=== PATIENT | male | born 1940 | race Caucasian/White ===

== ENCOUNTER → 2017-03-10 | Outpatient (CLI) | payer MEDICARE ==
[2017-03-10 09:50] LABS: ALT 25 U/L (21-72); AST 21 U/L (17-59); Alkaline Phosphatase 56 U/L (38-126); Anion Gap 7 mmol/L; Blood Urea Nitrogen 16 mg/dL (9-20); Calcium 8.8 mg/dL (8.4-10.2); Carbon Dioxide 28 mmol/L (22-30); Chloride 107 mmol/L (98-107); Cholesterol 150 mg/dL (<200); Glucose 105 mg/dL (74-99); HDL Cholesterol 50 mg/dL (40-60); Non-African American GFR(MDRD) >60 (>60 ml/min/1.73 sqM); Potassium 4.3 mmol/L (3.5-5.1); Sodium 142 mmol/L (137-145); Total Bilirubin 0.6 mg/dL (0.2-1.3); Total Protein 6.8 g/dL (6.3-8.2); Triglycerides 64 mg/dL (<150)
== END | disposition home or self-care (01) ==
LOC: LABWHC1 08:55
PROVIDERS: ATTEND Internal Medicine Interventional Cardiology
DX: E78.2 Mixed hyperlipidemia (principal)
CPT/HCPCS: 36415; 80053; 80061

== ENCOUNTER → 2018-04-29 | Outpatient (CLI) | payer MEDICARE ==
[2018-04-29 09:49] LABS: ALT 30 U/L (21-72); AST 23 U/L (17-59); Albumin 3.9 g/dL (3.5-5.0); Alkaline Phosphatase 48 U/L (38-126); Anion Gap 8 mmol/L; Blood Urea Nitrogen 17 mg/dL (9-20); Calcium 9.2 mg/dL (8.4-10.2); Carbon Dioxide 28 mmol/L (22-30); Chloride 105 mmol/L (98-107); Cholesterol 145 mg/dL (<200); Glucose 119 mg/dL (74-99); HDL Cholesterol 49 mg/dL (40-60); LDL Cholesterol,Calculated 83 mg/dL (0-99); Potassium 4.6 mmol/L (3.5-5.1); Sodium 141 mmol/L (137-145); Total Bilirubin 0.6 mg/dL (0.2-1.3); Total Protein 6.3 g/dL (6.3-8.2); Triglycerides 63 mg/dL (<150)
== END | disposition home or self-care (01) ==
LOC: LABWHC1 09:15
PROVIDERS: ATTEND Internal Medicine Interventional Cardiology
DX: E78.2 Mixed hyperlipidemia (principal)
CPT/HCPCS: 36415; 80053; 80061

== ENCOUNTER → 2018-12-18 | Outpatient (CLI) | payer MEDICARE ==
[2018-12-18 16:57] LABS: Albumin 4.1 g/dL (3.80-4.90); Albumin/Globulin Ratio 2.16 (1.60-3.17); Anion Gap 9.9 mmol/L (4.00-12.00); Carbon Dioxide 27.1 mmol/L (21.6-31.8); Globulin 1.9 g/dL (1.6-3.3); LDL Cholesterol,Calculated 93.2 mg/dL (0.0-131.0); Potassium 4.2 mmol/L (3.5-5.5); Total Bilirubin 0.7 mg/dL (0.2-1.2); VLDL Calculation 13.8 mg/dL (5.00-40.00)
== END | disposition home or self-care (01) ==
LOC: LABWHC1 09:07
PROVIDERS: ATTEND Internal Medicine Interventional Cardiology
DX: E78.2 Mixed hyperlipidemia (principal)
CPT/HCPCS: 36415; 80053; 80061

== ENCOUNTER 2018-12-31 14:53 | Inpatient (IN) | payer MEDICARE ==
[2018-12-31] MEDS ORDERED: ASPIRIN 81 MG PO STA (15:14)
[2018-12-31] MEDS ORDERED: NITROGLYCERIN OINT 1 INCH/GM PACKET TOPICAL STA (15:14)
--- NOTE | 2018-12-31 15:30 | ED ---
General Adult HPI - General Chief complaint: Chest Pain Stated complaint: Chest pain Time Seen by Provider: 12/31/18 15:13 Source: patient, RN notes reviewed Mode of arrival: ambulatory Limitations: no limitations - History of Present Illness Initial comments: 78-year-old male with a past medical history of coronary artery disease, 7 stents, diabetes mellitus, hyperlipidemia, hypertension, SC presents to the emergency department for a chief complaint of chest pressure. Patient states this has been on and off for the past week but has worsened today. Patient states this discomfort is worse with exertion. States he can usually walk up his basement stairs without difficulty but today started to walk up 7 stairs and had shortness of breath with chest pressure. Patient denies any radiating pain. Patient does admit to mild nausea.Patient has no other complaints at this time including shortness of breath, chest pain, abdominal pain, nausea or vomiting, headache, or visual changes. - Related Data Home Medications Medication Instructions Recorded Confirmed Levothyroxine Sodium [Synthroid] 50 mcg PO DAILY 05/18/14 12/31/18 glipiZIDE [Glucotrol] 2.5 mg PO HS 05/18/14 12/31/18 Aspirin EC [Ecotrin] 325 mg PO DAILY@1200 12/25/14 12/31/18 Chlorpheniramine Maleate 4 mg PO QID 12/14/15 12/31/18 [Chlor-Trimeton] Clopidogrel [Plavix] 75 mg PO DAILY@1200 12/14/15 12/31/18 Montelukast [Singulair] 10 mg PO HS 12/14/15 12/31/18 Omeprazole [PriLOSEC] 20 mg PO AC-BID 12/14/15 12/31/18 Atorvastatin [Lipitor] 80 mg PO HS 02/15/16 12/31/18 Tamsulosin [Flomax] 0.4 mg PO HS 12/31/18 12/31/18 amLODIPine [Norvasc] 5 mg PO BID 12/31/18 12/31/18 glipiZIDE [Glucotrol] 5 mg PO AC-BRKFST 12/31/18 12/31/18 Previous Rx's Medication Instructions Recorded Isosorbide Mononitrate ER [Imdur] 30 mg PO DAILY #90 tab.er.24h 12/16/15 Nitroglycerin Sl Tabs [Nitrostat] 0.4 mg SUBLINGUAL Q5M PRN #25 tab 12/16/15 Allergies Allergy/AdvReac Type Severity Reaction Status Date / Time No Known Allergies Allergy Verified 12/31/18 15:51 Review of Systems ROS Statement: Those systems with pertinent positive or pertinent negative responses have been documented in the HPI. ROS Other: All systems not noted in ROS Statement are negative. Past Medical History Past Medical History: Asthma, Coronary Artery Disease (CAD), Diabetes Mellitus, Hyperlipidemia, Hypertension, Myocardial Infarction (SC), Pneumonia, Thyroid Disorder Additional Past Medical History / Comment(s): gout, Last Myocardial Infarction Date:: unknown History of Any Multi-Drug Resistant Organisms: None Reported Past Surgical History: Coronary Bypass/CABG, Heart Catheterization, Heart Catheterization With Stent, Joint Replacement, Orthopedic Surgery Additional Past Surgical History / Comment(s): total 7 stents, left shoulder rotator cuff, blaire knee replacements, blaire carpal tunnel, Past Anesthesia/Blood Transfusion Reactions: No Reported Reaction Additional Past Anesthesia/Blood Transfusion Reaction / Comment(s): states comes out with restless legs Date of Last Stent Placement:: 2013 Past Psychological History: No Psychological Hx Reported Smoking Status: Former smoker Past Alcohol Use History: None Reported Past Drug Use History: None Reported - Past Family History Father Family Medical History: Coronary Artery Disease (CAD) Additional Family Medical History / Comment(s): ENLARGED HEART, HAD RAILROAD ACCIDENT FLATTENED BY DOOR OF A BOXCAR- DIES AT AGE 74 Mother Family Medical History: Cancer, Hypertension Additional Family Medical History / Comment(s): FEW YEARS AGO UNK CAUSE Daughter(s) Family Medical History: Cancer Brother(s) Family Medical History: Cancer General Exam Limitations: no limitations General appearance: alert, in no apparent distress Head exam: Present: atraumatic, normocephalic, normal inspection Eye exam: Present: normal appearance, PERRL, EOMI. Absent: scleral icterus, conjunctival injection, periorbital swelling ENT exam: Present: normal exam, mucous membranes moist Neck exam: Present: normal inspection, full ROM. Absent: tenderness, menin gismus, lymphadenopathy Respiratory exam: Present: normal lung sounds bilaterally. Absent: respiratory distress, wheezes, rales, rhonchi, stridor, chest wall tenderness Cardiovascular Exam: Present: regular rate, normal rhythm, normal heart sounds. Absent: systolic murmur, diastolic murmur, rubs, gallop, clicks GI/Abdominal exam: Present: soft, normal bowel sounds. Absent: distended, tenderness, guarding, rebound, rigid Extremities exam: Present: normal capillary refill (Refill less than 2 seconds, radial pulse 2+ in upper extremities bilaterally) Neurological exam: Present: alert, oriented X3, CN II-XII intact Psychiatric exam: Present: normal affect, normal mood Course Vital Signs 12/31/18 14:54 Temperature 98.2 F Pulse Rate 70 Respiratory 20 Rate Blood Pressure 141/76 O2 Sat by Pulse 99 Oximetry EKG Findings - EKG Comments: EKG Findings:: Normal sinus rhythm, ventricular rate 80, CO interval 144, QTC 446 Medical Decision Making - Medical Decision Making 78-year-old male with a past medical history of CAD, 7 stents, diabetes mellitus, hyperlipidemia, hypertension, SC presents to the emergency department for a chief clinic chest pressure. This has been on and off for the past week but worsened today. Worse with exertion. Patient unable to walk up 7 stairs from his basement which she is normally able to do. Denies radiating pain. Patient did have a stress test 2 weeks ago, has not received results yet. Exam is unremarkable. Vitals are stable. EKG does not show ST elevation or depression. labs are unremarkable. Troponin is negative. However give the symptom description, cardiac history, and worsening pain just today he will be admitted for trending troponins and cardiology consult. - Lab Data Result diagrams: 12/31/18 15:20 12/31/18 15:20 Lab Results 12/31/18 12/31/18 12/31/18 Range/Units 15:20 15:20 15:20 WBC 6.3 (3.8-10.6) k/uL RBC 4.43 (4.30-5.90) m/uL Hgb 13.9 (13.0-17.5) gm/dL Hct 42.6 (39.0-53.0) % MCV 96.2 (80.0-100.0) fL MCH 31.3 (25.0-35.0) pg MCHC 32.6 (31.0-37.0) g/dL RDW 14.0 (11.5-15.5) % Plt Count 201 (150-450) k/uL Neutrophils % 68 % Lymphocytes % 20 % Monocytes % 8 % Eosinophils % 2 % Basophils % 1 % Neutrophils # 4.3 (1.3-7.7) k/uL Lymphocytes # 1.2 (1.0-4.8) k/uL Monocytes # 0.5 (0-1.0) k/uL Eosinophils # 0.1 (0-0.7) k/uL Basophils # 0.1 (0-0.2) k/uL PT (9.0-12.0) sec INR (<1.2) APTT (22.0-30.0) sec Sodium 140 (137-145) mmol/L Potassium 4.0 (3.5-5.1) mmol/L Chloride 106 (98-107) mmol/L Carbon Dioxide 24 (22-30) mmol/L Anion Gap 10 mmol/L BUN 18 (9-20) mg/dL Creatinine 1.19 (0.66-1.25) mg/dL Est GFR (CKD-EPI)AfAm 66 (>60 ml/min/1.73 sqM) Est GFR (CKD-EPI)NonAf 57 (>60 ml/min/1.73 sqM) Glucose 120 H (74-99) mg/dL Calcium 9.5 (8.4-10.2) mg/dL Magnesium 2.0 (1.6-2.3) mg/dL Total Bilirubin 0.7 (0.2-1.3) mg/dL AST 23 (17-59) U/L ALT 27 (21-72) U/L Alkaline Phosphatase 49 (38-126) U/L Troponin I (0.000-0.034) ng/mL NT-Pro-B Natriuret Pep 132 pg/mL Total Protein 6.5 (6.3-8.2) g/dL Albumin 3.9 (3.5-5.0) g/dL Amylase 44 (30-110) U/L Lipase 23 (23-300) U/L 12/31/18 12/31/18 Range/Units 15:20 15:20 WBC (3.8-10.6) k/uL RBC (4.30-5.90) m/uL Hgb (13.0-17.5) gm/dL Hct (39.0-53.0) % MCV (80.0-100.0) fL MCH (25.0-35.0) pg MCHC (31.0-37.0) g/dL RDW (11.5-15.5) % Plt Count (150-450) k/uL Neutrophils % % Lymphocytes % % Monocytes % % Eosinophils % % Basophils % % Neutrophils # (1.3-7.7) k/uL Lymphocytes # (1.0-4.8) k/uL Monocytes # (0-1.0) k/uL Eosinophils # (0-0.7) k/uL Basophils # (0-0.2) k/uL PT 10.0 (9.0-12.0) sec INR 0.9 (<1.2) APTT 23.2 (22.0-30.0) sec Sodium (137-145) mmol/L Potassium (3.5-5.1) mmol/L Chloride (98-107) mmol/L Carbon Dioxide (22-30) mmol/L Anion Gap mmol/L BUN (9-20) mg/dL Creatinine (0.66-1.25) mg/dL Est GFR (CKD-EPI)AfAm (>60 ml/min/1.73 sqM) Est GFR (CKD-EPI)NonAf (>60 ml/min/1.73 sqM) Glucose (74-99) mg/dL Calcium (8.4-10.2) mg/dL Magnesium (1.6-2.3) mg/dL Total Bilirubin (0.2-1.3) mg/dL AST (17-59) U/L ALT (21-72) U/L Alkaline Phosphatase (38-126) U/L Troponin I <0.012 (0.000-0.034) ng/mL NT-Pro-B Natriuret Pep pg/mL Total Protein (6.3-8.2) g/dL Albumin (3.5-5.0) g/dL Amylase (30-110) U/L Lipase (23-300) U/L - EKG Data -: EKG Interpreted by Me (and Dr Edwards) When compared to previous EKG there are: no significant change Disposition Clinical Impression: Chest pain Disposition: ADMITTED IP TO THIS HOSP Condition: Fair Referrals: Kate Steiner MD [Primary Care Provider] - 1-2 days Time of Disposition: 17:11
[2018-12-31 15:39] LABS: Basophils # (A) 0.1 k/uL (0-0.2); Basophils % (A) 1 %; Eosinophils # (A) 0.1 k/uL (0-0.7); Eosinophils % (A) 2 %; HCT 42.6 % (39.0-53.0); HGB 13.9 gm/dL (13.0-17.5); Lymphocytes # (A) 1.2 k/uL (1.0-4.8); Lymphocytes % (A) 20 %; MCH 31.3 pg (25.0-35.0); MCHC 32.6 g/dL (31.0-37.0); MCV 96.2 fL (80.0-100.0); Mean Platelet Volume 7.8; Monocytes # (A) 0.5 k/uL (0-1.0); Monocytes % (A) 8 %; Neutrophils # (A) 4.3 k/uL (1.3-7.7); Neutrophils % (A) 68 %; Platelet Count 201 k/uL (150-450); RBC 4.43 m/uL (4.30-5.90); WBC 6.3 k/uL (3.8-10.6)
[2018-12-31 15:41] LABS: Albumin 3.9 g/dL (3.5-5.0); Calcium 9.5 mg/dL (8.4-10.2); Total Bilirubin 0.7 mg/dL (0.2-1.3); Total Protein 6.5 g/dL (6.3-8.2)
[2018-12-31 15:44] LABS: INR 0.9 (<1.2); Partial Thromboplastin Time 23.2 sec (22.0-30.0)
--- NOTE | 2018-12-31 16:42 | XR ---
EXAMINATION TYPE: XR chest 2V DATE OF EXAM: 12/31/2018 COMPARISON: 02/14/2016 HISTORY: Asthma. Chest pain TECHNIQUE: Frontal and lateral views of the chest are obtained. FINDINGS: There is some mild patchy linear density at the lung bases. There are sternal wires. There is right shoulder prosthesis. There is no heart failure. Heart size is normal. Thoracic aorta is ath eromatous. IMPRESSION: Patchy basilar atelectasis increased compared to old exam. Normal heart.
[2018-12-31] MEDS ORDERED: SODIUM CHLORIDE 0.9% 1,000 ML IV STA (17:10)
[2018-12-31] MEDS: NITROGLYCERIN SL TABS 0.4 MG TAB SUBLINGUAL PRN ×2 (19:31→20:45)
[2019-01-01 03:51] LABS: Cholesterol 147 mg/dL (<200); HDL Cholesterol 48 mg/dL (40-60); LDL Cholesterol,Calculated 86 mg/dL (0-99); Triglycerides 65 mg/dL (<150)
[2019-01-01] MEDS ORDERED: ATORVASTATIN 80 MG TAB PO STA (08:43)
[2019-01-01] MEDS ORDERED: ASPIRIN 325 MG TAB PO STA (08:43)
[2019-01-01] MEDS ORDERED: ALPRAZolam 0.5 MG TAB PO PRN (08:43)
[2019-01-01] MEDS ORDERED: SODIUM CHLORIDE 0.9% 1,000 ML in EMPTY BAG 1 BAG IV ONE (08:43)
[2019-01-01] MEDS ORDERED: ALPRAZolam 0.25 MG TAB PO PRN (08:43)
[2019-01-01] MEDS ORDERED: NITROGLYCERIN SL TABS 0.4 MG TAB SUBLINGUAL PRN ×2 (08:43→11:21)
[2019-01-01] MEDS ORDERED: ASPIRIN 325 MG TAB PO SCH (09:00)
[2019-01-01] MEDS: ISOSORBIDE MONONITRATE ER 30 MG TAB.ER.24H PO SCH (09:12)
[2019-01-01] MEDS: diphenhydrAMINE 25 MG CAP PO SCH ×4 (09:13→18:37)
[2019-01-01] MEDS: PANTOPRAZOLE 40 MG TABLET PO SCH (09:13)
[2019-01-01] MEDS: amLODIPine 5 MG TAB PO SCH ×3 (09:13→21:16)
[2019-01-01] MEDS ORDERED: fentaNYL (PF) 50 MCG/ML 2 ML AMP ONE (09:40)
[2019-01-01] MEDS ORDERED: LIDOCAINE 1% INJ 10MG/ML (20 ML MDV) ONE (09:40)
[2019-01-01] MEDS ORDERED: IV FLUID CONTINUATION 1,000 ML IV ONE (10:28)
[2019-01-01] MEDS ORDERED: fentaNYL (PF) 50 MCG/ML 2 ML AMP IVP ONE (10:28)
[2019-01-01] MEDS ORDERED: LIDOCAINE 1% INJ 10MG/ML (20 ML MDV) SQ ONE ×2 (10:30)
[2019-01-01] MEDS ORDERED: BIVALIRUDIN BOLUS 250 MG/50 ML IV ONE (10:43)
[2019-01-01] MEDS ORDERED: BIVALIRUDIN 250 MG in SODIUM CHLORIDE 0.9% 50 ML IV ONE (10:44)
[2019-01-01] MEDS ORDERED: NITROGLYCERIN 1000MCG/10ML SYRINGE INTRACORON ONE ×2 (10:46→10:50)
--- NOTE | 2019-01-01 10:47 | CONS ---
CONSULTATION Mr. Weber is an 78-year-old male with a known history of coronary artery disease, status post bypass grafting who presented to the emergency room with symptoms of chest discomfort. His discomfort started about a week ago and worse yesterday, exertion in pattern, similar to the symptoms he had in 2016, prior to his percutaneous revascularization. He has underwent coronary bypass grafting in 1998 with BOOGIE to LAD, saphenous vein graft to the right coronary artery. Subsequently in 2003, underwent stenting of the proximal LAD, 2009 of the saphenous vein graft to the right coronary artery, In 2013 saphenous vein graft to the right coronary artery. In 2016, he presented with symptoms of chest discomfort, anginal in pattern, underwent repeat cardiac catheterization at that time and was found to have chronically occluded right coronary artery, mild disease in proximal LAD, patent saphenous vein graft to the right coronary artery with severe stenosis in the distal anastomotic site. The left circumflex was nondominant, giving rise to 2 obtuse marginal branch that had no evidence of high-grade stenosis. He subsequently underwent stenting of the saphenous vein graft to the right coronary artery in the distal segment using a 3.25 x 18 mm Xience stent. He has done well since that time. He has been complaining of dyspnea on exertion with his chest discomfort. He has no PND, orthopnea, or peripheral edema. No dizziness or syncope. His coronary risk factors are remarkable for history of diabetes, hypertension, hyperlipidemia. He is a nonsmoker. MEDICATIONS: Include aspirin once a day, Lipitor 80 mg daily, Plavix 75 mg daily, Imdur 30 mg daily, Synthroid 0.05 mg daily, Singulair 10 mg daily, Prilosec 20 mg twice a day, Flomax 0.4 mg daily, Norvasc 5 mg twice a day, and Glipizide. REVIEW OF SYSTEMS: RESPIRATORY SYSTEM: No recent wheezing. No cough. No history of documented obstructive lung disease. GI SYSTEM: No recent GI bleeding. No peptic ulcer disease. SYSTEM: No dysuria, hematuria. NERVOUS SYSTEM: No seizure. PHYSICAL EXAMINATION: He is an 78-year-old male, alert, oriented, in no apparent distress. Blood pressure 150/80 with a heart rate in the 60s. HEAD: Normocephalic. EYES: Sclerae nonicteric. NECK Good upstroke, no bruit, no venous distention. LUNGS: Clear to auscultation. HEART: Regular rate and rhythm, S1, S2. No S3 with systolic ejection murmur heard at the base. No diastolic murmur, no rub. ABDOMEN: Soft, nontender. Positive bowel sounds, no organomegaly. EXTREMITIES: No edema, intact pulses. LAB DATA: Revealed BUN and creatinine of 18 and 1.19, potassium 4.0. Troponin less than 0.012, and then 0.165. Hemoglobin is 13.9. EKG revealed a sinus mechanism, normal axis, intervals with nonspecific T-wave changes in leads V3 and V4. Chest x-ray revealed no acute infiltrate. IMPRESSION: 1. Chest discomfort with evidence of non ST-segment elevation myocardial infarction. 2. Status post bypass coronary artery bypass grafting and percutaneous revascularization. 3. History of hypertension. 4. Hyperlipidemia. RECOMMENDATION: I have recommended to proceed with coronary angiography to assess his status and guide his treatment. The rationale behind the procedures, risks and complication were discussed with the patient who is in full understanding and agreement. Thank you for this consult. Will follow with you. MMVERNELL / JUAN DAVIDN: [id number] /
[2019-01-01] MEDS ORDERED: CLOPIDOGREL 75 MG TAB ONE (10:56)
[2019-01-01] MEDS ORDERED: IOPAMIDOL-370 150ML BTL INJ ONE (11:00)
[2019-01-01] MEDS ORDERED: CLOPIDOGREL 75 MG TAB PO ONE (11:01)
[2019-01-01] MEDS ORDERED: RX INFO: IV CONTRAST WAS GIVEN 1 EACH MISC MISCELLANE PRN (11:21)
[2019-01-01] MEDS ORDERED: MAG HYDROX/AL HYDROX/SIMETH 30 ML CUP PO PRN (11:21)
[2019-01-01] MEDS ORDERED: ZOLPIDEM 5 MG TAB PO PRN (11:21)
[2019-01-01] MEDS ORDERED: ATROPINE SULFATE 0.1 MG/ML 10ML SYRINGE IV PRN (11:21)
[2019-01-01] MEDS ORDERED: SODIUM CHLORIDE 0.9% 1,000 ML IV SCH (11:30)
--- NOTE | 2019-01-01 11:32 | CC ---
CARDIAC CATHETERIZATION REPORT Mr. Weber is an 78-year-old male with known history of coronary artery disease, status post bypass grafting, percutaneous revascularization who presented to the emergency room with symptoms of chest discomfort with mild troponin elevation consistent with non ST-segment elevation myocardial infarction. In view of that, recommendation regarding cardiac catheterization. The procedures, risks and complications were discussed with the patient who is in full understanding and agreement. PROCEDURE: Patient was brought to the laundry laborer in a fasting semi-sedated state after receiving fentanyl and Benadryl and achieving moderate conscious sedated state. Using Xylocaine anesthesia and Seldinger technique, a 6-Mosotho sheath was introduced in the right femoral artery. Selective right and left coronary angiography was performed using 6- Mosotho 4 bend right and left Tiara catheter, multiple views of the coronary artery including hemiaxial views obtained. Following that, a 6-Mosotho right Tiara catheter was used to cannulate the saphenous vein graft to the right coronary artery and images of the grafts were obtained. Following that, angioplasty and stenting was performed. Following that, a 6-Mosotho tight pigtail catheter was introduced in the left ventricle and the pressures were calculated. Following that, the catheter and sheath were removed. Hemostasis was obtained with deployment of an Angio-Seal. There was no immediate complication. Patient is returned to his room in stable condition. FINDINGS: LEFT MAIN: This is a short-size vessel, bifurcating into left circumflex, left anterior descending artery. Left main coronary artery has no evidence of high-grade stenosis. LEFT ANTERIOR DESCENDING ARTERY: This is a large-sized vessel, tapers down distal third, gives rise to a large diagonal branch that is a stented segment. The proximal LAD is patent with 10% to 20% plaque and no evidence of high-grade stenosis. LEFT CIRCUMFLEX: This is a large nondominant vessel, giving rise to three obtuse marginal branches, the first and the third one are the largest in caliber, the left circumflex proximally has 20% to 30% plaque. The rest of the vessel has no high-grade stenosis. RIGHT CORONARY ARTERY: This vessel is totally occluded proximally with no antegrade flow. SAPHENOUS VEIN GRAFT TO THE RIGHT CORONARY ARTERY: The proximal, distal anastomotic sites are patent. The proximal and distal stent are patent. There is a new lesion in the mid body of the graft of about 95%. The rest of the vessel has no high-grade stenosis. LEFT VENTRICULOGRAM: Left ventriculogram was not performed. HEMODYNAMICS: There was no gradient across the aortic valve. The left ventricle end- diastolic pressure was 10 mmHg. CONCLUSION: 1. Mild disease in the left anterior descending artery and the left circumflex. 2. Totally occluded right coronary artery. 3. Patent saphenous vein graft to the right coronary artery with significant stenosis in the body of the graft. RECOMMENDATION: In view of finding anatomy, I recommend proceeding with angioplasty and stenting of the body of the saphenous vein graft. The procedures, risks and complication were discussed with the patient who is in full understanding and agreement. MMODL / IJN: [id number] /
--- NOTE | 2019-01-01 11:41 | PTCA ---
PERCUTANEOUSTRANS CORORONARY ANGIOGRAPHY Mr. Weber is an 78-year-old male with a known history of coronary artery disease who presented with [id number] elevation myocardial infarction, underwent coronary angiography, was found to have critical stenosis in the body of the saphenous vein graft to the right coronary artery. In view of that, recommendation was made regarding angioplasty and stenting. The procedure as well as the risks and the complications were discussed with the patient who is in full understanding and agreement. PROCEDURE: A 6-Namibian FR4 guiding catheter was introduced in the system. After cannulating the ostium of the graft, a 0.014 balanced medium weight J-wire was advanced across the lesion, positioned distally, then a 2.5 x 15 mm Trek balloon was advanced one inflation at 10 atmospheres was done. Following that, the balloon was removed and a 3.5 x 18 mm Xience Kerry stent was deployed, postdilated at 16 atmospheres. After the last inflation, after appropriate wait, the balloon and the guidewire withdrawn back in the guiding catheter. Images were obtained, repeated. Those images reveal stable successful stenting. At that point, the guiding catheter, the balloon and the guidewire wire were removed. The left ventricular end-diastolic pressure was calculated. Following that catheter and sheath were removed. Hemostasis was obtained with deployment of an Angio-Seal. There was no immediate complication. Patient was returned to his room in stable condition. Of note, the patient received Angiomax per protocol. He was continued on clopidogrel. He had chest pain and EKG changes that improved at the end procedure. RESULTS: Successful stenting of the body of the saphenous vein graft to the right coronary artery with reduction of stenosis from 95% to 0%. RECOMMENDATION: Patient will be continued on aspirin, Plavix, CARLI inhibitor, and statin. The importance of dual antiplatelet treatment were discussed with the patient and his family who are in full understanding and agreement. Duration of procedure is 29 minutes. MMODL / IJN: [id number] /
[2019-01-01] MEDS: INSULIN ASPART (NovoLOG) 100 UNIT/ML VIAL SQ SCH ×5 (11:42→21:44)
[2019-01-01] MEDS: ATORVASTATIN 80 MG TAB PO SCH ×2 (11:42→21:16)
[2019-01-01] MEDS: MONTELUKAST 10 MG TAB PO SCH ×2 (11:42→21:16)
[2019-01-01] MEDS: TAMSULOSIN 0.4 MG CAP.ER.24H PO SCH ×2 (11:42→21:15)
[2019-01-01] MEDS: LEVOTHYROXINE 50 MCG TAB PO SCH (11:43)
[2019-01-01] MEDS: glipiZIDE 5 MG TAB PO SCH ×2 (11:44→21:16)
--- NOTE | 2019-01-01 11:44 | P.HPIM ---
History of Present Illness This is a pleasant 6 years old male with past medical history of asthma, coronary artery disease, status post CABG, diabetes mellitus, hyperlipidemia, hypertension, hypothyroidism, gout. Presents with signs symptoms of chest pressure and elevated troponin. He underwent cardiac cath by cardiology team showing mild disease in the left anterior descending arteries and left circumflex artery. Totally occluded right coronary artery, and patent saphenous vein graft to right coronary artery with significant stenosis in the body of the graft. Status post stenting of the graft. Chest x-ray: Atelectasis. Review of Systems CONSTITUTIONAL: No fever, no malaise, no fatigue. HEENT: No recent visual problems or hearing problems. Denied any sore throat. CARDIOVASCULAR: No orthopnea, PND, no palpitations, no syncope. PULMONARY: No shortness of breath, no cough, no hemoptysis. GASTROINTESTINAL: No diarrhea, no nausea, no vomiting, no abdominal pain. Normoactive bowel sounds. NEUROLOGICAL: No headaches, no weakness, no numbness. HEMATOLOGICAL: Denies any bleeding or petechiae. GENITOURINARY: Denies any burning micturition, frequency, or urgency. MUSCULOSKELETAL/RHEUMATOLOGICAL: Denies any joint pain, swelling, or any muscle pain. ENDOCRINE: Denies any polyuria or polydipsia. Past Medical History Past Medical History: Asthma, Coronary Artery Disease (CAD), Diabetes Mellitus, Hyperlipidemia, Hypertension, Myocardial Infarction ([place]), Pneumonia, Thyroid Disorder Additional Past Medical History / Comment(s): gout, Last Myocardial Infarction Date:: unknown History of Any Multi-Drug Resistant Organisms: None Reported Past Surgical History: Coronary Bypass/CABG, Heart Catheterization, Heart Catheterization With Stent, Joint Replacement, Orthopedic Surgery Additional Past Surgical History / Comment(s): total 7 stents, left shoulder rotator cuff, blaire knee replacements, blaire carpal tunnel, Past Anesthesia/Blood Transfusion Reactions: No Reported Reaction Additional Past Anesthesia/Blood Transfusion Reaction / Comment(s): states comes out with restless legs Date of Last Stent Placement:: 2013 Past Psychological History: No Psychological Hx Reported Smoking Status: Former smoker Past Alcohol Use History: None Reported Past Drug Use History: None Reported - Past Family History Father Family Medical History: Coronary Artery Disease (CAD) Additional Family Medical History / Comment(s): ENLARGED HEART, HAD RAILROAD ACCIDENT FLATTENED BY DOOR OF A BOXCAR- DIES AT AGE 74 Mother Family Medical History: Cancer, Hypertension Additional Family Medical History / Comment(s): FEW YEARS AGO UNK CAUSE Daughter(s) Family Medical History: Cancer Brother(s) Family Medical History: Cancer Medications and Allergies Home Medications Medication Instructions Recorded Confirmed Type Levothyroxine Sodium [Synthroid] 50 mcg PO DAILY 05/18/14 12/31/18 History glipiZIDE [Glucotrol] 2.5 mg PO HS 05/18/14 12/31/18 History Aspirin EC [Ecotrin] 325 mg PO DAILY@1200 12/25/14 12/31/18 History Chlorpheniramine Maleate 4 mg PO QID 12/14/15 12/31/18 History [Chlor-Trimeton] Clopidogrel [Plavix] 75 mg PO DAILY@1200 12/14/15 12/31/18 History Montelukast [Singulair] 10 mg PO HS 12/14/15 12/31/18 History Omeprazole [PriLOSEC] 20 mg PO AC-BID 12/14/15 12/31/18 History Isosorbide Mononitrate ER [Imdur] 30 mg PO DAILY #90 tab.er.24h 12/16/15 12/31/18 Rx Nitroglycerin Sl Tabs [Nitrostat] 0.4 mg SUBLINGUAL Q5M PRN #25 tab 12/16/15 12/31/18 Rx Atorvastatin [Lipitor] 80 mg PO HS 02/15/16 12/31/18 History Tamsulosin [Flomax] 0.4 mg PO HS 12/31/18 12/31/18 History amLODIPine [Norvasc] 5 mg PO BID 12/31/18 12/31/18 History glipiZIDE [Glucotrol] 5 mg PO AC-BRKFST 12/31/18 12/31/18 History Allergies Allergy/AdvReac Type Severity Reaction Status Date / Time No Known Allergies Allergy Verified 12/31/18 15:51 Physical Exam Vitals: Vital Signs Temp Pulse Resp BP Pulse Ox 01/01/19 07:11 59 L 20 152/84 97 01/01/19 07:00 58 L 16 01/01/19 06:00 56 L 20 152/82 97 01/01/19 04:51 55 L 20 152/85 97 01/01/19 04:30 59 L 12 134/98 97 01/01/19 04:00 59 L 8 L 145/79 96 01/01/19 03:30 61 16 145/79 94 L 01/01/19 03:00 69 16 122/74 94 L 01/01/19 02:30 62 12 122/74 94 L 01/01/19 02:00 65 20 122/74 98 01/01/19 01:47 52 L 20 145/84 98 01/01/19 01:30 58 L 13 126/73 93 L 01/01/19 01:00 52 L 10 L 132/74 93 L 01/01/19 00:30 51 L 12 128/71 01/01/19 00:01 55 L 22 128/71 96 01/01/19 00:00 60 12 130/79 95 12/31/18 23:30 46 L 13 134/72 93 L 12/31/18 23:00 58 L 10 L 137/81 95 12/31/18 22:30 53 L 14 131/78 94 L 12/31/18 22:00 55 L 12 176/66 95 12/31/18 21:30 58 L 16 130/79 94 L 12/31/18 21:00 60 12 128/76 94 L 12/31/18 20:50 69 16 128/76 96 12/31/18 20:47 61 16 157/95 96 12/31/18 20:30 63 10 L 139/80 96 12/31/18 20:00 53 L 11 L 130/77 95 12/31/18 19:36 71 16 130/77 96 12/31/18 19:33 58 L 16 157/86 95 12/31/18 19:30 64 41 H 136/84 97 12/31/18 19:00 58 L 14 142/89 12/31/18 18:00 61 17 126/78 94 L 12/31/18 17:30 63 15 141/80 95 12/31/18 17:00 65 10 L 142/87 96 12/31/18 16:30 63 18 116/73 93 L 12/31/18 16:00 67 11 L 124/70 96 12/31/18 14:54 98.2 F 70 20 141/76 99 Intake and Output 12/31/18 01/01/19 01/01/19 22:59 06:59 14:59 Intake Total 73 Balance 73 Intake: IV 73 GENERAL: The patient is alert and oriented x3, not in any acute distress. Well developed, well nourished. HEENT: Pupils are round and equally reacting to light. EOMI. No scleral icterus. No conjunctival pallor. Normocephalic, atraumatic. No pharyngeal erythema. No thyromegaly. CARDIOVASCULAR: S1 and S2 present. No murmurs, rubs, or gallops. PULMONARY: Chest is clear to auscultation, no wheezing or crackles. ABDOMEN: Soft, nontender, nondistended, normoactive bowel sounds. No palpable organomegaly. MUSCULOSKELETAL: No joint swelling or deformity. EXTREMITIES: No cyanosis, clubbing, or pedal edema. NEUROLOGICAL: Gross neurological examination did not reveal any focal deficits. SKIN: No rashes. Results CBC & Chem 7: 12/31/18 15:20 12/31/18 15:20 Labs: Abnormal Lab Results - Last 24 Hours (Table) 12/31/18 01/01/19 Range/Units 15:20 03:29 Glucose 120 H (74-99) mg/dL Troponin I 0.165 H* (0.000-0.034) ng/mL Assessment and Plan Assessment: Acute coronary syndrome, status post cardiac cath Totally occluded right coronary artery, with stenotic saphenous vein graft to the right coronary artery. Status post stent placement to the graft by cardiology team History of coronary artery disease Diabetes mellitus Hyperlipidemia Essential hypertension Plan: This is a pleasant 6 years old male who presents with stenotic saphenous graft to right coronary artery. Status post stent placement by cardiology team. Their input is appreciated. Continue with medical management with aspirin, statin, Plavix Labs and medication were reviewed.. Continue same treatment. Continue with symptomatic treatment. Resume home medication. Monitor lytes and vitals. DVT and GI prophylaxis. Further recommendations of the clinical course of the patient Prognosis is guarded
[2019-01-01 11:49] LABS: Glucose,Whole Blood 128 mg/dL (75-99)
[2019-01-01] MEDS ORDERED: NON-FORMULARY DRUG (Aspirin Ec 325 MG) PO SCH (12:00)
[2019-01-01 12:29] VITALS: BMI 28.4
[2019-01-01] MEDS: CLOPIDOGREL 75 MG TAB PO SCH (13:25)
[2019-01-01 16:41] LABS: Glucose,Whole Blood 105 mg/dL (75-99)
[2019-01-01 20:51] LABS: Glucose,Whole Blood 152 mg/dL (75-99)
[2019-01-01] MEDS: FAMOTIDINE 20 MG/2 ML VIAL IV SCH (21:15)
[2019-01-01] MEDS: LISINOPRIL 5 MG TAB PO SCH (21:16)
[2019-01-02] MEDS: diphenhydrAMINE 25 MG CAP PO SCH ×5 (02:44→21:37)
[2019-01-02 05:55] LABS: Glucose,Whole Blood 79 mg/dL (75-99)
[2019-01-02] MEDS: INSULIN ASPART (NovoLOG) 100 UNIT/ML VIAL SQ SCH ×3 (06:11→17:20)
[2019-01-02] MEDS: LEVOTHYROXINE 50 MCG TAB PO SCH (06:33)
[2019-01-02] MEDS: PANTOPRAZOLE 40 MG TABLET PO SCH (06:33)
[2019-01-02 06:54] LABS: Anion Gap 6 mmol/L; Blood Urea Nitrogen 14 mg/dL (9-20); Calcium 9.4 mg/dL (8.4-10.2); Carbon Dioxide 28 mmol/L (22-30); Chloride 106 mmol/L (98-107); Glucose 75 mg/dL (74-99); Potassium 4.5 mmol/L (3.5-5.1); Sodium 140 mmol/L (137-145)
[2019-01-02] MEDS: LISINOPRIL 5 MG TAB PO SCH ×2 (08:43→20:37)
[2019-01-02] MEDS: amLODIPine 5 MG TAB PO SCH ×2 (08:43→20:37)
[2019-01-02] MEDS: FAMOTIDINE 20 MG/2 ML VIAL IV SCH ×2 (08:43→20:37)
[2019-01-02] MEDS: ISOSORBIDE MONONITRATE ER 30 MG TAB.ER.24H PO SCH (08:43)
[2019-01-02] MEDS: ASPIRIN 81 MG PO SCH (08:43)
[2019-01-02] MEDS: CLOPIDOGREL 75 MG TAB PO SCH (08:43)
[2019-01-02] MEDS ORDERED: ASPIRIN 325 MG TAB PO SCH (09:00)
--- NOTE | 2019-01-02 10:59 | P.PN ---
Subjective Progress Note Date: 01/02/19 This is an 78-year-old gentleman who presented to the hospital with a non-ST elevation myocardial infarction. He has a known history of coronary artery disease with prior bypass surgery, hypertension, and hyperlipidemia. Patient was taken to the cardiac catheterization lab by Dr. Reid where he underwent stenting of the saphenous vein graft to the right coronary artery. The patient was seen and examined this morning, denied any chest pain or difficulty in breathing. His EKG from this morning shows a normal sinus rhythm with no acute changes from post-PCI. Blood pressure 110/60 with a heart rate in the 70s, 95% on room air. Sodium 140, potassium 4.5, BUN 14 and creatinine 0.7. The patient was seen and examined this morning, denied any chest pain or difficulty in breathing. He's been up ambulating without any difficulty. Right groin is soft with no evidence of any hematoma. Objective - Vital Signs Vital signs: Vital Signs Temp 98.3 F 01/02/19 08:00 Pulse 73 01/02/19 08:00 Resp 18 01/02/19 08:00 BP 109/68 01/02/19 08:00 Pulse Ox 95 01/02/19 08:00 Intake & Output 01/01/19 01/02/19 01/02/19 18:59 06:59 18:59 Intake Total 433 480 Balance 433 480 Weight 79.832 kg 76.9 kg Intake: IV 73 Oral 360 480 Other: Voiding Method Urinal Urinal # Voids 1 2 - Exam PHYSICAL EXAMINATION: GENERAL: 78-year-old gentleman in no acute distress at the time of my examination HEENT: Head is atraumatic, normocephalic. Pupils equal, round. Sclera anicteric. Conjunctiva are clear. Mucous membranes of the mouth are moist. Neck is supple. There is no elevated jugular venous pressure. No carotid bruit is heard. HEART EXAMINATION: Heart S1 S2 1 systolic ejection murmur is heard CHEST EXAMINATION: Lungs are clear to auscultation and precussion. No chest wall tenderness is noted on palpation or with deep breathing. ABDOMEN: Soft, nontender. Bowel sounds are heard. No organomegaly noted. EXTREMITIES: 2+ peripheral pulses with no evidence of peripheral edema and no calf tenderness noted. Right groin soft, no evidence of any hematoma. NEUROLOGIC patient is awake, alert and oriented 3 . . - Labs CBC & Chem 7: 12/31/18 15:20 01/02/19 05:56 Labs: Abnormal Lab Results - Last 24 Hours (Table) 01/01/19 01/01/19 01/01/19 Range/Units 11:46 16:38 20:48 POC Glucose (mg/dL) 128 H 105 H 152 H (75-99) mg/dL Assessment and Plan Plan: Assessment and plan #1 non-ST elevation [place] status post angioplasty and stenting of the saphenous vein graft to the right coronary artery #2 hypertension #3 hyperlipidemia Plan From cardiology's perspective, we'll recommend to continue the patient on his current medications. Echocardiogram with Doppler study has been performed but is yet pending. Plan for possible discharge home in 24 hours if stable. DNP note has been reviewed, I agree with a documented findings and plan of care. Patient was seen and examined.
[2019-01-02 11:05] LABS: Glucose,Whole Blood 157 mg/dL (75-99)
--- NOTE | 2019-01-02 16:20 | P.PN ---
Subjective This is a pleasant 6 years old male with past medical history of asthma, coronary artery disease, status post CABG, diabetes mellitus, hyperlipidemia, hypertension, hypothyroidism, gout. Presents with signs symptoms of chest pressure and elevated troponin. He underwent cardiac cath by cardiology team showing mild disease in the left anterior descending arteries and left circumflex artery. Totally occluded right coronary artery, and patent saphenous vein graft to right coronary artery with significant stenosis in the body of the graft. Status post stenting of the graft. Chest x-ray: Atelectasis. 01/02/2019 patient was feeling well today no more chest pain or dyspnea. To the degree that thought he would be discharged today and when I walked to the hem he was already dressed up. And has been evaluated by the business process representative and discussed the case with them. They recommended to keep the patient today for more observation. Patient agrees with this plan. Repeat chest x-ray shows worsening atelectasis however patient without symptoms. Patient instructed to use more incentive spirometry and he agrees. Discussed with the staff as well as Objective - Vital Signs Vital signs: Vital Signs Temp 98.3 F 01/02/19 08:00 Pulse 73 01/02/19 08:00 Resp 18 01/02/19 08:00 BP 109/68 01/02/19 08:00 Pulse Ox 95 01/02/19 08:00 Intake & Output 01/01/19 01/02/19 01/02/19 18:59 06:59 18:59 Intake Total 433 600 Balance 433 600 Weight 79.832 kg 76.9 kg Intake: IV 73 Oral 360 600 Other: Voiding Method Urinal Urinal # Voids 1 2 3 - Exam GENERAL: The patient is alert and oriented x3, not in any acute distress. Well developed, well nourished. HEENT: Pupils are round and equally reacting to light. EOMI. No scleral icterus. No conjunctival pallor. Normocephalic, atraumatic. No pharyngeal erythema. No thyromegaly. CARDIOVASCULAR: S1 and S2 present. No murmurs, rubs, or gallops. PULMONARY: Chest is clear to auscultation, no wheezing or crackles. ABDOMEN: Soft, nontender, nondistended, normoactive bowel sounds. No palpable organomegaly. MUSCULOSKELETAL: No joint swelling or deformity. EXTREMITIES: No cyanosis, clubbing, or pedal edema. NEUROLOGICAL: Gross neurological examination did not reveal any focal deficits. SKIN: No rashes. - Labs CBC & Chem 7: 12/31/18 15:20 01/02/19 05:56 Labs: Abnormal Lab Results - Last 24 Hours (Table) 01/01/19 01/01/19 01/02/19 Range/Units 16:38 20:48 11:04 POC Glucose (mg/dL) 105 H 152 H 157 H (75-99) mg/dL Assessment and Plan Assessment: Acute coronary syndrome, status post cardiac cath Totally occluded right coronary artery, with stenotic saphenous vein graft to the right coronary artery. Status post stent placement to the graft by cardiology team History of coronary artery disease Diabetes mellitus Hyperlipidemia Essential hypertension Plan: This is a pleasant 6 years old male who presents with stenotic saphenous graft to right coronary artery. Status post stent placement by cardiology team. Their input is appreciated. Continue with medical management with aspirin, statin, Plavix Labs and medication were reviewed.. Continue same treatment. Continue with symptomatic treatment. Resume home medication. Monitor lytes and vitals. DVT and GI prophylaxis. Further recommendations of the clinical course of the patient Prognosis is guarded
[2019-01-02 16:31] LABS: Glucose,Whole Blood 130 mg/dL (75-99)
[2019-01-02 20:35] LABS: Glucose,Whole Blood 116 mg/dL (75-99)
[2019-01-02] MEDS: ATORVASTATIN 80 MG TAB PO SCH (20:37)
[2019-01-02] MEDS: MONTELUKAST 10 MG TAB PO SCH (20:37)
[2019-01-02] MEDS: TAMSULOSIN 0.4 MG CAP.ER.24H PO SCH (20:37)
[2019-01-03] MEDS: INSULIN ASPART (NovoLOG) 100 UNIT/ML VIAL SQ SCH ×3 (01:44→12:06)
[2019-01-03 06:24] LABS: Glucose,Whole Blood 107 mg/dL (75-99)
[2019-01-03] MEDS: LEVOTHYROXINE 50 MCG TAB PO SCH (06:47)
[2019-01-03] MEDS: glipiZIDE 5 MG TAB PO SCH (06:47)
[2019-01-03] MEDS: PANTOPRAZOLE 40 MG TABLET PO SCH (06:47)
[2019-01-03] MEDS: CLOPIDOGREL 75 MG TAB PO SCH (08:24)
[2019-01-03] MEDS: amLODIPine 5 MG TAB PO SCH (08:24)
[2019-01-03] MEDS: diphenhydrAMINE 25 MG CAP PO SCH ×2 (08:24→12:06)
[2019-01-03] MEDS: ASPIRIN 81 MG PO SCH (08:24)
[2019-01-03] MEDS: ISOSORBIDE MONONITRATE ER 30 MG TAB.ER.24H PO SCH (08:24)
[2019-01-03] MEDS: FAMOTIDINE 20 MG/2 ML VIAL IV SCH (08:24)
[2019-01-03] MEDS: LISINOPRIL 5 MG TAB PO SCH (08:24)
[2019-01-03] MEDS ORDERED: METOPROLOL SUCCINATE (ER) 25 MG TAB.ER.24H PO SCH (09:00)
--- NOTE | 2019-01-03 11:14 | P.PN ---
Subjective This pleasant 78-year-old male history of coronary artery disease status post bypass grafting, hypertension and dyslipidemia. He is status post stent placement in the SVG to RCA. He is seen and examined resting comfortably sitting up in the chair in no acute distress. He denies symptoms of chest discomfort, shortness of breath, dizziness or palpitations. Blood pressure 97/55 heart rate 69 afebrile maintaining oxygen saturation on room air. Right groin is soft, nontender with no evidence of hematoma, ecchymosis or bleeding. Currently maintained on amlodipine 5 mg twice a day, aspirin 81 mg daily, atorvastatin 80 mg daily, Plavix 75 mg daily, Imdur 30 mg daily and lisinopril 5 mg twice a day. GENERAL: Well-appearing, well-nourished and in no acute distress. NECK: Supple without JVD or thyromegaly. LUNGS: Breath sounds clear to auscultation bilaterally. Respiration equal and unlabored. No wheezes, rales or rhonchi. HEART: Regular rate and rhythm with systolic ejection murmur at the base, no rubs or gallops. S1 and S2 heard. EXTREMITIES: Normal range of motion, no edema. No clubbing or cyanosis. Peripheral pulses intact. ASSESSMENT Non-ST elevated myocardial infarction status post stent placement SVG to RCA History of coronary artery disease status post bypass grafting Hypertension Dyslipidemia PLAN Initiate on Toprol 25 mg daily and decrease lisinopril to 5 mg daily. Stable from a cardiac perspective for discharge home. Follow-up with Dr. Reid in one week. Nurse Practitioner note has been reviewed, I agree with a documented findings and plan of care. Patient was seen and examined. Objective - Vital Signs Vital signs: Vital Signs Temp 98.1 F 01/03/19 08:28 Pulse 69 01/03/19 08:28 Resp 16 01/03/19 08:28 BP 97/55 01/03/19 08:28 Pulse Ox 94 L 01/03/19 00:00 Intake & Output 01/02/19 01/03/19 01/03/19 18:59 06:59 18:59 Intake Total 600 300 230 Balance 600 300 230 Weight 77.5 kg Intake: Oral 600 300 230 Other: Voiding Method Urinal Urinal # Voids 3 2 2 - Labs CBC & Chem 7: 12/31/18 15:20 01/02/19 05:56 Labs: Abnormal Lab Results - Last 24 Hours (Table) 01/02/19 01/02/19 01/03/19 Range/Units 16:30 20:33 06:23 POC Glucose (mg/dL) 130 H 116 H 107 H (75-99) mg/dL
[2019-01-03 11:19] LABS: Glucose,Whole Blood 61 mg/dL (75-99)
[2019-01-03 12:01] VITALS: BP 109/61; PULSE 70; RESP 18; TEMP 97.8
[2019-01-03 13:29] LABS: Glucose,Whole Blood 151 mg/dL (75-99)
[2019-01-03 13:29] LABS: Glucose,Whole Blood 84 mg/dL (75-99)
--- NOTE | 2019-01-03 17:34 | P.DS ---
Providers Date of admission: 01/01/19 13:37 Attending physician: Jessica Romero Consults: 12/31/18 17:09 Consult Physician Urgent Consulting Provider: Donald Tao Consult Reason/Comments: CP, SOB on exertion Do you want consulting provider notified?: Yes 01/01/19 11:21 Consult Physician Routine Consulting Provider: [facility] Consult Reason/Comments: Post Interventional patient Do you want consulting provider notified?: Already Contacted Primary care physician: Jatin Love Hospital Course: Diagnoses: Acute coronary syndrome, status post cardiac cath Totally occluded right coronary artery, with stenotic saphenous vein graft to the right coronary artery. Status post stent placement to the graft by cardiology team History of coronary artery disease Diabetes mellitus Hyperlipidemia Essential hypertension Hospital course: This is a pleasant 78 years old male with past medical history of asthma, coronary artery disease, status post CABG, diabetes mellitus, hyperlipidemia, hypertension, hypothyroidism, gout. Presents with signs symptoms of chest pressure and elevated troponin. He underwent cardiac cath by cardiology team showing mild disease in the left anterior descending arteries and left circumflex artery. Totally occluded right coronary artery, and patent saphenous vein graft to right coronary artery with significant stenosis in the body of the graft. Status post stenting of the graft. Chest x-ray: Atelectasis. Patient encouraged to have incentive spirometry. His medication included a blood pressure medication was adjusted and recommended by cut off saw set up operator. However on discharge. His blood pressure was mildly hypotensive, cut off saw set up operator recommended to discontinue only Imdur, While continuing the rest of the medication. Vision also glucose this morning was on the low side and 61. His glipizide 5 mg twice a day was changed to 5 mg daily and patient and at bedside were informed with these changes. And they agree. Patient returned to his baseline with no chest pain or dyspnea. Patient was found stable. He was cleared by cardiology for discharge. Patient was asking to leave the hospital over the last 2 days and he agrees to leave today Because he felt back to his baseline. No more chest pain. No dyspnea. no Other symptoms Patient was cleared by cut off saw set up operator for discharge Problems and management plan were discussed with the patient and he verbalized understanding and acceptance. at bedside Patient was found stable and can be discharged in stable condition however he needs follow-up as an outpatient. Patient and agree with the appointments made for the patient with his cut off saw set up operator and PCP and they said they will follow up discharge exam Gen: patient is a AAOx3, no distress CVS: S1-S2, RRR, no murmur Lungs: B/L CTA, no wheezing Abdomen: soft, no distention, no tenderness, positive bowel sounds Extremity: no leg edema or induration Time spent more than 35 minutes Patient Condition at Discharge: Fair Plan - Discharge Summary Discharge Rx Participant: No New Discharge Prescriptions: New Metoprolol Succinate (ER) [Toprol XL] 25 mg PO DAILY #90 tab.er.24h Lisinopril [Zestril] 5 mg PO DAILY #90 tab Continue Levothyroxine Sodium [Synthroid] 50 mcg PO DAILY Aspirin EC [Ecotrin] 325 mg PO DAILY@1200 Montelukast [Singulair] 10 mg PO HS Omeprazole [PriLOSEC] 20 mg PO AC-BID Chlorpheniramine Maleate [Chlor-Trimeton] 4 mg PO QID Clopidogrel [Plavix] 75 mg PO DAILY@1200 Nitroglycerin Sl Tabs [Nitrostat] 0.4 mg SUBLINGUAL Q5M PRN #25 tab PRN Reason: Chest Pain Atorvastatin [Lipitor] 80 mg PO HS Tamsulosin [Flomax] 0.4 mg PO HS glipiZIDE [Glucotrol] 5 mg PO AC-BRKFST amLODIPine [Norvasc] 5 mg PO BID Discontinued glipiZIDE [Glucotrol] 2.5 mg PO HS Isosorbide Mononitrate ER [Imdur] 30 mg PO DAILY #90 tab.er.24h Discharge Medication List Levothyroxine Sodium [Synthroid] 50 mcg PO DAILY 05/18/14 [History] Aspirin EC [Ecotrin] 325 mg PO DAILY@1200 12/25/14 [History] Chlorpheniramine Maleate [Chlor-Trimeton] 4 mg PO QID 12/14/15 [History] Clopidogrel [Plavix] 75 mg PO DAILY@1200 12/14/15 [History] Montelukast [Singulair] 10 mg PO HS 12/14/15 [History] Omeprazole [PriLOSEC] 20 mg PO AC-BID 12/14/15 [History] Nitroglycerin Sl Tabs [Nitrostat] 0.4 mg SUBLINGUAL Q5M PRN #25 tab 12/16/15 [Rx] Atorvastatin [Lipitor] 80 mg PO HS 02/15/16 [History] Tamsulosin [Flomax] 0.4 mg PO HS 12/31/18 [History] amLODIPine [Norvasc] 5 mg PO BID 12/31/18 [History] glipiZIDE [Glucotrol] 5 mg PO AC-BRKFST 12/31/18 [History] Lisinopril [Zestril] 5 mg PO DAILY #90 tab 01/03/19 [Rx] Metoprolol Succinate (ER) [Toprol XL] 25 mg PO DAILY #90 tab.er.24h 01/03/19 [Rx] Follow up Appointment(s)/Referral(s): Jennifer Reid MD [STAFF PHYSICIAN] - 01/08/19 3:30 pm (At [facility] next to [address] in [place].) Kate Steiner MD [Primary Care Provider] - 01/12/19 9:50 am Patient Instructions/Handouts: Left Heart Catheterization (DC), Heart Healthy Diet (DC), Coronary Intravascular Stent Placement (DC) Activity/Diet/Wound Care/Special Instructions: cardiac diet activity as tolerated Discharge Disposition: HOME SELF-CARE
[2019-01-04] MEDS ORDERED: LISINOPRIL 5 MG TAB PO SCH (09:00)
== END 2019-01-03 15:24 | disposition home or self-care (01) | DRG 247 ==
LOC: EC 14:53 → 1SOBS 16:53 → 3SCARD 01-01 07:30 → OBSVTOIN 01-01 13:37
PROVIDERS: ADMIT Hospitalist; ATTEND Hospitalist
PROC: B2121ZZ Fluoroscopy of Single Coronary Artery Bypass Graft using Low Osmolar Contrast (ICD-10-PCS; 2019-01-01)
PROC: B2111ZZ Fluoroscopy of Multiple Coronary Arteries using Low Osmolar Contrast (ICD-10-PCS; principal; 2019-01-01 13:20)
PROC: 027034Z Dilation of Coronary Artery, One Artery with Drug-eluting Intraluminal Device, Percutaneous Approach (ICD-10-PCS; 2019-01-01 13:20)
DX: I21.4 Non-ST elevation (NSTEMI) myocardial infarction (principal); I25.810 Atherosclerosis of coronary artery bypass graft(s) without angina pectoris; J98.11 Atelectasis; E11.9 Type 2 diabetes mellitus without complications; I25.10 Atherosclerotic heart disease of native coronary artery without angina pectoris; I10 Essential (primary) hypertension; E03.9 Hypothyroidism, unspecified; E78.5 Hyperlipidemia, unspecified; J45.909 Unspecified asthma, uncomplicated; I25.2 Old myocardial infarction; Z79.82 Long term (current) use of aspirin; Z79.02 Long term (current) use of antithrombotics/antiplatelets; Z79.84 Long term (current) use of oral hypoglycemic drugs; Z79.890 Hormone replacement therapy; Z79.899 Other long term (current) drug therapy; Z95.1 Presence of aortocoronary bypass graft; Z95.5 Presence of coronary angioplasty implant and graft; Z87.891 Personal history of nicotine dependence; Z87.39 Personal history of other diseases of the musculoskeletal system and connective tissue; Z96.653 Presence of artificial knee joint, bilateral; Z87.01 Personal history of pneumonia (recurrent); Z82.49 Family history of ischemic heart disease and other diseases of the circulatory system; Z80.9 Family history of malignant neoplasm, unspecified
CPT/HCPCS: 36415; 71046; 80048; 80053; 80061; 82150; 83690; 83735; 83880; 84484; 85025; 85610; 85730; 93005; 93306; 93459; 96360; 96361; 99285; C1874

== ENCOUNTER 2019-05-30 13:00 | Emergency (ER) | payer MEDICARE ==
[2019-05-30 13:08] VITALS: TEMP 98.1
--- NOTE | 2019-05-30 13:42 | ED ---
Recheck HPI - General Chief Complaint: Recheck/Abnormal Lab/Rx Stated Complaint: abn labs Time Seen by Provider: 05/30/19 13:27 Source: patient, family, RN notes reviewed, old records reviewed Mode of arrival: ambulatory Limitations: no limitations - History of Present Illness Initial Comments: This is a 78-year-old male history of heart disease with 9 stents also thyroid disease who presents with complaints of bradycardia. He states he's notices hea rt rate has been low as low as in the 40s approximate 47 recently. Of late is been 50s he denies any chest pain shortness breath fevers chills nausea vomiting sweats he states that he occasionally have some lightheadedness when he gets up too fast. No recent changes in his medications of last stent was in December of this year. He has recently been treated for cough by Dr. Stinson with steroids for the past 10 days he was instructed to come here for evaluation. Other complaints or modifying factors at this time - Related Data Home Medications Medication Instructions Recorded Confirmed Levothyroxine Sodium [Synthroid] 50 mcg PO DAILY 05/18/14 05/30/19 Chlorpheniramine Maleate 4 mg PO QAM 12/14/15 05/30/19 [Chlor-Trimeton] Clopidogrel [Plavix] 75 mg PO DAILY@1200 12/14/15 05/30/19 Montelukast [Singulair] 10 mg PO QAM 12/14/15 05/30/19 Omeprazole [PriLOSEC] 20 mg PO AC-BID 12/14/15 05/30/19 Atorvastatin [Lipitor] 80 mg PO HS 02/15/16 05/30/19 Tamsulosin [Flomax] 0.4 mg PO HS 12/31/18 05/30/19 amLODIPine [Norvasc] 5 mg PO BID 12/31/18 05/30/19 glipiZIDE [Glucotrol] 5 mg PO QAM 12/31/18 05/30/19 Aspirin [Adult Low Dose Aspirin EC] 81 mg PO DAILY@1200 05/30/19 05/30/19 Isosorbide Mononitrate [Isosorbide 30 mg PO DAILY 05/30/19 05/30/19 Mononitrate ER] Lisinopril [Zestril] 5 mg PO DAILY@1200 05/30/19 05/30/19 Metoprolol Succinate (ER) [Toprol 25 mg PO DAILY@1200 05/30/19 05/30/19 XL] glipiZIDE [Glucotrol] 2.5 mg PO HS 05/30/19 05/30/19 guaiFENesin [Mucinex] 600 mg PO BID PRN 05/30/19 05/30/19 predniSONE See Taper PO DAILY@1200 05/30/19 05/30/19 Previous Rx's Medication Instructions Recorded Nitroglycerin Sl Tabs [Nitrostat] 0.4 mg SUBLINGUAL Q5M PRN #25 tab 12/16/15 Allergies Allergy/AdvReac Type Severity Reaction Status Date / Time No Known Allergies Allergy Verified 05/30/19 13:53 Review of Systems ROS Statement: Those systems with pertinent positive or pertinent negative responses have been documented in the HPI. ROS Other: All systems not noted in ROS Statement are negative. 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 Last Myocardial Infarction Date:: 12/21/18 History of Any Multi-Drug Resistant Organisms: None Reported Past Surgical History: Coronary Bypass/CABG, Heart Catheterization, Heart Catheterization With Stent, Joint Replacement, Orthopedic Surgery Additional Past Surgical History / Comment(s): total 8 stents, left shoulder rotator cuff, total reverse R shoulder replacement, blaire knee replacements, blaire carpal tunnel, R foot 3 hammertoes, colonoscopy, Past Anesthesia/Blood Transfusion Reactions: No Reported Reaction Additional Past Anesthesia/Blood Transfusion Reaction / Comment(s): states comes out with restless legs Date of Last Stent Placement:: 2018 Past Psychological History: No Psychological Hx Reported Smoking Status: Former smoker - Past Family History Father Family Medical History: Coronary Artery Disease (CAD) Additional Family Medical History / Comment(s): Father had enlarged heart. He had a crush injury that impacted his mobility. He at the age of 74yrs. Mother Family Medical History: Cancer, Hypertension Additional Family Medical History / Comment(s): Mother had breast cancer. Daughter(s) Family Medical History: Cancer Brother(s) Family Medical History: Cancer General Exam - General Exam Comments Initial Comments: This is a well-developed well-nourished awake alert oriented 3 male who appears be resting comfortably Limitations: no limitations General appearance: alert, in no apparent distress Head exam: Present: atraumatic, normocephalic, normal inspection Eye exam: Present: normal appearance, PERRL, EOMI. Absent: scleral icterus, conjunctival injection, periorbital swelling ENT exam: Present: normal exam, mucous membranes moist Neck exam: Present: normal inspection. Absent: tenderness, meningismus, lymphadenopathy Respiratory exam: Present: normal lung sounds bilaterally. Absent: respiratory distress, wheezes, rales, rhonchi, stridor Cardiovascular Exam: Present: normal rhythm, bradycardia, normal heart sounds, other (Heart rate of 49 CA examination). Absent: systolic murmur, diastolic murmur, rubs, gallop, clicks GI/Abdominal exam: Present: soft, normal bowel sounds. Absent: distended, tenderness, guarding, rebound, rigid Extremities exam: Present: normal inspection, full ROM, normal capillary refill. Absent: tenderness, pedal edema, joint swelling, calf tenderness Back exam: Present: normal inspection Neurological exam: Present: alert, oriented X3, CN II-XII intact Psychiatric exam: Present: normal affect, normal mood Skin exam: Present: warm, dry, intact, normal color. Absent: rash Course Vital Signs 05/30/19 05/30/19 05/30/19 13:06 13:30 13:42 Temperature 98.1 F Pulse Rate 55 L Pulse Rate [ 52 L 48 L Quality Liaison ] Respiratory 16 18 Rate Blood Pressure 132/77 Blood Pressure [Sitting] Blood Pressure [Standing] Blood Pressure 102/57 [Supine] O2 Sat by Pulse 98 Oximetry 05/30/19 05/30/19 05/30/19 13:44 13:46 15:29 Temperature Pulse Rate 49 L Pulse Rate [ 56 L 58 L Quality Liaison ] Respiratory 18 18 18 Rate Blood Pressure 111/65 Blood Pressure 110/63 [Sitting] Blood Pressure 108/69 [Standing] Blood Pressure [Supine] O2 Sat by Pulse 94 L Oximetry Medical Decision Making - Medical Decision Making Patient is asymptomatic with the relative bradycardia. I did discuss the case with Dr. Stinson and Dr. Reid patient will be discharged she will be instructed to limit his beta isiah to one half dose per day. He is a follow-up with both physicians as planned. - Lab Data Result diagrams: 05/30/19 13:45 05/30/19 13:45 Lab Results 05/30/19 05/30/19 05/30/19 Range/Units 13:45 13:45 13:45 WBC 10.2 (3.8-10.6) k/uL RBC 4.06 L (4.30-5.90) m/uL Hgb 13.0 (13.0-17.5) gm/dL Hct 40.0 (39.0-53.0) % MCV 98.7 (80.0-100.0) fL MCH 32.0 (25.0-35.0) pg MCHC 32.4 (31.0-37.0) g/dL RDW 14.0 (11.5-15.5) % Plt Count 209 (150-450) k/uL Neutrophils % 70 % Lymphocytes % 19 % Monocytes % 6 % Eosinophils % 2 % Basophils % 1 % Neutrophils # 7.2 (1.3-7.7) k/uL Lymphocytes # 2.0 (1.0-4.8) k/uL Monocytes # 0.6 (0-1.0) k/uL Eosinophils # 0.2 (0-0.7) k/uL Basophils # 0.1 (0-0.2) k/uL Sodium 140 (137-145) mmol/L Potassium 3.9 (3.5-5.1) mmol/L Chloride 107 (98-107) mmol/L Carbon Dioxide 25 (22-30) mmol/L Anion Gap 8 mmol/L BUN 22 H (9-20) mg/dL Creatinine 0.79 (0.66-1.25) mg/dL Est GFR (CKD-EPI)AfAm >90 (>60 ml/min/1.73 sqM) Est GFR (CKD-EPI)NonAf 85 (>60 ml/min/1.73 sqM) Glucose 121 H (74-99) mg/dL Calcium 8.9 (8.4-10.2) mg/dL Magnesium 2.1 (1.6-2.3) mg/dL Total Bilirubin 0.3 (0.2-1.3) mg/dL AST 17 (17-59) U/L ALT 28 (21-72) U/L Alkaline Phosphatase 52 (38-126) U/L Creatine Kinase 37 L (55-170) U/L Troponin I <0.012 (0.000-0.034) ng/mL Total Protein 6.2 L (6.3-8.2) g/dL Albumin 3.6 (3.5-5.0) g/dL TSH 1.260 (0.465-4.680) mIU/L - EKG Data -: EKG Interpreted by Me EKG shows normal: sinus rhythm (Sinus bradycardia rate of 52. Interval 128 QRS duration 94 QT since QTC 436/405 st-t wave changes) Rate: bradycardia (This EKG was compared with one dated 12/28/18 which was comparable and T-wave configuration however the rate was 60 at that time) - Radiology Data Radiology results: report reviewed (I did review the imaging and report no acute findings.), image reviewed Disposition Clinical Impression: Bradycardia Disposition: HOME SELF-CARE Condition: Good Instructions (If sedation given, give patient instructions): Bradycardia (ED) Additional Instructions: Cut the beta isiah, Toprol XL and have to take 12.5 mg per day. Follow-up with Dr. Reid Is patient prescribed a controlled substance at d/c from ED?: No Referrals: Kate Steiner MD [Primary Care Provider] - 1-2 days
[2019-05-30 13:51] VITALS: RESP 18
[2019-05-30 14:02] LABS: Basophils # (A) 0.1 k/uL (0-0.2); Basophils % (A) 1 %; Eosinophils # (A) 0.2 k/uL (0-0.7); Eosinophils % (A) 2 %; Lymphocytes % (A) 19 %; MCHC 32.4 g/dL (31.0-37.0); MCV 98.7 fL (80.0-100.0); Mean Platelet Volume 7.7; Monocytes # (A) 0.6 k/uL (0-1.0); Monocytes % (A) 6 %; Neutrophils # (A) 7.2 k/uL (1.3-7.7); Neutrophils % (A) 70 %; Platelet Count 209 k/uL (150-450); RBC 4.06 m/uL (4.30-5.90); WBC 10.2 k/uL (3.8-10.6)
[2019-05-30 14:11] LABS: ALT 28 U/L (21-72); AST 17 U/L (17-59); African American GFR (CKD) >90 (>60 ml/min/1.73 sqM); Albumin 3.6 g/dL (3.5-5.0); Alkaline Phosphatase 52 U/L (38-126); Anion Gap 8 mmol/L; Blood Urea Nitrogen 22 mg/dL (9-20); Calcium 8.9 mg/dL (8.4-10.2); Carbon Dioxide 25 mmol/L (22-30); Chloride 107 mmol/L (98-107); Creatine Kinase 37 U/L (55-170); Glucose 121 mg/dL (74-99); Magnesium 2.1 mg/dL (1.6-2.3); Potassium 3.9 mmol/L (3.5-5.1); Sodium 140 mmol/L (137-145); Total Bilirubin 0.3 mg/dL (0.2-1.3); Total Protein 6.2 g/dL (6.3-8.2)
--- NOTE | 2019-05-30 14:27 | XR ---
EXAMINATION TYPE: XR chest 2V DATE OF EXAM: 05/30/2019 COMPARISON: 05/20/2019 HISTORY: Cough TECHNIQUE: Frontal and lateral views of the chest are obtained. FINDINGS: Heart is normal. There is minimal linear density at the lung bases. There are chest leads. There are sternal wires. There is right shoulder prosthesis. There is moderate arthritic change in t he left shoulder joint. IMPRESSION: Minimal scarring or subsegmental atelectasis at the lung bases. This appears new compare d to old exam. Normal heart.
[2019-05-30 15:30] VITALS: BP 111/65; PULSE 49
== END 2019-05-30 16:00 | disposition home or self-care (01) ==
LOC: EC 13:00
DX: R00.1 Bradycardia, unspecified (principal); R42 Dizziness and giddiness; E03.9 Hypothyroidism, unspecified; E11.9 Type 2 diabetes mellitus without complications; E78.5 Hyperlipidemia, unspecified; I10 Essential (primary) hypertension; I25.10 Atherosclerotic heart disease of native coronary artery without angina pectoris; I25.2 Old myocardial infarction; J45.909 Unspecified asthma, uncomplicated; N40.0 Benign prostatic hyperplasia without lower urinary tract symptoms; Z79.82 Long term (current) use of aspirin; Z79.02 Long term (current) use of antithrombotics/antiplatelets; Z79.52 Long term (current) use of systemic steroids; Z79.890 Hormone replacement therapy; Z79.84 Long term (current) use of oral hypoglycemic drugs; Z79.899 Other long term (current) drug therapy; Z86.73 Personal history of transient ischemic attack (TIA), and cerebral infarction without residual deficits; Z87.891 Personal history of nicotine dependence; Z95.1 Presence of aortocoronary bypass graft; Z95.5 Presence of coronary angioplasty implant and graft; Z96.653 Presence of artificial knee joint, bilateral; Z87.01 Personal history of pneumonia (recurrent)
CPT/HCPCS: 36415; 71046; 80053; 82550; 83735; 84443; 84484; 85025; 93005; 99284

== ENCOUNTER 2019-08-29 10:46 | Observation (INO) | payer MEDICARE ==
[2019-08-29 11:58] LABS: Appearance,Urine Clear (Clear); Basophils # (A) 0.1 k/uL (0-0.2); Basophils % (A) 1 %; Bilirubin,Urine Negative (Negative); Blood,Urine Negative (Negative); Color,Urine Yellow; Eosinophils # (A) 0.2 k/uL (0-0.7); Eosinophils % (A) 2 %; Glucose,Urine (UA) Negative (Negative); HCT 41.2 % (39.0-53.0); HGB 13.5 gm/dL (13.0-17.5); Ketones,Urine Negative (Negative); Leukocyte Esterase,Urine Negative (Negative); Lymphocytes # (A) 1.2 k/uL (1.0-4.8); Lymphocytes % (A) 19 %; MCH 32.8 pg (25.0-35.0); MCHC 32.7 g/dL (31.0-37.0); MCV 100.3 fL (80.0-100.0); Macrocytosis Slight; Mean Platelet Volume 7.2; Monocytes # (A) 0.4 k/uL (0-1.0); Monocytes % (A) 7 %; Neutrophils # (A) 4.4 k/uL (1.3-7.7); Neutrophils % (A) 69 %; Nitrite,Urine Negative (Negative); PH, Urine 5.5 (5.0-8.0); Platelet Count 210 k/uL (150-450); Protein,Urine Trace (Negative); RBC 4.11 m/uL (4.30-5.90); RDW 13.9 % (11.5-15.5); Specific Gravity,Urine 1.026 (1.001-1.035); WBC 6.3 k/uL (3.8-10.6)
--- NOTE | 2019-08-29 12:03 | ED ---
General Adult HPI - General Chief complaint: Recheck/Abnormal Lab/Rx Stated complaint: Left side weakness Time Seen by Provider: 08/29/19 11:11 Source: patient, RN notes reviewed Mode of arrival: wheelchair Limitations: no limitations - History of Present Illness Initial comments: This is a 78-year-old male history of CVA in the past with some left-sided weakness as residual who states having periods of lightheadedness with nausea since yesterday evening going into this morning. He states he nitroglycerin yesterday with no change in his symptoms right now he is asymptomatic he just doesn't feel quite right and he states he is afraid he might have had another TIA or mini stroke. He denies a fevers chills nausea vomiting sweats chest pain shortness of breath he did as stated have some nausea with lightheadedness. No palpitations no other modifying factors at this time - Related Data Home Medications Medication Instructions Recorded Confirmed Levothyroxine Sodium [Synthroid] 50 mcg PO DAILY 05/18/14 05/30/19 Chlorpheniramine Maleate 4 mg PO QAM 12/14/15 05/30/19 [Chlor-Trimeton] Clopidogrel [Plavix] 75 mg PO DAILY@1200 12/14/15 05/30/19 Montelukast [Singulair] 10 mg PO QAM 12/14/15 05/30/19 Omeprazole [PriLOSEC] 20 mg PO AC-BID 12/14/15 05/30/19 Atorvastatin [Lipitor] 80 mg PO HS 02/15/16 05/30/19 Tamsulosin [Flomax] 0.4 mg PO 12/31/18 05/30/19 amLODIPine [Norvasc] 5 mg PO BID 12/31/18 05/30/19 glipiZIDE [Glucotrol] 5 mg PO QAM 12/31/18 05/30/19 Aspirin [Adult Low Dose Aspirin EC] 81 mg PO DAILY@1200 05/30/19 05/30/19 Isosorbide Mononitrate [Isosorbide 30 mg PO DAILY 05/30/19 05/30/19 Mononitrate ER] Lisinopril [Zestril] 5 mg PO DAILY@1200 05/30/19 05/30/19 Metoprolol Succinate (ER) [Toprol 25 mg PO DAILY@1200 05/30/19 05/30/19 XL] glipiZIDE [Glucotrol] 2.5 mg PO HS 05/30/19 05/30/19 guaiFENesin [Mucinex] 600 mg PO BID PRN 05/30/19 05/30/19 predniSONE See Taper PO DAILY@1200 05/30/19 05/30/19 Previous Rx's Medication Instructions Recorded Nitroglycerin Sl Tabs [Nitrostat] 0.4 mg SUBLINGUAL Q5M PRN #25 tab 12/16/15 Allergies Allergy/AdvReac Type Severity Reaction Status Date / Time No Known Allergies Allergy Verified 08/29/19 11:03 Review of Systems ROS Statement: Those systems with pertinent positive or pertinent negative responses have been documented in the HPI. ROS Other: All systems not noted in ROS Statement are negative. 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 Last Myocardial Infarction Date:: 12/21/18 History of Any Multi-Drug Resistant Organisms: None Reported Past Surgical History: Coronary Bypass/CABG, Heart Catheterization, Heart Catheterization With Stent, Joint Replacement, Orthopedic Surgery Additional Past Surgical History / Comment(s): total 8 stents, left shoulder rotator cuff, total reverse R shoulder replacement, blaire knee replacements, blaire carpal tunnel, R foot 3 hammertoes, colonoscopy, Past Anesthesia/Blood Transfusion Reactions: No Reported Reaction Additional Past Anesthesia/Blood Transfusion Reaction / Comment(s): states comes out with restless legs Date of Last Stent Placement:: 2018 Past Psychological History: No Psychological Hx Reported Smoking Status: Former smoker Past Alcohol Use History: None Reported Past Drug Use History: None Reported - Past Family History Father Family Medical History: Coronary Artery Disease (CAD) Additional Family Medical History / Comment(s): Father had enlarged heart. He had a crush injury that impacted his mobility. He at the age of 74yrs. Mother Family Medical History: Cancer, Hypertension Additional Family Medical History / Comment(s): Mother had breast cancer. Daughter(s) Family Medical History: Cancer Brother(s) Family Medical History: Cancer General Exam - General Exam Comments Initial Comments: This is a well-developed well-nourished awake alert oriented times 3 male Limitations: no limitations General appearance: alert, anxious Head exam: Present: atraumatic, normocephalic, normal inspection Eye exam: Present: normal appearance, PERRL, EOMI. Absent: scleral icterus, conjunctival injection, periorbital swelling ENT exam: Present: normal exam, mucous membranes moist Neck exam: Present: normal inspection. Absent: tenderness, meningismus, lymphadenopathy Respiratory exam: Present: normal lung sounds bilaterally. Absent: respiratory distress, wheezes, rales, rhonchi, stridor Cardiovascular Exam: Present: regular rate, normal rhythm, normal heart sounds. Absent: systolic murmur, diastolic murmur, rubs, gallop, clicks GI/Abdominal exam: Present: soft, normal bowel sounds. Absent: distended, tenderness, guarding, rebound, rigid Extremities exam: Present: normal inspection, full ROM, normal capillary refill. Absent: tenderness, pedal edema, joint swelling, calf tenderness Back exam: Present: normal inspection Neurological exam: Present: alert, oriented X3, CN II-XII intact Psychiatric exam: Present: normal affect, normal mood Skin exam: Present: warm, dry, intact, normal color. Absent: rash Course Vital Signs 08/29/19 08/29/19 10:57 13:16 Temperature 98.3 F 98.1 F Pulse Rate 76 66 Respiratory 18 18 Rate Blood Pressure 111/68 124/64 O2 Sat by Pulse 95 92 L Oximetry EKG Findings - EKG Results: EKG: interpreted by ERMD (Sinus rhythm a 71. Interval 1:30 QRS duration 94 QT since QTC 42/436 nonspecific T-wave configuration) Medical Decision Making - Medical Decision Making I did discuss findings with the patient and his . Patient be admitted for further evaluation inpatient. Also neurological consultation. - Lab Data Result diagrams: 08/29/19 11:45 08/29/19 11:45 Lab Results 08/29/19 08/29/19 08/29/19 Range/Units 11:45 11:45 11:45 WBC 6.3 (3.8-10.6) k/uL RBC 4.11 L (4.30-5.90) m/uL Hgb 13.5 (13.0-17.5) gm/dL Hct 41.2 (39.0-53.0) % MCV 100.3 H (80.0-100.0) fL MCH 32.8 (25.0-35.0) pg MCHC 32.7 (31.0-37.0) g/dL RDW 13.9 (11.5-15.5) % Plt Count 210 (150-450) k/uL Neutrophils % 69 % Lymphocytes % 19 % Monocytes % 7 % Eosinophils % 2 % Basophils % 1 % Neutrophils # 4.4 (1.3-7.7) k/uL Lymphocytes # 1.2 (1.0-4.8) k/uL Monocytes # 0.4 (0-1.0) k/uL Eosinophils # 0.2 (0-0.7) k/uL Basophils # 0.1 (0-0.2) k/uL Macrocytosis Slight Sodium 142 (137-145) mmol/L Potassium 4.3 (3.5-5.1) mmol/L Chloride 112 H (98-107) mmol/L Carbon Dioxide 22 (22-30) mmol/L Anion Gap 8 mmol/L BUN 22 H (9-20) mg/dL Creatinine 0.78 (0.66-1.25) mg/dL Est GFR (CKD-EPI)AfAm >90 (>60 ml/min/1.73 sqM) Est GFR (CKD-EPI)NonAf 86 (>60 ml/min/1.73 sqM) Glucose 122 H (74-99) mg/dL Calcium 8.9 (8.4-10.2) mg/dL Magnesium 2.1 (1.6-2.3) mg/dL Total Bilirubin 0.3 (0.2-1.3) mg/dL AST 19 (17-59) U/L ALT 23 (21-72) U/L Alkaline Phosphatase 50 (38-126) U/L Creatine Kinase 50 L (55-170) U/L Troponin I <0.012 (0.000-0.034) ng/mL Total Protein 6.3 (6.3-8.2) g/dL Albumin 3.7 (3.5-5.0) g/dL Urine Color Urine Appearance (Clear) Urine pH (5.0-8.0) Ur Specific Willard (1.001-1.035) Urine Protein (Negative) Urine Glucose (UA) (Negative) Urine Ketones (Negative) Urine Blood (Negative) Urine Nitrite (Negative) Urine Bilirubin (Negative) Urine Urobilinogen (<2.0) mg/dL Ur Leukocyte Esterase (Negative) 08/29/19 Range/Units 11:45 WBC (3.8-10.6) k/uL RBC (4.30-5.90) m/uL Hgb (13.0-17.5) gm/dL Hct (39.0-53.0) % MCV (80.0-100.0) fL MCH (25.0-35.0) pg MCHC (31.0-37.0) g/dL RDW (11.5-15.5) % Plt Count (150-450) k/uL Neutrophils % % Lymphocytes % % Monocytes % % Eosinophils % % Basophils % % Neutrophils # (1.3-7.7) k/uL Lymphocytes # (1.0-4.8) k/uL Monocytes # (0-1.0) k/uL Eosinophils # (0-0.7) k/uL Basophils # (0-0.2) k/uL Macrocytosis Sodium (137-145) mmol/L Potassium (3.5-5.1) mmol/L Chloride (98-107) mmol/L Carbon Dioxide (22-30) mmol/L Anion Gap mmol/L BUN (9-20) mg/dL Creatinine (0.66-1.25) mg/dL Est GFR (CKD-EPI)AfAm (>60 ml/min/1.73 sqM) Est GFR (CKD-EPI)NonAf (>60 ml/min/1.73 sqM) Glucose (74-99) mg/dL Calcium (8.4-10.2) mg/dL Magnesium (1.6-2.3) mg/dL Total Bilirubin (0.2-1.3) mg/dL AST (17-59) U/L ALT (21-72) U/L Alkaline Phosphatase (38-126) U/L Creatine Kinase (55-170) U/L Troponin I (0.000-0.034) ng/mL Total Protein (6.3-8.2) g/dL Albumin (3.5-5.0) g/dL Urine Color Yellow Urine Appearance Clear (Clear) Urine pH 5.5 (5.0-8.0) Ur Specific Willard 1.026 (1.001-1.035) Urine Protein Trace H (Negative) Urine Glucose (UA) Negative (Negative) Urine Ketones Negative (Negative) Urine Blood Negative (Negative) Urine Nitrite Negative (Negative) Urine Bilirubin Negative (Negative) Urine Urobilinogen 2.0 (<2.0) mg/dL Ur Leukocyte Esterase Negative (Negative) - Radiology Data Radiology results: report reviewed (I did review the imaging and report no acute findings however the CAT scan that she'll evidence for new findings since 2016 this does correlate with the patient's previous CVA.), image reviewed Disposition Clinical Impression: Dizziness, Dehydration Disposition: [facility] Condition: Fair Referrals: Kate Steiner MD [Primary Care Provider] - 1-2 days
[2019-08-29 12:09] LABS: ALT 23 U/L (21-72); AST 19 U/L (17-59); African American GFR (CKD) >90 (>60 ml/min/1.73 sqM); Albumin 3.7 g/dL (3.5-5.0); Alkaline Phosphatase 50 U/L (38-126); Anion Gap 8 mmol/L; Blood Urea Nitrogen 22 mg/dL (9-20); Calcium 8.9 mg/dL (8.4-10.2); Carbon Dioxide 22 mmol/L (22-30); Chloride 112 mmol/L (98-107); Creatine Kinase 50 U/L (55-170); Glucose 122 mg/dL (74-99); Magnesium 2.1 mg/dL (1.6-2.3); Non-African American GFR(CKD) 86 (>60 ml/min/1.73 sqM); Potassium 4.3 mmol/L (3.5-5.1); Sodium 142 mmol/L (137-145); Total Bilirubin 0.3 mg/dL (0.2-1.3); Total Protein 6.3 g/dL (6.3-8.2)
--- NOTE | 2019-08-29 12:28 | XR ---
EXAMINATION TYPE: XR chest 2V DATE OF EXAM: 08/29/2019 COMPARISON: 05/30/2019 HISTORY: 78-year-old male with dizziness TECHNIQUE: PA and lateral views FINDINGS: Heart normal size. Aorta and pulmonary vasculature within normal limits. Median sternotomy wires are present with post-CABG clips. Mild interstitial prominence as a chronic appearance. Strandy scarring or atelectasis at the lung bases. No consolidation or pleural effusion. Degenerative changes of the l eft shoulder. Reverse right total shoulder arthroplasty partially visualized. IMPRESSION: COPD and chronic changes. No acute process seen.
[2019-08-29] MEDS ORDERED: SODIUM CHLORIDE 0.9% 1,000 ML IV STA (13:26)
--- NOTE | 2019-08-29 13:54 | CT ---
EXAMINATION TYPE: CT brain wo con DATE OF EXAM: 08/29/2019 COMPARISON: 02/14/2016 HISTORY: 78-year-old male Dizziness with prior CVA TECHNIQUE: Examination was done in axial plane without intravenous contrast. Coronal and sagittal r econstructions performed. CT DLP: 1099.4 mGycm Automated exposure control for dose reduction was used. FINDINGS: There is no evidence of acute intracranial hemorrhage, acute ischemic changes, mass, mass-effect, or extra-axial fluid collection. There is no effacement of cerebral sulci or basal subarachnoid cister ns. There is no hydrocephalus. There is no midline shift. Stewart-white matter distinction is preserv ed. Stable polyp or mucosal retention cyst floor of the left maxillary sinus. Mastoid air cells well pneu matized. Orbits and globes are intact. Old lacunar infarct left thalamus though new from 2016. Moderate confluent periventricular white lorenza er hypodensities. IMPRESSION: 1. No acute intracranial abnormality seen. 2. A left thalamic lacunar infarct is now chronic but noted to be new from 2016.
[2019-08-29] MEDS ORDERED: NALOXONE 0.4 MG/ML 1 ML VIAL IV PRN (14:26)
[2019-08-29] MEDS ORDERED: guaiFENesin 600 MG TABLET.ER PO PRN (14:30)
[2019-08-29] MEDS ORDERED: NITROGLYCERIN SL TABS 0.4 MG TAB SUBLINGUAL PRN (14:30)
[2019-08-29] MEDS: SODIUM CHLORIDE 0.9% 1,000 ML IV SCH (14:40)
[2019-08-29 16:31] VITALS: RESP 16
[2019-08-29 17:17] VITALS: BMI 28.3
[2019-08-29] MEDS: amLODIPine 5 MG TAB PO SCH (20:28)
[2019-08-29] MEDS: ATORVASTATIN 80 MG TAB PO SCH (20:28)
[2019-08-29] MEDS: TAMSULOSIN 0.4 MG CAP.ER.24H PO SCH (20:29)
[2019-08-29] MEDS: METOPROLOL TARTRATE 12.5 MG TAB PO SCH (20:29)
--- NOTE | 2019-08-30 01:38 | P.HPIM ---
History of Present Illness H&P Date: 08/29/19 Chief Complaint: Lightheadedness Patient is a 78-year-old male with a known history of CVA with some left-sided weakness and off balance since 2014, coronary artery disease with history of CABG in 1998, history of multiple stent placement, hypertension, diabetes type 2 and hypothyroidism and prostate disorder/BPH came to ER with the complaints of lightheadedness started since yesterday and continued to have symptoms this morning. Patient is on follow-up with it was not patient due to history of previous CVA. Patient did take nitroglycerin yesterday but without any relief. Patient is still symptomatic this morning and not feeling right and felt like previous TIA. Patient came to ER for further evaluation. Denied any complaints of chest pain or shortness of breath. No leg swelling. No palpitations. Denied any headache. Patient denied any recent illnesses. No cough or sputum production. No nausea vomiting or abdominal pain or diarrhea. Chest x-ray showed COPD and chronic changes. No acute process CT head showed no intracranial process. A left thalamic lacunar infarct is now chronic but noted to be new from 2016 UA negative Other laboratory data reviewed. EKG showed normal sinus rhythm. Review of Systems Constitutional: Patient denies any fever or chills . No generalized weakness or weight loss. Abdomen: Patient denied nausea vomiting and diarrhea and abdominal pain. Cardiovascular: Patient denies any chest pain or short of breath no palpitations. Respiratory: patient denied any cough is from production. No shortness of breath Neurologic: Patient denied any numbness or tingling headache. Dizziness and lightheadedness. Musculoskeletal: Patient denies any complaints of joint swelling or deformity. The Skin: Negative Psychiatric: Negative Endocrine: No heat or cold intolerance. No recent weight gain. Genitourinary: No dysuria or hematuria. All other 14 point ROS negative except the above Past Medical History Past Medical History: Asthma, Coronary Artery Disease (CAD), CVA/TIA, Diabetes Mellitus, Hyperlipidemia, Hypertension, Myocardial Infarction ([place]), Pneumonia, Prostate Disorder, Thyroid Disorder Additional Past Medical History / Comment(s): NIDDM type II, 2016 CVA with R sided weakness and balance issues, BPH, back problems-occasionally wears a brace, hypothyroid, fall on ice and hit head and had syncopal event. Last Myocardial Infarction Date:: 12/21/18 History of Any Multi-Drug Resistant Organisms: None Reported Past Surgical History: Coronary Bypass/CABG, Heart Catheterization, Heart Catheterization With Stent, Joint Replacement, Orthopedic Surgery Additional Past Surgical History / Comment(s): total 8 stents, left shoulder rotator cuff, total reverse R shoulder replacement, blaire knee replacements, blaire carpal tunnel, R foot 3 hammertoes, colonoscopy, Past Anesthesia/Blood Transfusion Reactions: No Reported Reaction Additional Past Anesthesia/Blood Transfusion Reaction / Comment(s): states comes out with restless legs Date of Last Stent Placement:: 2018 Past Psychological History: No Psychological Hx Reported Additional Psychological History / Comment(s): Pt resides with his spouse. He uses no assistive device. He drives. Smoking Status: Former smoker Past Alcohol Use History: None Reported Additional Past Alcohol Use History / Comment(s): Pt started smoking in 1954 and quit in 1979 Past Drug Use History: None Reported - Past Family History Father Family Medical History: Coronary Artery Disease (CAD) Additional Family Medical History / Comment(s): Father had enlarged heart. He had a crush injury that impacted his mobility. He at the age of 74yrs. Mother Family Medical History: Cancer, Hypertension Additional Family Medical History / Comment(s): Mother had breast cancer. Daughter(s) Family Medical History: Cancer Brother(s) Family Medical History: Cancer Medications and Allergies Home Medications Medication Instructions Recorded Confirmed Type Levothyroxine Sodium [Synthroid] 50 mcg PO DAILY 05/18/14 08/29/19 History Chlorpheniramine Maleate 4 mg PO DAILY 12/14/15 08/29/19 History [Chlor-Trimeton] Clopidogrel [Plavix] 75 mg PO DAILY@1200 12/14/15 08/29/19 History Montelukast [Singulair] 10 mg PO HS 12/14/15 08/29/19 History Omeprazole [PriLOSEC] 20 mg PO AC-BID 12/14/15 08/29/19 History Nitroglycerin Sl Tabs [Nitrostat] 0.4 mg SUBLINGUAL Q5M PRN #25 tab 12/16/15 08/29/19 Rx Atorvastatin [Lipitor] 80 mg PO HS 02/15/16 08/29/19 History Tamsulosin [Flomax] 0.4 mg PO HS 12/31/18 08/29/19 History amLODIPine [Norvasc] 5 mg PO BID 12/31/18 08/29/19 History glipiZIDE [Glucotrol] 5 mg PO DAILY 12/31/18 08/29/19 History Aspirin [Adult Low Dose Aspirin EC] 81 mg PO DAILY@1200 05/30/19 08/29/19 History Isosorbide Mononitrate [Isosorbide 30 mg PO DAILY 05/30/19 08/29/19 History Mononitrate ER] Losartan [Cozaar] 50 mg PO DAILY@1200 08/29/19 08/29/19 History Metoprolol Tartrate [Lopressor] 12.5 mg PO BID@1200,2100 08/29/19 08/29/19 History glipiZIDE [Glucotrol] 2.5 mg PO HS 08/29/19 08/29/19 History Allergies Allergy/AdvReac Type Severity Reaction Status Date / Time No Known Allergies Allergy Verified 08/29/19 15:00 Physical Exam Vitals: Vital Signs Temp Pulse Pulse Resp BP BP Pulse Ox 08/29/19 16:29 97.7 F 68 16 134/73 95 08/29/19 16:08 98.1 F 67 18 127/67 97 08/29/19 16:00 68 16 08/29/19 14:59 97.7 F 68 16 134/73 95 08/29/19 14:41 97.8 F 67 18 118/67 95 08/29/19 13:16 98.1 F 66 18 124/64 92 L 08/29/19 10:57 98.3 F 76 18 111/68 95 Intake and Output 08/29/19 08/29/19 08/29/19 06:59 14:59 22:59 Other: Voiding Method Toilet # Voids 2 # Bowel Movements 1 Weight 79.379 kg PHYSICAL EXAMINATION: Patient is lying in the bed comfortably, no acute distress, awake alert and oriented.. HEENT: Normocephalic. Neck is supple. Pupils reactive. Nostrils clear. Oral cavity is moist. Ears reveal no drainage. Neck reveals no JVD, carotid bruits, or thyromegaly. CHEST EXAMINATION: Trachea is central. Symmetrical expansion. Lung hutchins clear to auscultation and percussion. CARDIAC: Normal S1, S2 with no gallops. No murmurs ABDOMEN: Soft. Bowel sounds normal. No organomegaly. No abdominal bruits. Extremities: reveal no edema. No clubbing or cyanosis Neurologically awake, alert, oriented x3 with well-coordinated movements. No focal deficits noted Skin: No rash or skin lesions. Psychiatric: Coperative. Nonsuicidal Musculoskeletal: No joint swelling or deformity. Normal range of motion. Results CBC & Chem 7: 08/29/19 11:45 08/29/19 11:45 Labs: Abnormal Lab Results - Last 24 Hours (Table) 08/29/19 08/29/19 08/29/19 Range/Units 11:45 11:45 11:45 RBC 4.11 L (4.30-5.90) m/uL MCV 100.3 H (80.0-100.0) fL Chloride 112 H (98-107) mmol/L BUN 22 H (9-20) mg/dL Glucose 122 H (74-99) mg/dL Creatine Kinase 50 L (55-170) U/L Urine Protein Trace H (Negative) Thrombosis Risk Factor Assmnt - DVT/VTE Prophylaxis DVT/VTE Prophylaxis: Pharmacologic Prophylaxis ordered - Choose All That Apply Each Factor Represents 1 point: Abnormal pulmonary function (COPD) Other Risk Factors: Yes Each Risk Factor Represents 3 Points: Age 75 years or older Other congenital or acquired thrombophilia - If yes, enter type in comment: No Thrombosis Risk Factor Assessment Total Risk Factor Score: 4 Thrombosis Risk Factor Assessment Level: Moderate Risk Assessment and Plan Assessment: Dizziness and lightheadedness. Exact Etiology unknown. Possible TIA versus CVA History of CVA with residual left-sided weakness and off balance. Coronary artery disease with history of multiple stents placement Coronary artery bypass graft in 1998 Hypertension Diabetes type 2 History of [place] BPH Hypothyroidism Osteoarthritis Previous history of smoking DVT prophylaxis with Lovenox Plan: Patient will be continued on telemetry monitoring. CT head is negative. EKG showed normal sinus rhythm. No evidence of infection. Carotid duplex was ordered. Continue with home blood pressure medications and cardiac medications. Neurology was consulted for evaluation. Further recommendations based on the clinical course. Patient follows with cardiology and neurology as outpatient. Time with Patient: Greater than 30
[2019-08-30] MEDS: SODIUM CHLORIDE 0.9% 1,000 ML IV SCH ×2 (05:48→17:09)
[2019-08-30] MEDS: LEVOTHYROXINE 50 MCG TAB PO SCH (05:48)
--- NOTE | 2019-08-30 08:21 | P.PN ---
Subjective Patient is a 78-year-old male with a known history of CVA with some left-sided weakness and off balance since 2014, coronary artery disease with history of CABG in 1998, history of multiple stent placement, hypertension, diabetes type 2 and hypothyroidism and prostate disorder/BPH came to ER with the complaints of lightheadedness started since yesterday and continued to have symptoms this morning. Patient is on follow-up with it was not patient due to history of previous CVA. Patient did take nitroglycerin yesterday but without any relief. Patient is still symptomatic this morning and not feeling right and felt like previous TIA. Patient came to ER for further evaluation. Denied any complaints of chest pain or shortness of breath. No leg swelling. No palpitations. Denied any headache. Patient denied any recent illnesses. No cough or sputum production. No nausea vomiting or abdominal pain or diarrhea. Chest x-ray showed COPD and chronic changes. No acute process CT head showed no intracranial process. A left thalamic lacunar infarct is now chronic but noted to be new from 2016 UA negative Other laboratory data reviewed. EKG showed normal sinus rhythm. 08/30/2019 This is a pleasant 6 years old male who presents because of 2 days of dizziness, which is started on Friday through Friday at the [facility] where it get worse and she decided to come to the hospital. However he denies any more dizziness today. He denies chest pain or dyspnea or palpitation. No diarrhea or vomiting. Vitals looks stable. Patient has history of 90 stents in his heart and he follows with Dr. Reid, he saw him not long time ago for follow-up. Neurologist has been consulted and their input is pending Review of systems: Constitutional: Patient denies any fever or chills . No generalized weakness or weight loss. Abdomen: Patient denied nausea vomiting and diarrhea and abdominal pain. Cardiovascular: Patient denies any chest pain or short of breath no palpitations. Respiratory: patient denied any cough is from production. No shortness of breath Neurologic: Patient denied any numbness or tingling headache. Dizziness and lightheadedness. Musculoskeletal: Patient denies any complaints of joint swelling or deformity. The Skin: Negative Psychiatric: Negative Endocrine: No heat or cold intolerance. No recent weight gain. Genitourinary: No dysuria or hematuria. All other 14 point ROS negative except the above Objective - Vital Signs Vital signs: Vital Signs Temp 97.4 F L 08/30/19 05:28 Pulse 56 L 08/30/19 05:28 Resp 16 08/30/19 05:28 BP 115/63 08/30/19 05:28 Pulse Ox 94 L 08/30/19 05:28 Intake & Output 08/29/19 08/30/19 08/30/19 18:59 06:59 18:59 Intake Total 280 Balance 280 Weight 79.379 kg Intake: Intake, IV Titration 280 Amount Sodium Chloride 0.9% 1, 280 000 ml @ 80 mls/hr IV . [id number] [facility] Rx#:[id number] Other: Voiding Method Toilet Toilet # Voids 2 2 # Bowel Movements 1 0 - Exam Patient is lying in the bed comfortably, no acute distress, awake alert and oriented.. HEENT: Normocephalic. Neck is supple. Pupils reactive. Nostrils clear. Oral cavity is moist. Ears reveal no drainage. Neck reveals no JVD, carotid bruits, or thyromegaly. CHEST EXAMINATION: Trachea is central. Symmetrical expansion. Lung hutchins clear to auscultation and percussion. CARDIAC: Normal S1, S2 with no gallops. No murmurs ABDOMEN: Soft. Bowel sounds normal. No organomegaly. No abdominal bruits. Extremities: reveal no edema. No clubbing or cyanosis Neurologically awake, alert, oriented x3 with well-coordinated movements. No focal deficits noted Skin: No rash or skin lesions. Psychiatric: Coperative. Nonsuicidal Musculoskeletal: No joint swelling or deformity. Normal range of motion. - Labs CBC & Chem 7: 08/29/19 11:45 08/29/19 11:45 Labs: Abnormal Lab Results - Last 24 Hours (Table) 08/29/19 08/29/19 08/29/19 Range/Units 11:45 11:45 11:45 RBC 4.11 L (4.30-5.90) m/uL MCV 100.3 H (80.0-100.0) fL Chloride 112 H (98-107) mmol/L BUN 22 H (9-20) mg/dL Glucose 122 H (74-99) mg/dL Creatine Kinase 50 L (55-170) U/L Urine Protein Trace H (Negative) Assessment and Plan Assessment: Dizziness and lightheadedness. Exact Etiology unknown. Possible TIA versus CVA History of CVA with residual left-sided weakness and off balance. Coronary artery disease with history of multiple stents placement Coronary artery bypass graft in 1998 Hypertension Diabetes type 2 History of [place] BPH Hypothyroidism Osteoarthritis Previous history of smoking DVT prophylaxis with Lovenox Plan: Patient will be continued on telemetry monitoring. CT head is negative. EKG showed normal sinus rhythm. No evidence of infection. Carotid duplex was ordered. Continue with home blood pressure medications and cardiac medications. Neurology was consulted for evaluation. Also we'll consult cardiology Further recommendations based on the clinical course. Patient follows with cardiology and neurology as outpatient.
--- NOTE | 2019-08-30 08:26 | US ---
EXAMINATION TYPE: US carotid duplex BILAT DATE OF EXAM: 08/30/2019 COMPARISON: CLINICAL HISTORY: Dizziness. stroke x 3 years ago. HTN. EXAM MEASUREMENTS: RIGHT: Peak Systolic Velocity (PSV) cm/sec ----- Right CCA: 72.4 ----- Right ICA: 70.2 ----- Right ECA: 119.4 ICA/CCA ratio: 1.0 RIGHT: End Diastole cm/sec ----- Right CCA: 13.1 ----- Right ICA: 19.7 ----- Right ECA: 16.0 LEFT: Peak Systolic Velocity (PSV) cm/sec ----- Left CCA: 81.4 ----- Left ICA: 94.3 ----- Left ECA: 183.3 ICA/CCA ratio: 1.2 LEFT: End Diastole cm/sec ----- Left CCA: 19.3 ----- Left ICA: 21.9 ----- Left ECA: 25.3 VERTEBRALS (direction of flow): Right Vertebral: Antegrade Left Vertebral: Antegrade Rhythm: Arrhythmia Bilateral wall thickening. Plaque visualized in bilateral bulbs extending into proximal ICA. Elevat ed left ECA velocity. No significant stenosis. IMPRESSION: Atheromatous plaquing and intimal thickening. No significant flow-limiting stenosis with in the common or internal carotid arteries. Some moderate stenosis between 50 and 69% of the left ext ernal carotid artery is present. Criteria for Assigning % of Stenosis / Diameter reduction (Estimation based on the indirect measurements of the internal carotid artery velocities (ICA PSV). 1. Normal (no stenosis)=ICA PSV < 125 cm/s: ratio < 2.0: ICA EDV<40 cm/s. 2. Less than 50% stenosis=ICA PSV < 125 cm/s: ratio < 2.0: ICA EDV<40 cm/s. 3. 50 to 69% stenosis=ICA PSV of 125 to 230 cm/s: ration 2.0 ? 4.0: ICA EDV 40-100 cm/s. 4. Greater than 70% stenosis to near occlusion= ICA PSV > 230 cm/s: ratio > 4.0: ICA EDV > 100 cm/s. 5. Near occlusion= ICA PSV velocities may be low or undetectable: variable ratio and ICA EDV. 6. Total occlusion=unable to detect flow.
[2019-08-30] MEDS: METOPROLOL TARTRATE 12.5 MG TAB PO SCH ×2 (08:48→21:10)
[2019-08-30] MEDS: amLODIPine 5 MG TAB PO SCH ×2 (08:48→21:10)
[2019-08-30] MEDS: ISOSORBIDE MONONITRATE ER 30 MG TAB.ER.24H PO SCH (08:48)
[2019-08-30] MEDS: PANTOPRAZOLE 40 MG TABLET PO SCH (08:48)
[2019-08-30] MEDS: diphenhydrAMINE 25 MG CAP PO SCH (08:49)
[2019-08-30] MEDS: MONTELUKAST 10 MG TAB PO SCH (08:49)
[2019-08-30] MEDS: glipiZIDE 5 MG TAB PO SCH (08:50)
[2019-08-30] MEDS ORDERED: ENOXAPARIN 30 MG/0.3 ML SYRINGE SQ SCH (09:00)
[2019-08-30 09:17] LABS: Basophils # (A) 0.1 k/uL (0-0.2); Basophils % (A) 1 %; Eosinophils # (A) 0.2 k/uL (0-0.7); Eosinophils % (A) 3 %; HCT 43.7 % (39.0-53.0); HGB 14.2 gm/dL (13.0-17.5); Lymphocytes # (A) 1.1 k/uL (1.0-4.8); Lymphocytes % (A) 15 %; MCH 32.5 pg (25.0-35.0); MCHC 32.4 g/dL (31.0-37.0); MCV 100.1 fL (80.0-100.0); Mean Platelet Volume 7.8; Monocytes # (A) 0.5 k/uL (0-1.0); Monocytes % (A) 6 %; Neutrophils # (A) 5.7 k/uL (1.3-7.7); Neutrophils % (A) 73 %; Platelet Count 213 k/uL (150-450); RBC 4.37 m/uL (4.30-5.90); RDW 13.8 % (11.5-15.5); WBC 7.7 k/uL (3.8-10.6)
[2019-08-30 09:49] LABS: African American GFR (CKD) >90 (>60 ml/min/1.73 sqM); Anion Gap 9 mmol/L; Blood Urea Nitrogen 15 mg/dL (9-20); Calcium 9.1 mg/dL (8.4-10.2); Carbon Dioxide 24 mmol/L (22-30); Chloride 108 mmol/L (98-107); Glucose 86 mg/dL (74-99); Non-African American GFR(CKD) >90 (>60 ml/min/1.73 sqM); Potassium 4.4 mmol/L (3.5-5.1); Sodium 141 mmol/L (137-145)
[2019-08-30] MEDS ORDERED: INFLUENZA VACCINE (6 MOS+) 60 MCG/0.5 ML SYRINGE IM ONE (10:51)
--- NOTE | 2019-08-30 11:38 | P.CRDCN ---
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 He presented with lightheaded and nauseated. He follows in the office with Dr. Reid. We have been asked to see him in consultation for dizziness. Recent cardiac c atheterization December 2018 failed left main no evidence of high-grade stenosis, LAD with proximal 10-20% plaque with no high-grade stenosis, diagonal branch patent at the stented segment, circumflex with 20-30% plaque, RCA totally occluded proximally, SVG to RCA patent anastomic sites, lesion in the mid body about 95%. He underwent successful stenting of the SVG to RCA that time. He is seen and examined sitting up at the edge of the bed in no acute distress. He states his symptoms initially started on Friday. He states he felt overall "foggy". He denies any dizziness suggestive of vertigo. He states he just felt lightheaded and overall not himself. He also had some mild nausea. He denies any chest pain, shortness of breath or palpitations. He presented to the hospital with concerns that he had suffered another stroke. He has residual right-sided weakness and states that his right leg feels heavier than normal. He states his symptoms of feeling lightheaded and nausea have completely subsided and he feels back to his self this morning. DIAGNOSTICS EKG reveals sinus mechanism, nonspecific changes in the inferior leads. Consistent with previous EKG. Chest xray chronic COPD, no acute cardiopulmonary process. CT of the brain reveals no acute intracranial process with evidence of a left lacunar infarct that is new from [address] Laboratory reviewed, WBC 7.7, hemoglobin 14.2, platelets 213, sodium 142, potassium 4.3, creatinine 0.78, cardiac enzymes negative 1. Current cardiac medications include amlodipine 5 mg twice a day, losartan 50 mg daily, Imdur 30 mg daily, Plavix 75 mg daily, atorvastatin 80 mg daily and aspirin 81 mg daily. Most recent echocardiogram obtained 12/2018 revealed impaired LV systolic function with ejection fraction 40-45%, basal inferior, basal inferior septal, mid inferior and mid inferior septal wall motion hypokinesia, mild MR and mild TR. REVIEW OF SYSTEMS At the time of my exam: CONSTITUTIONAL: Denies fever or chills. CARDIOVASCULAR: Denies chest pain, shortness of breath, orthopnea, PND or palpitations. RESPIRATORY: Denies cough. GASTROINTESTINAL: Denies abdominal pain, diarrhea, constipation, nausea or vomiting. MUSCULOSKELETAL: Denies myalgias. NEUROLOGIC: Denies numbness, tingling or weakness. ENDOCRINE: Denies fatigue, weight change, polydipsia or polyurina. GENITOURINARY: Denies burning, hematuria or urgency with micturation. HEMATOLOGIC: Denies history of anemia or bleeding. PHYSICAL EXAMINATION Blood pressure 115/63 heart rate 56 afebrile and maintaining oxygen saturaiton on room air. CONSTITUTIONAL: No apparent distress. HEENT: Head is normocephalic. Pupils are equal, round. Sclerae anicteric. Mucous membranes of the mouth are moist. No JVD. No carotid bruit. CHEST EXAMINATION: Lungs are clear to auscultation. No chest wall tenderness is noted on palpation or with deep breathing. HEART EXAMINATION: Regular rate and rhythm. S1, S2 heard. No murmurs, gallops or rub. ABDOMEN: Soft, nontender. Positive bowel sounds. EXTREMITIES: 2+ peripheral pulses, no lower extremity edema and no calf tende rness. NEUROLOGIC EXAMINATION: Patient is awake, alert and oriented x3. ASSESSMENT Dizziness, no syncope or LOC History of coronary artery disease s/p multiple PCI's and bypass grafting CVA in the past with right sided residual weakness Diabetes mellitus Hypertension Dyslipidemia PLAN Obtain second troponin to rule out an acute coronary event and check a d-dimer. Obtain 2D echocardiogram and doppler study to assess cardiac structure and function. Check for orthostatic changes. Continue aspirin, plavix, atorvastatin, amlodipine, losartan and lopressor as previously ordered. Thank you kindly for this consultation. Nurse Practitioner note has been reviewed, I agree with a documented findings and plan of care. Patient was seen and examined. Past Medical History Past Medical History: Asthma, Coronary Artery Disease (CAD), CVA/TIA, Diabetes M ellitus, Hyperlipidemia, Hypertension, Myocardial Infarction ([place]), Pneumonia, Prostate Disorder, Thyroid Disorder Additional Past Medical History / Comment(s): NIDDM type II, 2016 CVA with R sided weakness and balance issues, BPH, back problems-occasionally wears a brace, hypothyroid, fall on ice and hit head and had syncopal event. Last Myocardial Infarction Date:: 12/21/18 History of Any Multi-Drug Resistant Organisms: None Reported Past Surgical History: Coronary Bypass/CABG, Heart Catheterization, Heart Catheterization With Stent, Joint Replacement, Orthopedic Surgery Additional Past Surgical History / Comment(s): total 8 stents, left shoulder rotator cuff, total reverse R shoulder replacement, blaire knee replacements, blaire carpal tunnel, R foot 3 hammertoes, colonoscopy, Past Anesthesia/Blood Transfusion Reactions: No Reported Reaction Additional Past Anesthesia/Blood Transfusion Reaction / Comment(s): states comes out with restless legs Date of Last Stent Placement:: 2018 Past Psychological History: No Psychological Hx Reported Additional Psychological History / Comment(s): Pt resides with his spouse. He uses no assistive device. He drives. Smoking Status: Former smoker Past Alcohol Use History: None Reported Additional Past Alcohol Use History / Comment(s): Pt started smoking in 1954 and quit in 1979 Past Drug Use History: None Reported - Past Family History Father Family Medical History: Coronary Artery Disease (CAD) Additional Family Medical History / Comment(s): Father had enlarged heart. He had a crush injury that impacted his mobility. He at the age of 74yrs. Mother Family Medical History: Cancer, Hypertension Additional Family Medical History / Comment(s): Mother had breast cancer. Daughter(s) Family Medical History: Cancer Brother(s) Family Medical History: Cancer Medications and Allergies Home Medications Medication Instructions Recorded Confirmed Type Levothyroxine Sodium [Synthroid] 50 mcg PO DAILY 05/18/14 08/29/19 History Chlorpheniramine Maleate 4 mg PO DAILY 12/14/15 08/29/19 History [Chlor-Trimeton] Clopidogrel [Plavix] 75 mg PO DAILY@1200 12/14/15 08/29/19 History Montelukast [Singulair] 10 mg PO HS 12/14/15 08/29/19 History Omeprazole [PriLOSEC] 20 mg PO AC-BID 12/14/15 08/29/19 History Nitroglycerin Sl Tabs [Nitrostat] 0.4 mg SUBLINGUAL Q5M PRN #25 tab 12/16/15 08/29/19 Rx Atorvastatin [Lipitor] 80 mg PO HS 02/15/16 08/29/19 History Tamsulosin [Flomax] 0.4 mg PO HS 12/31/18 08/29/19 History amLODIPine [Norvasc] 5 mg PO BID 12/31/18 08/29/19 History glipiZIDE [Glucotrol] 5 mg PO DAILY 12/31/18 08/29/19 History Aspirin [Adult Low Dose Aspirin EC] 81 mg PO DAILY@1200 05/30/19 08/29/19 History Isosorbide Mononitrate [Isosorbide 30 mg PO DAILY 05/30/19 08/29/19 History Mononitrate ER] Losartan [Cozaar] 50 mg PO DAILY@1200 08/29/19 08/29/19 History Metoprolol Tartrate [Lopressor] 12.5 mg PO BID@1200,2100 08/29/19 08/29/19 History glipiZIDE [Glucotrol] 2.5 mg PO HS 08/29/19 08/29/19 History Allergies Allergy/AdvReac Type Severity Reaction Status Date / Time No Known Allergies Allergy Verified 08/29/19 15:00 Physical Exam Vitals: Vital Signs Temp Pulse Pulse Pulse Resp BP BP 08/30/19 05:28 97.4 F L 56 L 16 115/63 08/29/19 20:25 97.7 F 65 16 169/75 08/29/19 16:29 97.7 F 68 16 134/73 08/29/19 16:08 98.1 F 67 18 127/67 08/29/19 16:00 68 16 08/29/19 14:59 97.7 F 68 16 134/73 08/29/19 14:41 97.8 F 67 18 118/67 08/29/19 13:16 98.1 F 66 18 124/64 08/29/19 10:57 98.3 F 76 18 111/68 Pulse Ox 08/30/19 05:28 94 L 08/29/19 20:25 93 L 08/29/19 16:29 95 08/29/19 16:08 97 08/29/19 16:00 08/29/19 14:59 95 08/29/19 14:41 95 08/29/19 13:16 92 L 08/29/19 10:57 95 Intake and Output 08/29/19 08/30/19 08/30/19 22:59 06:59 14:59 Intake Total 280 Balance 280 Intake: Intake, IV Titration 280 Amount Sodium Chloride 0.9% 1, 280 000 ml @ 80 mls/hr IV . [id number] [facility] Rx#:[id number] Other: Voiding Method Toilet Toilet # Voids 1 2 # Bowel Movements 1 0 Results 08/30/19 07:50 08/30/19 07:50 Cardiac Enzymes 08/29/19 08/29/19 Range/Units 11:45 11:45 AST 19 (17-59) U/L Troponin I <0.012 (0.000-0.034) ng/mL CBC 08/29/19 08/30/19 Range/Units 11:45 07:50 WBC 6.3 7.7 (3.8-10.6) k/uL RBC 4.11 L 4.37 (4.30-5.90) m/uL Hgb 13.5 14.2 (13.0-17.5) gm/dL Hct 41.2 43.7 (39.0-53.0) % Plt Count 210 213 (150-450) k/uL Comprehensive Metabolic Panel 08/29/19 Range/Units 11:45 Sodium 142 (137-145) mmol/L Potassium 4.3 (3.5-5.1) mmol/L Chloride 112 H (98-107) mmol/L Carbon Dioxide 22 (22-30) mmol/L BUN 22 H (9-20) mg/dL Creatinine 0.78 (0.66-1.25) mg/dL Glucose 122 H (74-99) mg/dL Calcium 8.9 (8.4-10.2) mg/dL AST 19 (17-59) U/L ALT 23 (21-72) U/L Alkaline Phosphatase 50 (38-126) U/L Total Protein 6.3 (6.3-8.2) g/dL Albumin 3.7 (3.5-5.0) g/dL Current Medications Generic Name Dose Route Start Last Admin Trade Name Freq PRN Reason Stop Dose Admin Amlodipine Besylate 5 mg 08/29/19 21:00 08/30/19 08:48 Norvasc PO 5 mg BID [facility] Administration Aspirin 81 mg 08/30/19 12:00 Aspirin PO DAILY@1200 [facility] Atorvastatin Calcium 80 mg 08/29/19 21:00 08/29/19 20:28 Lipitor PO 80 mg HS [facility] Administration Clopidogrel Bisulfate 75 mg 08/30/19 12:00 Plavix PO DAILY@1200 [facility] Diphenhydramine HCl 25 mg 08/30/19 09:00 08/30/19 08:49 Benadryl PO 25 mg QAM [facility] Administration Enoxaparin Sodium 30 mg 08/30/19 09:00 08/30/19 08:49 Lovenox SQ 30 mg DAILY [facility] Administration Glipizide 5 mg 08/30/19 09:00 08/30/19 08:50 Glucotrol PO 5 mg QAM [facility] Administration Glipizide 2.5 mg 08/29/19 21:00 08/29/19 21:17 Glucotrol PO 2.5 mg HS [facility] Administration Guaifenesin 600 mg 08/29/19 14:30 Mucinex PO BID PRN Cough Sodium Chloride 1,000 mls @ 80 mls/hr 08/29/19 14:30 08/30/19 05:48 Saline 0.9% IV 80 mls/hr .[id number] [facility] Administration Isosorbide Mononitrate 30 mg 08/30/19 09:00 08/30/19 08:48 Imdur PO 30 mg DAILY [facility] Administration Levothyroxine Sodium 50 mcg 08/30/19 06:30 08/30/19 05:48 Synthroid PO 50 mcg DAILY@0630 [facility] Administration Losartan Potassium 50 mg 08/30/19 12:00 Cozaar PO DAILY@1200 [facility] Metoprolol Tartrate 12.5 mg 08/29/19 21:00 08/30/19 08:48 Lopressor PO 12.5 mg BID [facility] Administration Montelukast Sodium 10 mg 08/30/19 09:00 08/30/19 08:49 Singulair PO 10 mg QAM [facility] Administration Naloxone HCl 0.2 mg 08/29/19 14:26 Narcan IV Q2M PRN Opioid Reversal Nitroglycerin 0.4 mg 08/29/19 14:30 Nitrostat SUBLINGUAL Q5M PRN Chest Pain Pantoprazole Sodium 40 mg 08/30/19 07:30 08/30/19 08:48 Protonix PO 40 mg [id number] [facility] Administration Tamsulosin HCl 0.4 mg 08/29/19 21:00 08/29/19 20:29 Flomax PO 0.4 mg HS [facility] Administration Intake and Output 08/29/19 08/30/19 08/30/19 22:59 06:59 14:59 Intake Total 280 Balance 280 Intake: Intake, IV Titration 280 Amount Sodium Chloride 0.9% 1, 280 000 ml @ 80 mls/hr IV . [id number] [facility] Rx#:[id number] Other: Voiding Method Toilet Toilet # Voids 1 2 # Bowel Movements 1 0 08/30/19 07:50 08/29/19 11:45
--- NOTE | 2019-08-30 11:48 | ECHOF ---
Referral Reason:light headed, hx isch cm. MEASUREMENTS -------- HEIGHT: 167.6 cm WEIGHT: 79.4 kg BP: 114/63 RVIDd: 3.7 cm (< 3.3) IVSd: 1.1 cm (0.6 - 1.1) LVIDd: 4.2 cm (3.9 - 5.3) LVPWd: 1.1 cm (0.6 - 1.1) IVSs: 1.4 cm LVIDs: 3.1 cm LVPWs: 1.6 cm LA Diam: 3.8 cm (2.7 - 3.8) LAESV Index (A-L): 33.16 ml/m Ao Diam: 3.3 cm (2.0 - 3.7) AV Cusp: 2.0 cm (1.5 - 2.6) MV EXCURSION: 19.197 mm (> 18.000) MV EF SLOPE: 91 mm/s (70 - 150) EPSS: 1.1 cm MV E Dominic: 0.65 m/s MV DecT: 339 ms MV A Dominic: 0.64 m/s MV E/A Ratio: 1.01 RAP: 5.00 mmHg RVSP: 28.31 mmHg TAPSE: 16.79 mm FINDINGS -------- Sinus rhythm. This was a technically adequate study. The left ventricular size is normal. There is borderline concentric left ventricular hypertrophy. Overall left ventricular systolic function is mild-moderately impaired with, an EF between 40 - 45 % . Basal inferior LV wall motion is hypokinetic. Basal inferoseptal LV wall motion is hypokinetic . The right ventricle is mildly enlarged. Normal LA size by volume 22+/-6 ml/m2. The right atrium is normal in size. Aneurysmal Interatrial septum. There is mild aortic valve sclerosis. There is trace mitral regurgitation. Mild tricuspid regurgitation present. Right ventricular systolic pressure is normal at < 35 mmHg. Trace/mild (physiologic) pulmonic regurgitation. The aortic root size is normal. IVC Not well visulized. There is no pericardial effusion. CONCLUSIONS -------- 1. Sinus rhythm. 2. This was a technically adequate study. 3. The left ventricular size is normal. 4. There is borderline concentric left ventricular hypertrophy. 5. Overall left ventricular systolic function is mild-moderately impaired with, an EF between 40 - 45 %. 6. Basal inferior LV wall motion is hypokinetic. 7. Basal inferoseptal LV wall motion is hypokinetic. 8. The right ventricle is mildly enlarged. 9. Normal LA size by volume 22+/-6 ml/m2. 10. The right atrium is normal in size. 11. Aneurysmal Interatrial septum. 12. There is mild aortic valve sclerosis. 13. There is trace mitral regurgitation. 14. Mild tricuspid regurgitation present. 15. Right ventricular systolic pressure is normal at < 35 mmHg. 16. Trace/mild (physiologic) pulmonic regurgitation. 17. The aortic root size is normal. 18. IVC Not well visulized. 19. There is no pericardial effusion. [employer] CRIB ATTENDANT: Torie Marcial RDCS
[2019-08-30] MEDS ORDERED: ASPIRIN 81 MG PO SCH (12:00)
[2019-08-30] MEDS ORDERED: LOSARTAN 50 MG TAB PO SCH (12:00)
[2019-08-30] MEDS ORDERED: METOPROLOL SUCCINATE (ER) 25 MG TAB.ER.24H PO SCH (12:00)
[2019-08-30] MEDS ORDERED: LISINOPRIL 5 MG TAB PO SCH (12:00)
[2019-08-30] MEDS ORDERED: CLOPIDOGREL 75 MG TAB PO SCH (12:00)
--- NOTE | 2019-08-30 12:37 | P.CNNES ---
History of Present Illness Consult date: 08/30/19 Reason for Consult: Dizziness and hx of stroke Chief complaint: Lightheadedness and nausea History of Present Illness: HISTORY OF PRESENT ILLNESS: Thank you for allowing me to evaluate Mr. Kalen Weber. Mr. Weber is an 78 year-old R-handed man with PMhx of asthma, coronary artery disease, stroke in 2016 with residual left-sided weakness and balance issues, diabetes, hyperlipidemia, hypertension, [place], hypothyroidism, prostate disorder, who presented to [facility] for dizziness. Patient states that he woke up, at his usual state of health Friday morning. Had breakfast, and at some point in the morning, he started having dizziness. Denies any room-spinning sensation, tinnitus, double vision, weakness, numbness or tingling. His dizziness lasted all day, and when he woke up Friday, he was back to his baseline. However, he started having dizziness again around 9am, and at that point, patient decided to come to the hospital. Patient states the dizziness lasted for several more hours, by the time he had dinner, he no longer had the dizziness. Denies any similar symptoms in the past where the dizziness would last for many hours. Patient does endorse blurry vision that is intermittent and possibly associated with his dizziness. Denies any recent sickness, fever, na usea, vomiting, coughing, diarrhea, CP or SOB. Of note, patient had a stroke in 2016 that caused R-sided weakness and some balance issues, but patient is able to walk around on his own without a cane or walker. PAST MEDICAL HISTORY: asthma, coronary artery disease, stroke in 2016, diabetes, hyperlipidemia, hypertension, [place], hypothyroidism, prostate disorder PAST SURGICAL HISTORY: CABG, heart catheterization with stent, left shoulder rotator cuff, total reverse right shoulder replacement, bilateral knee replacements, bilateral carpal tunnel release HOME MEDICATIONS: Levothyroxine, Singulair, omeprazole, chlorpheniramine, atorvastatin, Plavix, tamsulosin, glipizide, amlodipine, aspirin, isosorbide, losartan, glipizide, metoprolol ALLERGIES: NKDA SOCIAL HISTORY: Formal smoker FAMILY HISTORY: Father with coronary artery disease. Mother with breast cancer and hypertension. Brother and daughter with cancer REVIEW OF SYSTEMS: The 14 systems are reviewed and no additional points are identified compared to the review of systems documented history and physical PHYSICAL EXAMINATION: VITAL SIGNS: T 97.4 HR 56 RR 16 BP 115/63 O2 sat 94% on RA GEN.: NAD, pleasant and cooperative HEENT: NCAT, sclera without icterus NECK: Supple, no carotid bruit SKIN AND EXTREMITIES: Warm to touch, no edema NEURO: MENTAL STATUS: Patient alert and oriented to self, place, time. Able to name the current president. Speech fluent, able to name and repeat, following all commands readily. No right and left disorientation, extinction to double simultaneous stimulation, finger agnosia, neglect. CRANIAL NERVES II THROUGH XII: II: Pupils are equal and reactive to light symmetrically. No afferent pupillary defect. Visual hutchins are intact. III, IV, : No ptosis. Extraocular movements full. No nystagmus. V: Facial sensation intact from V1-3. VII. No clear facial asymmetry. VIII: Hearing intact to finger rub bilaterally. IX, X: Symmetric palate elevation. XI: Shoulder shrug intact. XII: Tongue midline without fasciculation or atrophy. MOTOR: Normal bulk/tone. No pronator drift or tremor. Patient with difficulty raising his LUE for many years after he had an incident with his dog where the dog jerked his arm out while on leash. SENSORY: Intact to light touch in all 4 extremities. Romberg is negative. REFLEXES: 2+ throughout. Toes are downgoing. No clonus. Gabriela's is absent COORDINATION: Finger to nose and heel to olivarez intact. No dysmetria. GAIT: Narrow-based and stable. Able to heel walk. Unable to toe/tandem walk DIAGNOSTIC TESTING: LABORATORY: WBC 7.7 hemoglobin 14.2 platelet 213 sodium 142 potassium 4.3 chloride 112 bicarb 22 BUN 22 creatinine 0.78 glucose 122 AST 19 ALT 23 alk phos 50 troponin <0.012 urinalysis negative TSH 3.420 FLP in 03/2019: Total cholesterol 118 HDL 42 LDL 50 TG 130 IMAGING: CT head without contrast 08/29/2019: No acute intracranial abnormality seen. A left thalamic lacunar infarct is not chronic but noted to be new from 2016. Carotid Dopplers 08/30/2019: Atheromatous plaquing and intimal thickening. No significant flow-limiting stenosis within the common or internal carotid arteries. Some moderate stenosis between 50-69% of the left external carotid artery is present. TTE 08/30/19: SR. EF 40-45%. Borderline concentrid L ventricular hypertrophy. LV, LA and RA sizes are normal. RV is mildly enlarged. Basal inferior LV and inferoseptal LV wlals are hypokinetic. EKG 08/29/2019: Sinus rhythm ASSESSMENT: 78 year-old R-handed man with PMhx of asthma, coronary artery disease, stroke in 2016 with residual right-sided weakness, diabetes, hyperlipidemia, hypertension, [place], hypothyroidism, prostate disorder, who presented to [facility] for dizziness. RECOMMENDATIONS: 1. MRI brain without contrast 2. Cardiac monitoring (placed today on 08/30/19) 3. ASA 81mg qday and Plavix 75mg qday (per POINT trial, but patient is on dual antiplatelets for his cardiac stents) 4. Atorvastatin 80mg qhs 5. PT/OT/ST per protocol 6. Discussed with patient about stroke prevention guidelines. Medication compliance, hypertension/diabetes control, lifestyle changes including no smoking, drinking in moderation, losing weight, exercising, eating healthier 7. Neurology will continue to follow. 8. Patient needs to follow up with neurologist as outpatient with her 1-2 weeks of discharge Past Medical History Past Medical History: Asthma, Coronary Artery Disease (CAD), CVA/TIA, Diabetes Mellitus, Hyperlipidemia, Hypertension, Myocardial Infarction ([place]), Pneumonia, Prostate Disorder, Thyroid Disorder Additional Past Medical History / Comment(s): NIDDM type II, 2016 CVA with R sided weakness and balance issues, BPH, back problems-occasionally wears a brace, hypothyroid, fall on ice and hit head and had syncopal event. Last Myocardial Infarction Date:: 12/21/18 History of Any Multi-Drug Resistant Organisms: None Reported Past Surgical History: Coronary Bypass/CABG, Heart Catheterization, Heart Catheterization With Stent, Joint Replacement, Orthopedic Surgery Additional Past Surgical History / Comment(s): total 8 stents, left shoulder rotator cuff, total reverse R shoulder replacement, blaire knee replacements, blaire carpal tunnel, R foot 3 hammertoes, colonoscopy, Past Anesthesia/Blood Transfusion Reactions: No Reported Reaction Additional Past Anesthesia/Blood Transfusion Reaction / Comment(s): states comes out with restless legs Date of Last Stent Placement:: 2018 Past Psychological History: No Psychological Hx Reported Additional Psychological History / Comment(s): Pt resides with his spouse. He uses no assistive device. He drives. Smoking Status: Former smoker Past Alcohol Use History: None Reported Additional Past Alcohol Use History / Comment(s): Pt started smoking in 1955 and quit in 1979 Past Drug Use History: None Reported - Past Family History Father Family Medical History: Coronary Artery Disease (CAD) Additional Family Medical History / Comment(s): Father had enlarged heart. He had a crush injury that impacted his mobility. He at the age of 74yrs. Mother Family Medical History: Cancer, Hypertension Additional Family Medical History / Comment(s): Mother had breast cancer. Daughter(s) Family Medical History: Cancer Brother(s) Family Medical History: Cancer Medications and Allergies Home Medications Medication Instructions Recorded Confirmed Type Levothyroxine Sodium [Synthroid] 50 mcg PO DAILY 05/18/14 08/29/19 History Chlorpheniramine Maleate 4 mg PO DAILY 12/14/15 08/29/19 History [Chlor-Trimeton] Clopidogrel [Plavix] 75 mg PO DAILY@1200 12/14/15 08/29/19 History Montelukast [Singulair] 10 mg PO HS 12/14/15 08/29/19 History Omeprazole [PriLOSEC] 20 mg PO AC-BID 12/14/15 08/29/19 History Nitroglycerin Sl Tabs [Nitrostat] 0.4 mg SUBLINGUAL Q5M PRN #25 tab 12/16/15 08/29/19 Rx Atorvastatin [Lipitor] 80 mg PO HS 02/15/16 08/29/19 History Tamsulosin [Flomax] 0.4 mg PO HS 12/31/18 08/29/19 History amLODIPine [Norvasc] 5 mg PO BID 12/31/18 08/29/19 History glipiZIDE [Glucotrol] 5 mg PO DAILY 12/31/18 08/29/19 History Aspirin [Adult Low Dose Aspirin EC] 81 mg PO DAILY@1200 05/30/19 08/29/19 History Isosorbide Mononitrate [Isosorbide 30 mg PO DAILY 05/30/19 08/29/19 History Mononitrate ER] Losartan [Cozaar] 50 mg PO DAILY@1200 08/29/19 08/29/19 History Metoprolol Tartrate [Lopressor] 12.5 mg PO BID@1200,2100 08/29/19 08/29/19 History glipiZIDE [Glucotrol] 2.5 mg PO HS 08/29/19 08/29/19 History Allergies Allergy/AdvReac Type Severity Reaction Status Date / Time No Known Allergies Allergy Verified 08/29/19 15:00 Physical Examination - Vital Signs Vital Signs: Vital Signs Temp Pulse Pulse Pulse Resp BP BP 08/30/19 05:28 97.4 F L 56 L 16 115/63 08/29/19 20:25 97.7 F 65 16 169/75 08/29/19 16:29 97.7 F 68 16 134/73 08/29/19 16:08 98.1 F 67 18 127/67 08/29/19 16:00 68 16 08/29/19 14:59 97.7 F 68 16 134/73 08/29/19 14:41 97.8 F 67 18 118/67 08/29/19 13:16 98.1 F 66 18 124/64 08/29/19 10:57 98.3 F 76 18 111/68 Pulse Ox 08/30/19 05:28 94 L 08/29/19 20:25 93 L 08/29/19 16:29 95 08/29/19 16:08 97 08/29/19 16:00 08/29/19 14:59 95 08/29/19 14:41 95 08/29/19 13:16 92 L 08/29/19 10:57 95 Intake and Output 08/29/19 08/30/19 08/30/19 22:59 06:59 14:59 Intake Total 280 Balance 280 Intake: Intake, IV Titration 280 Amount Sodium Chloride 0.9% 1, 280 000 ml @ 80 mls/hr IV . [id number] [facility] Rx#:[id number] Other: Voiding Method Toilet Toilet # Voids 1 2 # Bowel Movements 1 0 Results - Laboratory Findings CBC and BMP: 08/30/19 07:50 08/30/19 07:50 Abnormal Lab Findings: Abnormal Labs 08/29/19 08/29/19 08/29/19 11:45 11:45 11:45 RBC 4.11 L MCV 100.3 H Chloride 112 H BUN 22 H Glucose 122 H Creatine Kinase 50 L Urine Protein Trace H 08/30/19 07:50 RBC MCV 100.1 H Chloride BUN Glucose Creatine Kinase Urine Protein
--- NOTE | 2019-08-30 14:41 | MR ---
EXAMINATION TYPE: MR brain wo con DATE OF EXAM: 08/30/2019 COMPARISON: MRI brain February 15, 2016. CT brain August 29, 2019 HISTORY: Lightheadedness TECHNIQUE: Multiplanar, multisequence imaging of the brain and brainstem is performed without IV cont rast. FINDINGS: Diffusion weighted images demonstrate no evidence of a recent infarct or other diffusion abnormality. There is no worrisome extra-axial fluid collection. There is diffuse ventricular and sulcal prominenc e consistent with diffuse cerebral atrophy. There are focal and confluent areas of T2 hyperintensity seen throughout the white matter bilaterally most prominent deep and periventricular levels. Lesions are nonspecific in appearance and distribution but most likely on basis of product of chronic small v essel ischemic change. Suspect old lacunar infarct superior right rayna sagittal image 11. This is how ever new from 2016 MRI. Stable old left thalamic lacunar infarct axial image 16. Midline structures demonstrate normal morphology. The craniocervical junction appears within normal limits. Normal vascular flow voids are present. Moderate mucosal thickening inferiorly left maxillary sinus is redemonstrated. There is mild mucosal thickening involving ethmoid sinuses bilaterally agai n seen. IMPRESSION: 1. No evidence of a recent infarct. 2. Background mild to moderate diffuse cerebral atrophy and fairly advanced chronic small vessel isch emic change redemonstrated. Old lacunar infarcts noted. 3. Chronic paranasal sinus disease incidentally noted.
[2019-08-30] MEDS: ATORVASTATIN 80 MG TAB PO SCH (21:10)
[2019-08-30] MEDS: TAMSULOSIN 0.4 MG CAP.ER.24H PO SCH (21:10)
[2019-08-31] MEDS ORDERED: LEVOTHYROXINE 50 MCG TAB ONE (04:58)
[2019-08-31] MEDS: LEVOTHYROXINE 50 MCG TAB PO SCH (05:38)
[2019-08-31] MEDS: SODIUM CHLORIDE 0.9% 1,000 ML IV SCH (05:38)
[2019-08-31 05:55] VITALS: BP 121/61; PULSE 65; TEMP 97.6
[2019-08-31] MEDS: amLODIPine 5 MG TAB PO SCH (08:13)
[2019-08-31] MEDS: PANTOPRAZOLE 40 MG TABLET PO SCH (08:13)
[2019-08-31] MEDS: MONTELUKAST 10 MG TAB PO SCH (08:14)
[2019-08-31] MEDS: ISOSORBIDE MONONITRATE ER 30 MG TAB.ER.24H PO SCH (08:14)
[2019-08-31] MEDS: glipiZIDE 5 MG TAB PO SCH (08:14)
[2019-08-31] MEDS: diphenhydrAMINE 25 MG CAP PO SCH (08:14)
[2019-08-31] MEDS: METOPROLOL TARTRATE 12.5 MG TAB PO SCH (08:14)
[2019-08-31] MEDS ORDERED: ENOXAPARIN 40 MG/0.4 ML SYRINGE SQ SCH (09:00)
--- NOTE | 2019-08-31 10:19 | P.PN ---
Progress Note - Text Progress Note Date: 08/31/19 SUBJECTIVE/INTERVAL EVENTS: No acute overnight events. Patient with no complaints. Denies headache, nausea, vomiting. Dizziness has improved significantly. Patient is able to walk on his own but at times his legs cross, which patient states has been an issue for some time. Patient has a cane at home that he hasn't used. Advised patient and to use the cane for safety reasons as patient having some difficulty with balance. PHYSICAL EXAMINATION: VITAL SIGNS: T 97.6 HR 65 RR 16 BP 121/61 O2 sat 95% on RA GEN.: NAD, pleasant and cooperative HEENT: NCAT, sclera without icterus NECK: Supple, no carotid bruit SKIN AND EXTREMITIES: Warm to touch, no edema NEURO: MENTAL STATUS: Patient alert and oriented to self, place, time. Able to name the current president. Speech fluent, able to name and repeat, following all commands readily. No right and left disorientation, extinction to double simultaneous stimulation, finger agnosia, neglect. CRANIAL NERVES II THROUGH XII: II: Pupils are equal and reactive to light symmetrically. No afferent pupillary defect. Visual hutchins are intact. III, IV, : No ptosis. Extraocular movements full. No nystagmus. V: Facial sensation intact from V1-3. VII. No clear facial asymmetry. VIII: Hearing intact to finger rub bilaterally. IX, X: Symmetric palate elevation. XI: Shoulder shrug intact. XII: Tongue midline without fasciculation or atrophy. MOTOR: Normal bulk/tone. No pronator drift or tremor. Patient with difficulty raising his LUE for many years after he had an incident with his dog where the dog jerked his arm out while on leash. SENSORY: Intact to light touch in all 4 extremities. Romberg is negative. REFLEXES: 2+ throughout. Toes are downgoing. No clonus. Gabriela's is absent COORDINATION: Finger to nose and heel to olivarez intact. No dysmetria. GAIT: Narrow-based and stable. Able to heel walk. Unable to toe/tandem walk DIAGNOSTIC TESTING: LABORATORY: WBC 7.7 hemoglobin 14.2 platelet 213 sodium 142 potassium 4.3 chloride 112 bicarb 22 BUN 22 creatinine 0.78 glucose 122 AST 19 ALT 23 alk phos 50 troponin <0.012 urinalysis negative TSH 3.420 FLP in 03/2019: Total cholesterol 118 HDL 42 LDL 50 TG 130 IMAGING: Brain MRI without contrast 08/30/2019: No evidence of a recent infarct. Background mild to moderate diffuse cerebral atrophy and fairly advanced chronic small vessel ischemic change. Old lacunar infarct noted. Chronic paranasal sinus disease incidentally noted CT head without contrast 08/29/2019: No acute intracranial abnormality seen. A left thalamic lacunar infarct is not chronic but noted to be new from 2016. Carotid Dopplers 08/30/2019: Atheromatous plaquing and intimal thickening. No significant flow-limiting stenosis within the common or internal carotid arteries. Some moderate stenosis between 50-69% of the left external carotid artery is present. TTE 08/30/19: SR. EF 40-45%. Borderline concentrid L ventricular hypertrophy. LV, LA and RA sizes are normal. RV is mildly enlarged. Basal inferior LV and inferoseptal LV wlals are hypokinetic. 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 MRI brain No evidence of a recent infarct. Background mild to moderate diffuse cerebral atrophy and fairly advanced chronic small vessel ischemic change. Old lacunar infarct noted. RECOMMENDATIONS: 1. ASA 81mg qday and Plavix 75mg qday (per POINT trial, but patient is on dual antiplatelets for his cardiac stents) 2. Atorvastatin 80mg qhs 3. Discussed with patient about stroke prevention guidelines. Medication compliance, hypertension/diabetes control, lifestyle changes including no smoki ng, drinking in moderation, losing weight, exercising, eating healthier 4. Patient needs to follow up with neurologist as outpatient with her 1-2 weeks of discharge 5. Neurology will sign off at this time. Please feel free to contact Neurology again if with additional questions or concerns.
--- NOTE | 2019-08-31 11:27 | P.PN ---
Subjective HISTORY OF PRESENTING ILLNESS This is a pleasant 78-year-old male past medical history significant for coronary artery disease status post multiple PCI, bypass surgery with a BOOGIE to LAD and SVG to RCA in 1998, diabetes mellitus, hypertension, dyslipidemia and CVA in the past with residual right-sided weakness. He follows in the office with Dr. Reid. He is seen and examined sitting up on the edge of the bed. He continue to feel a full sensation in his head. No chest pain, shortness of breath, dizziness or palpitations. Blood pressure 121/61 heart rate 65 afebrile and maintaining oxygen saturation on room air. Laboratory data reviewed, d-dimer 0.53, cardiac enzymes negative x2. Echocardiogram revealed impaired LV systolic function with EF 40-45%, basal inferior and basal infero-septal wall motion hypokinesia, mild aortic valve sclerosis, mild TR and aneurysmal interatrial septum. He is being followed by neurology. MRI brain ordered yesterday revealed no acute infarct with evidence of chronic small vessel ischemia and old lacunar infarcts. PHYSICAL EXAMINATION CONSTITUTIONAL: No apparent distress. HEENT: Head is normocephalic. Pupils are equal, round. Sclerae anicteric. Mucous membranes of the mouth are moist. No JVD. No carotid bruit. CHEST EXAMINATION: Lungs are clear to auscultation. No chest wall tenderness is noted on palpation or with deep breathing. HEART EXAMINATION: Regular rate and rhythm. S1, S2 heard. No murmurs, gallops or rub. EXTREMITIES: 2+ peripheral pulses, no lower extremity edema and no calf tenderness. ASSESSMENT Dizziness, no syncope or LOC History of coronary artery disease s/p multiple PCI's and bypass grafting Ischemic cardiomyopathy, chronic, EF 40-45% Chronic systolic heart failure, currently euvolemic CVA in the past with right sided residual weakness Diabetes mellitus Hypertension Dyslipidemia PLAN An acute coronary event has been ruled out. Ongoing management and evaluation per neurology and primary care team. Symptoms are not suggestive of cardiac etiology. Follow up with Dr. Reid upon discharge. Nurse Practitioner note has been reviewed, I agree with a documented findings and plan of care. Patient was seen and examined. Objective - Vital Signs Vital signs: Vital Signs Temp 97.6 F 08/31/19 05:53 Pulse 65 08/31/19 05:53 Resp 16 08/31/19 05:53 BP 121/61 08/31/19 05:53 Pulse Ox 95 08/31/19 05:53 Intake & Output 08/30/19 08/31/19 08/31/19 18:59 06:59 18:59 Intake Total 640 1130 Balance 640 1130 Intake: Intake, IV Titration 640 Amount Sodium Chloride 0.9% 1, 640 000 ml @ 80 mls/hr IV . [id number] [facility] Rx#:[id number] Oral 1130 Other: Voiding Method Toilet Toilet # Voids 2 - Labs CBC & Chem 7: 08/30/19 07:50 08/30/19 07:50 Labs: Abnormal Lab Results - Last 24 Hours (Table) 08/30/19 Range/Units 07:50 Chloride 108 H (98-107) mmol/L Creatinine 0.63 L (0.66-1.25) mg/dL
--- NOTE | 2019-09-03 12:57 | CDI ---
Documentation Clarification Form Date: 09/03/19 From: Joy Amaro Phone: If you have a question about this query, please contact Janae June, File System Installer at [phone] between 8am and 5pm. Admit Date: 08/29/19 Discharge Date:08/31/19 Patient Name: Kalen Weber Visit Number: [id number] ATTENTION: The Clinical Documentation Specialists (CDI) and [facility] Coding Staff appreciate your assistance in clarifying documentation. Please respond to the clarification below the line at the bottom and electronically sign. The CDI & [facility] Coding staff will review the response and follow-up if needed. Please note: Queries are made part of the Legal Health Record. If you have any questions, please contact the author of this message via ITS. Dear Dr. Lucy Cook The patients principal diagnosis has not been clearly identified and requires clarification. He/She presented with dizziness and lightheadedness and dehydration. Exact etiology unknown. Possible TIA versus CVA documented in the H&P. History/Risk factors: Previous CVA with right side weakness, CAD, old MD, hypertension Clinical Indicators: dizzy, lightheaded Lab findings:Chloride 112, BUN 22, glucose 122, creatine kinase 50, troponin <0.012, <0.012 Radiology findings: Chest: COPD and chronic changes. No acute process. Carotid US (Bilateral):Atheromatous plaquing and intimal thickening. No significant flow-limiting stenosis within the common or internal carotid arteries. Some moderate stenosis between 50 and 69% of the left external carotid artery is present. CT: Brain 08/29/19: No acute intracranial process with evidence of a left lacunar infarct new from 2016. Vital Signs: T. 98.3, P. 76, R. 18, BP 111/68 Treatment: 1 liter sodium chloride bolus Consults: Cardiology documented that an acute coronary syndrome has been ruled out. Neurology documented no evidence of a recent infarct. In your professional opinion, can you please clarify which diagnosis, after study, accounted for the patients presenting symptoms and was the reason chiefly responsible for the admission? Possible TIA MERCEDES
--- NOTE | 2019-09-04 19:01 | P.DS ---
Providers Date of admission: 08/29/19 14:26 Attending physician: Lucy Cook Consults: 08/29/19 14:27 Consult Physician Routine Consulting Provider: Jimena Rankin Consult Reason/Comments: Dizziness history of CVA Do you want consulting provider notified?: Yes, Notify in am 08/30/19 08:20 Consult Physician Urgent Consulting Provider: Jennifer Reid Consult Reason/Comments: dizziness Do you want consulting provider notified?: Yes Primary care physician: Jatin Love Hospital Course: Dizziness and lightheadedness. Exact Etiology unknown. resolved History of CVA with residual left-sided weakness and off balance. Coronary artery disease with history of multiple stents placement Coronary artery bypass graft in 1998 Hypertension Diabetes type 2 History of [place] BPH Hypothyroidism Osteoarthritis Previous history of smoking Hospital course: Patient is a 78-year-old male with a known history of CVA with some left-sided weakness and off balance since 2014, coronary artery disease with history of CABG in 1998, history of multiple stent placement, hypertension, diabetes type 2 and hypothyroidism and prostate disorder/BPH came to ER with the complaints of lightheadedness, who presents because of 2 days of dizziness, which is started on Friday through Friday at the [facility] where it get worse and she decided to come to the hospital. However he denies any more dizziness since yesterday. 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 CT head showed no intracranial process. A left thalamic lacunar infarct is now chronic but noted to be new from 2016. Serial troponins are negative, d-dimer is negative at 0.53, echocardiogram showed ejection fraction of 40-45%, MRI of the brain: No new infarct, which was only old infarcts. Carotid duplex is negative for significant stenosis. Patient is already on aspirin and Plavix for cardiac reasons, continue with the same. Physical therapy recommended home On the day of discharge patient denies new complaint. He denies chest pain or dyspnea, no abdominal pain, no nausea vomiting, no change in urine or bowel habits. No fever Patient is cleared for discharge by cardiology and neurology services Problems and management plan were discussed with the patient and he verbalized understanding and acceptance Patient was found stable and can be discharged home however he needs follow-up as an outpatient. Patient was instructed to follow up with PCP within one week and patient agrees. pt informed about his appointments with cardiology , neurology and PCP and he agrees with them and states he will follow up Gen: patient is a AAOx3, no distress CVS: S1-S2, RRR, no murmur Lungs: B/L CTA, no wheezing Abdomen: soft, no distention, no tenderness, positive bowel sounds Extremity: no leg edema or induration Time spent more than 35 minutes Patient Condition at Discharge: Fair Plan - Discharge Summary New Discharge Prescriptions: Continue Levothyroxine Sodium [Synthroid] 50 mcg PO DAILY Montelukast [Singulair] 10 mg PO HS Omeprazole [PriLOSEC] 20 mg PO AC-BID Chlorpheniramine Maleate [Chlor-Trimeton] 4 mg PO DAILY Clopidogrel [Plavix] 75 mg PO DAILY@1200 Nitroglycerin Sl Tabs [Nitrostat] 0.4 mg SUBLINGUAL Q5M PRN #25 tab PRN Reason: Chest Pain Atorvastatin [Lipitor] 80 mg PO HS Tamsulosin [Flomax] 0.4 mg PO HS glipiZIDE [Glucotrol] 5 mg PO DAILY amLODIPine [Norvasc] 5 mg PO BID Aspirin [Adult Low Dose Aspirin EC] 81 mg PO DAILY@1200 Isosorbide Mononitrate [Isosorbide Mononitrate ER] 30 mg PO DAILY Losartan [Cozaar] 50 mg PO DAILY@1200 glipiZIDE [Glucotrol] 2.5 mg PO HS Metoprolol Tartrate [Lopressor] 12.5 mg PO BID@1200,2100 Discharge Medication List Levothyroxine Sodium [Synthroid] 50 mcg PO DAILY 05/18/14 [History] Chlorpheniramine Maleate [Chlor-Trimeton] 4 mg PO DAILY 12/14/15 [History] Clopidogrel [Plavix] 75 mg PO DAILY@1200 12/14/15 [History] Montelukast [Singulair] 10 mg PO HS 12/14/15 [History] Omeprazole [PriLOSEC] 20 mg PO AC-BID 12/14/15 [History] Nitroglycerin Sl Tabs [Nitrostat] 0.4 mg SUBLINGUAL Q5M PRN #25 tab 12/16/15 [Rx] Atorvastatin [Lipitor] 80 mg PO HS 02/15/16 [History] Tamsulosin [Flomax] 0.4 mg PO HS 12/31/18 [History] amLODIPine [Norvasc] 5 mg PO BID 12/31/18 [History] glipiZIDE [Glucotrol] 5 mg PO DAILY 12/31/18 [History] Aspirin [Adult Low Dose Aspirin EC] 81 mg PO DAILY@1200 05/30/19 [History] Isosorbide Mononitrate [Isosorbide Mononitrate ER] 30 mg PO DAILY 05/30/19 [History] Losartan [Cozaar] 50 mg PO DAILY@1200 08/29/19 [History] Metoprolol Tartrate [Lopressor] 12.5 mg PO BID@1200,2100 08/29/19 [History] glipiZIDE [Glucotrol] 2.5 mg PO HS 08/29/19 [History] Follow up Appointment(s)/Referral(s): Jennifer Reid MD [STAFF PHYSICIAN] - 09/09/19 2:00 pm Kate Steiner MD [Primary Care Provider] - 09/06/19 2:00 pm Piedad Parsons MD [Medical Doctor] - 09/15/19 10:00 am Patient Instructions/Handouts: Dizziness (GEN) Activity/Diet/Wound Care/Special Instructions: heart healthy diet (low fat, low salt) activity is limited until you see your doctor Discharge Disposition: HOME SELF-CARE
== END 2019-08-31 11:15 | disposition home or self-care (01) ==
LOC: EC 10:46 → UNDOADMOB 14:26 → 3NMEDONC 14:26 → INTOOBSV 08-31 08:50 → OBSVTOIN 08-31 08:50 → UNDODISIN 08-31 11:15
PROVIDERS: ADMIT Internal Medicine; ATTEND Internal Medicine
DX: R42 Dizziness and giddiness (principal); I69.351 Hemiplegia and hemiparesis following cerebral infarction affecting right dominant side; I25.10 Atherosclerotic heart disease of native coronary artery without angina pectoris; I11.0 Hypertensive heart disease with heart failure; I50.22 Chronic systolic (congestive) heart failure; E86.0 Dehydration; J44.9 Chronic obstructive pulmonary disease, unspecified; I25.5 Ischemic cardiomyopathy; I08.2 Rheumatic disorders of both aortic and tricuspid valves; E11.9 Type 2 diabetes mellitus without complications; E03.9 Hypothyroidism, unspecified; E78.5 Hyperlipidemia, unspecified; I25.2 Old myocardial infarction; M19.90 Unspecified osteoarthritis, unspecified site; N40.0 Benign prostatic hyperplasia without lower urinary tract symptoms; Z79.02 Long term (current) use of antithrombotics/antiplatelets; Z79.82 Long term (current) use of aspirin; Z79.84 Long term (current) use of oral hypoglycemic drugs; Z79.890 Hormone replacement therapy; Z79.899 Other long term (current) drug therapy; Z96.611 Presence of right artificial shoulder joint; Z96.653 Presence of artificial knee joint, bilateral; Z95.5 Presence of coronary angioplasty implant and graft; Z95.1 Presence of aortocoronary bypass graft; Z87.891 Personal history of nicotine dependence; Z87.01 Personal history of pneumonia (recurrent); Z91.81 History of falling; Z80.3 Family history of malignant neoplasm of breast; Z82.49 Family history of ischemic heart disease and other diseases of the circulatory system; Z80.9 Family history of malignant neoplasm, unspecified; Z23 Encounter for immunization
CPT/HCPCS: 90471; 96361; 96372 ×2; 96360; 99285; 36415; 93005; 93306; 97162; 97166; 85379; 83880; 80053; 80048; 84443; 82550; 83735; 84484 ×2; 85025 ×2; 81003; 71046; 93880; 70450; 70551; 90686; G0378 ×3; G0008; J1650 ×2

== ENCOUNTER → 2019-11-08 | Outpatient (CLI) | payer MEDICARE ==
--- NOTE | 2019-11-08 12:51 | US ---
EXAMINATION TYPE: US kidneys/renal and bladder DATE OF EXAM: 11/08/2019 COMPARISON: NONE CLINICAL HISTORY: R31.9 hematuria. Macroscopic hematuria EXAM MEASUREMENTS: Right Kidney: 11.9 x 5.3 x 6.4 cm Left Kidney: 12.8 x 5.0 x 5.8 cm Right Kidney: Multiple cystic appearing lesions seen, largest measured at mid pole- 2.1 x 2.0 x 1.7 c m. Echogenic focus seen medially = 0.6 cm Left Kidney: Moderate hydronephrosis Bladder: distended, on image 32 there is dependent echogenicity of the central posterior urinary blad nessa measuring 7 mm. This is also seen on image 33. Bilateral Jets seen IMPRESSION: 1. Moderate left-sided hydronephrosis. 2. Nonobstructing 0.6 cm right renal calculus. 3. Some images of the urinary bladder demonstrate questionable debris versus sessile mass. Given the left-sided hydronephrosis and macroscopic hematuria. Visualization or CT urogram are recommended.
== END | disposition home or self-care (01) ==
LOC: RADUSWWP 11:12
PROVIDERS: ATTEND Internal Medicine
DX: N13.30 Unspecified hydronephrosis (principal); N20.0 Calculus of kidney
CPT/HCPCS: 76770

== ENCOUNTER → 2019-11-19 | Outpatient (CLI) | payer MEDICARE ==
[2019-11-19 13:07] LABS: African American GFR (CKD) >90 (>60 ml/min/1.73 sqM); Blood Urea Nitrogen 17 mg/dL (9-20); Non-African American GFR(CKD) 89 (>60 ml/min/1.73 sqM)
--- NOTE | 2019-11-19 15:53 | CT ---
EXAMINATION TYPE: CT abdomen pelvis w con DATE OF EXAM: 11/19/2019 COMPARISON: None INDICATION: Gross hematuria. DLP: 876.8 mGycm, Automated exposure control for dose reduction was used. CONTRAST: 100 mL of Isovue M300. Study performed with Oral Contrast TECHNIQUE: Axial images were obtained from above the diaphragm to the pubic rami in the axial plane a t 5 mm thick sections. Reconstructed images are reviewed on the computer in the coronal plane. FINDINGS: Limited CT sections are obtained the lung bases. There may be faint 0.3 cm density within the lingul ar base. Series [address] ABDOMEN: Liver: Some minimal fatty infiltration liver may be present. Spleen: Normal Pancreas: Atrophic Adrenal glands: The adrenal glands are normal. Gallbladder: Normal Kidneys: No masses are evident. No hydronephrosis is present. Multiple peripelvic cysts are present . No hydronephrosis is evident on delayed images. No hydroureter is evident. Delayed images were obt ained through the kidneys, which remain unremarkable. Aorta: Vascular calcification is within the aorta. Inferior vena cava: Normal. Bowel: Loops of bowel distended with oral contrast appear unremarkable. Diverticular changes are with in the sigmoid colon. Fecal bolus is at the level the rectum. Oral contrast extends to distal small b owel loops. Urinary bladder is decompressed and cannot be well evaluated. GENITOURINARY: Prostate appears normal. No free fluid is within the pelvis. Appendix: The appendix is normal as visualized. IMPRESSIONS: 1. Multiple bilateral peripelvic cysts. No hydronephrosis is evident. 2. No suspicious findings to account for hematuria.
== END | disposition home or self-care (01) ==
LOC: RADCTMAIN 12:23
PROVIDERS: ATTEND Urology
DX: R31.0 Gross hematuria (principal); R93.49 Abnormal radiologic findings on diagnostic imaging of other urinary organs
CPT/HCPCS: 82565; 84520; 74177; 36415; Q9967 ×2

== ENCOUNTER 2020-03-07 17:19 | Emergency (ER) | payer MEDICARE ==
[2020-03-07 17:27] VITALS: TEMP 98.6
[2020-03-07] MEDS ORDERED: SODIUM CHLORIDE 0.9% 500 ML 500 ML IV STA (17:49)
[2020-03-07 18:13] LABS: Amorphous Sediment,Urine Occasional /hpf; Appearance,Urine Cloudy (Clear); Bacteria,Urine Rare /hpf; Bilirubin,Urine Negative (Negative); Blood,Urine Small (Negative); Color,Urine Yellow; Glucose,Urine (UA) Negative (Negative); Hyaline Casts,Urine 1 /lpf (0-2); Ketones,Urine Negative (Negative); Leukocyte Esterase,Urine Large (Negative); Mucus,Urine Moderate /hpf; Nitrite,Urine Negative (Negative); PH, Urine 5.5 (5.0-8.0); Protein,Urine 1+ (Negative); RBC,Urine 18 /hpf (0-5); Specific Gravity,Urine 1.024 (1.001-1.035); Squamous Epithelial Cell,Urine <1 /hpf (0-4); WBC,Urine >182 /hpf (0-5)
--- NOTE | 2020-03-07 18:49 | XR ---
EXAMINATION TYPE: XR chest 2V DATE OF EXAM: 03/07/2020 COMPARISON: 08/29/2019 HISTORY: Weakness TECHNIQUE: Frontal and lateral views of the chest are obtained. FINDINGS: Strand-like right infrahilar density likely represents atelectasis. Platelike atelectasis is seen at both costophrenic angles. Cardiomediastinal silhouette is stable with post CABG change. Re verse right humeral arthroplasty and advanced degenerative change of the left shoulder are noted. Dif fuse osseous demineralization and moderate degenerative change of the spine. Pulmonary hyperinflation with flattening of diaphragms on the lateral view suggests underlying COPD. IMPRESSION: New right infrahilar opacity likely represents atelectasis given the linear morphology a lthough pneumonia is possible. Other scattered areas of atelectasis are seen. Findings also support u nderlying COPD.
--- NOTE | 2020-03-07 18:51 | ED ---
Weakness HPI - General Chief complaint: Weakness Stated complaint: Unsteady Time Seen by Provider: 03/07/20 17:34 Source: patient Mode of arrival: wheelchair Limitations: no limitations - History of Present Illness Initial comments: Patient is a 79-year-old male, History of heart disease with stents, hypertension, diabetes, stroke, presenting to the emergency Department with complaints of feeling weak since this morning. Patient states he felt his no rmal self when he woke up this morning. Patient states he walked to the mailbox and back and had to stop a couple times to catch his breath and strength. Patient states then he cut the grass and had a hard time getting off of the mower. Patient states he had to sit down for a while. Patient states he then took 2 nitro as he thought this might improve his condition. Patient denies having any pains today including no chest pain, abdominal pain. He states he is just having a hard time walking around without feeling extremely weak. She does admit to increase in urinary frequency for the past few weeks. He does see Dr. Chavez as his urologist. He denies any nausea, vomiting, fever, chills. He denies any blurry vision, numbness and tingling into his extremities. He states he has some very little residual weakness of his right side secondary to his stroke. He denies having to use a walker or cane on a daily basis. He has no further complaints at this time. Upon arrival to the ER, his vitals are stable. - Related Data Home Medications Medication Instructions Recorded Confirmed Levothyroxine Sodium [Synthroid] 50 mcg PO DAILY 05/18/14 08/29/19 Chlorpheniramine Maleate 4 mg PO DAILY 12/14/15 08/29/19 [Chlor-Trimeton] Clopidogrel [Plavix] 75 mg PO DAILY@1200 12/14/15 08/29/19 Montelukast [Singulair] 10 mg PO HS 12/14/15 08/29/19 Omeprazole [PriLOSEC] 20 mg PO AC-BID 12/14/15 08/29/19 Atorvastatin [Lipitor] 80 mg PO HS 02/15/16 08/29/19 Tamsulosin [Flomax] 0.4 mg PO HS 12/31/18 08/29/19 amLODIPine [Norvasc] 5 mg PO BID 12/31/18 08/29/19 glipiZIDE [Glucotrol] 5 mg PO DAILY 12/31/18 08/29/19 Aspirin [Adult Low Dose Aspirin EC] 81 mg PO DAILY@1200 05/30/19 08/29/19 Isosorbide Mononitrate [Isosorbide 30 mg PO DAILY 05/30/19 08/29/19 Mononitrate ER] Losartan [Cozaar] 50 mg PO DAILY@1200 08/29/19 08/29/19 Metoprolol Tartrate [Lopressor] 12.5 mg PO BID@1200,2100 08/29/19 08/29/19 glipiZIDE [Glucotrol] 2.5 mg PO HS 08/29/19 08/29/19 Previous Rx's Medication Instructions Recorded Nitroglycerin Sl Tabs [Nitrostat] 0.4 mg SUBLINGUAL Q5M PRN #25 tab 12/16/15 Cephalexin [Keflex] 500 mg PO Q6HR 7 Days #28 cap 03/07/20 Allergies Allergy/AdvReac Type Severity Reaction Status Date / Time No Known Allergies Allergy Verified 03/07/20 17:27 Review of Systems ROS Statement: Those systems with pertinent positive or pertinent negative responses have been documented in the HPI. ROS Other: All systems not noted in ROS Statement are negative. 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 Last Myocardial Infarction Date:: 12/21/18 History of Any Multi-Drug Resistant Organisms: None Reported Past Surgical History: Coronary Bypass/CABG, Heart Catheterization, Heart Catheterization With Stent, Joint Replacement, Orthopedic Surgery Additional Past Surgical History / Comment(s): total 8 stents, left shoulder rot ator cuff, total reverse R shoulder replacement, blaire knee replacements, blaire carpal tunnel, R foot 3 hammertoes, colonoscopy, bladder polyps removed Past Anesthesia/Blood Transfusion Reactions: No Reported Reaction Additional Past Anesthesia/Blood Transfusion Reaction / Comment(s): states comes out with restless legs Date of Last Stent Placement:: 2019 Past Psychological History: No Psychological Hx Reported Smoking Status: Former smoker Past Alcohol Use History: None Reported Past Drug Use History: None Reported - Past Family History Father Family Medical History: Coronary Artery Disease (CAD) Additional Family Medical History / Comment(s): Father had enlarged heart. He had a crush injury that impacted his mobility. He at the age of 74yrs. Mother Family Medical History: Cancer, Hypertension Additional Family Medical History / Comment(s): Mother had breast cancer. Daughter(s) Family Medical History: Cancer Brother(s) Family Medical History: Cancer General Exam - General Exam Comments Initial Comments: GENERAL: Well-appearing, well-nourished and in no acute distress. HEAD: Atraumatic, normocephalic. EYES: Pupils equal round and reactive to light, extraocular movements intact, sclera anicteric, conjunctiva are normal. ENT: TMs normal, nares patent, oropharynx clear without exudates. Moist mucous membranes. NECK: Normal range of motion, supple without lymphadenopathy or JVD. LUNGS: Breath sounds clear to auscultation bilaterally and equal. No wheezes rales or rhonchi. HEART: Regular rate and rhythm without murmurs, rubs or gallops. ABDOMEN: Soft, nontender, normoactive bowel sounds. No guarding, no rebound. No masses appreciated. : Deferred EXTREMITIES: Normal range of motion, no pitting or edema. No clubbing or cyanosis. Strength is 5 out of 5 in upper and lower extremities. Sensation is equal and bilateral upper and lower extremities. NEUROLOGICAL: Cranial nerves II through XII grossly intact. Normal speech. PSYCH: Normal mood, normal affect. SKIN: Warm, Dry, normal turgor, no rashes or lesions noted. Limitations: no limitations Course Vital Signs 03/07/20 03/07/20 03/07/20 17:20 18:41 18:50 Temperature 98.6 F Pulse Rate 75 68 Respiratory 18 16 Rate Blood Pressure 125/71 121/87 O2 Sat by Pulse 94 L 90 L 95 Oximetry EKG Findings - EKG Comments: EKG Findings:: EKG shows normal sinus rhythm, no signs of acute ischemia. Ventricular rate 67, IN interval 140, QTC 424. Compared to previous EKG on 08/29/2019. Medical Decision Making - Medical Decision Making Patient is an 79-year-old male, with history of heart disease, diabetes, present ing with complaints of generalized weakness since this morning. His vitals are stable. Exam is unremarkable. Lab work shows a normal white count, but her lites normal, troponin was negative, BNP was 357. Lactic acid was normal. Urine shows large amount of wbc's and bacteria. Urine culture was sent and is pending. Chest x-ray shows mild atelectasis versus pneumonia. Patient has denied cough, fever. I discussed with patient that he does have a UTI and we will give him a dose of antibiotics. Patient states he feels well and up to go home and he does not want to stay in the hospital. Patient was able to move around ER room with outcome patient. She given 1 g of Rocephin and will be c ontinued with Keflex as outpatient. Strict return parameters were discussed with the patient and patient's and they both verbalized understanding. Patient is stable for discharge. Case discussed with Dr. Barraza. - Lab Data Result diagrams: 03/07/20 18:40 03/07/20 18:40 Lab Results 03/07/20 03/07/20 03/07/20 Range/Units 18:00 18:40 18:40 WBC 5.0 (3.8-10.6) k/uL RBC 3.89 L (4.30-5.90) m/uL Hgb 12.7 L (13.0-17.5) gm/dL Hct 38.5 L (39.0-53.0) % MCV 99.1 (80.0-100.0) fL MCH 32.8 (25.0-35.0) pg MCHC 33.1 (31.0-37.0) g/dL RDW 14.4 (11.5-15.5) % Plt Count 174 (150-450) k/uL Neutrophils % 64 % Lymphocytes % 21 % Monocytes % 10 % Eosinophils % 2 % Basophils % 1 % Neutrophils # 3.2 (1.3-7.7) k/uL Lymphocytes # 1.0 (1.0-4.8) k/uL Monocytes # 0.5 (0-1.0) k/uL Eosinophils # 0.1 (0-0.7) k/uL Basophils # 0.0 (0-0.2) k/uL PT 10.1 (9.0-12.0) sec INR 1.0 (<1.2) APTT 22.9 (22.0-30.0) sec Sodium (137-145) mmol/L Potassium (3.5-5.1) mmol/L Chloride (98-107) mmol/L Carbon Dioxide (22-30) mmol/L Anion Gap mmol/L BUN (9-20) mg/dL Creatinine (0.66-1.25) mg/dL Est GFR (CKD-EPI)AfAm (>60 ml/min/1.73 sqM) Est GFR (CKD-EPI)NonAf (>60 ml/min/1.73 sqM) Glucose (74-99) mg/dL Plasma Lactic Acid Thomas (0.7-2.0) mmol/L Calcium (8.4-10.2) mg/dL Total Bilirubin (0.2-1.3) mg/dL AST (17-59) U/L ALT (4-49) U/L Alkaline Phosphatase (38-126) U/L Troponin I (0.000-0.034) ng/mL NT-Pro-B Natriuret Pep pg/mL Total Protein (6.3-8.2) g/dL Albumin (3.5-5.0) g/dL Urine Color Yellow Urine Appearance Cloudy (Clear) Urine pH 5.5 (5.0-8.0) Ur Specific [place] 1.024 (1.001-1.035) Urine Protein 1+ H (Negative) Urine Glucose (UA) Negative (Negative) Urine Ketones Negative (Negative) Urine Blood Small H (Negative) Urine Nitrite Negative (Negative) Urine Bilirubin Negative (Negative) Urine Urobilinogen 2.0 (<2.0) mg/dL Ur Leukocyte Esterase Large H (Negative) Urine RBC 18 H (0-5) /hpf Urine WBC >182 H (0-5) /hpf Ur Squamous Epith Cells <1 (0-4) /hpf Amorphous Sediment Occasional H (None) /hpf Urine Bacteria Rare H (None) /hpf Hyaline Casts 1 (0-2) /lpf Urine Mucus Moderate H (None) /hpf 03/07/20 03/07/20 03/07/20 Range/Units 18:40 18:40 18:40 WBC (3.8-10.6) k/uL RBC (4.30-5.90) m/uL Hgb (13.0-17.5) gm/dL Hct (39.0-53.0) % MCV (80.0-100.0) fL MCH (25.0-35.0) pg MCHC (31.0-37.0) g/dL RDW (11.5-15.5) % Plt Count (150-450) k/uL Neutrophils % % Lymphocytes % % Monocytes % % Eosinophils % % Basophils % % Neutrophils # (1.3-7.7) k/uL Lymphocytes # (1.0-4.8) k/uL Monocytes # (0-1.0) k/uL Eosinophils # (0-0.7) k/uL Basophils # (0-0.2) k/uL PT (9.0-12.0) sec INR (<1.2) APTT (22.0-30.0) sec Sodium 135 L (137-145) mmol/L Potassium 4.5 (3.5-5.1) mmol/L Chloride 102 (98-107) mmol/L Carbon Dioxide 26 (22-30) mmol/L Anion Gap 7 mmol/L BUN 16 (9-20) mg/dL Creatinine 0.73 (0.66-1.25) mg/dL Est GFR (CKD-EPI)AfAm >90 (>60 ml/min/1.73 sqM) Est GFR (CKD-EPI)NonAf 87 (>60 ml/min/1.73 sqM) Glucose 103 H (74-99) mg/dL Plasma Lactic Acid Thomas 0.7 (0.7-2.0) mmol/L Calcium 8.8 (8.4-10.2) mg/dL Total Bilirubin 0.4 (0.2-1.3) mg/dL AST 25 (17-59) U/L ALT 16 (4-49) U/L Alkaline Phosphatase 53 (38-126) U/L Troponin I <0.012 (0.000-0.034) ng/mL NT-Pro-B Natriuret Pep pg/mL Total Protein 6.2 L (6.3-8.2) g/dL Albumin 3.5 (3.5-5.0) g/dL Urine Color Urine Appearance (Clear) Urine pH (5.0-8.0) Ur Specific [place] (1.001-1.035) Urine Protein (Negative) Urine Glucose (UA) (Negative) Urine Ketones (Negative) Urine Blood (Negative) Urine Nitrite (Negative) Urine Bilirubin (Negative) Urine Urobilinogen (<2.0) mg/dL Ur Leukocyte Esterase (Negative) Urine RBC (0-5) /hpf Urine WBC (0-5) /hpf Ur Squamous Epith Cells (0-4) /hpf Amorphous Sediment (None) /hpf Urine Bacteria (None) /hpf Hyaline Casts (0-2) /lpf Urine Mucus (None) /hpf 03/07/20 Range/Units 18:40 WBC (3.8-10.6) k/uL RBC (4.30-5.90) m/uL Hgb (13.0-17.5) gm/dL Hct (39.0-53.0) % MCV (80.0-100.0) fL MCH (25.0-35.0) pg MCHC (31.0-37.0) g/dL RDW (11.5-15.5) % Plt Count (150-450) k/uL Neutrophils % % Lymphocytes % % Monocytes % % Eosinophils % % Basophils % % Neutrophils # (1.3-7.7) k/uL Lymphocytes # (1.0-4.8) k/uL Monocytes # (0-1.0) k/uL Eosinophils # (0-0.7) k/uL Basophils # (0-0.2) k/uL PT (9.0-12.0) sec INR (<1.2) APTT (22.0-30.0) sec Sodium (137-145) mmol/L Potassium (3.5-5.1) mmol/L Chloride (98-107) mmol/L Carbon Dioxide (22-30) mmol/L Anion Gap mmol/L BUN (9-20) mg/dL Creatinine (0.66-1.25) mg/dL Est GFR (CKD-EPI)AfAm (>60 ml/min/1.73 sqM) Est GFR (CKD-EPI)NonAf (>60 ml/min/1.73 sqM) Glucose (74-99) mg/dL Plasma Lactic Acid Thomas (0.7-2.0) mmol/L Calcium (8.4-10.2) mg/dL Total Bilirubin (0.2-1.3) mg/dL AST (17-59) U/L ALT (4-49) U/L Alkaline Phosphatase (38-126) U/L Troponin I (0.000-0.034) ng/mL NT-Pro-B Natriuret Pep 357 pg/mL Total Protein (6.3-8.2) g/dL Albumin (3.5-5.0) g/dL Urine Color Urine Appearance (Clear) Urine pH (5.0-8.0) Ur Specific [place] (1.001-1.035) Urine Protein (Negative) Urine Glucose (UA) (Negative) Urine Ketones (Negative) Urine Blood (Negative) Urine Nitrite (Negative) Urine Bilirubin (Negative) Urine Urobilinogen (<2.0) mg/dL Ur Leukocyte Esterase (Negative) Urine RBC (0-5) /hpf Urine WBC (0-5) /hpf Ur Squamous Epith Cells (0-4) /hpf Amorphous Sediment (None) /hpf Urine Bacteria (None) /hpf Hyaline Casts (0-2) /lpf Urine Mucus (None) /hpf Disposition Clinical Impression: Weakness, UTI (urinary tract infection) Disposition: HOME SELF-CARE Condition: Good Instructions (If sedation given, give patient instructions): Urinary Tract Infection in Men (ED) Additional Instructions: Please return to the Emergency Department if symptoms worsen or any other concerns. Take antibiotic as prescribed. Follow-up with Dr. Chavez as discussed. Prescriptions: Cephalexin [Keflex] 500 mg PO Q6HR 7 Days #28 cap Is patient prescribed a controlled substance at d/c from ED?: No Referrals: Kate Steiner MD [Primary Care Provider] - 1-2 days
[2020-03-07 19:03] LABS: ALT 16 U/L (4-49); AST 25 U/L (17-59); African American GFR (CKD) >90 (>60 ml/min/1.73 sqM); Albumin 3.5 g/dL (3.5-5.0); Alkaline Phosphatase 53 U/L (38-126); Anion Gap 7 mmol/L; Basophils % (A) 1 %; Blood Urea Nitrogen 16 mg/dL (9-20); Calcium 8.8 mg/dL (8.4-10.2); Carbon Dioxide 26 mmol/L (22-30); Chloride 102 mmol/L (98-107); Eosinophils # (A) 0.1 k/uL (0-0.7); Eosinophils % (A) 2 %; Glucose 103 mg/dL (74-99); HCT 38.5 % (39.0-53.0); HGB 12.7 gm/dL (13.0-17.5); Lymphocytes % (A) 21 %; MCH 32.8 pg (25.0-35.0); MCHC 33.1 g/dL (31.0-37.0); MCV 99.1 fL (80.0-100.0); Mean Platelet Volume 7.9; Monocytes # (A) 0.5 k/uL (0-1.0); Monocytes % (A) 10 %; Neutrophils # (A) 3.2 k/uL (1.3-7.7); Neutrophils % (A) 64 %; Non-African American GFR(CKD) 87 (>60 ml/min/1.73 sqM); Partial Thromboplastin Time 22.9 sec (22.0-30.0); Platelet Count 174 k/uL (150-450); Potassium 4.5 mmol/L (3.5-5.1); Prothrombin Time 10.1 sec (9.0-12.0); RBC 3.89 m/uL (4.30-5.90); RDW 14.4 % (11.5-15.5); Sodium 135 mmol/L (137-145); Total Bilirubin 0.4 mg/dL (0.2-1.3); Total Protein 6.2 g/dL (6.3-8.2)
[2020-03-07] MEDS ORDERED: cefTRIAXone IN SWFI 1,000 MG/10 ML SYRINGE IVP STA (19:23)
[2020-03-07 19:48] VITALS: BP 126/71; PULSE 69; RESP 18
== END 2020-03-07 20:06 | disposition home or self-care (01) ==
LOC: EC 17:19
DX: R53.1 Weakness (principal); N39.0 Urinary tract infection, site not specified; I25.10 Atherosclerotic heart disease of native coronary artery without angina pectoris; E11.9 Type 2 diabetes mellitus without complications; E78.5 Hyperlipidemia, unspecified; I10 Essential (primary) hypertension; I25.2 Old myocardial infarction; N40.0 Benign prostatic hyperplasia without lower urinary tract symptoms; E03.9 Hypothyroidism, unspecified; Z86.73 Personal history of transient ischemic attack (TIA), and cerebral infarction without residual deficits; Z95.1 Presence of aortocoronary bypass graft; Z95.5 Presence of coronary angioplasty implant and graft; Z95.818 Presence of other cardiac implants and grafts; Z96.611 Presence of right artificial shoulder joint; Z96.653 Presence of artificial knee joint, bilateral; Z87.891 Personal history of nicotine dependence; Z79.890 Hormone replacement therapy; Z79.02 Long term (current) use of antithrombotics/antiplatelets; Z79.84 Long term (current) use of oral hypoglycemic drugs; Z79.82 Long term (current) use of aspirin; Z79.899 Other long term (current) drug therapy
CPT/HCPCS: 36415; 93005; 83880; 80053; 83605; 84484; 85025; 85610; 85730; 81001; 87086; 71046; 99285; 96374; 96361; J0696

== ENCOUNTER → 2020-05-10 | Outpatient (CLI) | payer MEDICARE ==
[2020-05-10 16:40] LABS: African American GFR (CKD) 92.5 (60.0-200.0); Albumin 4.1 g/dL (3.80-4.90); Albumin/Globulin Ratio 2.05 (1.60-3.17); Anion Gap 5.8 mmol/L (4.00-12.00); BUN/Creat Ratio 17.78 Ratio (12.00-20.00); Calcium 9.3 mg/dL (8.7-10.3); Carbon Dioxide 27.2 mmol/L (21.6-31.8); Chol/HDL Ratio 3.11; LDL Cholesterol,Calculated 84.6 mg/dL (0.0-131.0); Non-African American GFR(CKD) 79.8 (60.0-200.0); Potassium 4.4 mmol/L (3.5-5.5); Total Bilirubin 0.4 mg/dL (0.2-1.2); Total Protein 6.1 g/dL (6.2-8.2); VLDL Calculation 12.4 mg/dL (5.00-40.00)
== END | disposition home or self-care (01) ==
LOC: LABWHC1 08:33
PROVIDERS: ATTEND Internal Medicine Interventional Cardiology
DX: E78.2 Mixed hyperlipidemia (principal)
CPT/HCPCS: 36415; 80053; 80061

== ENCOUNTER 2020-05-12 19:08 | Emergency (ER) | payer MEDICARE ==
[2020-05-12 19:15] VITALS: TEMP 98.2
[2020-05-12] MEDS ORDERED: IBUPROFEN 400 MG TAB PO STA (19:27)
--- NOTE | 2020-05-12 19:29 | ED ---
General Adult HPI - General Chief complaint: Extremity Injury, Upper Stated complaint: Fall Time Seen by Provider: 05/12/20 19:16 Source: patient, RN notes reviewed, old records reviewed Mode of arrival: ambulatory Limitations: no limitations - History of Present Illness Initial comments: 79-year-old male patient presents ED chief complaint of fall yesterday. Patient reports that yesterday he was walking up a set of approximate 7 stairs when towards the top he lost his balance and trouble down them. Patient is denying any trauma to the head or the neck. Denying any head or neck pain chest pain shortness of breath he is complaining of left wrist and shoulder pain. Denies any use of blood thinners. Denies any abdominal pain nausea or vomiting. Denies any other complaints. Patient ambulatory without difficulty denies any leg or hip pain. Systemic: Pt denies fatigue, fever/chills, rash. Pt denies weakness, night sweats, weight loss. Neuro: Pt denies headache, visual disturbances, syncope or pre-syncope. HEENT: Pt denies ocular discharge or irritation, otalgia, rhinorrhea, pharyngitis or notable lymphadenopathy. Cardiopulmonary: Pt denies chest pain, SOB, heart palpitations, dyspnea on exertion. Abdominal/GI: Pt denies abdominal pain, n/v/d. : Pt denies dysuria, burning w/ urination, frequency/urgency. Denies new onset urinary or bowel incontinence. Neuro: Pt denies new onset weakness, paresthesias. - Related Data Home Medications Medication Instructions Recorded Confirmed Levothyroxine Sodium [Synthroid] 50 mcg PO DAILY 05/18/14 08/29/19 Chlorpheniramine Maleate 4 mg PO DAILY 12/14/15 08/29/19 [Chlor-Trimeton] Clopidogrel [Plavix] 75 mg PO DAILY@1200 12/14/15 08/29/19 Montelukast [Singulair] 10 mg PO HS 12/14/15 08/29/19 Omeprazole [PriLOSEC] 20 mg PO AC-BID 12/14/15 08/29/19 Atorvastatin [Lipitor] 80 mg PO HS 02/15/16 08/29/19 Tamsulosin [Flomax] 0.4 mg PO HS 12/31/18 08/29/19 amLODIPine [Norvasc] 5 mg PO BID 12/31/18 08/29/19 glipiZIDE [Glucotrol] 5 mg PO DAILY 12/31/18 08/29/19 Aspirin [Adult Low Dose Aspirin EC] 81 mg PO DAILY@1200 05/30/19 08/29/19 Isosorbide Mononitrate [Isosorbide 30 mg PO DAILY 05/30/19 08/29/19 Mononitrate ER] Losartan [Cozaar] 50 mg PO DAILY@1200 08/29/19 08/29/19 Metoprolol Tartrate [Lopressor] 12.5 mg PO BID@1200,2100 08/29/19 08/29/19 glipiZIDE [Glucotrol] 2.5 mg PO HS 08/29/19 08/29/19 Previous Rx's Medication Instructions Recorded Nitroglycerin Sl Tabs [Nitrostat] 0.4 mg SUBLINGUAL Q5M PRN #25 tab 12/16/15 Cephalexin [Keflex] 500 mg PO Q6HR 7 Days #28 cap 03/07/20 Allergies Allergy/AdvReac Type Severity Reaction Status Date / Time No Known Allergies Allergy Verified 05/12/20 19:15 Review of Systems ROS Statement: Those systems with pertinent positive or pertinent negative responses have been documented in the HPI. ROS Other: All systems not noted in ROS Statement are negative. 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 Last Myocardial Infarction Date:: 12/21/18 History of Any Multi-Drug Resistant Organisms: None Reported Past Surgical History: Coronary Bypass/CABG, Heart Catheterization, Heart Catheterization With Stent, Joint Replacement, Orthopedic Surgery Additional Past Surgical History / Comment(s): total 8 stents, left shoulder rotator cuff, total reverse R shoulder replacement, blaire knee replacements, blaire carpal tunnel, R foot 3 hammertoes, colonoscopy, bladder polyps removed Past Anesthesia/Blood Transfusion Reactions: No Reported Reaction Additional Past Anesthesia/Blood Transfusion Reaction / Comment(s): states comes out with restless legs Date of Last Stent Placement:: 2019 Past Psychological History: No Psychological Hx Reported Smoking Status: Never smoker Past Alcohol Use History: None Reported Past Drug Use History: None Reported - Past Family History Father Family Medical History: Coronary Artery Disease (CAD) Additional Family Medical History / Comment(s): Father had enlarged heart. He had a crush injury that impacted his mobility. He at the age of 74yrs. Mother Family Medical History: Cancer, Hypertension Additional Family Medical History / Comment(s): Mother had breast cancer. Daughter(s) Family Medical History: Cancer Brother(s) Family Medical History: Cancer General Exam - General Exam Comments Initial Comments: Constitutional: NAD, AOX3, Pt has pleasant affect. HEENT: NC/AT, trachea midline, neck supple, no lymphadenopathy. External ears appear normal, without discharge. Mucous membranes moist. Eyes PERRLA, EOM intact. There is no scleral icterus. No pallor noted. Cardiopulmonary: RRR, no murmurs, rubs or gallops, no JVD noted. Lungs CTAB in anterior and posterior hutchins. No peripheral edema. Abdominal exam: Abdomen soft and non-distended. Abdomen non-tender to palpation in all 4 quadrants. Bowel sounds active in LLQ. No hepatosplenomegaly. No ecchymosis Neuro: CN II-XII intact. No nuchal rigidity. No raccon eyes, no lozada sign, no hemotympanum. No cervical spinal tenderness. MSK: Mild tenderness to the left shoulder. Range of motion of left shoulder is limited which is unchanged from baseline. Otherwise full active range of motion in upper and lower extremities. Mild tenderness to left distal radius region. Scaphoid tenderness is present. Radial pulses +2. Neurovascularly intact. No other areas of tenderness in upper or lower extremities. Small abrasion to knees noted. Limitations: no limitations Course Vital Signs 05/12/20 19:09 Temperature 98.2 F Pulse Rate 62 Respiratory 16 Rate Blood Pressure 148/74 O2 Sat by Pulse 96 Oximetry Procedures - Orthopedic Splinting/Casting Injury #1 Side: left Upper Extremity Immobilizer: thumb spica Medical Decision Making - Medical Decision Making 79-year-old male patient presented to complain mechanical fall with left shoulder and wrist injury. Patient will signs are stable, afebrile. Physical exam did display some swelling to left distal radius region with positive snuffbox tenderness. Left shoulder is mildly tender to. Plain films on display any acute osseous abnormality. Patient is placed in thumb spica splint neurovascular intact before and after splint placement. Patient has a small abrasion and states that his tetanus is up-to-date. Patient discharged with outpatient orthopedic follow-up and return precautions. Case discussed with Dr. Edwards. Disposition Clinical Impression: Shoulder sprain, Wrist sprain Disposition: HOME SELF-CARE Condition: Stable Instructions (If sedation given, give patient instructions): Shoulder Sprain (ED), Wrist Sprain (ED) Additional Instructions: Follow-up with primary care provider and orthopedic consult tomorrow. Continue to wear a wrist splint. Return to ER if any worsening symptoms. Is patient prescribed a controlled substance at d/c from ED?: No Referrals: Kate Steiner MD [Primary Care Provider] - 1-2 days Kodi Carver DO [Doctor of Osteopathic Medicine] - 1-2 days
--- NOTE | 2020-05-12 19:52 | XR ---
EXAMINATION TYPE: XR shoulder complete LT DATE OF EXAM: 05/12/2020 COMPARISON: NONE HISTORY: Pain TECHNIQUE: 3 views FINDINGS: There is severe narrowing of the glenohumeral joint space. There is obliteration of the sub acromial joint space. I see no fracture. IMPRESSION: Advanced osteoarthritis with subacromial impingement. No fracture seen.
--- NOTE | 2020-05-12 19:54 | XR ---
EXAMINATION TYPE: XR wrist complete LT DATE OF EXAM: 05/12/2020 COMPARISON: NONE HISTORY: Pain TECHNIQUE: 4 views FINDINGS: There is some narrowing of the intercarpal joint spaces. There is deformity of the scaphoid consistent with an old injury and significant arthritic disease. There is a degenerative cyst in the distal radius. There is spurring at the scaphoid trapezium joint and the first carpometacarpal joint . IMPRESSION: No acute abnormality of the left wrist. Extensive arthritic changes with scaphoid deformi ty. No dislocation.
[2020-05-12 20:30] VITALS: BP 136/71; PULSE 60; RESP 18
== END 2020-05-12 20:29 | disposition home or self-care (01) ==
LOC: EC 19:08
DX: S63.502A Unspecified sprain of left wrist, initial encounter (principal); S43.402A Unspecified sprain of left shoulder joint, initial encounter; I25.10 Atherosclerotic heart disease of native coronary artery without angina pectoris; E11.9 Type 2 diabetes mellitus without complications; E78.5 Hyperlipidemia, unspecified; I10 Essential (primary) hypertension; I25.2 Old myocardial infarction; N40.0 Benign prostatic hyperplasia without lower urinary tract symptoms; E03.9 Hypothyroidism, unspecified; I69.351 Hemiplegia and hemiparesis following cerebral infarction affecting right dominant side; Z79.890 Hormone replacement therapy; Z79.84 Long term (current) use of oral hypoglycemic drugs; Z79.82 Long term (current) use of aspirin; Z79.899 Other long term (current) drug therapy; Z79.02 Long term (current) use of antithrombotics/antiplatelets; Z95.5 Presence of coronary angioplasty implant and graft; Z95.1 Presence of aortocoronary bypass graft; Z96.653 Presence of artificial knee joint, bilateral; Z96.611 Presence of right artificial shoulder joint; W10.9XXA Fall (on) (from) unspecified stairs and steps, initial encounter; Y93.01 Activity, walking, marching and hiking
CPT/HCPCS: 99284

== ENCOUNTER → 2020-12-12 | Outpatient (CLI) | payer MEDICARE ==
[2020-12-12 15:33] LABS: ALT 18 U/L (10-49); AST 17 U/L (14-35); African American GFR (CKD) 96.4 (60.0-200.0); Alkaline Phosphatase 65 U/L (41-126); Calcium 9.4 mg/dL (8.7-10.3); Carbon Dioxide 28.4 mmol/L (21.6-31.8); Chloride 109 mmol/L (96-109); Chol/HDL Ratio 3.42; Cholesterol 147 mg/dL (0-200); Glucose 129 mg/dL (70-110); Non-African American GFR(CKD) 83.2 (60.0-200.0); Potassium 4.1 mmol/L (3.5-5.5); Sodium 143 mmol/L (135-145); Total Bilirubin 0.5 mg/dL (0.3-1.2); Total Protein 6.2 g/dL (6.2-8.2); Triglycerides <50.0 mg/dL (0.0-149.0)
== END | disposition home or self-care (01) ==
LOC: LABWHC1 09:21
PROVIDERS: ATTEND Internal Medicine Interventional Cardiology
DX: E78.2 Mixed hyperlipidemia (principal)
CPT/HCPCS: 36415; 80053; 80061

== ENCOUNTER → 2021-06-22 | Outpatient (CLI) | payer MEDICARE ==
[2021-06-23 03:27] LABS: Chol/HDL Ratio 3.9; LDL Cholesterol,Calculated 98.6 mg/dL (0.0-131.0); VLDL Calculation 17.4 mg/dL (5.00-40.00)
== END | disposition home or self-care (01) ==
LOC: LABWHC1 08:54
PROVIDERS: ATTEND Nurse Practitioner Adult Health
DX: E78.2 Mixed hyperlipidemia (principal)
CPT/HCPCS: 36415; 80061; 84450; 84460

== ENCOUNTER → 2021-07-24 | Outpatient (CLI) | payer MEDICARE ==
[~2021-07-24] MED LIST: IODINE/POTASS IOD (LUGOLS) BOTTLE TOPICAL ONE
--- NOTE | 2021-07-25 08:55 | NM ---
EXAMINATION TYPE: NM DatScan Brain SPECT DATE OF EXAM: 07/24/2021 COMPARISON: NONE HISTORY: R 25.8 TECHNIQUE: 10 drops of Lugol's solution was administered 1 hour prior to injection as a thyroid bloc sarah agent. After the administration of 4.31 mCi I-123 Ioflupane DaTscan. Images obtained 3 hours p ost injection. SPECT images of the brain were acquired with axial and coronal reconstructions. FINDINGS: Asymmetry in the appearance of the uptake is thought partially due to the patient positioning, real r, there may be mild decreased uptake in the posterior striatum on the left. IMPRESSION: Findings somewhat equivocal as described.
== END | disposition home or self-care (01) ==
LOC: RADNMMAIN 10:50
PROVIDERS: ATTEND Psychiatry & Neurology Neurology
DX: R25.8 Other abnormal involuntary movements (principal)
CPT/HCPCS: 78803; A9584

== ENCOUNTER → 2021-12-12 | Outpatient (CLI) | payer MEDICARE ==
[2021-12-12 14:52] LABS: ALT 12 U/L (10-49); AST 18 U/L (14-35); African American GFR (CKD) 95.7 (60.0-200.0); Albumin 3.9 g/dL (3.8-4.9); Albumin/Globulin Ratio 1.34 (1.60-3.17); Alkaline Phosphatase 62 U/L (41-126); BUN/Creat Ratio 18.75 Ratio (12.00-20.00); Calcium 9.3 mg/dL (8.7-10.3); Carbon Dioxide 24.9 mmol/L (20.0-27.5); Chloride 105 mmol/L (96-109); Chol/HDL Ratio 3.21 Ratio; Globulin 2.9 g/dL (1.6-3.3); Glucose 107 mg/dL (70-110); Non-African American GFR(CKD) 82.6 (60.0-200.0); Potassium 4.2 mmol/L (3.5-5.5); Sodium 141 mmol/L (135-145); Total Protein 6.8 g/dL (6.2-8.2); VLDL Calculation 12.18 mg/dL (5.00-40.00)
== END | disposition home or self-care (01) ==
LOC: LABWHC1 08:55
PROVIDERS: ATTEND Internal Medicine Interventional Cardiology
DX: E78.2 Mixed hyperlipidemia (principal)
CPT/HCPCS: 36415; 80053; 80061

== ENCOUNTER 2022-06-21 19:16 | Inpatient (IN) | payer MEDICARE ==
--- NOTE | 2022-06-21 20:57 | ED ---
General Adult HPI - General Chief complaint: Neuro Symptoms/Deficit Stated complaint: sudden weakness, neuro issues Time Seen by Provider: 06/21/22 20:48 Source: patient, family Mode of arrival: wheelchair Limitations: no limitations - History of Present Illness Initial comments: Dictation was produced using [employer] dictation software. please excuse any grammatical, word or spelling errors. Chief Complaint: 81-year-old male multiple comorbid is presents emergency Department with weakness and right facial droop History of Present Illness: Is 81-year-old male who is a poor historian. Presents with his daughter. Patient lives at home with his . He woke up this morning feeling weak. Last night he states he felt fine. He did not feel any symptoms yesterday. He woke up this morning and felt like his legs wouldn't move. Patient allegedly has a history of stroke. He has no pain complaints. No chest pain or shortness of breath. No abdominal pain. No numbness or paresthesias to the extremities. Daughter at the bedside states that normally he is able to ambulate with almost no assistance however she noticed today that he was having shuffling gait. Patient did have some witnessed right facial droop. The ROS documented in this emergency department record has been reviewed and confirmed by me. Those systems with pertinent positive or negative responses have been documented in the HPI. All other systems are other negative and/or noncontributory. PHYSICAL EXAM: General Impression: Alert and oriented x3, not in acute distress HEENT: Normocephalic atraumatic, extra-ocular movements intact, pupils equal and reactive to light bilaterally, mucous membranes moist. Cardiovascular: Heart regular rate and rhythm Chest: Able to complete full sentences, no retractions, no tachypnea Abdomen: abdomen soft, non-tender, non-distended, no organomegaly Musculoskeletal: Pulses present and equal in all extremities, no peripheral edema Motor: no focal deficits noted Neurological: CN II-XII grossly intact, no focal motor or sensory deficits noted, shuffling gait requiring significant assistance, no facial droop Skin: Intact with no visualized rashes Psych: Normal affect and mood ED course: 81-year-old male presents emergency department for lower extremity weakness. There was history of right facial droop does notice earlier. At the bedside he does not have any focal neurologic symptoms. He has no pain c omplaints. Is well-appearing at the bedside. Vital signs upon arrival are within acceptable limits. Patient in no acute distress. Laboratory evaluation obtained. CBC, coag panel, metabolic panel is unremarkable. For panel viral PCR is positive for COVID-19. Computed tomography scan of brain is unremarkable. Chest x-ray is nonacute. Disposition options were discussed. Patient's weakness in his lower extremities likely secondary to Covid however there is concern that patient suffered a t ransient ischemic attack given that he had some noticeable right facial droop earlier today. Patient given aspirin. Patient family agreeable with observation admission with consultation to neurology. EKG interpretation: Ventricular rate 66, sinus rhythm,. 130, care is 90, QTC 383. No [place] prolongation, no QTC prolongation, no ST or T-wave changes noted. EKG compared to 03/07/2020 showing no changes. Overall, this EKG is unremarkable - Related Data Home Medications Medication Instructions Recorded Confirmed Levothyroxine Sodium [Synthroid] 50 mcg PO DIRECTED 05/18/14 06/21/22 Chlorpheniramine Maleate 4 mg PO DAILY 12/14/15 06/21/22 [Chlor-Trimeton] Clopidogrel [Plavix] 75 mg PO DIRECTED 12/14/15 06/21/22 Montelukast [Singulair] 10 mg PO DIRECTED 12/14/15 06/21/22 Omeprazole [PriLOSEC] 20 mg PO DIRECTED 12/14/15 06/21/22 Atorvastatin [Lipitor] 80 mg PO DIRECTED 02/15/16 06/21/22 Tamsulosin [Flomax] 0.4 mg PO DIRECTED 12/31/18 06/21/22 amLODIPine [Norvasc] 5 mg PO DIRECTED 12/31/18 06/21/22 glipiZIDE [Glucotrol] 5 mg PO DIRECTED 12/31/18 06/21/22 Losartan [Cozaar] 50 mg PO DIRECTED 08/29/19 06/21/22 Metoprolol Tartrate [Lopressor] 12.5 mg PO DIRECTED 08/29/19 06/21/22 glipiZIDE [Glucotrol] 2.5 mg PO DIRECTED 08/29/19 06/21/22 rOPINIRole HCL [Requip] 1 mg PO BID 06/21/22 06/21/22 Previous Rx's Medication Instructions Recorded Nitroglycerin Sl Tabs [Nitrostat] 0.4 mg SUBLINGUAL Q5M PRN #25 tab 12/16/15 Allergies Allergy/AdvReac Type Severity Reaction Status Date / Time No Known Allergies Allergy Verified 06/21/22 21:55 Review of Systems ROS Statement: Those systems with pertinent positive or pertinent negative responses have been documented in the HPI. ROS Other: All systems not noted in ROS Statement are negative. 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 Last Myocardial Infarction Date:: 12/21/18 History of Any Multi-Drug Resistant Organisms: None Reported Past Surgical History: Coronary Bypass/CABG, Heart Catheterization, Heart Catheterization With Stent, Joint Replacement, Orthopedic Surgery Additional Past Surgical History / Comment(s): total 8 stents, left shoulder rotator cuff, total reverse R shoulder replacement, blaire knee replacements, blaire carpal tunnel, R foot 3 hammertoes, colonoscopy, bladder polyps removed Past Anesthesia/Blood Transfusion Reactions: No Reported Reaction Additional Past Anesthesia/Blood Transfusion Reaction / Comment(s): states comes out with restless legs Date of Last Stent Placement:: 2018 Past Psychological History: No Psychological Hx Reported Smoking Status: Never smoker Past Alcohol Use History: None Reported Past Drug Use History: None Reported - Past Family History Father Family Medical History: Coronary Artery Disease (CAD) Additional Family Medical History / Comment(s): Father had enlarged heart. He had a crush injury that impacted his mobility. He at the age of 74yrs. Mother Family Medical History: Cancer, Hypertension Additional Family Medical History / Comment(s): Mother had breast cancer. Daughter(s) Family Medical History: Cancer Brother(s) Family Medical History: Cancer General Exam Limitations: no limitations Course Vital Signs 06/21/22 20:39 Temperature 98.5 F Pulse Rate 72 Respiratory 16 Rate Blood Pressure 130/69 O2 Sat by Pulse 94 L Oximetry Medical Decision Making - Lab Data Result diagrams: 06/21/22 21:13 06/21/22 21:13 Lab Results 06/21/22 06/21/22 06/21/22 Range/Units 20:59 21:13 21:13 WBC 8.5 (3.8-10.6) k/uL RBC 4.46 (4.30-5.90) m/uL Hgb 14.3 (13.0-17.5) gm/dL Hct 44.7 (39.0-53.0) % MCV 100.1 H (80.0-100.0) fL MCH 32.0 (25.0-35.0) pg MCHC 31.9 (31.0-37.0) g/dL RDW 13.7 (11.5-15.5) % Plt Count 174 (150-450) k/uL MPV 8.6 Neutrophils % 83 % Lymphocytes % 6 % Monocytes % 8 % Eosinophils % 1 % Basophils % 2 % Neutrophils # 7.1 (1.3-7.7) k/uL Lymphocytes # 0.5 L (1.0-4.8) k/uL Monocytes # 0.7 (0-1.0) k/uL Eosinophils # 0.1 (0-0.7) k/uL Basophils # 0.1 (0-0.2) k/uL PT 10.4 (9.0-12.0) sec INR 0.9 (<1.2) APTT 23.7 (22.0-30.0) sec Sodium (137-145) mmol/L Potassium (3.5-5.1) mmol/L Chloride (98-107) mmol/L Carbon Dioxide (22-30) mmol/L Anion Gap mmol/L BUN (9-20) mg/dL Creatinine (0.66-1.25) mg/dL Est GFR (CKD-EPI)AfAm (>60 ml/min/1.73 sqM) Est GFR (CKD-EPI)NonAf (>60 ml/min/1.73 sqM) Glucose (74-99) mg/dL Plasma Lactic Acid Thomas (0.7-2.0) mmol/L Calcium (8.4-10.2) mg/dL Magnesium (1.6-2.3) mg/dL Total Bilirubin (0.2-1.3) mg/dL AST (17-59) U/L ALT (4-49) U/L Alkaline Phosphatase (38-126) U/L Troponin I (0.000-0.034) ng/mL Total Protein (6.3-8.2) g/dL Albumin (3.5-5.0) g/dL Influenza Type A (PCR) Not Detected (Not Detectd) Influenza Type B (PCR) Not Detected (Not Detectd) RSV (PCR) Not Detected (Not Detectd) SARS-CoV-2 (PCR) Detected A (Not Detectd) 06/21/22 06/21/22 06/21/22 Range/Units 21:13 21:13 21:13 WBC (3.8-10.6) k/uL RBC (4.30-5.90) m/uL Hgb (13.0-17.5) gm/dL Hct (39.0-53.0) % MCV (80.0-100.0) fL MCH (25.0-35.0) pg MCHC (31.0-37.0) g/dL RDW (11.5-15.5) % Plt Count (150-450) k/uL MPV Neutrophils % % Lymphocytes % % Monocytes % % Eosinophils % % Basophils % % Neutrophils # (1.3-7.7) k/uL Lymphocytes # (1.0-4.8) k/uL Monocytes # (0-1.0) k/uL Eosinophils # (0-0.7) k/uL Basophils # (0-0.2) k/uL PT (9.0-12.0) sec INR (<1.2) APTT (22.0-30.0) sec Sodium 139 (137-145) mmol/L Potassium 4.1 (3.5-5.1) mmol/L Chloride 102 (98-107) mmol/L Carbon Dioxide 26 (22-30) mmol/L Anion Gap 11 mmol/L BUN 17 (9-20) mg/dL Creatinine 0.97 (0.66-1.25) mg/dL Est GFR (CKD-EPI)AfAm 84 (>60 ml/min/1.73 sqM) Est GFR (CKD-EPI)NonAf 73 (>60 ml/min/1.73 sqM) Glucose 95 (74-99) mg/dL Plasma Lactic Acid Thomas 1.0 (0.7-2.0) mmol/L Calcium 9.4 (8.4-10.2) mg/dL Magnesium 2.0 (1.6-2.3) mg/dL Total Bilirubin 0.5 (0.2-1.3) mg/dL AST 22 (17-59) U/L ALT 14 (4-49) U/L Alkaline Phosphatase 65 (38-126) U/L Troponin I <0.012 (0.000-0.034) ng/mL Total Protein 7.0 (6.3-8.2) g/dL Albumin 4.3 (3.5-5.0) g/dL Influenza Type A (PCR) (Not Detectd) Influenza Type B (PCR) (Not Detectd) RSV (PCR) (Not Detectd) SARS-CoV-2 (PCR) (Not Detectd) Disposition Clinical Impression: TIA (transient ischemic attack), Coronavirus infection Disposition: ADMITTED IP TO THIS HOSP Condition: Fair Referrals: None,Stated [REFERRING] - 1-2 days Decision Time: 22:18
[2022-06-21 21:25] LABS: Basophils # (A) 0.1 k/uL (0-0.2); Basophils % (A) 2 %; Eosinophils # (A) 0.1 k/uL (0-0.7); Eosinophils % (A) 1 %; HCT 44.7 % (39.0-53.0); HGB 14.3 gm/dL (13.0-17.5); Lymphocytes # (A) 0.5 k/uL (1.0-4.8); Lymphocytes % (A) 6 %; MCHC 31.9 g/dL (31.0-37.0); MCV 100.1 fL (80.0-100.0); Mean Platelet Volume 8.6; Monocytes # (A) 0.7 k/uL (0-1.0); Monocytes % (A) 8 %; Neutrophils # (A) 7.1 k/uL (1.3-7.7); Neutrophils % (A) 83 %; Platelet Count 174 k/uL (150-450); RBC 4.46 m/uL (4.30-5.90); RDW 13.7 % (11.5-15.5); WBC 8.5 k/uL (3.8-10.6)
[2022-06-21 21:35] LABS: Albumin 4.3 g/dL (3.5-5.0); Calcium 9.4 mg/dL (8.4-10.2); Potassium 4.1 mmol/L (3.5-5.1); Total Bilirubin 0.5 mg/dL (0.2-1.3)
[2022-06-21 21:40] LABS: INR 0.9 (<1.2); Partial Thromboplastin Time 23.7 sec (22.0-30.0); Prothrombin Time 10.4 sec (9.0-12.0)
--- NOTE | 2022-06-21 21:43 | XR ---
EXAMINATION TYPE: XR chest 1V portable DATE OF EXAM: 06/21/2022 COMPARISON: 03/07/2020 HISTORY: Weakness TECHNIQUE: FINDINGS: Heart is normal. Lungs are clear of infiltrate. No heart failure. There is right shoulder p rosthesis. IMPRESSION: No active cardiopulmonary disease. No adverse change
--- NOTE | 2022-06-21 22:12 | CT ---
EXAMINATION TYPE: CT brain wo con DATE OF EXAM: 06/21/2022 COMPARISON: 08/29/2019 HISTORY: Weakness CT DLP: 1102.4 mGycm Automated exposure control for dose reduction was used. Images obtained of the brain without contrast. There is hypodensity in the periventricular white matter. There is no mass effect or midline shift. T here is cerebral cortical atrophy. There is no evidence of intracranial hemorrhage. There is a 1 cm h ypodensity in the left insula that could be Virchow-Marquez space. The calvarium is intact. Skull base is intact. IMPRESSION: Cerebral atrophy. Microvascular ischemia. No acute intracranial abnormality. No change compared to e old exam.
[2022-06-21] MEDS ORDERED: ASPIRIN 325 MG TAB PO STA (22:16)
[2022-06-21] MEDS ORDERED: NALOXONE 0.4 MG/ML 1 ML VIAL IV PRN (22:18)
[2022-06-22] MEDS: SODIUM CHLORIDE 0.9% 1,000 ML IV SCH (00:21)
[2022-06-22 01:31] LABS: Appearance,Urine Clear (Clear); Bacteria,Urine Rare /hpf; Bilirubin,Urine Negative (Negative); Blood,Urine Moderate (Negative); Color,Urine Yellow; Glucose,Urine (UA) Negative (Negative); Ketones,Urine Negative (Negative); Leukocyte Esterase,Urine Negative (Negative); Mucus,Urine Rare /hpf; Nitrite,Urine Negative (Negative); PH, Urine 5.5 (5.0-8.0); Protein,Urine 1+ (Negative); RBC,Urine 55 /hpf (0-5); Specific Gravity,Urine 1.017 (1.001-1.035); Squamous Epithelial Cell,Urine 1 /hpf (0-4); Urobilinogen,Urine <2.0 mg/dL (<2.0); WBC,Urine 7 /hpf (0-5)
[2022-06-22] MEDS: ACETAMINOPHEN TAB 325 MG TAB PO PRN (05:54)
[2022-06-22] MEDS ORDERED: NITROGLYCERIN SL TABS 0.4 MG TAB SUBLINGUAL PRN (08:10)
--- NOTE | 2022-06-22 08:18 | P.HPIM ---
History of Present Illness H&P Date: 06/21/22 78-year-old pleasant male with known history of COPD he quit smoking in 2007 came in with complaints of left-sided weakness both left hand as well as left leg and patient appears to have strength of 4/5 in both left upper and lower extremities. Patient does have a significant generalized weakness as well patient does use oxygen 2 L at home. Patient also noted some speech difficulty. CT of the head was done which showed mild cerebral atrophy and chronic small vessel ischemic changes small area of old cortical infarct in the right frontal lobe and other small infarcts in the left frontoparietal area. Patient has history of thyroid cancer which is in remission TSH is high and T4 is low REVIEW OF SYSTEMS: CONSTITUTIONAL: No fever, no malaise, no fatigue. HEENT: No recent visual problems or hearing problems. Denied any sore throat. CARDIOVASCULAR: No chest pain, orthopnea, PND, no palpitations, no syncope. PULMONARY: No shortness of breath, no cough, no hemoptysis. GASTROINTESTINAL: No diarrhea, no nausea, no vomiting, no abdominal pain. NEUROLOGICAL: No headachesHEMATOLOGICAL: Denies any bleeding or petechiae. GENITOURINARY: Denies any burning micturition, frequency, or urgency. MUSCULOSKELETAL/RHEUMATOLOGICAL: Denies any joint pain, swelling, or any muscle pain. ENDOCRINE: Denies any polyuria or polydipsia. The rest of the 14-point review of systems is negative. PHYSICAL EXAMINATION: GENERAL: The patient is alert and oriented x3, not in any acute distress. Well developed, well nourished. HEENT: Pupils are round and equally reacting to light. EOMI. No scleral icterus. No conjunctival pallor. Normocephalic, atraumatic. No pharyngeal erythema. No thyromegaly. CARDIOVASCULAR: S1 and S2 present. No murmurs, rubs, or gallops. PULMONARY: Chest is clear to auscultation, no wheezing or crackles. ABDOMEN: Soft, nontender, nondistended, normoactive bowel sounds. No palpable organomegaly. MUSCULOSKELETAL: No joint swelling or deformity. EXTREMITIES: No cyanosis, clubbing, or pedal edema. NEUROLOGICAL: Significant generalized weakness and focal weakness on the left side 4/5 strength SKIN: No rashes. Assessment and plan Left-sided weakness and numbness secondary to possible ischemic stroke: B panel will be obtained MRI was ordered 2-D echo was ordered patient was started on aspirin 81 mg and Plavix 75 mg along with Lipitor PT and OT and speech therapy were consulted -Thyroid cancer with hypothyroidism patient's TSH is high and T4 is low we will increase the dose of levothyroxine from 125 g 150. 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 Last Myocardial Infarction Date:: 12/21/18 History of Any Multi-Drug Resistant Organisms: None Reported Past Surgical History: Coronary Bypass/CABG, Heart Catheterization, Heart Catheterization With Stent, Joint Replacement, Orthopedic Surgery Additional Past Surgical History / Comment(s): total 8 stents, left shoulder rotator cuff, total reverse R shoulder replacement, blaire knee replacements, blaire carpal tunnel, R foot 3 hammertoes, colonoscopy, bladder polyps removed Past Anesthesia/Blood Transfusion Reactions: No Reported Reaction Additional Past Anesthesia/Blood Transfusion Reaction / Comment(s): states comes out with restless legs Date of Last Stent Placement:: 2018 Past Psychological History: No Psychological Hx Reported Smoking Status: Never smoker Past Alcohol Use History: None Reported Past Drug Use History: None Reported - Past Family History Father Family Medical History: Coronary Artery Disease (CAD) Additional Family Medical History / Comment(s): Father had enlarged heart. He had a crush injury that impacted his mobility. He at the age of 74yrs. Mother Family Medical History: Cancer, Hypertension Additional Family Medical History / Comment(s): Mother had breast cancer. Daughter(s) Family Medical History: Cancer Brother(s) Family Medical History: Cancer Medications and Allergies Home Medications Medication Instructions Recorded Confirmed Type Levothyroxine Sodium [Synthroid] 50 mcg PO DIRECTED 05/18/14 06/21/22 History Chlorpheniramine Maleate 4 mg PO DAILY 12/14/15 06/21/22 History [Chlor-Trimeton] Clopidogrel [Plavix] 75 mg PO DIRECTED 12/14/15 06/21/22 History Montelukast [Singulair] 10 mg PO DIRECTED 12/14/15 06/21/22 History Omeprazole [PriLOSEC] 20 mg PO DIRECTED 12/14/15 06/21/22 History Nitroglycerin Sl Tabs [Nitrostat] 0.4 mg SUBLINGUAL Q5M PRN #25 tab 12/16/15 06/21/22 Rx Atorvastatin [Lipitor] 80 mg PO DIRECTED 02/15/16 06/21/22 History Tamsulosin [Flomax] 0.4 mg PO DIRECTED 12/31/18 06/21/22 History amLODIPine [Norvasc] 5 mg PO DIRECTED 12/31/18 06/21/22 History glipiZIDE [Glucotrol] 5 mg PO DIRECTED 12/31/18 06/21/22 History Losartan [Cozaar] 50 mg PO DIRECTED 08/29/19 06/21/22 History Metoprolol Tartrate [Lopressor] 12.5 mg PO DIRECTED 08/29/19 06/21/22 History glipiZIDE [Glucotrol] 2.5 mg PO DIRECTED 08/29/19 06/21/22 History rOPINIRole HCL [Requip] 1 mg PO BID 06/21/22 06/21/22 History Allergies Allergy/AdvReac Type Severity Reaction Status Date / Time No Known Allergies Allergy Verified 06/21/22 21:55 Physical Exam Vitals: Vital Signs Temp Pulse Resp BP Pulse Ox 06/22/22 06:52 98 F 59 L 20 112/63 95 06/22/22 03:54 100 F H 06/22/22 02:03 75 18 131/66 100 06/22/22 00:22 98.3 F 73 18 92 L 06/21/22 20:39 98.5 F 72 16 130/69 94 L Intake and Output 06/21/22 06/22/22 06/22/22 22:59 06:59 14:59 Other: Weight 70.307 kg Results CBC & Chem 7: 06/21/22 21:13 06/21/22 21:13 Labs: Abnormal Lab Results - Last 24 Hours (Table) 06/21/22 06/21/22 06/22/22 Range/Units 20:59 21:13 01:10 MCV 100.1 H (80.0-100.0) fL Lymphocytes # 0.5 L (1.0-4.8) k/uL Urine Protein 1+ H (Negative) Urine Blood Moderate H (Negative) Urine RBC 55 H (0-5) /hpf Urine WBC 7 H (0-5) /hpf Urine Bacteria Rare H (None) /hpf Urine Mucus Rare H (None) /hpf SARS-CoV-2 (PCR) Detected A (Not Detectd)
--- NOTE | 2022-06-22 09:06 | P.HPIM ---
History of Present Illness Patient 81-year-old male externally poor historian unable to get much of the history from the patient. Patient is the amylase is not present at bedside at this time. Patient was brought in here because he feels weak. Patient cannot provide me any accurate history from has any chronic weakness in the left side although patient appears to have weakness in the left hand which is about 4+/5 by strength. Reviewing his past medical records patient appears to have had a stroke in that area. Although CT of the head showed some hypodensity in the right insular area. Did not show any acute abnormalities. She does have some generalized weakness no other focal weakness was evident. Patient is alert oriented 2 although he is able to provide me history that he received multiple stents in the past does have history of coronary artery disease with a CABG in the past. REVIEW OF SYSTEMS: All other review of systems is negative, review of systems is limited as patient is a poor historian PHYSICAL EXAMINATION: GENERAL: The patient is alert and oriented x2, not in any acute distress. Well developed, well nourished. HEENT: Pupils are round and equally reacting to light. EOMI. No scleral icterus. No conjunctival pallor. Normocephalic, atraumatic. No pharyngeal erythema. No thyromegaly. CARDIOVASCULAR: S1 and S2 present. No murmurs, rubs, or gallops. PULMONARY: Chest is clear to auscultation, no wheezing or crackles. ABDOMEN: Soft, nontender, nondistended, normoactive bowel sounds. No palpable organomegaly. MUSCULOSKELETAL: No joint swelling or deformity. EXTREMITIES: No cyanosis, clubbing, or pedal edema. NEUROLOGICAL: Weakness in the left upper extremity 4/5 strength, significant generalized weakness SKIN: No rashes. Assessment and plan -Weakness in the left upper extremity: Unsure whether this is new ordered from old stroke, and neurology will evaluate the patient CT did not show any findings that will explain his left arm weakness. Patient may have facial droop as well. Patient's speech is abnormal but unable to tell me whether this is normal for him. Neurology will evaluate the patient further workup as per neurology. Physical therapy and occupational therapy will be consulted. -Artery disease with CABG in the past and multiple stents in the past and he with antiplatelet therapy -Hyperlipidemia -Hypertension: Patient is bit hypotensive hold off on antidepressant medications -benign prostatic hypertrophy #Hypothyroidism For above-mentioned chronic medical problems patient will be resumed on appropriate home medications. 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 Last Myocardial Infarction Date:: 12/21/18 History of Any Multi-Drug Resistant Organisms: None Reported Past Surgical History: Coronary Bypass/CABG, Heart Catheterization, Heart Catheterization With Stent, Joint Replacement, Orthopedic Surgery Additional Past Surgical History / Comment(s): total 8 stents, left shoulder rotator cuff, total reverse R shoulder replacement, blaire knee replacements, blaire carpal tunnel, R foot 3 hammertoes, colonoscopy, bladder polyps removed Past Anesthesia/Blood Transfusion Reactions: No Reported Reaction Additional Past Anesthesia/Blood Transfusion Reaction / Comment(s): states comes out with restless legs Date of Last Stent Placement:: 2018 Past Psychological History: No Psychological Hx Reported Smoking Status: Never smoker Past Alcohol Use History: None Reported Past Drug Use History: None Reported - Past Family History Father Family Medical History: Coronary Artery Disease (CAD) Additional Family Medical History / Comment(s): Father had enlarged heart. He had a crush injury that impacted his mobility. He at the age of 74yrs. Mother Family Medical History: Cancer, Hypertension Additional Family Medical History / Comment(s): Mother had breast cancer. Daughter(s) Family Medical History: Cancer Brother(s) Family Medical History: Cancer Medications and Allergies Home Medications Medication Instructions Recorded Confirmed Type Levothyroxine Sodium [Synthroid] 50 mcg PO DIRECTED 05/18/14 06/21/22 History Chlorpheniramine Maleate 4 mg PO DAILY 12/14/15 06/21/22 History [Chlor-Trimeton] Clopidogrel [Plavix] 75 mg PO DIRECTED 12/14/15 06/21/22 History Montelukast [Singulair] 10 mg PO DIRECTED 12/14/15 06/21/22 History Omeprazole [PriLOSEC] 20 mg PO DIRECTED 12/14/15 06/21/22 History Nitroglycerin Sl Tabs [Nitrostat] 0.4 mg SUBLINGUAL Q5M PRN #25 tab 12/16/15 06/21/22 Rx Atorvastatin [Lipitor] 80 mg PO DIRECTED 02/15/16 06/21/22 History Tamsulosin [Flomax] 0.4 mg PO DIRECTED 12/31/18 06/21/22 History amLODIPine [Norvasc] 5 mg PO DIRECTED 12/31/18 06/21/22 History glipiZIDE [Glucotrol] 5 mg PO DIRECTED 12/31/18 06/21/22 History Losartan [Cozaar] 50 mg PO DIRECTED 08/29/19 06/21/22 History Metoprolol Tartrate [Lopressor] 12.5 mg PO DIRECTED 08/29/19 06/21/22 History glipiZIDE [Glucotrol] 2.5 mg PO DIRECTED 08/29/19 06/21/22 History rOPINIRole HCL [Requip] 1 mg PO BID 06/21/22 06/21/22 History Allergies Allergy/AdvReac Type Severity Reaction Status Date / Time No Known Allergies Allergy Verified 06/21/22 21:55 Physical Exam Vitals: Vital Signs Temp Pulse Resp BP Pulse Ox 06/22/22 08:51 56 L 97 06/22/22 06:52 98 F 59 L 20 112/63 95 06/22/22 03:54 100 F H 06/22/22 02:03 75 18 131/66 100 06/22/22 00:22 98.3 F 73 18 92 L 06/21/22 20:39 98.5 F 72 16 130/69 94 L Intake and Output 06/21/22 06/22/22 06/22/22 22:59 06:59 14:59 Other: Weight 70.307 kg Results CBC & Chem 7: 06/21/22 21:13 06/21/22 21:13 Labs: Abnormal Lab Results - Last 24 Hours (Table) 06/21/22 06/21/22 06/22/22 Range/Units 20:59 21:13 01:10 MCV 100.1 H (80.0-100.0) fL Lymphocytes # 0.5 L (1.0-4.8) k/uL Urine Protein 1+ H (Negative) Urine Blood Moderate H (Negative) Urine RBC 55 H (0-5) /hpf Urine WBC 7 H (0-5) /hpf Urine Bacteria Rare H (None) /hpf Urine Mucus Rare H (None) /hpf SARS-CoV-2 (PCR) Detected A (Not Detectd)
[2022-06-22 11:51] LABS: HDL Cholesterol 46.5 mg/dL (40.00-60.00); Triglycerides 38.9 mg/dL (0.00-149.00)
[2022-06-22 12:03] LABS: Chol/HDL Ratio 2.84 Ratio; LDL Cholesterol,Direct Reflex 74.3 mg/dL (0.00-129.00)
--- NOTE | 2022-06-22 12:43 | P.CNNES ---
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 Some of the history is obtained from medical record. It seems that the patient lives with his and he woke up yesterday morning feeling weak over bilateral lower extremities and could not move according to the ED note. Denies of any numbness or tingling. He ambulates without any assistance usually. Patient felt somewhat confused prior to presenting to the hospital. He has generalized weakness. He denies of focal weakness, numbness, difficulty getting his words out. He stated he has recently COVID-19. He feel better today compared to initial presentation. Patient is on the Plavix 75 mg as well as Lipitor. Some other workup during his hospital visit consisted of: MCV of 100.1 otherwise white blood cell is normal and the rest is within normal limits Chemistry panel is unremarkable SOLOMON-Covid-2 to PCR is detected. Our CV is not detected and influenza a is not detected. CT of the head is reported as cerebral atrophy. Microvascular ischemia. No acute intracranial abnormality. No change compared to old exam. I personally reviewed the CT of the head and I feel the patient has no acute or subacute ischemia and there is no intracranial hemorrhage. Patient has lacunar stroke and predominately is over the left thalamus larger than the right thalamus normal basal ganglia region. Review of Systems Review of system: The 12 point system was reviewed and apparent positive and negative per HPI. Past Medical History Past Medical History: Asthma, Coronary Artery Disease (CAD), CVA/TIA, Diabetes Mellitus, Hyperlipidemia, Hypertension, Myocardial Infarction ([place]), Pneumonia, Prostate Disorder, Thyroid Disorder Additional Past Medical History / Comment(s): NIDDM type II, 2016 CVA with R sided weakness and balance issues, BPH, back problems-occasionally wears a brace, hypothyroid, fall on ice and hit head and had syncopal event. Last Myocardial Infarction Date:: 12/21/18 History of Any Multi-Drug Resistant Organisms: None Reported Past Surgical History: Coronary Bypass/CABG, Heart Catheterization, Heart Catheterization With Stent, Joint Replacement, Orthopedic Surgery Additional Past Surgical History / Comment(s): total 8 stents, left shoulder rotator cuff, total reverse R shoulder replacement, blaire knee replacements, blaire carpal tunnel, R foot 3 hammertoes, colonoscopy, bladder polyps removed Past Anesthesia/Blood Transfusion Reactions: No Reported Reaction Additional Past Anesthesia/Blood Transfusion Reaction / Comment(s): states comes out with restless legs Date of Last Stent Placement:: 2018 Past Psychological History: No Psychological Hx Reported Smoking Status: Never smoker Past Alcohol Use History: None Reported Past Drug Use History: None Reported - Past Family History Father Family Medical History: Coronary Artery Disease (CAD) Additional Family Medical History / Comment(s): Father had enlarged heart. He had a crush injury that impacted his mobility. He at the age of 74yrs. Mother Family Medical History: Cancer, Hypertension Additional Family Medical History / Comment(s): Mother had breast cancer. Daughter(s) Family Medical History: Cancer Brother(s) Family Medical History: Cancer Medications and Allergies Home Medications Medication Instructions Recorded Confirmed Type Levothyroxine Sodium [Synthroid] 50 mcg PO DIRECTED 05/18/14 06/21/22 History Chlorpheniramine Maleate 4 mg PO DAILY 12/14/15 06/21/22 History [Chlor-Trimeton] Clopidogrel [Plavix] 75 mg PO DIRECTED 12/14/15 06/21/22 History Montelukast [Singulair] 10 mg PO DIRECTED 12/14/15 06/21/22 History Omeprazole [PriLOSEC] 20 mg PO DIRECTED 12/14/15 06/21/22 History Nitroglycerin Sl Tabs [Nitrostat] 0.4 mg SUBLINGUAL Q5M PRN #25 tab 12/16/15 06/21/22 Rx Atorvastatin [Lipitor] 80 mg PO DIRECTED 02/15/16 06/21/22 History Tamsulosin [Flomax] 0.4 mg PO DIRECTED 12/31/18 06/21/22 History amLODIPine [Norvasc] 5 mg PO DIRECTED 12/31/18 06/21/22 History glipiZIDE [Glucotrol] 5 mg PO DIRECTED 12/31/18 06/21/22 History Losartan [Cozaar] 50 mg PO DIRECTED 08/29/19 06/21/22 History Metoprolol Tartrate [Lopressor] 12.5 mg PO DIRECTED 08/29/19 06/21/22 History glipiZIDE [Glucotrol] 2.5 mg PO DIRECTED 08/29/19 06/21/22 History rOPINIRole HCL [Requip] 1 mg PO BID 06/21/22 06/21/22 History Allergies Allergy/AdvReac Type Severity Reaction Status Date / Time No Known Allergies Allergy Verified 06/21/22 21:55 Physical Examination - Vital Signs Vital Signs: Vital Signs Temp Pulse Resp BP Pulse Ox 06/22/22 10:38 59 L 18 132/63 95 06/22/22 08:51 56 L 97 06/22/22 06:52 98 F 59 L 20 112/63 95 06/22/22 03:54 100 F H 06/22/22 02:03 75 18 131/66 100 06/22/22 00:22 98.3 F 73 18 92 L 06/21/22 20:39 98.5 F 72 16 130/69 94 L Intake and Output 06/21/22 06/22/22 06/22/22 22:59 06:59 14:59 Other: Weight 70.307 kg GENERAL: The patient is lying in bed and is not in acute distress. CHEST: The heart rate is regular rate rhythm. No murmurs to auscultation. LUNG: Clear to auscultation bilaterally no wheezing noted throughout. Not labored breathing. ABDOMEN/GI: Bowel sounds present in all 4 quadrants. No tenderness to palpation throughout. NEUROLOGICAL: Higher mental function: The patient is awake, alert, oriented to self. He correctly stated he was in the hospital but did not know name. He stated the month is April or May and year is 2023. He was able to name watch. Patient is following simple commands. No aphasia and no neglect. Cranial nerves: The pupils are round, equal and reactive to light and accommodation. Visual hutchins are full to confrontation throughout. Extraocular movement is intact no nystagmus is noted. Facial sensation is normal to touch throughout. The facial strength is normal throughout. Hearing is moderately bilaterally to hand rub. Tongue is midline and moved [id number] without any difficulty. No dysarthria is noted. Shoulder shrug is normal bilaterally. Motor: The strength is right upper is 5-. Otherwise had hard time appreciating any focal deficits. Normal tone and bulk. Cerebellum: Normal finger to nose bilaterally. Sensation: Sensation is normal to touch throughout. Reflexes (right/left): 1+ throughout. Plantars are upgoing bilaterally at baseline. Results - Laboratory Findings CBC and BMP: 06/21/22 21:13 06/21/22 21:13 Abnormal Lab Findings: Abnormal Labs 06/21/22 06/21/22 06/22/22 20:59 21:13 01:10 MCV 100.1 H Lymphocytes # 0.5 L Urine Protein 1+ H Urine Blood Moderate H Urine RBC 55 H Urine WBC 7 H Urine Bacteria Rare H Urine Mucus Rare H SARS-CoV-2 (PCR) Detected A Assessment and Plan Assessment: Acute COVID-19 infection Generalized weakness with some transient confusion due to Acute COVID-19 infection. Encephalopathy due to COVID-19. History of stroke with residual right sided weakness Diabetes Hypertension History of ND Hypothyroidism History of coronary artery disease s/p stent Plan: Patient was given aspirin 325 once in the ED. Patient was presumed to his home medication of Plavix and Lipitor. I will not pursue any further imaging at this time but if patient has any worsening of neurological symptoms or new neurological issues recommend MRI of the brain without. I ordered the TSH, hemoglobin A1c, folate, vitamin B12. If patient has any further confusion recommend routine EEG. PT OT is consulted We'll defer the rest of the medical management to the primary team Thank you for the Consultation. Madan Barrow M.D. Neuro-hospitalist Time with Patient: Greater than 30
[2022-06-22] MEDS: FAMOTIDINE 20 MG TAB PO SCH ×2 (14:16→19:42)
[2022-06-22] MEDS: ATORVASTATIN 80 MG TAB PO SCH (14:34)
[2022-06-22] MEDS: LEVOTHYROXINE 50 MCG TAB PO SCH (14:34)
[2022-06-22] MEDS: TAMSULOSIN 0.4 MG CAP.ER.24H PO SCH (14:34)
[2022-06-22] MEDS: CLOPIDOGREL 75 MG TAB PO SCH (14:34)
[2022-06-22] MEDS: MONTELUKAST 10 MG TAB PO SCH (14:34)
[2022-06-22 16:26] LABS: Glucose,Whole Blood 85 mg/dL (70-110)
[2022-06-22 20:19] LABS: Glucose,Whole Blood 109 mg/dL (70-110)
[2022-06-23] MEDS: SODIUM CHLORIDE 0.9% 1,000 ML IV SCH ×2 (04:18→20:17)
[2022-06-23] MEDS: LEVOTHYROXINE 50 MCG TAB PO SCH (06:07)
[2022-06-23 06:20] LABS: Glucose,Whole Blood 98 mg/dL (70-110)
[2022-06-23] MEDS: MONTELUKAST 10 MG TAB PO SCH (08:06)
[2022-06-23] MEDS: CLOPIDOGREL 75 MG TAB PO SCH (08:06)
[2022-06-23] MEDS: TAMSULOSIN 0.4 MG CAP.ER.24H PO SCH (08:06)
[2022-06-23] MEDS: ENOXAPARIN 40 MG/0.4 ML SYRINGE SQ SCH (08:06)
[2022-06-23] MEDS: FAMOTIDINE 20 MG TAB PO SCH ×2 (08:06→20:17)
[2022-06-23] MEDS: ATORVASTATIN 80 MG TAB PO SCH (08:06)
[2022-06-23] MEDS ORDERED: QUEtiapine 25 MG TAB PO PRN (11:04)
[2022-06-23] MEDS: CYANOCOBALAMIN 1,000 MCG/ML 1 ML VIAL IM SCH (11:07)
--- NOTE | 2022-06-23 11:25 | P.PN ---
Subjective Progress Note Date: 06/23/22 The patient is seen at bedside and per nurse he was confused at night and today somewhat slurring speech. Objective - Vital Signs Vital signs: Vital Signs Temp 98.6 F 06/23/22 08:25 Pulse 75 06/23/22 08:25 Resp 17 06/23/22 08:25 BP 121/54 06/23/22 08:25 Pulse Ox 94 L 06/23/22 08:25 FiO2 Intake & Output 06/22/22 06/23/22 06/23/22 18:59 06:59 18:59 Intake Total 780 Output Total 0 600 Balance 780 -600 Weight 70.307 kg Intake: Oral 780 Output: Gastric Drainage 0 Urine 0 600 Stool 0 Emesis 0 Oral Regurgitation 0 Other: Voiding Method External Catheter Diaper Diaper # Voids 0 2 # Bowel Movements 0 - Exam GENERAL: The patient is lying in bed and is not in acute distress. NEUROLOGICAL: Higher mental function: The patient is drowsy but is awakeable to voice. Is oriented to self. He stated he was at home and the year is 2023. He correctly stated the month. There is delay in response. Patient is following simple commands. No neglect. Cranial nerves: The pupils are round, equal and reactive to light Visual hutchins are full to confrontation throughout. Extraocular movement is intact no nystagmus is noted. Facial sensation is normal to touch throughout. The facial strength is normal throughout. Mild dysarthria is noted. Shoulder shrug is normal bilaterally. Motor: The strength is right upper is 5-. Otherwise had hard time appreciating any focal deficits. Normal tone and bulk. Sensation: Sensation is normal to touch throughout. Some other workup during his hospital visit consisted of: TSH is 1.740 Folate is 13.0 Vitamin B12 is 239 which is considered the very low normal. Lipid panel is triglyceride 38, LDL of 74 HDL is 46 and the respiratory pending Hemoglobin A1c 6.5. SOLOMON-Covid-2 to PCR is detected. Our CV is not detected and influenza a is not detected. CT of the head is reported as cerebral atrophy. Microvascular ischemia. No acute intracranial abnormality. No change compared to old exam. I personally reviewed the CT of the head and I feel the patient has no acute or subacute ischemia and there is no intracranial hemorrhage. Patient has lacunar stroke and predominately is over the left thalamus larger than the right thalamus normal basal ganglia region. - Labs CBC & Chem 7: 06/21/22 21:13 06/21/22 21:13 Labs: Abnormal Lab Results - Last 24 Hours (Table) 06/21/22 Range/Units 21:13 Hemoglobin A1c 6.5 H (0.0-6.0) % Assessment and Plan Assessment: Encephalopathy likely due to Acute COVID-19 infection. Rule out stroke since has mild dysarthria with confusion. Acute COVID-19 infection Confusion at night likely Sun-downing. Low normal Vitamin B12 (239) History of stroke with residual right sided weakness Diabetes Hypertension History of [place] Hypothyroidism History of coronary artery disease s/p stent Plan: Patient was resumed his home medication of Plavix and Lipitor 80mg daily. I ordered MRI of the brain to rule out stroke. I also ordered a routine EEG whi ch will be performed tomorrow to rule out any seizure or epileptiform discharges. If the MRI reveals any stroke we'll get the rest of the stroke workup. Because of the low normal vitamin B12 (236) I started the patient on vitamin B12 IM thousand micrograms daily for 3 days then after that by mouth. PT OT is consulted Q4 hour neuro checks We'll defer the rest of the medical management to the primary team For DVT prophylaxis the patient is on Lovenox 40 mg daily per primary team. Plan discussed with the patient's nurse. Dr. Rodriguez will start neurology service tomorrow AMarlene Barrow M.D. Neuro-hospitalist Time with Patient: Less than 30
[2022-06-23 11:37] LABS: Glucose,Whole Blood 104 mg/dL (70-110)
--- NOTE | 2022-06-23 12:36 | P.PN ---
Subjective Progress Note Date: 06/23/22 Patient 81-year-old male externally poor historian unable to get much of the history from the patient. Patient is the amylase is not present at bedside at this time. Patient was brought in here because he feels weak. Patient cannot provide me any accurate history from has any chronic weakness in the left side although patient appears to have weakness in the left hand which is about 4+/5 by strength. Reviewing his past medical records patient appears to have had a stroke in that area. Although CT of the head showed some hypodensity in the right insular area. Did not show any acute abnormalities. She does have some generalized weakness no other focal weakness was evident. Patient is alert jagdish ented 2 although he is able to provide me history that he received multiple stents in the past does have history of coronary artery disease with a CABG in the past. 06/23/2022 Patient evaluated today resting in bed. Nursing staff reports patient has increased confusion at night and seroquel will be added. He was found to be positive for COVID by PCR. He has no white count, and electrolytes are u nremarkable. A1C is 6.5. TSH normal at 1.740, B12 and Folate are also normal. B12 is on the lower side and has been started on B12 supplementation. Will also start on vitamin supplements to support covid infection, he is on lovenox vte. MRI and EEG have been ordered as part of routine stroke work up. He does continue with left sided weakness. He remains afebrile, heart rate 75, blood pressure 121/54, 94% 2L nasal cannula REVIEW OF SYSTEMS: All other review of systems is negative, review of systems is limited as patient is a poor historian PHYSICAL EXAMINATION: GENERAL: The patient is alert and oriented x2, not in any acute distress. Well developed, well nourished. HEENT: Pupils are round and equally reacting to light. EOMI. No scleral icterus. No conjunctival pallor. Normocephalic, atraumatic. No pharyngeal erythema. No thyromegaly. CARDIOVASCULAR: S1 and S2 present. No murmurs, rubs, or gallops. PULMONARY: Chest is clear to auscultation, no wheezing or crackles. ABDOMEN: Soft, nontender, nondistended, normoactive bowel sounds. No palpable organomegaly. MUSCULOSKELETAL: No joint swelling or deformity. EXTREMITIES: No cyanosis, clubbing, or pedal edema. NEUROLOGICAL: Weakness in the left upper extremity 4/5 strength, significant generalized weakness SKIN: No rashes. Assessment and plan -Altered mental status possibly from acute delirium from covid infection versus stroke with left upper extremity weakness -Weakness in the left upper extremity: acute versus chronic and also possible left facial droop. Ongoing neurology evaluation, MRI and EEG has been ordered. -Acute Covid infection with no evidence for acute pneumonia on imaging, no white count. Will check inflammatory markers. He remains on 2L nasal cannula. -Coronary artery disease with CABG in the past and multiple stents in the past, continues on antiplatelets -Hyperlipidemia -Hypertension: Blood pressure is normotensive resume betablocker losartan remains on hold -benign prostatic hypertrophy -Hypothyroidism -History of stroke with right sided weakness -Diabetes type 2 continue with accuchecks and blood glucose monitoring -History asthma not in acute exacerbation GI prophylaxis: Pepcid DVT prophylaxis: Lovenox Full Code Plan MRI/EEG pending Check CBC/BMP in AM Check inflammatory markers Continue to hold losartan Seroquel HS ordered Continue on COVID vitamins The impression and plan of care has been dictated by Kalina Lopez, Nurse Practitioner as directed. Dr. Cecilia MD I have performed a history and physical examination and medical decision making of this patient, discussed the same with the dictator, and agree with the dictators assessment and plan as written, documented as a scribe. Based on total visit time, I have performed more than 50% of this visit. Objective - Vital Signs Vital signs: Vital Signs Temp 98.6 F 06/23/22 08:25 Pulse 75 06/23/22 08:25 Resp 17 06/23/22 08:25 BP 121/54 06/23/22 08:25 Pulse Ox 94 L 06/23/22 08:25 FiO2 Intake & Output 06/22/22 06/23/22 06/23/22 18:59 06:59 18:59 Intake Total 780 Output Total 0 600 Balance 780 -600 Weight 70.307 kg Intake: Oral 780 Output: Gastric Drainage 0 Urine 0 600 Stool 0 Emesis 0 Oral Regurgitation 0 Other: Voiding Method External Catheter Diaper Diaper # Voids 0 2 # Bowel Movements 0 - Labs CBC & Chem 7: 06/21/22 21:13 06/21/22 21:13 Labs: Abnormal Lab Results - Last 24 Hours (Table) 06/21/22 Range/Units 21:13 Hemoglobin A1c 6.5 H (0.0-6.0) % Assessment and Plan Time with Patient: Less than 30
[2022-06-23 17:02] LABS: Glucose,Whole Blood 130 mg/dL (70-110)
[2022-06-23] MEDS: METOPROLOL TARTRATE 12.5 MG TAB PO SCH (20:17)
[2022-06-24] MEDS: LEVOTHYROXINE 50 MCG TAB PO SCH (06:54)
[2022-06-24 07:32] LABS: Basophils # (A) 0.1 k/uL (0-0.2); Basophils % (A) 1 %; Eosinophils % (A) 1 %; HCT 43.5 % (39.0-53.0); HGB 14.2 gm/dL (13.0-17.5); Lymphocytes # (A) 0.7 k/uL (1.0-4.8); Lymphocytes % (A) 12 %; MCH 32.6 pg (25.0-35.0); MCHC 32.6 g/dL (31.0-37.0); MCV 99.9 fL (80.0-100.0); Mean Platelet Volume 8.9; Monocytes # (A) 0.5 k/uL (0-1.0); Monocytes % (A) 9 %; Neutrophils # (A) 4.7 k/uL (1.3-7.7); Neutrophils % (A) 76 %; Platelet Count 153 k/uL (150-450); RBC 4.35 m/uL (4.30-5.90); RDW 13.2 % (11.5-15.5); WBC 6.1 k/uL (3.8-10.6)
[2022-06-24 07:43] LABS: African American GFR (CKD) >90 (>60 ml/min/1.73 sqM); Anion Gap 11 mmol/L; Blood Urea Nitrogen 14 mg/dL (9-20); Calcium 8.1 mg/dL (8.4-10.2); Carbon Dioxide 24 mmol/L (22-30); Chloride 99 mmol/L (98-107); Glucose 90 mg/dL (74-99); LDH 574 U/L (313-618); Magnesium 1.9 mg/dL (1.6-2.3); Non-African American GFR(CKD) 89 (>60 ml/min/1.73 sqM); Potassium 3.6 mmol/L (3.5-5.1); Sodium 134 mmol/L (137-145)
[2022-06-24] MEDS: MONTELUKAST 10 MG TAB PO SCH (08:05)
[2022-06-24] MEDS: ZINC SULFATE 220 MG CAP PO SCH (08:05)
[2022-06-24] MEDS: TAMSULOSIN 0.4 MG CAP.ER.24H PO SCH (08:05)
[2022-06-24] MEDS: CHOLECALCIFEROL 25 MCG (1000 IU) TABLET PO SCH (08:05)
[2022-06-24] MEDS: CLOPIDOGREL 75 MG TAB PO SCH (08:05)
[2022-06-24] MEDS: ENOXAPARIN 40 MG/0.4 ML SYRINGE SQ SCH (08:05)
[2022-06-24] MEDS: ASCORBIC ACID 500 MG TAB PO SCH (08:05)
[2022-06-24] MEDS: FAMOTIDINE 20 MG TAB PO SCH ×2 (08:05→20:15)
[2022-06-24] MEDS: ATORVASTATIN 80 MG TAB PO SCH (08:05)
[2022-06-24] MEDS: CYANOCOBALAMIN 1,000 MCG/ML 1 ML VIAL IM SCH (08:06)
[2022-06-24] MEDS ORDERED: LORazepam 1 MG/0.5 ML VIAL IV STA ×2 (09:36→14:58)
[2022-06-24 10:47] LABS: C Reactive Protein 10.9 mg/dL (<1.0)
[2022-06-24] MEDS ORDERED: LORazepam 1 MG/0.5 ML VIAL IV PRN ×2 (11:29→18:34)
[2022-06-24] MEDS: METOPROLOL TARTRATE 12.5 MG TAB PO SCH ×2 (11:41→20:15)
[2022-06-24 11:50] LABS: Glucose,Whole Blood 141 mg/dL (70-110)
--- NOTE | 2022-06-24 15:44 | MR ---
EXAMINATION TYPE: MR brain wo con DATE OF EXAM: 06/24/2022 COMPARISON: 08/30/2019 MRI brain, CT brain 06/21/2022 HISTORY: dysarthria, covid CONTRAST: Performed utilizing 0 mL intravenous Gadavist gadolinium contrast. TECHNIQUE: Multiplanar, multiecho imaging on a 3.0 Linda magnet is performed through the brain. Due t o patient condition exam is limited diffusion imaging. Study is not performed within 24 hours of arr ival to the hospital. Diffusion-weighted imaging is performed. No abnormal hyperintensity is present to suggest an acute i ntracranial infarct or acute ischemic change. There is an oval hypointensity within the posterior lef t basal ganglia corresponds to prior old lacunar infarct or Virchow-Marquez's space. There are scattered patchy areas of hyperintensity on early diffusion weighted sequences which are no n-specific but can be related to microvascular ischemic changes. These do not appear acute on true di ffusion-weighted imaging. Ventricles and sulci are prominent for the patient age. IMPRESSIONS: 1. No suspicious diffusion hyperintensity suggest acute ischemic changes. 2. There are is evidence of chronic patchy periventricular white matter ischemic changes. 3. There is an old posterior left basal ganglion lacunar infarct. 4. Exam is very limited pulse sequences obtained.
--- NOTE | 2022-06-24 16:04 | P.PN ---
Subjective Progress Note Date: 06/24/22 Patient 81-year-old male externally poor historian unable to get much of the history from the patient. Patient is the amylase is not present at bedside at this time. Patient was brought in here because he feels weak. Patient cannot provide me any accurate history from has any chronic weakness in the left side although patient appears to have weakness in the left hand which is about 4+/5 by strength. Reviewing his past medical records patient appears to have had a stroke in that area. Although CT of the head showed some hypodensity in the right insular area. Did not show any acute abnormalities. She does have some generalized weakness no other focal weakness was evident. Patient is alert jagdish ented 2 although he is able to provide me history that he received multiple stents in the past does have history of coronary artery disease with a CABG in the past. 06/23/2022 Patient evaluated today resting in bed. Nursing staff reports patient has increased confusion at night and seroquel will be added. He was found to be positive for COVID by PCR. He has no white count, and electrolytes are u nremarkable. A1C is 6.5. TSH normal at 1.740, B12 and Folate are also normal. B12 is on the lower side and has been started on B12 supplementation. Will also start on vitamin supplements to support covid infection, he is on lovenox vte. MRI and EEG have been ordered as part of routine stroke work up. He does continue with left sided weakness. He remains afebrile, heart rate 75, blood pressure 121/54, 94% 2L nasal cannula 06/24/2022 Patient is resting in bed. He was agitated throughout the night and seroquel was not effective per nursing. Patient went for MRI today and did receive IV ativan sedation to tolerate MRI. MRI shows old posterior left basal ganglion lacunar infarct, chronic periventricular white matter ischemic changes, no acute ischemic changes. Patient is being followed by neurology. His CRP is found to be elevated at 10.9, sodium level 134. No white count. Bladder scan checked patient is not retaining urine. He continues on oxygen support, 2 to 3 L nasal cannula with oxygen saturations 93%, afebrile, heart rate 84, 153/78. REVIEW OF SYSTEMS: All other review of systems is negative, review of systems is limited as patient is a poor historian PHYSICAL EXAMINATION: GENERAL: The patient is alert and oriented x1, not in any acute distress. Well developed, well nourished. HEENT: Pupils are round and equally reacting to light. EOMI. No scleral icterus. No conjunctival pallor. Normocephalic, atraumatic. No pharyngeal erythema. No thyromegaly. CARDIOVASCULAR: S1 and S2 present. No murmurs, rubs, or gallops. PULMONARY: Chest is clear to auscultation, no wheezing or crackles. ABDOMEN: Soft, nontender, nondistended, normoactive bowel sounds. No palpable organomegaly. MUSCULOSKELETAL: No joint swelling or deformity. EXTREMITIES: No cyanosis, clubbing, or pedal edema. NEUROLOGICAL: Weakness in the left upper extremity 4/5 strength, significant generalized weakness SKIN: No rashes. Assessment and plan -Altered mental status possibly from acute delirium from covid infection versus stroke with left upper extremity weakness -Weakness in the left upper extremity: acute versus chronic and also possible left facial droop. Ongoing neurology evaluation, MRI negative for ischemia. EEG pending. -Acute Covid infection with no evidence for acute pneumonia on imaging, no white count. Will check inflammatory markers. He remains on 2L nasal cannula. -Coronary artery disease with CABG in the past and multiple stents in the past, continues on antiplatelets -Hyperlipidemia -Hypertension: Blood pressure is normotensive resume betablocker losartan remains on hold -benign prostatic hypertrophy -Hypothyroidism -History of stroke with right sided weakness -Diabetes type 2 continue with accuchecks and blood glucose monitoring -History asthma not in acute exacerbation GI prophylaxis: Pepcid DVT prophylaxis: Lovenox Full Code Plan Resume losartan Prednisone oral added today Continue on COVID vitamins Continue supportive care Seroquel HS MRI completed pending EEG Further recommendations from neurology. The impression and plan of care has been dictated by Kalina Lopez Nurse Practitioner as directed. Dr. Cecilia MD I have performed a history and physical examination and medical decision making of this patient, discussed the same with the dictator, and agree with the dictators assessment and plan as written, documented as a scribe. Based on total visit time, I have performed more than 50% of this visit. Objective - Vital Signs Vital signs: Vital Signs Temp 97.8 F 06/24/22 08:01 Pulse 84 06/24/22 08:01 Resp 19 06/24/22 08:01 BP 153/78 06/24/22 08:01 Pulse Ox 93 L 06/24/22 08:30 FiO2 Intake & Output 06/23/22 06/24/22 06/24/22 18:59 06:59 18:59 Intake Total 118 118 Output Total 300 Balance -182 118 Intake: Oral 118 118 Output: Urine 300 Other: Voiding Method Diaper Diaper Diaper External Catheter # Voids 3 # Bowel Movements 2 - Labs CBC & Chem 7: 06/24/22 06:55 06/24/22 06:55 Labs: Abnormal Lab Results - Last 24 Hours (Table) 06/23/22 06/24/22 06/24/22 Range/Units 16:56 06:55 06:55 Lymphocytes # 0.7 L (1.0-4.8) k/uL Sodium 134 L (137-145) mmol/L POC Glucose (mg/dL) 130 H (70-110) mg/dL Calcium 8.1 L (8.4-10.2) mg/dL C-Reactive Protein 10.9 H (<1.0) mg/dL 06/24/22 Range/Units 11:45 Lymphocytes # (1.0-4.8) k/uL Sodium (137-145) mmol/L POC Glucose (mg/dL) 141 H (70-110) mg/dL Calcium (8.4-10.2) mg/dL C-Reactive Protein (<1.0) mg/dL Assessment and Plan Time with Patient: Less than 30
--- NOTE | 2022-06-24 16:15 | P.PN ---
Subjective Progress Note Date: 06/24/22 Patient was initially seen by Dr. Madan Barrow. Please refer to his note for details. Patient is a 81-year-old male, who came with Covid-19 infection, but also had dysarthria and confusion. MRI of the brain and EEG was ordered by Dr. Barrow. Patient at present laying in the bed, appears very confused. He seems to be hallucinating, trying to pick some objects from the air. He admits to having headache, although the history is very questionable. Objective - Vital Signs Vital signs: Vital Signs Temp 97.8 F 06/24/22 08:01 Pulse 84 06/24/22 08:01 Resp 19 06/24/22 08:01 BP 153/78 06/24/22 08:01 Pulse Ox 93 L 06/24/22 08:30 FiO2 Intake & Output 06/23/22 06/24/22 06/24/22 18:59 06:59 18:59 Intake Total 118 118 Output Total 300 Balance -182 118 Intake: Oral 118 118 Output: Urine 300 Other: Voiding Method Diaper Diaper Diaper External Catheter # Voids 3 # Bowel Movements 2 - Exam GENERAL: The patient is lying in bed and is very confused, actively hallucinating, trying to pick objects from the air. NEUROLOGICAL: Higher mental function: The patient is awake, but delirious, somewhat e ncephalopathic. Patient knows his name, states is 77 years old, can't tell name of the building he is in. He states the month is "Friday the ", then he said it was September and the year is 70. He could not tell the city or the state he is in. There is delay in response. Patient is following simple commands. No neglect. Cranial nerves: The pupils are round, equal and reactive to light Visual hutchins could not be tested as he would not cooperate. Patient does not clearly blink to visual threat on either side. Extraocular movement is intact no nystagmus is noted. Facial sensation cannot be assessed. The facial strength appears normal bilaterally. . Mild dysarthria is noted. Patient's speaking nonsensical, with word salad at times. He said "pardon", when he did not understand what I said at one time. Shoulder shrug is normal bilaterally. Motor: The strength is 5 in bilateral biceps, triceps and manager in training. He did not cooperate for testing of the deltoids on either side or testing of the lower extremities. Patient withdraws his toes to painful stimuli equally. Normal tone and bulk. Patient has significant high arched feet and hammertoes. Reflexes are diminished and plantars are flat bilaterally. Sensation: Sensation could not be assessed although response to painful stimuli as above. Some other workup during his hospital visit consisted of: TSH is 1.740 Folate is 13.0 Vitamin B12 is 239 which is considered the very low normal. Lipid panel is triglyceride 38, LDL of 74 HDL is 46 and the respiratory pending Hemoglobin A1c 6.5. SOLOMON-Covid-2 to PCR is detected. Our CV is not detected and influenza a is not detected. CT of the head is reported as cerebral atrophy. Microvascular ischemia. No acute intracranial abnormality. No change compared to old exam. I personally reviewed the CT of the head and I feel the patient has no acute or subacute ischemia and there is no intracranial hemorrhage. Patient has lacunar stroke and predominately is over the left thalamus larger than the right thalamus normal basal ganglia region. - Labs CBC & Chem 7: 06/24/22 16:37 06/24/22 06:55 Labs: Abnormal Lab Results - Last 24 Hours (Table) 06/23/22 06/24/22 06/24/22 Range/Units 16:56 06:55 06:55 Lymphocytes # 0.7 L (1.0-4.8) k/uL Sodium 134 L (137-145) mmol/L POC Glucose (mg/dL) 130 H (70-110) mg/dL Calcium 8.1 L (8.4-10.2) mg/dL C-Reactive Protein 10.9 H (<1.0) mg/dL 06/24/22 Range/Units 11:45 Lymphocytes # (1.0-4.8) k/uL Sodium (137-145) mmol/L POC Glucose (mg/dL) 141 H (70-110) mg/dL Calcium (8.4-10.2) mg/dL C-Reactive Protein (<1.0) mg/dL Assessment and Plan Assessment: Encephalopathy likely due to Acute COVID-19 infection. No evidence of an acute stroke on MRI. Acute COVID-19 infection Confusion, getting worse, perhaps delirium. Patient's white cells are normal, and temperature is normal, therefore intracranial infection less likely. Hematuria Low normal Vitamin B12 (239) History of stroke with residual right sided weakness Diabetes Hypertension History of [place] Hypothyroidism History of coronary artery disease s/p stent Plan: * MRI of the brain revealed no acute process. Some small vessel disease. Old posterior left basal ganglia lacunar infarct. I personally reviewed MRI, agree with the findings. The exam is limited due to movement artifact. Only limited images were able to be accomplished because of his noncooperation. However on the DWI, no obvious acute ischemic process. FLAIR sequences were not checked. * EEG was performed today. Preliminary report revealed that it was technically limited because of significant myogenic and movement artifacts. Otherwise the background was slow, consisting of encephalopathy. Possible superimposed left temporal focal slowing was seen, suggestive of focal cortical neuronal dysfunction. No epileptiform activity was seen. Suggest repeat EEG, when p atient is more cooperative. Hold off on any antiepileptic medication, as there was no epileptiform activity seen in the EEG. May need a repeat EEG, as the current EEG was technically very poor. * Patient was resumed his home medication of Plavix and Lipitor 80mg daily. * Consider lumbar puncture if the mentation does not improve. At present cannot be performed because patient is currently on Plavix. * Because of the low normal vitamin B12 (236) Dr. Barrow started the patient on vitamin B12 IM 1000 g daily for 3 days then after that by mouth. * PT OT is consulted * We'll defer the rest of the medical management to the primary team. * Neurology will follow. * For DVT prophylaxis the patient is on Lovenox 40 mg daily per primary team.
[2022-06-24 16:49] LABS: Glucose,Whole Blood 156 mg/dL (70-110)
[2022-06-24 17:00] LABS: HCT 42.3 % (39.0-53.0); HGB 13.7 gm/dL (13.0-17.5); MCH 32.2 pg (25.0-35.0); MCHC 32.4 g/dL (31.0-37.0); MCV 99.3 fL (80.0-100.0); Mean Platelet Volume 8.4; Platelet Count 172 k/uL (150-450); RBC 4.26 m/uL (4.30-5.90); RDW 13.3 % (11.5-15.5); WBC 7.9 k/uL (3.8-10.6)
[2022-06-24 17:13] LABS: Prothrombin Time 10.9 sec (9.0-12.0)
[2022-06-24] MEDS ORDERED: HALOPERIDOL LACTATE 5 MG/ML 1 ML VIAL IM STA (18:15)
[2022-06-24] MEDS: predniSONE 20 MG TAB PO SCH (18:25)
[2022-06-24 20:01] LABS: Glucose,Whole Blood 203 mg/dL (70-110)
[2022-06-24] MEDS: ACETAMINOPHEN TAB 325 MG TAB PO PRN (20:15)
[2022-06-24] MEDS: QUEtiapine 50 MG TAB PO SCH (20:15)
--- NOTE | 2022-06-24 20:32 | P.GSCN ---
History of Present Illness Consult date: 06/24/22 Reason for Consult: Gross hematuria Requesting physician: Kalina Lopez History of present illness: The patient is an 81-year-old white male well known to Dr. Chavez. He was diagnosed with urothelial carcinoma of the bladder in December 2019. He underwent removal of recurrent tumors in April 2020 and February 2021. 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 He completed a 6 week course of induction intravesical BCG in March 2021. Since that time, he has received maintenance BCG and has had no recurrences. His most recent cystoscopy was in January 2022. No tumors were seen at that time. Urine cytology showed atypical cells. He is now admitted with weakness and confusion. 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 Urinalysis at the time of admission showed evidence of microhematuria, with no evidence of infection. He has experienced gross hematuria this afternoon. I am consulted for this reason. Review of Systems ROS unobtainable: due to mental status Past Medical History Past Medical History: Asthma, Coronary Artery Disease (CAD), CVA/TIA, Diabetes Mellitus, Hyperlipidemia, Hypertension, Myocardial Infarction (IA), Pneumonia, Prostate Disorder, Thyroid Disorder Additional Past Medical History / Comment(s): NIDDM type II, 2016 CVA with R sided weakness and balance issues, BPH, back problems-occasionally wears a brace, hypothyroid, fall on ice and hit head and had syncopal event. Last Myocardial Infarction Date:: 12/21/18 History of Any Multi-Drug Resistant Organisms: None Reported Past Surgical History: Coronary Bypass/CABG, Heart Catheterization, Heart Catheterization With Stent, Joint Replacement, Orthopedic Surgery Additional Past Surgical History / Comment(s): total 8 stents, left shoulder rotator cuff, total reverse R shoulder replacement, blaire knee replacements, blaire carpal tunnel, R foot 3 hammertoes, colonoscopy, bladder polyps removed Past Anesthesia/Blood Transfusion Reactions: No Reported Reaction Additional Past Anesthesia/Blood Transfusion Reaction / Comm: states comes out with restless legs Date of Last Stent Placement:: 2018 Past Psychological History: No Psychological Hx Reported Smoking Status: Never smoker Past Alcohol Use History: None Reported Past Drug Use History: None Reported - Past Family History Father Family Medical History: Coronary Artery Disease (CAD) Additional Family Medical History / Comment(s): Father had enlarged heart. He had a crush injury that impacted his mobility. He at the age of 74yrs. Mother Family Medical History: Cancer, Hypertension Additional Family Medical History / Comment(s): Mother had breast cancer. Daughter(s) Family Medical History: Cancer Brother(s) Family Medical History: Cancer Medications and Allergies Home Medications Medication Instructions Recorded Confirmed Type Levothyroxine Sodium [Synthroid] 50 mcg PO DAILY 05/18/14 06/22/22 History Chlorpheniramine Maleate 4 mg PO DAILY 12/14/15 06/21/22 History [Chlor-Trimeton] Clopidogrel [Plavix] 75 mg PO DAILY@1200 12/14/15 06/22/22 History Montelukast [Singulair] 10 mg PO HS 12/14/15 06/22/22 History Omeprazole [PriLOSEC] 20 mg PO BID-W/MEALS 12/14/15 06/22/22 History Nitroglycerin Sl Tabs [Nitrostat] 0.4 mg SUBLINGUAL Q5M PRN #25 tab 12/16/15 06/21/22 Rx Atorvastatin [Lipitor] 80 mg PO HS 02/15/16 06/22/22 History Tamsulosin [Flomax] 0.4 mg PO HS 12/31/18 06/22/22 History amLODIPine [Norvasc] 5 mg PO BID 12/31/18 06/22/22 History Losartan [Cozaar] 50 mg PO DAILY@1200 08/29/19 06/22/22 History Metoprolol Tartrate [Lopressor] 12.5 mg PO BID@1200,2100 08/29/19 06/22/22 History glipiZIDE [Glucotrol] 5 mg PO DAILY 08/29/19 06/22/22 History rOPINIRole HCL [Requip] 1 mg PO BID 06/21/22 06/21/22 History glipiZIDE [Glucotrol] 2.5 mg PO HS 06/22/22 06/22/22 History Allergies Allergy/AdvReac Type Severity Reaction Status Date / Time No Known Allergies Allergy Verified 06/21/22 21:55 Surgical - Exam Vital Signs Temp Pulse Resp BP Pulse Ox 98.5 F 72 16 130/69 94 L 06/21/22 20:39 06/21/22 20:39 06/21/22 20:39 06/21/22 20:39 06/21/22 20:39 - General well developed, well nourished, no distress - Respiratory normal respiratory effort - Abdomen Abdomen: soft, non tender, no guarding, no rigid, no rebound - Genitourinary Normal phallus, normal urethral meatus. There is evidence of blood at the urethral meatus. Scrotum and testes are normal. - Psychiatric no oriented to time, no oriented to person, no oriented to place Results - Labs 06/24/22 16:37 06/24/22 06:55 Abnormal Lab Results - Last 24 Hours (Table) 06/24/22 06/24/22 06/24/22 Range/Units 06:55 06:55 11:45 RBC (4.30-5.90) m/uL Lymphocytes # 0.7 L (1.0-4.8) k/uL D-Dimer (<0.60) mg/L FEU Sodium 134 L (137-145) mmol/L POC Glucose (mg/dL) 141 H (70-110) mg/dL Calcium 8.1 L (8.4-10.2) mg/dL C-Reactive Protein 10.9 H (<1.0) mg/dL 06/24/22 06/24/22 06/24/22 Range/Units 16:37 16:45 16:54 RBC 4.26 L (4.30-5.90) m/uL Lymphocytes # (1.0-4.8) k/uL D-Dimer 0.75 H (<0.60) mg/L FEU Sodium (137-145) mmol/L POC Glucose (mg/dL) 156 H (70-110) mg/dL Calcium (8.4-10.2) mg/dL C-Reactive Protein (<1.0) mg/dL Diabetes panel 06/24/22 Range/Units 06:55 Sodium 134 L (137-145) mmol/L Potassium 3.6 (3.5-5.1) mmol/L Chloride 99 (98-107) mmol/L Carbon Dioxide 24 (22-30) mmol/L BUN 14 (9-20) mg/dL Creatinine 0.67 (0.66-1.25) mg/dL Glucose 90 (74-99) mg/dL Calcium 8.1 L (8.4-10.2) mg/dL Calcium panel 06/24/22 Range/Units 06:55 Calcium 8.1 L (8.4-10.2) mg/dL Pituitary panel 06/24/22 Range/Units 06:55 Sodium 134 L (137-145) mmol/L Potassium 3.6 (3.5-5.1) mmol/L Chloride 99 (98-107) mmol/L Carbon Dioxide 24 (22-30) mmol/L BUN 14 (9-20) mg/dL Creatinine 0.67 (0.66-1.25) mg/dL Glucose 90 (74-99) mg/dL Calcium 8.1 L (8.4-10.2) mg/dL Adrenal panel 06/24/22 Range/Units 06:55 Sodium 134 L (137-145) mmol/L Potassium 3.6 (3.5-5.1) mmol/L Chloride 99 (98-107) mmol/L Carbon Dioxide 24 (22-30) mmol/L BUN 14 (9-20) mg/dL Creatinine 0.67 (0.66-1.25) mg/dL Glucose 90 (74-99) mg/dL Calcium 8.1 L (8.4-10.2) mg/dL Assessment and Plan (1) Malignant neoplasm of bladder, unspecified Current Visit: Yes Status: Acute Code(s): C67.9 - MALIGNANT NEOPLASM OF BLADDER, UNSPECIFIED SNOMED Code(s): 216880725 (2) Gross hematuria Current Visit: Yes Status: Acute Code(s): R31.0 - GROSS HEMATURIA SNOMED Code(s): 895586949 Plan: Given the patient's history of bladder cancer, the presence of gross hematuria is of some concern. A CT scan of the abdomen and pelvis has been ordered for further evaluation. Time with Patient: Greater than 30
[2022-06-24] MEDS ORDERED: DEXTROSE 50% SYRINGE 50 ML IVP PRN (22:01)
[2022-06-24] MEDS: INSULIN DETEMIR (LEVEMIR) 100 UNIT/ML SYR SQ SCH (22:39)
[2022-06-24] MEDS: SODIUM CHLORIDE 0.9% 1,000 ML IV SCH (22:40)
--- NOTE | 2022-06-25 01:24 | EEG ---
ELECTROENCEPHALOGRAM REPORT PREAMBLE: This is an 81-year-old male who has history of confusion, rule out seizures. This study is performed to evaluate for any epileptiform activity. The patient does have history of stroke in 2016 with residual right-sided weakness and balance issues. The patient has hypertension, diabetes, CAD, BPH. CURRENT MEDICATIONS: 1. Lipitor. 2. Plavix. 3. Lovenox. 4. Lopressor. 5. Seroquel. 6. Ativan. EEG FINDINGS: This is a 21-channel digital EEG recorded with video competent, utilizing 10/20 international system with referential and bipolar montages. The recording is technically limited because of significant myogenic and movement artifact seen very frequently almost throughout the study. Otherwise, the background consists of somewhat disorganized, mixed frequencies of 6 to 7 hertz theta, intermixed with some moderate amplitude delta activity seen in bihemispheric region. There is probable superimposed focal slowing in 3 to 4 hertz delta activities seen frequently in the left frontal region. Due to frequent movement activity, there was a lot of artifacts seen in different times in different recording electrodes. No clear-cut epileptiform activity was seen. Different stages of sleep were not seen. IMPRESSION: This is a technically limited EEG due to significant movement artifact seen during most of the study. Otherwise, the background was moderately slow, consistent with encephalopathy, which could be from various causes. Superimposed left frontal slowing cannot be ruled out, which may suggest focal cortical neuronal dysfunction. No definitive epileptiform activity was seen. Suggest repeat, prolonged EEG for further evaluation if your suspicion for seizures is high. MMODL / IJN: [id number] / MERCEDES
[2022-06-25 06:03] LABS: Glucose,Whole Blood 129 mg/dL (70-110)
[2022-06-25] MEDS: INSULIN ASPART (NovoLOG) 100 UNIT/ML VIAL SQ SCH ×4 (06:15→22:23)
[2022-06-25] MEDS: LEVOTHYROXINE 50 MCG TAB PO SCH (06:26)
[2022-06-25 09:23] LABS: Basophils % (A) 0 %; Eosinophils % (A) 0 %; HCT 40.4 % (39.0-53.0); HGB 13.1 gm/dL (13.0-17.5); Lymphocytes # (A) 0.7 k/uL (1.0-4.8); Lymphocytes % (A) 9 %; MCH 32.2 pg (25.0-35.0); MCHC 32.4 g/dL (31.0-37.0); MCV 99.4 fL (80.0-100.0); Mean Platelet Volume 8.6; Monocytes # (A) 0.6 k/uL (0-1.0); Monocytes % (A) 7 %; Neutrophils # (A) 6.5 k/uL (1.3-7.7); Neutrophils % (A) 83 %; Platelet Count 166 k/uL (150-450); RBC 4.06 m/uL (4.30-5.90); RDW 13.4 % (11.5-15.5); WBC 7.9 k/uL (3.8-10.6)
[2022-06-25] MEDS: ZINC SULFATE 220 MG CAP PO SCH (10:04)
[2022-06-25] MEDS: CHOLECALCIFEROL 25 MCG (1000 IU) TABLET PO SCH (10:04)
[2022-06-25] MEDS: ENOXAPARIN 40 MG/0.4 ML SYRINGE SQ SCH ×2 (10:04→10:05)
[2022-06-25] MEDS: predniSONE 20 MG TAB PO SCH (10:04)
[2022-06-25] MEDS: ASCORBIC ACID 500 MG TAB PO SCH (10:05)
[2022-06-25] MEDS: CLOPIDOGREL 75 MG TAB PO SCH (10:05)
[2022-06-25] MEDS: MONTELUKAST 10 MG TAB PO SCH (10:05)
[2022-06-25] MEDS: FAMOTIDINE 20 MG TAB PO SCH ×2 (10:05→22:23)
[2022-06-25] MEDS: QUEtiapine 25 MG TAB PO SCH (10:05)
[2022-06-25] MEDS: ATORVASTATIN 80 MG TAB PO SCH (10:05)
[2022-06-25] MEDS: METOPROLOL TARTRATE 12.5 MG TAB PO SCH ×2 (10:05→22:23)
[2022-06-25] MEDS: TAMSULOSIN 0.4 MG CAP.ER.24H PO SCH (10:05)
[2022-06-25] MEDS: CYANOCOBALAMIN 1,000 MCG/ML 1 ML VIAL IM SCH (10:06)
[2022-06-25] MEDS: ACETAMINOPHEN TAB 325 MG TAB PO PRN (10:18)
[2022-06-25] MEDS ORDERED: LOSARTAN 50 MG TAB PO SCH (12:00)
[2022-06-25 12:28] LABS: Glucose,Whole Blood 102 mg/dL (70-110)
--- NOTE | 2022-06-25 12:54 | CT ---
EXAMINATION TYPE: CT abdomen pelvis wo con CT DLP: 601.4 mGycm, Automated exposure control for dose reduction was used. DATE OF EXAM: 06/25/2022 12:38 PM COMPARISON: CT abdomen pelvis most recent from 11/19/2019 . CLINICAL INDICATION:Male, 81 years old with history of gross hematuria; TECHNIQUE: Standard CT of the abdomen and pelvis without IV or oral contrast. Lack of IV or oral co ntrast limits evaluation of solid and hollow organ viscera. Coronal and sagittal reformats were perfo rmed. FINDINGS: LOWER CHEST: Posterior dependent subsegmental atelectasis is noted. Coronary artery calcifications an d/or stents. ABDOMEN LIVER: Small left hepatic lobe. No suspicious lesion within limitations of noncontrast exam. GALLBLADDER AND BILE DUCTS: Cholelithiasis. No surrounding inflammatory changes. No biliary ductal di latation. PANCREAS: Mildly atrophic. SPLEEN: Unremarkable. ADRENAL GLANDS: Unremarkable. KIDNEYS AND URETERS: No evidence of hydronephrosis or renal calculus. Redemonstration of bilateral re nal sinus cysts. No ureteral calculi. Nonspecific bilateral perinephric fat stranding. PELVIS BLADDER: Heterogenous hyperattenuation material is demonstrated within the bladder. Periventricular f at stranding. REPRODUCTIVE: Enlarged prostate gland measuring 5.4 cm in transverse dimension. ABDOMEN & PELVIS STOMACH AND BOWEL: Small hiatal hernia, duodenum is unremarkable. Colonic diverticulosis without evid ence for acute diverticulitis. No evidence of bowel obstruction. PERITONEUM: No evidence of pneumoperitoneum or free fluid. VASCULATURE: Moderate atherosclerotic calcifications are present throughout the abdominal aorta and i ts branches. No evidence of aortic aneurysm. MUSCULOSKELETAL: No acute osseous abnormalities. Moderate disc degeneration changes are present throu ghout the thoracolumbar spine. Partial visualization of median sternotomy wires. LYMPH NODES: No gross evidence for lymphadenopathy. SOFT TISSUE/ABDOMINAL WALL: Moderate sized fat filled right inguinal hernia. IMPRESSION: 1. Large amount of hyperattenuating material within the urinary bladder likely representing blood pr oducts. Perivesicular fat stranding identified. Correlate with urinalysis for cystitis. Cannot exclud e underlying mass. Consider direct visualization. 2. No hydronephrosis or renal calculi. Redemonstration of bilateral renal sinus cysts. 3. Cholelithiasis. 4. Colonic diverticulosis without evidence for acute diverticulitis. 5. Moderate sized fat filled right inguinal hernia.
[2022-06-25 14:19] LABS: Bacteria,Urine Moderate /hpf; RBC,Urine >182 /hpf (0-5); WBC,Urine 4 /hpf (0-5)
[2022-06-25 14:21] LABS: Appearance,Urine Bloody (Clear); Color,Urine Red
--- NOTE | 2022-06-25 15:20 | P.PN ---
Subjective Progress Note Date: 06/25/22 Principal diagnosis: Hematuria, urinary retention Mr. Weber remains lethargic. His hematuria has persisted. He was found to be in urinary retention today and was straight catheterized, with return of 600 mL of bloody urine. Objective - Vital Signs Vital signs: Vital Signs Temp 99.5 F 06/25/22 12:00 Pulse 75 06/25/22 12:00 Resp 19 06/25/22 12:00 BP 135/76 06/25/22 12:00 Pulse Ox 98 06/25/22 12:00 FiO2 Intake & Output 06/24/22 06/25/22 06/25/22 18:59 06:59 18:59 Intake Total 118 20 Output Total 600 Balance 118 20 -600 Intake: IV 20 Invasive Line 1 10 Invasive Line 2 10 Oral 118 Output: Urine 600 Straight 600 Post Void Residual 0 Other: Voiding Method Diaper Diaper Diaper # Voids 1 1 # Bowel Movements 2 - Constitutional General appearance: Present: average body habitus, no acute distress - Gastrointestinal General gastrointestinal: Present: soft. Absent: distended, tenderness - Genitourinary Genitourinary Comment(s): Normal phallus, normal urethral meatus. The scrotum and testes are normal. - Labs CBC & Chem 7: 06/25/22 08:40 06/25/22 08:40 Labs: Abnormal Lab Results - Last 24 Hours (Table) 06/24/22 06/24/22 06/24/22 Range/Units 16:37 16:37 16:45 RBC 4.26 L (4.30-5.90) m/uL Lymphocytes # (1.0-4.8) k/uL D-Dimer (<0.60) mg/L FEU BUN (9-20) mg/dL Creatinine (0.66-1.25) mg/dL Glucose (74-99) mg/dL POC Glucose (mg/dL) 156 H (70-110) mg/dL Hemoglobin A1c 6.9 H (0.0-6.0) % Calcium (8.4-10.2) mg/dL Urine RBC (0-5) /hpf Urine Bacteria (None) /hpf 06/24/22 06/24/22 06/25/22 Range/Units 16:54 19:59 06:01 RBC (4.30-5.90) m/uL Lymphocytes # (1.0-4.8) k/uL D-Dimer 0.75 H (<0.60) mg/L FEU BUN (9-20) mg/dL Creatinine (0.66-1.25) mg/dL Glucose (74-99) mg/dL POC Glucose (mg/dL) 203 H 129 H (70-110) mg/dL Hemoglobin A1c (0.0-6.0) % Calcium (8.4-10.2) mg/dL Urine RBC (0-5) /hpf Urine Bacteria (None) /hpf 06/25/22 06/25/22 06/25/22 Range/Units 08:40 08:40 Unknown RBC 4.06 L (4.30-5.90) m/uL Lymphocytes # 0.7 L (1.0-4.8) k/uL D-Dimer (<0.60) mg/L FEU BUN 32 H (9-20) mg/dL Creatinine 2.52 H (0.66-1.25) mg/dL Glucose 115 H (74-99) mg/dL POC Glucose (mg/dL) (70-110) mg/dL Hemoglobin A1c (0.0-6.0) % Calcium 8.0 L (8.4-10.2) mg/dL Urine RBC >182 H (0-5) /hpf Urine Bacteria Moderate H (None) /hpf - Imaging and Cardiology CT scan - abdomen: report reviewed, image reviewed Assessment and Plan (1) Malignant neoplasm of bladder, unspecified Current Visit: Yes Status: Acute Code(s): C67.9 - MALIGNANT NEOPLASM OF BLADDER, UNSPECIFIED SNOMED Code(s): 653736409 (2) Gross hematuria Current Visit: Yes Status: Acute Code(s): R31.0 - GROSS HEMATURIA SNOMED Code(s): 319287888 Plan: Anticoagulants are being held. CT scan shows what appears to be a large amount of blood within the bladder, though there may also be tumor given his history of bladder cancer. I have spoken with his and suggested he undergo cystoscopy, evacuation of clot, fulguration of bleeder, possible bladder tumor resection. The rationale for this was discussed, as were potential risks including anesthesia, persistent bleeding, infection, and bladder perforation. She has agreed for me to proceed, and the procedure will be performed later today.
--- NOTE | 2022-06-25 16:01 | P.PN ---
Subjective Progress Note Date: 06/25/22 Patient 81-year-old male externally poor historian unable to get much of the history from the patient. Patient is the amylase is not present at bedside at this time. Patient was brought in here because he feels weak. Patient cannot provide me any accurate history from has any chronic weakness in the left side although patient appears to have weakness in the left hand which is about 4+/5 by strength. Reviewing his past medical records patient appears to have had a stroke in that area. Although CT of the head showed some hypodensity in the right insular area. Did not show any acute abnormalities. She does have some generalized weakness no other focal weakness was evident. Patient is alert jagdish ented 2 although he is able to provide me history that he received multiple stents in the past does have history of coronary artery disease with a CABG in the past. 06/23/2022 Patient evaluated today resting in bed. Nursing staff reports patient has increased confusion at night and seroquel will be added. He was found to be positive for COVID by PCR. He has no white count, and electrolytes are u nremarkable. A1C is 6.5. TSH normal at 1.740, B12 and Folate are also normal. B12 is on the lower side and has been started on B12 supplementation. Will also start on vitamin supplements to support covid infection, he is on lovenox vte. MRI and EEG have been ordered as part of routine stroke work up. He does continue with left sided weakness. He remains afebrile, heart rate 75, blood pressure 121/54, 94% 2L nasal cannula 06/24/2022 Patient is resting in bed. He was agitated throughout the night and seroquel was not effective per nursing. Patient went for MRI today and did receive IV ativan sedation to tolerate MRI. MRI shows old posterior left basal ganglion lacunar infarct, chronic periventricular white matter ischemic changes, no acute ischemic changes. Patient is being followed by neurology. His CRP is found to be elevated at 10.9, sodium level 134. No white count. Bladder scan checked patient is not retaining urine. He continues on oxygen support, 2 to 3 L nasal cannula with oxygen saturations 93%, afebrile, heart rate 84, 153/78. 06/25/2022 Patient is evaluated today he is mostly sedated, he had received a dose of haldol yesterday evening for acute agitation and has also been started on seroquel for acute delirium. Patient had developed gross hematuria yesterday late afternoon and urology was consulted. Per urology reports, Patient has history of bladder cancer diagnosed in February of 2021 treated with resection and immunotherapy. He had cystoscopy in January of 2022. Patient continues with gross hematuria and urology is planning to take patient for cystoscopy later this evening. Patient continues on 3L nasal cannula with pulse oximeter of 98%, he has had a low grade fever 99.9 also 101.2 yesterday evening. Heart rate 75, blood pressure 135/76. Stroke work up negative, EEG shows some encephalopathy. Neurology is following. Holding plavix and lovenox for now. His creatinine is now 2.52 up overnight from 0.67. Blood glucose remains stable. Hemoglobin has remained stable at 13.1. Talked with over phone, patient to remain full code. REVIEW OF SYSTEMS: Unable to complete review of systems patient is currently lethargic. PHYSICAL EXAMINATION: GENERAL: The patient is alert and oriented x1, not in any acute distress. Well developed, well nourished. HEENT: Pupils are round and equally reacting to light. EOMI. No scleral icterus. No conjunctival pallor. Normocephalic, atraumatic. No pharyngeal erythema. No thyromegaly. CARDIOVASCULAR: S1 and S2 present. No murmurs, rubs, or gallops. PULMONARY: Chest is clear to auscultation, no wheezing or crackles. ABDOMEN: Soft, nontender, nondistended, normoactive bowel sounds. No palpable organomegaly. MUSCULOSKELETAL: No joint swelling or deformity. EXTREMITIES: No cyanosis, clubbing, or pedal edema. NEUROLOGICAL: Unable to complete full neurological exam. Patient has some myoclonus. SKIN: No rashes. Assessment and plan -Altered mental status possibly from acute delirium from covid infection versus stroke with left upper extremity weakness -Acute metabolic encephalopathy with worsening mentation possible from acute renal injury, EEG shows evidence for encephalopathy -Weakness in the left upper extremity: acute versus chronic and also possible left facial droop. Ongoing neurology evaluation, MRI negative for ischemia. -Acute Covid infection with no evidence for acute pneumonia on imaging, no white count. He remains on 2-3L nasal cannula. -Acute gross hematuria, stable hgb urology work up ongoing -Acute renal injury possibly prerenal with poor oral intake and also losartan was resumed which has been placed back on hold. Possible obstructive uropathy patient had some urinary retention. -Coronary artery disease with CABG in the past and multiple stents in the past, continues on antiplatelets -Hyperlipidemia -Hypertension: losartan is being held currently -benign prostatic hypertrophy -Hypothyroidism -History of stroke with right sided weakness -Diabetes type 2 continue with accuchecks and blood glucose monitoring -History asthma not in acute exacerbation -History of bladder cancer with resection and immunotherapy follows with urology. GI prophylaxis: Pepcid DVT prophylaxis: Lovenox has been placed on hold Full Code Plan Continue oral steroids Continue on COVID vitamins Continue supportive care Seroquel HS Further recommendations from neurology Holding plavix/lovenox Urology will be taking patient for cystoscopy later today Repeat labs in AM Monitor inflammatory markers Prognosis remains guarded and this was discussed with family today. Patient will remain full code. Family would like to visit when able. The impression and plan of care has been dictated by Kalina Lopez, Nurse Practitioner as directed. Dr. Cecilia MD I have performed a history and physical examination and medical decision making of this patient, discussed the same with the dictator, and agree with the dictators assessment and plan as written, documented as a scribe. Based on total visit time, I have performed more than 50% of this visit. Objective - Vital Signs Vital signs: Vital Signs Temp 99.5 F 06/25/22 12:00 Pulse 75 06/25/22 12:00 Resp 19 06/25/22 12:00 BP 135/76 06/25/22 12:00 Pulse Ox 98 06/25/22 12:00 FiO2 Intake & Output 06/24/22 06/25/22 06/25/22 18:59 06:59 18:59 Intake Total 118 20 Output Total 600 Balance 118 20 -600 Intake: IV 20 Invasive Line 1 10 Invasive Line 2 10 Oral 118 Output: Urine 600 Straight 600 Post Void Residual 0 Other: Voiding Method Diaper Diaper Diaper # Voids 1 1 # Bowel Movements 2 - Labs CBC & Chem 7: 06/25/22 08:40 06/25/22 08:40 Labs: Abnormal Lab Results - Last 24 Hours (Table) 06/24/22 06/24/22 06/24/22 Range/Units 16:37 16:37 16:45 RBC 4.26 L (4.30-5.90) m/uL Lymphocytes # (1.0-4.8) k/uL D-Dimer (<0.60) mg/L FEU BUN (9-20) mg/dL Creatinine (0.66-1.25) mg/dL Glucose (74-99) mg/dL POC Glucose (mg/dL) 156 H (70-110) mg/dL Hemoglobin A1c 6.9 H (0.0-6.0) % Calcium (8.4-10.2) mg/dL Urine RBC (0-5) /hpf Urine Bacteria (None) /hpf 06/24/22 06/24/22 06/25/22 Range/Units 16:54 19:59 06:01 RBC (4.30-5.90) m/uL Lymphocytes # (1.0-4.8) k/uL D-Dimer 0.75 H (<0.60) mg/L FEU BUN (9-20) mg/dL Creatinine (0.66-1.25) mg/dL Glucose (74-99) mg/dL POC Glucose (mg/dL) 203 H 129 H (70-110) mg/dL Hemoglobin A1c (0.0-6.0) % Calcium (8.4-10.2) mg/dL Urine RBC (0-5) /hpf Urine Bacteria (None) /hpf 06/25/22 06/25/22 06/25/22 Range/Units 08:40 08:40 Unknown RBC 4.06 L (4.30-5.90) m/uL Lymphocytes # 0.7 L (1.0-4.8) k/uL D-Dimer (<0.60) mg/L FEU BUN 32 H (9-20) mg/dL Creatinine 2.52 H (0.66-1.25) mg/dL Glucose 115 H (74-99) mg/dL POC Glucose (mg/dL) (70-110) mg/dL Hemoglobin A1c (0.0-6.0) % Calcium 8.0 L (8.4-10.2) mg/dL Urine RBC >182 H (0-5) /hpf Urine Bacteria Moderate H (None) /hpf Assessment and Plan Time with Patient: Less than 30
--- NOTE | 2022-06-25 16:49 | XR ---
EXAMINATION TYPE: XR chest 1V portable DATE OF EXAM: 06/25/2022 4:43 PM COMPARISON: Chest radiographs from 1621 TECHNIQUE: XR chest 1V portable Portable AP radiograph of the chest. CLINICAL INDICATION:Male, 81 years old with history of follow up atelectasis; FINDINGS: Lungs/Pleura: There is no evidence of pleural effusion, focal consolidation, or pneumothorax. Pulmonary vascularity: Unremarkable. Heart/mediastinum: Cardiomediastinal silhouette is unremarkable. Musculoskeletal: Degenerative changes of the shoulder joints. Midline sternotomy wires are noted. Rev erse right total shoulder arthroplasty changes. Hardware appears intact. IMPRESSION: No acute cardiopulmonary disease/process.
[2022-06-25 17:12] LABS: Glucose,Whole Blood 133 mg/dL (70-110)
[2022-06-25] MEDS ORDERED: PHENYLEPHRINE-0.9% NACL SYG 1,000 MCG/10 ML SYRINGE ONE (18:41)
[2022-06-25] MEDS ORDERED: ePHEDrine 50 MG/ML 1 ML VIAL ONE (18:41)
[2022-06-25] MEDS ORDERED: fentaNYL (PF) 50 MCG/ML 2 ML AMP ONE (18:41)
[2022-06-25] MEDS ORDERED: IV FLUID CONTINUATION 1,000 ML IV ONE (18:41)
[2022-06-25] MEDS ORDERED: PROPOFOL 10 MG/ML 20 ML VIAL IV ONE (18:41)
--- NOTE | 2022-06-25 20:32 | P.OP ---
Date of Procedure: 06/25/22 Preoperative Diagnosis: Gross hematuria, urothelial carcinoma the bladder Postoperative Diagnosis: Same Procedure(s) Performed: Cystoscopy, evacuation of clot, TURBT (Large) Anesthesia: LARRY Surgeon: Marvel Garber Estimated Blood Loss (ml): 30 IV fluids (ml): 400 Pathology: other (Bladder neck tumor fragments) Condition: stable Disposition: PACU Indications for Procedure: The patient is an 81-year-old white male well known to Dr. Chavez. He was diagno sed with urothelial carcinoma of the bladder in December 2019. He underwent removal of recurrent tumors in April 2020 and February 2021. 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 He completed a 6 week course of induction intravesical BCG in March 2021. Since that time, he has received maintenance BCG and has had no recurrences. His most recent cystoscopy was in January 2022. No tumors were seen at that time. Urine cytology showed atypical cells. He is now admitted with weakness and confusion. 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 Urinalysis at the time of admission showed evidence of microhematuria, with no evidence of infection. He has experienced gross hematuria since yesterday, and today he was found to be in urinary retention. Computed tomography scan shows a considerable density within the bladder, presumed to be clot. Operative Findings: Several 100 mL of clot removed from the bladder. Recurrent tumor involving much of the vesical neck circumferentially. Attenuated right posterior and right lateral bladder wall. Description of Procedure: The patient was taken in the operating room and placed in the dorsal lithotomy position, with his legs supported in Drew stirrups. The external genitalia was prepped and draped sterilely. The 30 lens was used to introduce the 22-Zimbabwean Stortz cystoscopic sheath through the urethra and into the bladder under direct vision. The anterior urethra appeared normal. The prostatic urethra showed evidence of BPH, with visual occlusion. No urothelial changes were seen within the prostatic urethra. A considerable amount of clot was seen within the bladder. Using the [email or web address] evacuator, several hundred mL of clot were removed from the bladder. Once this was completed, the bladder was inspected. The ureteral orifices appeared normal. Superficial-appearing tumor was seen distal to the left ureteral orifice, and also involving much of the circumference of the vesical neck. The right posterior and right lateral bladder was noted to be attenuated, with oozing noted from the area of attenuation on the right posterior bladder wall. There was no evidence of bladder perforation. The cystoscope was removed, and the 25-Zimbabwean ACMI resectoscope sheath was intr oduced into the bladder. Using the cutting loop, all visible tumor was resected down to the muscle in the resection bed was fulgurated. The resected tissue was saved and sent for pathologic examination. Attention was then paid to the areas of attenuation, which were fulgurated, attaining adequate hemostasis. The resectoscope was removed, and a 20-Zimbabwean Alva catheter was inserted. The return was essentially clear. Lasix 10 mg was given intravenously. The patient tolerated the procedure well and left the operating room in stable condition.
[2022-06-25 21:33] LABS: Glucose,Whole Blood 155 mg/dL (70-110)
[2022-06-25] MEDS: INSULIN DETEMIR (LEVEMIR) 100 UNIT/ML SYR SQ SCH (22:18)
[2022-06-25] MEDS: QUEtiapine 50 MG TAB PO SCH (22:23)
[2022-06-25] MEDS: SODIUM CHLORIDE 0.9% 1,000 ML IV SCH (22:23)
[2022-06-26] MEDS ORDERED: VANCOMYCIN IV PER PHARMACY 1 EACH MISC MISCELLANE PRN (02:32)
[2022-06-26] MEDS ORDERED: VANCOMYCIN 1,250 MG in SODIUM CHLORIDE 0.9% 250 ML IVPB ONE (02:45)
[2022-06-26 06:33] LABS: Glucose,Whole Blood 126 mg/dL (70-110)
[2022-06-26] MEDS: SODIUM CHLORIDE 0.9% 1,000 ML IV SCH ×2 (06:34→17:52)
[2022-06-26] MEDS: LEVOTHYROXINE 50 MCG TAB PO SCH (06:34)
[2022-06-26] MEDS: INSULIN ASPART (NovoLOG) 100 UNIT/ML VIAL SQ SCH ×4 (06:34→21:32)
[2022-06-26 08:28] LABS: Amorphous Sediment,Urine Occasional /hpf; Appearance,Urine Turbid (Clear); Bacteria,Urine Occasional /hpf; Bilirubin,Urine Negative (Negative); Blood,Urine Large (Negative); Color,Urine Red; Glucose,Urine (UA) Negative (Negative); Ketones,Urine Negative (Negative); Leukocyte Esterase,Urine Large (Negative); Mucus,Urine Few /hpf; Nitrite,Urine Negative (Negative); Protein,Urine 2+ (Negative); RBC,Urine >182 /hpf (0-5); Specific Gravity,Urine 1.019 (1.001-1.035); Urobilinogen,Urine <2.0 mg/dL (<2.0); WBC,Urine >182 /hpf (0-5)
[2022-06-26] MEDS ORDERED: ENOXAPARIN 30 MG/0.3 ML SYRINGE SQ SCH (09:00)
[2022-06-26] MEDS: QUEtiapine 25 MG TAB PO SCH (09:05)
[2022-06-26] MEDS: ATORVASTATIN 80 MG TAB PO SCH (09:05)
[2022-06-26] MEDS: CYANOCOBALAMIN 500 MCG TAB PO SCH (09:05)
[2022-06-26] MEDS: ASCORBIC ACID 500 MG TAB PO SCH (09:05)
[2022-06-26] MEDS: TAMSULOSIN 0.4 MG CAP.ER.24H PO SCH (09:05)
[2022-06-26] MEDS: FAMOTIDINE 20 MG TAB PO SCH ×2 (09:05→21:32)
[2022-06-26] MEDS: MONTELUKAST 10 MG TAB PO SCH (09:05)
[2022-06-26] MEDS: ZINC SULFATE 220 MG CAP PO SCH (09:05)
[2022-06-26] MEDS: predniSONE 20 MG TAB PO SCH (09:05)
[2022-06-26] MEDS: CHOLECALCIFEROL 25 MCG (1000 IU) TABLET PO SCH (09:05)
[2022-06-26 09:13] LABS: Basophils % (A) 0 %; Eosinophils % (A) 0 %; HCT 36.5 % (39.0-53.0); HGB 11.9 gm/dL (13.0-17.5); Lymphocytes # (A) 0.7 k/uL (1.0-4.8); Lymphocytes % (A) 7 %; MCH 32.8 pg (25.0-35.0); MCHC 32.7 g/dL (31.0-37.0); MCV 100.1 fL (80.0-100.0); Macrocytosis Slight; Mean Platelet Volume 8.9; Monocytes # (A) 0.5 k/uL (0-1.0); Monocytes % (A) 5 %; Neutrophils # (A) 9.5 k/uL (1.3-7.7); Neutrophils % (A) 88 %; Platelet Count 173 k/uL (150-450); RBC 3.64 m/uL (4.30-5.90); WBC 10.8 k/uL (3.8-10.6)
[2022-06-26 09:25] LABS: Albumin 2.9 g/dL (3.5-5.0); Magnesium 2.2 mg/dL (1.6-2.3); Potassium 3.5 mmol/L (3.5-5.1); Total Bilirubin 0.4 mg/dL (0.2-1.3); Total Protein 5.3 g/dL (6.3-8.2)
[2022-06-26 10:01] LABS: C Reactive Protein 17.5 mg/dL (<1.0)
--- NOTE | 2022-06-26 10:41 | P.PN ---
Subjective Progress Note Date: 06/25/22 06/25/2022: Patient apparently had significant hematuria. Patient has history of bladder cancer. Patient is undergoing cystoscopy for evacuation of the clot. Patient is more lethargic, opens eyes. Patient could not tell the current month or the year. He was able to tell he is in [place] in [place]. Could not tell me his date of . Patient is very encephalopathic. Patient is having some myoclonic jerks. 06/24/2022: Patient was initially seen by Dr. Madan Barrow. Please refer to his note for details. Patient is a 81-year-old male, who came with Covid-19 infection, but also had dysarthria and confusion. MRI of the brain and EEG was ordered by Dr. Barrow. Patient at present laying in the bed, appears very confused. He seems to be hallucinating, trying to pick some objects from the air. He admits to having headache, although the history is very questionable. Objective - Vital Signs Vital signs: Vital Signs Temp 98.2 F 06/26/22 07:30 Pulse 56 L 06/26/22 07:30 Resp 16 06/26/22 07:30 BP 113/56 06/26/22 07:30 Pulse Ox 94 L 06/26/22 08:17 FiO2 Intake & Output 06/25/22 06/26/22 06/26/22 18:59 06:59 18:59 Intake Total 400 Output Total 600 880 Balance -200 -880 Intake: IV 400 Output: Urine 600 850 Straight 600 Post Void Residual 0 Estimated Blood Loss 30 Other: Voiding Method Diaper Indwelling Catheter Indwelling Catheter # Bowel Movements 1 - Exam GENERAL: The patient is lying in bed and is more encephalopathic. He does not follow much commands. Patient has some myoclonic jerks. Patient does not have a Alva's catheter.. NEUROLOGICAL: Higher mental function: The patient is obtunded, encephalopathic. Cranial nerves: The pupils are round, equal and reactive to light Visual hutchins could not be tested as he would not cooperate. Patient does not clearly blink to visual threat on either side. Extraocular movement is intact no nystagmus is noted. Facial sensation cannot be assessed. The facial strength appears normal bilaterally. . Mild dysarthria is noted. Patient's speaking nonsensical, with word salad at times. He said "pardon", when he did not understand what I said at one time. Shoulder shrug is normal bilaterally. Motor: Patient did not cooperate with muscle strength testing. Normal tone and bulk. Patient has significant high arched feet and hammertoes. Reflexes are diminished and plantars are flat bilaterally. Sensation: Sensation could not be assessed although response to painful stimuli as above. Some other workup during his hospital visit consisted of: TSH is 1.740 Folate is 13.0 Vitamin B12 is 239 which is considered the very low normal. Lipid panel is triglyceride 38, LDL of 74 HDL is 46 and the respiratory pending Hemoglobin A1c 6.5. SOLOMON-Covid-2 to PCR is detected. Our CV is not detected and influenza a is not detected. CT of the head is reported as cerebral atrophy. Microvascular ischemia. No acute intracranial abnormality. No change compared to old exam. I personally reviewed the CT of the head and I feel the patient has no acute or subacute ischemia and there is no intracranial hemorrhage. Patient has lacunar stroke and predominately is over the left thalamus larger than the right thalamus normal basal ganglia region. - Labs CBC & Chem 7: 06/26/22 08:40 06/26/22 08:40 Labs: Abnormal Lab Results - Last 24 Hours (Table) 06/25/22 06/25/22 06/25/22 Range/Units 08:40 17:08 21:23 WBC (3.8-10.6) k/uL RBC (4.30-5.90) m/uL Hgb (13.0-17.5) gm/dL Hct (39.0-53.0) % MCV (80.0-100.0) fL Neutrophils # (1.3-7.7) k/uL Lymphocytes # (1.0-4.8) k/uL Chloride (98-107) mmol/L BUN (9-20) mg/dL Glucose (74-99) mg/dL POC Glucose (mg/dL) 133 H 155 H (70-110) mg/dL Calcium (8.4-10.2) mg/dL C-Reactive Protein (<1.0) mg/dL Total Protein (6.3-8.2) g/dL Albumin (3.5-5.0) g/dL Procalcitonin 0.22 H (0.02-0.09) ng/mL Urine Protein (Negative) Urine Blood (Negative) Ur Leukocyte Esterase (Negative) Urine RBC (0-5) /hpf Urine WBC (0-5) /hpf Amorphous Sediment (None) /hpf Urine Bacteria (None) /hpf Urine Mucus (None) /hpf 06/25/22 06/26/22 06/26/22 Range/Units Unknown 06:32 07:28 WBC (3.8-10.6) k/uL RBC (4.30-5.90) m/uL Hgb (13.0-17.5) gm/dL Hct (39.0-53.0) % MCV (80.0-100.0) fL Neutrophils # (1.3-7.7) k/uL Lymphocytes # (1.0-4.8) k/uL Chloride (98-107) mmol/L BUN (9-20) mg/dL Glucose (74-99) mg/dL POC Glucose (mg/dL) 126 H (70-110) mg/dL Calcium (8.4-10.2) mg/dL C-Reactive Protein (<1.0) mg/dL Total Protein (6.3-8.2) g/dL Albumin (3.5-5.0) g/dL Procalcitonin (0.02-0.09) ng/mL Urine Protein 2+ H (Negative) Urine Blood Large H (Negative) Ur Leukocyte Esterase Large H (Negative) Urine RBC >182 H >182 H (0-5) /hpf Urine WBC >182 H (0-5) /hpf Amorphous Sediment Occasional H (None) /hpf Urine Bacteria Moderate H Occasional H (None) /hpf Urine Mucus Few H (None) /hpf 06/26/22 06/26/22 Range/Units 08:40 08:40 WBC 10.8 H (3.8-10.6) k/uL RBC 3.64 L (4.30-5.90) m/uL Hgb 11.9 L (13.0-17.5) gm/dL Hct 36.5 L (39.0-53.0) % MCV 100.1 H (80.0-100.0) fL Neutrophils # 9.5 H (1.3-7.7) k/uL Lymphocytes # 0.7 L (1.0-4.8) k/uL Chloride 108 H (98-107) mmol/L BUN 23 H (9-20) mg/dL Glucose 125 H (74-99) mg/dL POC Glucose (mg/dL) (70-110) mg/dL Calcium 8.0 L (8.4-10.2) mg/dL C-Reactive Protein 17.5 H (<1.0) mg/dL Total Protein 5.3 L (6.3-8.2) g/dL Albumin 2.9 L (3.5-5.0) g/dL Procalcitonin (0.02-0.09) ng/mL Urine Protein (Negative) Urine Blood (Negative) Ur Leukocyte Esterase (Negative) Urine RBC (0-5) /hpf Urine WBC (0-5) /hpf Amorphous Sediment (None) /hpf Urine Bacteria (None) /hpf Urine Mucus (None) /hpf Microbiology - Last 24 Hours (Table) 06/25/22 08:40 Blood Culture Gram Stain - Preliminary Blood 06/25/22 08:40 Blood Culture - Final Blood Assessment and Plan Assessment: Encephalopathy likely due to Acute COVID-19 infection. No evidence of an acute stroke on MRI. Acute COVID-19 infection Confusion, getting worse, perhaps delirium. Patient's white cells are normal, and temperature is normal, therefore intracranial infection less likely. Hematuria, history of urothelial cancer. Low normal Vitamin B12 (239) History of stroke with residual right sided weakness Diabetes Hypertension History of OR Hypothyroidism History of coronary artery disease s/p stent Plan: * Patient's encephalopathy is getting worse. Patient has significant hematuria. Patient undergoing cystoscopy for evacuation of clots. Renal functions are normal. * MRI of the brain revealed no acute process. Some small vessel disease. Old posterior left basal ganglia lacunar infarct. I personally reviewed MRI, agree with the findings. The exam is limited due to movement artifact. Only limited images were able to be accomplished because of his noncooperation. However on the DWI, no obvious acute ischemic process. FLAIR sequences were not checked. * EEG was performed today. Preliminary report revealed that it was technically limited because of significant myogenic and movement artifacts. Otherwise the background was slow, consisting of encephalopathy. Possible superimposed left temporal focal slowing was seen, suggestive of focal cortical neuronal dysfunction. No epileptiform activity was seen. Suggest repeat EEG, when patient is more cooperative. Hold off on any antiepileptic medication, as there was no epileptiform activity seen in the EEG. May need a repeat EEG, as the current EEG was technically very poor. * Plavix and Lovenox held because of hematuria. Continue Lipitor 80mg daily. * Consider lumbar puncture if the mentation does not improve. At present cannot be performed because patient is currently on Plavix. * Because of the low normal vitamin B12 (236) Dr. Barrow started the patient on vitamin B12 IM 1000 g daily for 3 days then after that by mouth. * PT OT is consulted * We'll defer the rest of the medical management to the primary team.
[2022-06-26 12:11] LABS: Glucose,Whole Blood 250 mg/dL (70-110)
[2022-06-26] MEDS: METOPROLOL TARTRATE 12.5 MG TAB PO SCH ×2 (12:21→21:32)
--- NOTE | 2022-06-26 12:30 | P.PN ---
Subjective Progress Note Date: 06/26/22 Principal diagnosis: Hematuria, urinary retention, bladder cancer Mr. Weber is more alert today. He underwent cystoscopy with evacuation of clot, bladder tumor resection yesterday. The Alva catheter remains in place, draining bloody urine without clots. He reports mild bladder discomfort. Objective - Vital Signs Vital signs: Vital Signs Temp 98.2 F 06/26/22 07:30 Pulse 56 L 06/26/22 07:30 Resp 16 06/26/22 07:30 BP 113/56 06/26/22 07:30 Pulse Ox 94 L 06/26/22 08:17 FiO2 Intake & Output 06/25/22 06/26/22 06/26/22 18:59 06:59 18:59 Intake Total 400 Output Total 600 880 Balance -200 -880 Intake: IV 400 Output: Urine 600 850 Straight 600 Post Void Residual 0 Estimated Blood Loss 30 Other: Voiding Method Diaper Indwelling Catheter Indwelling Catheter # Bowel Movements 1 - Constitutional General appearance: Present: average body habitus, no acute distress - Labs CBC & Chem 7: 06/26/22 08:40 06/26/22 08:40 Labs: Abnormal Lab Results - Last 24 Hours (Table) 06/25/22 06/25/22 06/25/22 Range/Units 08:40 17:08 21:23 WBC (3.8-10.6) k/uL RBC (4.30-5.90) m/uL Hgb (13.0-17.5) gm/dL Hct (39.0-53.0) % MCV (80.0-100.0) fL Neutrophils # (1.3-7.7) k/uL Lymphocytes # (1.0-4.8) k/uL POC Glucose (mg/dL) 133 H 155 H (70-110) mg/dL Procalcitonin 0.22 H (0.02-0.09) ng/mL Urine Protein (Negative) Urine Blood (Negative) Ur Leukocyte Esterase (Negative) Urine RBC (0-5) /hpf Urine WBC (0-5) /hpf Amorphous Sediment (None) /hpf Urine Bacteria (None) /hpf Urine Mucus (None) /hpf 06/25/22 06/26/22 06/26/22 Range/Units Unknown 06:32 07:28 WBC (3.8-10.6) k/uL RBC (4.30-5.90) m/uL Hgb (13.0-17.5) gm/dL Hct (39.0-53.0) % MCV (80.0-100.0) fL Neutrophils # (1.3-7.7) k/uL Lymphocytes # (1.0-4.8) k/uL POC Glucose (mg/dL) 126 H (70-110) mg/dL Procalcitonin (0.02-0.09) ng/mL Urine Protein 2+ H (Negative) Urine Blood Large H (Negative) Ur Leukocyte Esterase Large H (Negative) Urine RBC >182 H >182 H (0-5) /hpf Urine WBC >182 H (0-5) /hpf Amorphous Sediment Occasional H (None) /hpf Urine Bacteria Moderate H Occasional H (None) /hpf Urine Mucus Few H (None) /hpf 06/26/22 Range/Units 08:40 WBC 10.8 H (3.8-10.6) k/uL RBC 3.64 L (4.30-5.90) m/uL Hgb 11.9 L (13.0-17.5) gm/dL Hct 36.5 L (39.0-53.0) % MCV 100.1 H (80.0-100.0) fL Neutrophils # 9.5 H (1.3-7.7) k/uL Lymphocytes # 0.7 L (1.0-4.8) k/uL POC Glucose (mg/dL) (70-110) mg/dL Procalcitonin (0.02-0.09) ng/mL Urine Protein (Negative) Urine Blood (Negative) Ur Leukocyte Esterase (Negative) Urine RBC (0-5) /hpf Urine WBC (0-5) /hpf Amorphous Sediment (None) /hpf Urine Bacteria (None) /hpf Urine Mucus (None) /hpf Microbiology - Last 24 Hours (Table) 06/25/22 08:40 Blood Culture Gram Stain - Preliminary Blood 06/25/22 08:40 Blood Culture - Final Blood Assessment and Plan (1) Malignant neoplasm of bladder, unspecified Current Visit: Yes Status: Acute Code(s): C67.9 - MALIGNANT NEOPLASM OF BLADDER, UNSPECIFIED SNOMED Code(s): 494813667 (2) Gross hematuria Current Visit: Yes Status: Acute Code(s): R31.0 - GROSS HEMATURIA SNOMED Code(s): 748712838 Plan: The Alva catheter will remain in place for at least 1 week to allow adequate bladder healing. The catheter may be irrigated as needed.
--- NOTE | 2022-06-26 13:13 | P.PN ---
Subjective Progress Note Date: 06/26/22 Patient 81-year-old male externally poor historian unable to get much of the history from the patient. Patient is the amylase is not present at bedside at this time. Patient was brought in here because he feels weak. Patient cannot provide me any accurate history from has any chronic weakness in the left side although patient appears to have weakness in the left hand which is about 4+/5 by strength. Reviewing his past medical records patient appears to have had a stroke in that area. Although CT of the head showed some hypodensity in the right insular area. Did not show any acute abnormalities. She does have some generalized weakness no other focal weakness was evident. Patient is alert jagdish ented 2 although he is able to provide me history that he received multiple stents in the past does have history of coronary artery disease with a CABG in the past. 06/23/2022 Patient evaluated today resting in bed. Nursing staff reports patient has increased confusion at night and seroquel will be added. He was found to be positive for COVID by PCR. He has no white count, and electrolytes are u nremarkable. A1C is 6.5. TSH normal at 1.740, B12 and Folate are also normal. B12 is on the lower side and has been started on B12 supplementation. Will also start on vitamin supplements to support covid infection, he is on lovenox vte. MRI and EEG have been ordered as part of routine stroke work up. He does continue with left sided weakness. He remains afebrile, heart rate 75, blood pressure 121/54, 94% 2L nasal cannula 06/24/2022 Patient is resting in bed. He was agitated throughout the night and seroquel was not effective per nursing. Patient went for MRI today and did receive IV ativan sedation to tolerate MRI. MRI shows old posterior left basal ganglion lacunar infarct, chronic periventricular white matter ischemic changes, no acute ischemic changes. Patient is being followed by neurology. His CRP is found to be elevated at 10.9, sodium level 134. No white count. Bladder scan checked patient is not retaining urine. He continues on oxygen support, 2 to 3 L nasal cannula with oxygen saturations 93%, afebrile, heart rate 84, 153/78. 06/25/2022 Patient is evaluated today he is mostly sedated, he had received a dose of haldol yesterday evening for acute agitation and has also been started on seroquel for acute delirium. Patient had developed gross hematuria yesterday late afternoon and urology was consulted. Per urology reports, Patient has history of bladder cancer diagnosed in February of 2021 treated with resection and immunotherapy. He had cystoscopy in January of 2022. Patient continues with gross hematuria and urology is planning to take patient for cystoscopy later this evening. Patient continues on 3L nasal cannula with pulse oximeter of 98%, he has had a low grade fever 99.9 also 101.2 yesterday evening. Heart rate 75, blood pressure 135/76. Stroke work up negative, EEG shows some encephalopathy. Neurology is following. Holding plavix and lovenox for now. His creatinine is now 2.52 up overnight from 0.67. Blood glucose remains stable. Hemoglobin has remained stable at 13.1. Talked with over phone, patient to remain full code. 06/26/2022 Patient resting in bed. Patient underwent cystoscopy yesterday which reveals recurrent tumor which was resected and also several mLs of blood/clots evacuated from bladder. Patient now with indwelling catheter in place, urology recommending to leave in place for 1 week and irrigate as needed. About 450 mls of urine out overnight. Plavix and lovenox remain on hold for now. Hgb today 11.9, he does have leukocytosis today 10.8. Procalcitonin 0.22, CRP 17.5. BUN 23 creatinine 0.92. Blood culture is showing gram positive cocci and infectious disease has been placed on consultation. Urinalysis attemped yesterday was not a complete analysis. Repeated again today now showing large leukocyte esterase, continues with hematuria. Patient has been started on vancomycin empirically. Losartan continues to be on hold, blood pressure 113/56, had t-max 99.1 overnight, he is 94-96% on 3L nasal cannula. REVIEW OF SYSTEMS: Unable to complete review of systems patient is currently lethargic. PHYSICAL EXAMINATION: GENERAL: The patient is alert and oriented x1, not in any acute distress. Well developed, well nourished. HEENT: Pupils are round and equally reacting to light. EOMI. No scleral icterus. No conjunctival pallor. Normocephalic, atraumatic. No pharyngeal erythema. No thyromegaly. CARDIOVASCULAR: S1 and S2 present. No murmurs, rubs, or gallops. PULMONARY: Chest has some scattered rhonchi with coarse congested cough without sputum production. ABDOMEN: Soft, nontender, nondistended, normoactive bowel sounds. No palpable organomegaly. MUSCULOSKELETAL: No joint swelling or deformity. EXTREMITIES: No cyanosis, clubbing, or pedal edema. NEUROLOGICAL: Unable to complete full neurological exam. Patient has some myoclonus. SKIN: No rashes. Assessment and plan -Altered mental status from acute metabolic encephalopathy possibly from acute delirium from covid infection versus stroke with left upper extremity weakness -Weakness in the left upper extremity: acute versus chronic and also possible left facial droop. Ongoing neurology evaluation, MRI negative for ischemia. -Acute Covid infection with no evidence for acute pneumonia on imaging. He remains on 2-3L nasal cannula. -Acute gross hematuria status post cystoscopy with evidence for recurring bladder cancer post resection and evacuation of blood/clots on 06/26/22 -Acute renal injury from obstructive uropathy post evacuation of blood/clots and creatinine has now normalized to 0.92. -Staphylococcus epidermidis bacteremia possible contaminant species, on vancomycin, ID on consult. -Coronary artery disease with CABG in the past and multiple stents in the past, Plavix currently on hold. -Hyperlipidemia -Hypertension: losartan is being held currently -benign prostatic hypertrophy -Hypothyroidism -History of stroke with right sided weakness -Diabetes type 2 continue with accuchecks and blood glucose monitoring -History asthma not in acute exacerbation -History of bladder cancer with resection and immunotherapy follows with urology. GI prophylaxis: Pepcid DVT prophylaxis: Lovenox has been placed on hold Full Code Plan Continue oral steroids Continue on COVID vitamins Continue supportive care Seroquel HS Further recommendations from neurology Holding plavix/lovenox Patient is status post cystoscopy, urology recommending to continue with indwelling catheter for the next week, he continues with hematuria which is expected Alva catheter irrigation as needed. Repeat labs in AM Monitor inflammatory markers Infectious disease on consult, cultures are pending. Prognosis remains guarded and this was discussed with family. The impression and plan of care has been dictated by Kalina Lopez Nurse Practitioner as directed. Dr. Cecilia MD I have performed a history and physical examination and medical decision making of this patient, discussed the same with the dictator, and agree with the dictators assessment and plan as written, documented as a scribe. Based on total visit time, I have performed more than 50% of this visit. Objective - Vital Signs Vital signs: Vital Signs Temp 98.2 F 06/26/22 07:30 Pulse 56 L 06/26/22 07:30 Resp 16 06/26/22 07:30 BP 113/56 06/26/22 07:30 Pulse Ox 94 L 06/26/22 08:17 FiO2 Intake & Output 06/25/22 06/26/22 06/26/22 18:59 06:59 18:59 Intake Total 400 Output Total 600 880 Balance -200 -880 Intake: IV 400 Output: Urine 600 850 Straight 600 Post Void Residual 0 Estimated Blood Loss 30 Other: Voiding Method Diaper Indwelling Catheter Indwelling Catheter # Bowel Movements 1 - Labs CBC & Chem 7: 06/26/22 08:40 06/26/22 08:40 Labs: Abnormal Lab Results - Last 24 Hours (Table) 06/24/22 06/25/22 06/25/22 Range/Units 16:37 08:40 17:08 WBC (3.8-10.6) k/uL RBC (4.30-5.90) m/uL Hgb (13.0-17.5) gm/dL Hct (39.0-53.0) % MCV (80.0-100.0) fL Neutrophils # (1.3-7.7) k/uL Lymphocytes # (1.0-4.8) k/uL POC Glucose (mg/dL) 133 H (70-110) mg/dL Hemoglobin A1c 6.9 H (0.0-6.0) % Procalcitonin 0.22 H (0.02-0.09) ng/mL Urine Protein (Negative) Urine Blood (Negative) Ur Leukocyte Esterase (Negative) Urine RBC (0-5) /hpf Urine WBC (0-5) /hpf Amorphous Sediment (None) /hpf Urine Bacteria (None) /hpf Urine Mucus (None) /hpf 06/25/22 06/25/22 06/26/22 Range/Units 21:23 Unknown 06:32 WBC (3.8-10.6) k/uL RBC (4.30-5.90) m/uL Hgb (13.0-17.5) gm/dL Hct (39.0-53.0) % MCV (80.0-100.0) fL Neutrophils # (1.3-7.7) k/uL Lymphocytes # (1.0-4.8) k/uL POC Glucose (mg/dL) 155 H 126 H (70-110) mg/dL Hemoglobin A1c (0.0-6.0) % Procalcitonin (0.02-0.09) ng/mL Urine Protein (Negative) Urine Blood (Negative) Ur Leukocyte Esterase (Negative) Urine RBC >182 H (0-5) /hpf Urine WBC (0-5) /hpf Amorphous Sediment (None) /hpf Urine Bacteria Moderate H (None) /hpf Urine Mucus (None) /hpf 06/26/22 06/26/22 Range/Units 07:28 08:40 WBC 10.8 H (3.8-10.6) k/uL RBC 3.64 L (4.30-5.90) m/uL Hgb 11.9 L (13.0-17.5) gm/dL Hct 36.5 L (39.0-53.0) % MCV 100.1 H (80.0-100.0) fL Neutrophils # 9.5 H (1.3-7.7) k/uL Lymphocytes # 0.7 L (1.0-4.8) k/uL POC Glucose (mg/dL) (70-110) mg/dL Hemoglobin A1c (0.0-6.0) % Procalcitonin (0.02-0.09) ng/mL Urine Protein 2+ H (Negative) Urine Blood Large H (Negative) Ur Leukocyte Esterase Large H (Negative) Urine RBC >182 H (0-5) /hpf Urine WBC >182 H (0-5) /hpf Amorphous Sediment Occasional H (None) /hpf Urine Bacteria Occasional H (None) /hpf Urine Mucus Few H (None) /hpf Microbiology - Last 24 Hours (Table) 06/25/22 08:40 Blood Culture Gram Stain - Preliminary Blood 06/25/22 08:40 Blood Culture - Final Blood Assessment and Plan Time with Patient: Less than 30
[2022-06-26] MEDS ORDERED: LORazepam 1 MG/0.5 ML VIAL IV PRN (15:41)
[2022-06-26] MEDS ORDERED: VANCOMYCIN 1,250 MG in SODIUM CHLORIDE 0.9% 250 ML IVPB SCH (16:00)
[2022-06-26 17:01] LABS: Glucose,Whole Blood 164 mg/dL (70-110)
--- NOTE | 2022-06-26 17:54 | P.PN ---
Subjective Progress Note Date: 06/26/22 06/26/2022: Patient was seen for a follow-up. Patient is much improved. His mentation has improved. Patient able to speak sentences. Making some humorous comments. Patient denies headache. Telemetry monitoring showing sinus rhythm, sinus bradycardia with PVCs and PACs. 06/25/2022: Patient apparently had significant hematuria. Patient has history of bladder cancer. Patient is undergoing cystoscopy for evacuation of the clot. Patient is more lethargic, opens eyes. Patient could not tell the current month or the year. He was able to tell he is in [place] in [place]. Could not tell me his date of . Patient is very encephalopathic. Patient is having some myoclonic jerks. 06/24/2022: Patient was initially seen by Dr. Madan Barrow. Please refer to his note for details. Patient is a 81-year-old male, who came with Covid-19 infection, but also had dysarthria and confusion. MRI of the brain and EEG was ordered by Dr. Barrow. Patient at present laying in the bed, appears very confused. He seems to be hallucinating, trying to pick some objects from the air. He admits to having headache, although the history is very questionable. Objective - Vital Signs Vital signs: Vital Signs Temp 97.7 F 06/26/22 16:00 Pulse 67 06/26/22 16:00 Resp 16 06/26/22 16:00 BP 120/60 06/26/22 16:00 Pulse Ox 96 06/26/22 16:00 FiO2 Intake & Output 06/25/22 06/26/22 06/26/22 18:59 06:59 18:59 Intake Total 400 1120 Output Total 600 880 600 Balance -200 -880 520 Intake: IV 400 600 Sodium Chloride 0.9% 1, 600 000 ml @ 75 mls/hr IV . [id number] RODOLFO Rx#:[id number] Oral 520 Output: Urine 600 850 600 Straight 600 300 Post Void Residual 0 Estimated Blood Loss 30 Other: Voiding Method Diaper Indwelling Catheter Indwelling Catheter # Bowel Movements 1 - Exam GENERAL: The patient is lying in bed , appears more comfortable. He has Alva's catheter in place. . NEUROLOGICAL: Higher mental function: The patient is much more alert, awake and interactive. He is speaking more clearly. Uncertain more appropriately. Cranial nerves: The pupils are round, equal and reactive to light Visual hutchins could not be tested as he would not cooperate. Extraocular movement is intact no nystagmus is noted. Facial sensation cannot be assessed. The facial strength appears normal bilaterally. . Mild dysarthria is noted. Patient's speaking nonsensical, with word salad at times. He said "pardon", when he did not understand what I said at one time. Shoulder shrug is normal bilaterally. Motor: Patient's muscle strength is normal in the arms. The strength appears normal in the legs. Normal tone and bulk. Patient has significant high arched feet and hammertoes. Reflexes are diminished and plantars are flat bilaterally. Sensation: Sensation could not be assessed although response to painful stimuli as above. Some other workup during his hospital visit consisted of: TSH is 1.740 Folate is 13.0 Vitamin B12 is 239 which is considered the very low normal. Lipid panel is triglyceride 38, LDL of 74 HDL is 46 and the respiratory pending Hemoglobin A1c 6.5. SOLOMON-Covid-2 to PCR is detected. Our CV is not detected and influenza a is not detected. CT of the head is reported as cerebral atrophy. Microvascular ischemia. No acute intracranial abnormality. No change compared to old exam. I personally reviewed the CT of the head and I feel the patient has no acute or subacute ischemia and there is no intracranial hemorrhage. Patient has lacunar stroke and predominately is over the left thalamus larger than the right thalamus normal basal ganglia region. - Labs CBC & Chem 7: 06/26/22 08:40 06/26/22 08:40 Labs: Abnormal Lab Results - Last 24 Hours (Table) 06/25/22 06/25/22 06/26/22 Range/Units 08:40 21:23 06:32 WBC (3.8-10.6) k/uL RBC (4.30-5.90) m/uL Hgb (13.0-17.5) gm/dL Hct (39.0-53.0) % MCV (80.0-100.0) fL Neutrophils # (1.3-7.7) k/uL Lymphocytes # (1.0-4.8) k/uL Chloride (98-107) mmol/L BUN (9-20) mg/dL Glucose (74-99) mg/dL POC Glucose (mg/dL) 155 H 126 H (70-110) mg/dL Calcium (8.4-10.2) mg/dL C-Reactive Protein (<1.0) mg/dL Total Protein (6.3-8.2) g/dL Albumin (3.5-5.0) g/dL Procalcitonin 0.22 H (0.02-0.09) ng/mL Urine Protein (Negative) Urine Blood (Negative) Ur Leukocyte Esterase (Negative) Urine RBC (0-5) /hpf Urine WBC (0-5) /hpf Amorphous Sediment (None) /hpf Urine Bacteria (None) /hpf Urine Mucus (None) /hpf 06/26/22 06/26/22 06/26/22 Range/Units 07:28 08:40 08:40 WBC 10.8 H (3.8-10.6) k/uL RBC 3.64 L (4.30-5.90) m/uL Hgb 11.9 L (13.0-17.5) gm/dL Hct 36.5 L (39.0-53.0) % MCV 100.1 H (80.0-100.0) fL Neutrophils # 9.5 H (1.3-7.7) k/uL Lymphocytes # 0.7 L (1.0-4.8) k/uL Chloride 108 H (98-107) mmol/L BUN 23 H (9-20) mg/dL Glucose 125 H (74-99) mg/dL POC Glucose (mg/dL) (70-110) mg/dL Calcium 8.0 L (8.4-10.2) mg/dL C-Reactive Protein 17.5 H (<1.0) mg/dL Total Protein 5.3 L (6.3-8.2) g/dL Albumin 2.9 L (3.5-5.0) g/dL Procalcitonin (0.02-0.09) ng/mL Urine Protein 2+ H (Negative) Urine Blood Large H (Negative) Ur Leukocyte Esterase Large H (Negative) Urine RBC >182 H (0-5) /hpf Urine WBC >182 H (0-5) /hpf Amorphous Sediment Occasional H (None) /hpf Urine Bacteria Occasional H (None) /hpf Urine Mucus Few H (None) /hpf 06/26/22 06/26/22 Range/Units 11:40 16:20 WBC (3.8-10.6) k/uL RBC (4.30-5.90) m/uL Hgb (13.0-17.5) gm/dL Hct (39.0-53.0) % MCV (80.0-100.0) fL Neutrophils # (1.3-7.7) k/uL Lymphocytes # (1.0-4.8) k/uL Chloride (98-107) mmol/L BUN (9-20) mg/dL Glucose (74-99) mg/dL POC Glucose (mg/dL) 250 H 164 H (70-110) mg/dL Calcium (8.4-10.2) mg/dL C-Reactive Protein (<1.0) mg/dL Total Protein (6.3-8.2) g/dL Albumin (3.5-5.0) g/dL Procalcitonin (0.02-0.09) ng/mL Urine Protein (Negative) Urine Blood (Negative) Ur Leukocyte Esterase (Negative) Urine RBC (0-5) /hpf Urine WBC (0-5) /hpf Amorphous Sediment (None) /hpf Urine Bacteria (None) /hpf Urine Mucus (None) /hpf Microbiology - Last 24 Hours (Table) 06/26/22 07:28 Urine Culture - Preliminary Urine,Voided 06/25/22 08:40 Blood Culture Gram Stain - Preliminary Blood Blood Culture - Preliminary Staphylococcus epidermidis 06/25/22 08:40 Blood Culture - Final Blood Assessment and Plan Assessment: Encephalopathy likely due to Acute COVID-19 infection. No evidence of an acute stroke on MRI. Acute COVID-19 infection Confusion, getting worse, perhaps delirium. Patient's white cells are normal, and temperature is normal, therefore intracranial infection less likely. Hematuria, history of urothelial cancer. Low normal Vitamin B12 (239) History of stroke with residual right sided weakness Diabetes Hypertension History of [place] Hypothyroidism History of coronary artery disease s/p stent Plan: * Patient's encephalopathy has much improved today. Patient's speech has improved, is much more interactive, with limited but nonfocal exam. * Patient underwent cystoscopy yesterday, and removal of blood clots from the urinary bladder. He now has Foleys catheter. Renal functions are normal. * MRI of the brain revealed no acute process. Some small vessel disease. Old posterior left basal ganglia lacunar infarct. I personally reviewed MRI, agree with the findings. The exam is limited due to movement artifact. Only limited images were able to be accomplished because of his noncooperation. However on the DWI, no obvious acute ischemic process. FLAIR sequences were not checked. * EEG was performed today. Preliminary report revealed that it was technically limited because of significant myogenic and movement artifacts. Otherwise the background was slow, consisting of encephalopathy. Possible superimposed left temporal focal slowing was seen, suggestive of focal cortical neuronal dysfunction. No epileptiform activity was seen. Suggest repeat EEG, when patient is more cooperative. Hold off on any antiepileptic medication, as there was no epileptiform activity seen in the EEG. May need a repeat EEG, as the current EEG was technically very poor. * Plavix and Lovenox held because of hematuria. Continue Lipitor 80mg daily. * Because of the low normal vitamin B12 (236) Dr. Barrow started the patient on vitamin B12 IM 1000 g daily for 3 days then after that by mouth. * PT OT is consulted * We'll defer the rest of the medical management to the primary team.
[2022-06-26 20:30] LABS: Glucose,Whole Blood 193 mg/dL (70-110)
[2022-06-26] MEDS: QUEtiapine 50 MG TAB PO SCH (21:32)
[2022-06-26] MEDS: INSULIN DETEMIR (LEVEMIR) 100 UNIT/ML SYR SQ SCH (21:32)
[2022-06-27 06:12] LABS: Glucose,Whole Blood 152 mg/dL (70-110)
[2022-06-27] MEDS: INSULIN ASPART (NovoLOG) 100 UNIT/ML VIAL SQ SCH ×4 (06:47→20:58)
[2022-06-27] MEDS: LEVOTHYROXINE 50 MCG TAB PO SCH (06:47)
[2022-06-27 09:15] LABS: Basophils % (A) 0 %; Eosinophils % (A) 0 %; HCT 35.2 % (39.0-53.0); HGB 11.2 gm/dL (13.0-17.5); Lymphocytes # (A) 0.9 k/uL (1.0-4.8); Lymphocytes % (A) 9 %; MCH 31.9 pg (25.0-35.0); MCHC 31.9 g/dL (31.0-37.0); Mean Platelet Volume 8.6; Monocytes # (A) 0.6 k/uL (0-1.0); Monocytes % (A) 6 %; Neutrophils # (A) 8.3 k/uL (1.3-7.7); Neutrophils % (A) 84 %; Platelet Count 150 k/uL (150-450); RBC 3.52 m/uL (4.30-5.90); RDW 13.5 % (11.5-15.5); WBC 9.9 k/uL (3.8-10.6)
[2022-06-27 09:28] LABS: African American GFR (CKD) >90 (>60 ml/min/1.73 sqM); Anion Gap 8 mmol/L; Blood Urea Nitrogen 16 mg/dL (9-20); Calcium 8.5 mg/dL (8.4-10.2); Carbon Dioxide 27 mmol/L (22-30); Chloride 108 mmol/L (98-107); Glucose 70 mg/dL (74-99); Non-African American GFR(CKD) 88 (>60 ml/min/1.73 sqM); Potassium 3.4 mmol/L (3.5-5.1); Sodium 143 mmol/L (137-145)
[2022-06-27] MEDS: CYANOCOBALAMIN 500 MCG TAB PO SCH (09:29)
[2022-06-27] MEDS: TAMSULOSIN 0.4 MG CAP.ER.24H PO SCH (09:29)
[2022-06-27] MEDS: FAMOTIDINE 20 MG TAB PO SCH ×2 (09:29→20:57)
[2022-06-27] MEDS: ZINC SULFATE 220 MG CAP PO SCH (09:29)
[2022-06-27] MEDS: ATORVASTATIN 80 MG TAB PO SCH (09:29)
[2022-06-27] MEDS: CHOLECALCIFEROL 25 MCG (1000 IU) TABLET PO SCH (09:29)
[2022-06-27] MEDS: MONTELUKAST 10 MG TAB PO SCH (09:29)
[2022-06-27] MEDS: ASCORBIC ACID 500 MG TAB PO SCH (09:29)
[2022-06-27] MEDS: predniSONE 20 MG TAB PO SCH (09:30)
[2022-06-27] MEDS: QUEtiapine 25 MG TAB PO SCH (09:30)
[2022-06-27] MEDS: SODIUM CHLORIDE 0.9% 1,000 ML IV SCH (09:30)
--- NOTE | 2022-06-27 11:34 | P.CONS ---
History of Present Illness - Reason for Consult Consult date: 06/26/22 positive blood cultures Requesting physician: Saige Presley - Chief Complaint weakness x few days - History of Present Illness History of Present Illness : Patient is a 81-year-old male with a past medical history significant for bladder cancer status post recurrent unremarkable tumor and has completed his BCG installation, presenting to the hospital 5 days ago for evaluation of weakness and confusion the patient symptom has been going on for few days before presentation to the hospital on presentation to the hospital the patient did have a low-grade fever 100 F subsequently spiked a fever of 101.2 F on 06/24/2022 patient did have a blood culture drawn on 06/25/2020 which grew gram-positive cocci that has prompted this infectious disease consultation patient on admission to the hospital have normal white count which is slightly up to 10.8 today patient creatinine is normal liver enzymes are normal Pro-Angus's was mildly elevated he did have a positive UA and also have a positive COVID test on 06/21/2022 patient did have a chest x-ray no active cardiopulmonary disease repeat x-ray done yesterday no acute cardiopulmonary disease and the patient is currently breathing comfortably on a 2 L nasal cannula patient is a pleasantly confused and was unable to provide any history most information has been obtained from review the chart and talking to the nursing staff Review of system: Positive points mentioned in history of present illness complete review could not be obtained because of his underlying medical condition Past medical history : Reviewed, documented below Past surgical history : Reviewed, documented below Social history: Reviewed, documented below Medications: Reviewed, as documented below EXAMINATION: Vital sigans= Reviewed and documented below GENERAL DESCRIPTION: Elderly male lying in bed, no distress. No tachypnea or accessory muscle of respiration use. HEENT: Shows Pallor , no scleral icterus. Oral mucous membrane is dry. NECK: Trachea central, no thyromegaly. LUNGS: Unlabored breathing. Decrease intensity breath sounds HEART: S1, S2, regular rate and rhythm. ABDOMEN: Soft, no tenderness , guarding or rigidity EXTREMITIES: No edema feet SKIN: No rash, no masses palpable. NEUROLOGICAL: The patient is lethargic arousable but not a good historian LABS AND RADIOLOGY: Reviewed results see below Assessment : 1patient with a positive blood culture with gram-positive cocci in this patient with a history of bladder cancer did have a fever elevated white count possible related to his UTI. 2patient with a generalized weakness on admission could have been related to the covid19 it is not very clear how long his symptoms started patient did have a 2 negative chest x-ray and is requiring only 2 L nasal cannula treatment be mostly supportive Plan: 1-blood cultures will be repeated document clearance of bacteremia 2-vancomycin pharmacy to dose target trough of 15 while watching kidney function and vancomycin trough closely 3-continue with this and ascorbic acid prednisone underlying COVID-19 infection We will follow on clinical condition and cultures to further adjust medication if needed Thank you for this consultation we will follow the patient along with you Past Medical History Past Medical History: Asthma, Coronary Artery Disease (CAD), CVA/TIA, Diabetes Mellitus, Hyperlipidemia, Hypertension, Myocardial Infarction ([place]), Pneumonia, Prostate Disorder, Thyroid Disorder Additional Past Medical History / Comment(s): NIDDM type II, 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 Last Myocardial Infarction Date:: 12/21/18 History of Any Multi-Drug Resistant Organisms: None Reported Past Surgical History: Coronary Bypass/CABG, Heart Catheterization, Heart Catheterization With Stent, Joint Replacement, Orthopedic Surgery Additional Past Surgical History / Comment(s): total 8 stents, left shoulder rotator cuff, total reverse R shoulder replacement, blaire knee replacements, blaire carpal tunnel, R foot 3 hammertoes, colonoscopy, bladder polyps removed Past Anesthesia/Blood Transfusion Reactions: No Reported Reaction Additional Past Anesthesia/Blood Transfusion Reaction / Comm: states comes out with restless legs Date of Last Stent Placement:: 2018 Past Psychological History: No Psychological Hx Reported Smoking Status: Never smoker Past Alcohol Use History: None Reported Past Drug Use History: None Reported - Past Family History Father Family Medical History: Coronary Artery Disease (CAD) Additional Family Medical History / Comment(s): Father had enlarged heart. He had a crush injury that impacted his mobility. He at the age of 74yrs. Mother Family Medical History: Cancer, Hypertension Additional Family Medical History / Comment(s): Mother had breast cancer. Daughter(s) Family Medical History: Cancer Brother(s) Family Medical History: Cancer Medications and Allergies Home Medications Medication Instructions Recorded Confirmed Type Levothyroxine Sodium [Synthroid] 50 mcg PO DAILY 05/18/14 06/22/22 History Chlorpheniramine Maleate 4 mg PO DAILY 12/14/15 06/21/22 History [Chlor-Trimeton] Clopidogrel [Plavix] 75 mg PO DAILY@1200 12/14/15 06/22/22 History Montelukast [Singulair] 10 mg PO HS 12/14/15 06/22/22 History Omeprazole [PriLOSEC] 20 mg PO BID-W/MEALS 12/14/15 06/22/22 History Nitroglycerin Sl Tabs [Nitrostat] 0.4 mg SUBLINGUAL Q5M PRN #25 tab 12/16/15 06/21/22 Rx Atorvastatin [Lipitor] 80 mg PO HS 02/15/16 06/22/22 History Tamsulosin [Flomax] 0.4 mg PO HS 12/31/18 06/22/22 History amLODIPine [Norvasc] 5 mg PO BID 12/31/18 06/22/22 History Losartan [Cozaar] 50 mg PO DAILY@1200 08/29/19 06/22/22 History Metoprolol Tartrate [Lopressor] 12.5 mg PO BID@1200,2100 08/29/19 06/22/22 History glipiZIDE [Glucotrol] 5 mg PO DAILY 08/29/19 06/22/22 History rOPINIRole HCL [Requip] 1 mg PO BID 06/21/22 06/21/22 History glipiZIDE [Glucotrol] 2.5 mg PO HS 06/22/22 06/22/22 History Allergies Allergy/AdvReac Type Severity Reaction Status Date / Time No Known Allergies Allergy Verified 06/21/22 21:55 Physical Exam Vitals: Vital Signs Temp Pulse Resp BP Pulse Ox 06/26/22 08:17 94 L 06/26/22 07:30 98.2 F 56 L 16 113/56 96 06/26/22 03:40 99.1 F 64 18 112/57 94 L 06/26/22 00:00 98.4 F 59 L 20 133/59 96 06/25/22 21:00 97.5 F L 65 20 121/67 98 06/25/22 16:00 99 F 74 18 130/74 97 06/25/22 12:00 99.5 F 75 19 135/76 98 06/25/22 09:45 99.9 F H 71 19 142/75 96 Intake and Output 06/25/22 06/26/22 06/26/22 22:59 06:59 14:59 Intake Total 400 Output Total 430 450 Balance -30 -450 Intake: IV 400 Output: Urine 400 450 Estimated Blood Loss 30 Other: Voiding Method Indwelling Catheter Indwelling Catheter Indwelling Catheter # Bowel Movements 1 Results CBC & Chem 7: 06/27/22 08:32 06/27/22 08:32 Labs: Abnormal Lab Results - Last 24 Hours (Table) 06/24/22 06/25/22 06/25/22 Range/Units 16:37 08:40 08:40 RBC 4.06 L (4.30-5.90) m/uL Lymphocytes # 0.7 L (1.0-4.8) k/uL BUN 32 H (9-20) mg/dL Creatinine 2.52 H (0.66-1.25) mg/dL Glucose 115 H (74-99) mg/dL POC Glucose (mg/dL) (70-110) mg/dL Hemoglobin A1c 6.9 H (0.0-6.0) % Calcium 8.0 L (8.4-10.2) mg/dL Procalcitonin (0.02-0.09) ng/mL Urine Protein (Negative) Urine Blood (Negative) Ur Leukocyte Esterase (Negative) Urine RBC (0-5) /hpf Urine WBC (0-5) /hpf Amorphous Sediment (None) /hpf Urine Bacteria (None) /hpf Urine Mucus (None) /hpf 06/25/22 06/25/22 06/25/22 Range/Units 08:40 17:08 21:23 RBC (4.30-5.90) m/uL Lymphocytes # (1.0-4.8) k/uL BUN (9-20) mg/dL Creatinine (0.66-1.25) mg/dL Glucose (74-99) mg/dL POC Glucose (mg/dL) 133 H 155 H (70-110) mg/dL Hemoglobin A1c (0.0-6.0) % Calcium (8.4-10.2) mg/dL Procalcitonin 0.22 H (0.02-0.09) ng/mL Urine Protein (Negative) Urine Blood (Negative) Ur Leukocyte Esterase (Negative) Urine RBC (0-5) /hpf Urine WBC (0-5) /hpf Amorphous Sediment (None) /hpf Urine Bacteria (None) /hpf Urine Mucus (None) /hpf 06/25/22 06/26/22 06/26/22 Range/Units Unknown 06:32 07:28 RBC (4.30-5.90) m/uL Lymphocytes # (1.0-4.8) k/uL BUN (9-20) mg/dL Creatinine (0.66-1.25) mg/dL Glucose (74-99) mg/dL POC Glucose (mg/dL) 126 H (70-110) mg/dL Hemoglobin A1c (0.0-6.0) % Calcium (8.4-10.2) mg/dL Procalcitonin (0.02-0.09) ng/mL Urine Protein 2+ H (Negative) Urine Blood Large H (Negative) Ur Leukocyte Esterase Large H (Negative) Urine RBC >182 H >182 H (0-5) /hpf Urine WBC >182 H (0-5) /hpf Amorphous Sediment Occasional H (None) /hpf Urine Bacteria Moderate H Occasional H (None) /hpf Urine Mucus Few H (None) /hpf Microbiology - Last 24 Hours (Table) 06/25/22 08:40 Blood Culture Gram Stain - Preliminary Blood 06/25/22 08:40 Blood Culture - Final Blood
--- NOTE | 2022-06-27 11:36 | P.PN ---
Subjective Progress Note Date: 06/27/22 Principal diagnosis: Positive blood cultures COVID and UTI Patient is 81-year-old male with a past medical history significant for bladder cancer, presented to hospital with increasing weakness patient did have a positive UA/hematuria did have a fever and a positive blood culture also positive COVID testing. On today's evaluation that is 06/27/2022, the patient is afebrile the patient seem to be slightly more awake alert however did not answer any question and is currently on a 2 L nasal cannula satting 96% no vomiting diarrhea or any other changes reported by the nursing staff Objective - Vital Signs Vital signs: Vital Signs Temp 97.1 F L 06/27/22 09:25 Pulse 57 L 06/27/22 09:25 Resp 16 06/27/22 09:25 BP 145/65 06/27/22 09:25 Pulse Ox 97 06/27/22 09:25 FiO2 Intake & Output 06/26/22 06/27/22 06/27/22 18:59 06:59 18:59 Intake Total 1130 10 Output Total 600 500 Balance 530 -490 Intake: IV 610 10 Invasive Line 3 10 10 Sodium Chloride 0.9% 1, 600 000 ml @ 75 mls/hr IV . [id number] [facility] Rx#:[id number] Oral 520 Output: Urine 600 500 Straight 300 Other: Voiding Method Indwelling Catheter Indwelling Catheter # Bowel Movements 1 - Exam GENERAL DESCRIPTION: Elderly male lying in bed, no distress. No tachypnea or accessory muscle of respiration use. LUNGS: Unlabored breathing. Decreased breath sound at the base HEART: S1, S2, regular rate and rhythm. No loud murmur ABDOMEN: Soft, no tenderness , guarding or rigidity, no organomegaly EXTREMITIES: No edema of feet. - Labs CBC & Chem 7: 06/27/22 08:32 06/27/22 08:32 Labs: Abnormal Lab Results - Last 24 Hours (Table) 06/26/22 06/26/22 06/26/22 Range/Units 11:40 16:20 20:28 RBC (4.30-5.90) m/uL Hgb (13.0-17.5) gm/dL Hct (39.0-53.0) % Neutrophils # (1.3-7.7) k/uL Lymphocytes # (1.0-4.8) k/uL Potassium (3.5-5.1) mmol/L Chloride (98-107) mmol/L Glucose (74-99) mg/dL POC Glucose (mg/dL) 250 H 164 H 193 H (70-110) mg/dL 06/27/22 06/27/22 06/27/22 Range/Units 06:11 08:32 08:32 RBC 3.52 L (4.30-5.90) m/uL Hgb 11.2 L (13.0-17.5) gm/dL Hct 35.2 L (39.0-53.0) % Neutrophils # 8.3 H (1.3-7.7) k/uL Lymphocytes # 0.9 L (1.0-4.8) k/uL Potassium 3.4 L (3.5-5.1) mmol/L Chloride 108 H (98-107) mmol/L Glucose 70 L (74-99) mg/dL POC Glucose (mg/dL) 152 H (70-110) mg/dL Microbiology - Last 24 Hours (Table) 06/26/22 07:28 Urine Culture - Preliminary Urine,Voided 06/25/22 08:40 Blood Culture Gram Stain - Preliminary Blood Blood Culture - Preliminary Staphylococcus epidermidis Assessment and Plan (1) Bacteremia Current Visit: Yes Status: Acute Code(s): R78.81 - BACTEREMIA SNOMED Code(s): 6219366 (2) UTI (urinary tract infection) Current Visit: Yes Status: Acute Code(s): N39.0 - URINARY TRACT INFECTION, SITE NOT SPECIFIED SNOMED Code(s): 99098156 (3) COVID Current Visit: Yes Status: Acute Code(s): U07.1 - COVID-19 SNOMED Code(s): 646838811 Plan: 1patient with a positive blood culture with staph epi likely skin contamination blood culture has been repeated discontinue vancomycin. 2UTI urine cultures pending continue with the Rocephin 2 g daily. 3positive COVID test chest x-ray x2 were negative for any acute infiltrate patient is currently 98% on 2 L nasal cannula continue with current supportive treatment of zinc and ascorbic acid prednisone Time with Patient: Less than 30
[2022-06-27 11:52] LABS: Glucose,Whole Blood 78 mg/dL (70-110)
[2022-06-27] MEDS: FOLIC ACID 1 MG TAB PO SCH (12:49)
[2022-06-27] MEDS: METOPROLOL TARTRATE 12.5 MG TAB PO SCH ×2 (12:49→20:57)
[2022-06-27] MEDS: MULTIVITAMINS, THERA 1 EACH TAB PO SCH (12:49)
[2022-06-27] MEDS: THIAMINE 100 MG TAB PO SCH (12:49)
--- NOTE | 2022-06-27 13:40 | PN ---
PROGRESS NOTE SUBJECTIVE: This 81-year-old gentleman was admitted with change in mental status, also had multiple other medical problems. The patient is COVID-19 positive. The patient had cystoscopy and resection of the bladder tumor yesterday. Biopsies are pending. PAST MEDICAL HISTORY: Reviewed. REVIEW OF SYSTEMS: Could not be taken, the patient is confused. CURRENT MEDICATIONS: Reviewed, include Tylenol, vitamin C. Rest of the medication doses are reviewed. PHYSICAL EXAMINATION: VITAL SIGNS: Pulse is 51, blood pressure ntd, respirations 16. HEENT: Conjunctivae normal. RESPIRATIONS: ntdscattered rhonchi. ABDOMEN: Soft, nontender. NERVOUS SYSTEM: Diffusely weak. LABORATORY DATA: Potassium 3.4. The rest of the labs are noted. ASSESSMENT: 1. Change in mental status and acute delirium related to COVID-19. 2. Bladder tumor and hematuria, status post cystoscopy and resection. 3. Acute renal injury. 4. Multiple medical issues. RECOMMENDATIONS AND DISCUSSION: In this 81-year-old gentleman, who presented with multiple complex medical issues as mentioned earlier at this time, I recommend to continue current medications. Replace potassium. PT/OT evaluation bladder tumor. Currently, the patient is on Rocephin. The blood cultures are showing Staph epi, probably contaminant, but we will continue to monitor. White count is normal. Prognosis guarded. PT/OT evaluation. Eventually, F rehab. See orders for further details. MMODL / IJN: [id number] / MTDD
--- NOTE | 2022-06-27 14:15 | P.PN ---
Progress Note - Text Progress Note Date: 06/27/22 Mr. Weber continues to show evidence of improved mentation. He denies bladder pain. Alva catheter is draining urine which is essentially clear at this time. The catheter she'll remain in place for 1 week. Pathology is pending.
--- NOTE | 2022-06-27 14:41 | CDI ---
Documentation Clarification Form Date: 06/27/2022 02:17:45 PM From: Bessie Walker CCS, CCDS Admit Date: 06/24/2022 02:29:00 PM Patient Name: Kalen Weber Visit Number: [id number] Discharge Date: ATTENTION: The Clinical Documentation Specialists (CDI) and [facility] Coding Staff appreciate your assistance in clarifying documentation. Please respond to the clarification below the line at the bottom and electronically sign. The CDI & [facility] Coding staff will review the response and follow-up if needed. Please note: Queries are made part of the Legal Health Record. If you have any questions, please contact the author of this message via ITS. Dr. Jessica Romero: The patient presented with the following clinical indicators. Additional clarification regarding the etiology/cause of the clinical indicators is requested. History/Risk Factors per the 06/22 H/P: CAD status post CABG, RI and Heart Cath w/stent, Hypertension, Hyperlipidemia, BPH, Hypothyroidism, CVA w/lt side weakness & balance issues, Pneumonia, NIDDM II, Clinical Indicators: Presented to the ED on 06/21 with sudden weakness, neurological issues: right facial droop, shuffling gait. Admit with TIA, COVID Infection 06/24 Attending Progress Note: Acute delirium from COVID infection vs stroke with LUE weakness, Acute COVID infection with no Pneumonia. 06/26 Infectious Disease Consult: Positive Blood Culture with gram positive cocci in patient with history of bladder cancer with fever, elevated WBC possible related to his UTI. 06/21 VS: T 98.5, P 72, R 16, BP 130/69, PO 94 RA 06/21 LAB: WBC 8.5, Neut 7.1, Lymph 0.5; Hgb A1c 6.5. 06/21 Infl A/B: negative, RSV negative, COVID Positive. 06/21 CXR: No active cardiopulmonary disease. 06/21 CT Brain: Cerebral atrophy, Microvascular ischemia. 06/22 VS: T 100 (rectal), P 75, 59; R 18, 20; BP 131/66, 112/63; PO 100 RA, 95 2Lnc 06/22 UA: clear, 1+ protein, Moderate Blood, RBC 55, WBC 7 06/23 VS: T 98.4, P 60, R 16, BP 136/62, PO 94 2Lnc 06/24 VS: T 101.2, P 75, R 20, BP 160/84, PO 95 3Lnc 06/24 LAB: WBC 7.9, Neut 6.5, Lymph 0.7; D Dimer 0.75; Na 134, Glucose 141, 203; Hgb A1c 6.9, Calcium 8.1, CRP 10.9 06/25 Blood culture: Final: Negative 06/25 Blood culture: Preliminary: Staphylococcus epidermidis. 06/26 Urine culture: Final: Negative 06/26 Blood culture: Preliminary: No growth after 24 hrs Treatment 06/21: Neurology Consult (TIA), po Aspirin 325 mg x1, po tylenol 650 mg q6H/prn, IV Na Chl 1,000 mls @ 20 mls/hr q24H. Admit to Observation Status. 06/22: Nitro sl 0.4 mg q5M/prn, po Pepcid, requip, Lipitor, Plavix, Synthroid, Singulair, Flomax. 06/23: Lovenox 40 mg sq Daily, IM Vit B12 Daily, po Seroquel, po Lopressor 06/24 Inpatient Admission: po Vit C, po Vit D3, po Orazinc, IV Ativan 0.5 mg x2, IV Ativan 0.25 mg x1, po Prednisone, IM Haldol 2 mg x1. 06/25 IV Vancomycin 250 mls @ 125 mls/hr x1, IV Rocephin 50 mls @ 100 mls/hr q24H, IV Ativan 0.25 mg q8H/prn In your professional opinion, please clarify if these findings signify one of the following conditions: [ ] Sepsis POA [ ] Sepsis, Not POA [ ] Severe Sepsis with organ failure [ ] Other, please specify [ ] Unable to determine (Template Last Reviewed: November 2020) Unable to determine MTDD
[2022-06-27 16:52] LABS: Glucose,Whole Blood 126 mg/dL (70-110)
[2022-06-27 20:19] LABS: Glucose,Whole Blood 135 mg/dL (70-110)
[2022-06-27] MEDS: QUEtiapine 50 MG TAB PO SCH (20:57)
[2022-06-27] MEDS: INSULIN DETEMIR (LEVEMIR) 100 UNIT/ML SYR SQ SCH (20:58)
--- NOTE | 2022-06-27 22:52 | P.PN ---
Subjective Progress Note Date: 06/27/22 06/27/2022: Patient was seen for follow-up. Patient is laying comfortably in the bed. Patient is still very confused. Patient's nurse was also present by the bedside. She states that he cannot hold the fork to eat, as he is holding the tip of the fork with his fingers. Patient denies headache. Patient mumbles. Sometimes speaks completely out of context. 06/26/2022: Patient was seen for a follow-up. Patient is much improved. His mentation has improved. Patient able to speak sentences. Making some humorous comments. Patient denies headache. Telemetry monitoring showing sinus rhythm, sinus bradycardia with PVCs and PACs. 06/25/2022: Patient apparently had significant hematuria. Patient has history of bladder cancer. Patient is undergoing cystoscopy for evacuation of the clot. Patient is more lethargic, opens eyes. Patient could not tell the current month or the year. He was able to tell he is in [place] in [place]. Could not tell me his date of . Patient is very encephalopathic. Patient is having some myoclonic jerks. 06/24/2022: Patient was initially seen by Dr. Madan Barrow. Please refer to his note for details. Patient is a 81-year-old male, who came with Covid-19 infection, but also had dysarthria and confusion. MRI of the brain and EEG was ordered by Dr. Barrow. Patient at present laying in the bed, appears very confused. He seems to be hallucinating, trying to pick some objects from the air. He admits to having headache, although the history is very questionable. Objective - Vital Signs Vital signs: Vital Signs Temp 98.3 F 06/27/22 20:05 Pulse 73 06/27/22 20:05 Resp 14 06/27/22 20:05 BP 143/79 06/27/22 20:05 Pulse Ox 97 06/27/22 20:05 FiO2 Intake & Output 06/27/22 06/27/22 06/28/22 06:59 18:59 06:59 Intake Total 10 750 Output Total 500 550 Balance -490 200 Intake: IV 10 750 Invasive Line 3 10 Sodium Chloride 0.9% 1, 750 000 ml @ 75 mls/hr IV . [id number] [facility] Rx#:[id number] Output: Urine 500 550 Stool 0 Other: Voiding Method Indwelling Catheter Indwelling Catheter - Exam GENERAL: The patient is lying in bed , appears comfortable. He has Alva's catheter in place. . NEUROLOGICAL: Higher mental function: The patient is much more alert, awake and interactive. He speaking clearly at times, other times he mumbles. Patient states that he is in [place] ([facility]), [place] ([facility] On asking about current date, he states "it's the pay-day". Then he states "a day of rest". On showing a pen, patient states it is "writing stick". He is not answering appropriately. Cranial nerves: The pupils are round, equal and reactive to light. Visual hutchins could not be tested as he would not cooperate. He does not blink c learly to the visual threat. Extraocular movement is intact no nystagmus is noted. Facial sensation cannot be assessed. The facial strength appears normal bilaterally. . Mild dysarthria is noted. Patient's speaking nonsensical, with word salad at times. Motor: Patient's muscle strength is normal in the arms. The strength appears normal in the legs. Normal tone and bulk. Patient has significant high arched feet and hammertoes. Reflexes are diminished and plantars are flat bilaterally. Sensation: Sensation could not be assessed, as he would not comply. Some other workup during his hospital visit consisted of: TSH is 1.740 Folate is 13.0 Vitamin B12 is 239 which is considered the very low normal. Lipid panel is triglyceride 38, LDL of 74 HDL is 46 and the respiratory pending Hemoglobin A1c 6.5. SOLOMON-Covid-2 to PCR is detected. Our CV is not detected and influenza a is not detected. CT of the head is reported as cerebral atrophy. Microvascular ischemia. No acu te intracranial abnormality. No change compared to old exam. I personally reviewed the CT of the head and I feel the patient has no acute or subacute ischemia and there is no intracranial hemorrhage. Patient has lacunar stroke and predominately is over the left thalamus larger than the right thalamus normal basal ganglia region. - Labs CBC & Chem 7: 06/27/22 08:32 06/27/22 08:32 Labs: Abnormal Lab Results - Last 24 Hours (Table) 06/27/22 06/27/22 06/27/22 Range/Units 06:11 08:32 08:32 RBC 3.52 L (4.30-5.90) m/uL Hgb 11.2 L (13.0-17.5) gm/dL Hct 35.2 L (39.0-53.0) % Neutrophils # 8.3 H (1.3-7.7) k/uL Lymphocytes # 0.9 L (1.0-4.8) k/uL Potassium 3.4 L (3.5-5.1) mmol/L Chloride 108 H (98-107) mmol/L Glucose 70 L (74-99) mg/dL POC Glucose (mg/dL) 152 H (70-110) mg/dL 06/27/22 06/27/22 Range/Units 16:51 20:18 RBC (4.30-5.90) m/uL Hgb (13.0-17.5) gm/dL Hct (39.0-53.0) % Neutrophils # (1.3-7.7) k/uL Lymphocytes # (1.0-4.8) k/uL Potassium (3.5-5.1) mmol/L Chloride (98-107) mmol/L Glucose (74-99) mg/dL POC Glucose (mg/dL) 126 H 135 H (70-110) mg/dL Microbiology - Last 24 Hours (Table) 06/26/22 07:28 Urine Culture - Final Urine,Voided 06/25/22 08:40 Blood Culture Gram Stain - Preliminary Blood Blood Culture - Preliminary Staphylococcus epidermidis 06/26/22 10:47 Blood Culture - Preliminary Blood No Growth after 24 hours Assessment and Plan Assessment: Encephalopathy likely due to Acute COVID-19 infection. No evidence of an acute stroke on MRI. Acute COVID-19 infection Confusion, getting worse, perhaps delirium. Patient's white cells are normal, and temperature is normal, therefore intracranial infection less likely. Hematuria, history of urothelial cancer. Low normal Vitamin B12 (239) History of stroke with residual right sided weakness Diabetes Hypertension History of [place] Hypothyroidism History of coronary artery disease s/p stent Plan: * Patient's encephalopathy has slightly improved, but still very confused, disoriented. Patient is off Plavix since 06/25/2022. If his mentation does not improve, would recommend lumbar puncture. * Patient underwent cystoscopy yesterday, and removal of blood clots from the urinary bladder. He now has Foleys catheter. Renal functions are normal. * MRI of the brain revealed no acute process. Some small vessel disease. Old posterior left basal ganglia lacunar infarct. I personally reviewed MRI, agree with the findings. The exam is limited due to movement artifact. Only limited images were able to be accomplished because of his noncooperation. However on the DWI, no obvious acute ischemic process. FLAIR sequences were not checked. * EEG 06/24/2022 revealed that it was technically limited because of significant myogenic and movement artifacts. Otherwise the background was slow, consi sting of encephalopathy. Possible superimposed left temporal focal slowing was seen, suggestive of focal cortical neuronal dysfunction. No epileptiform activity was seen. Suggest repeat EEG, when patient is more cooperative. Hold off on any antiepileptic medication, as there was no epileptiform activity seen in the EEG. May need a repeat EEG, as the current EEG was technically very poor. * Plavix and Lovenox held because of hematuria. Continue Lipitor 80mg daily. * Because of the low normal vitamin B12 (236) Dr. Barrow started the patient on vitamin B12 IM 1000 g daily for 3 days then after that by mouth. * PT OT is consulted * We'll defer the rest of the medical management to the primary team.
[2022-06-28 06:22] LABS: Glucose,Whole Blood 41 mg/dL (70-110)
[2022-06-28] MEDS: SODIUM CHLORIDE 0.9% 1,000 ML IV SCH ×2 (06:29→15:27)
[2022-06-28] MEDS: DEXTROSE 50% SYRINGE 50 ML IVP PRN ×2 (06:29→17:19)
[2022-06-28] MEDS: PANTOPRAZOLE 40 MG TABLET PO SCH (06:44)
[2022-06-28] MEDS: INSULIN ASPART (NovoLOG) 100 UNIT/ML VIAL SQ SCH ×4 (06:44→20:56)
[2022-06-28] MEDS: LEVOTHYROXINE 50 MCG TAB PO SCH (06:44)
[2022-06-28 06:50] LABS: Glucose,Whole Blood 138 mg/dL (70-110)
[2022-06-28] MEDS: predniSONE 20 MG TAB PO SCH (09:27)
[2022-06-28] MEDS: CHOLECALCIFEROL 25 MCG (1000 IU) TABLET PO SCH (09:27)
[2022-06-28] MEDS: CYANOCOBALAMIN 500 MCG TAB PO SCH (09:27)
[2022-06-28 09:28] LABS: Basophils % (A) 0 %; Eosinophils # (A) 0.1 k/uL (0-0.7); Eosinophils % (A) 1 %; HCT 37.6 % (39.0-53.0); HGB 11.9 gm/dL (13.0-17.5); Lymphocytes % (A) 12 %; MCH 31.9 pg (25.0-35.0); MCHC 31.6 g/dL (31.0-37.0); MCV 101.1 fL (80.0-100.0); Macrocytosis Slight; Mean Platelet Volume 8.6; Monocytes # (A) 0.8 k/uL (0-1.0); Monocytes % (A) 10 %; Neutrophils # (A) 6.2 k/uL (1.3-7.7); Neutrophils % (A) 75 %; Platelet Count 188 k/uL (150-450); RBC 3.72 m/uL (4.30-5.90); RDW 13.5 % (11.5-15.5); WBC 8.3 k/uL (3.8-10.6)
[2022-06-28] MEDS: QUEtiapine 25 MG TAB PO SCH (09:28)
[2022-06-28] MEDS: ZINC SULFATE 220 MG CAP PO SCH (09:28)
[2022-06-28] MEDS: TAMSULOSIN 0.4 MG CAP.ER.24H PO SCH (09:28)
[2022-06-28] MEDS: METOPROLOL TARTRATE 12.5 MG TAB PO SCH ×2 (09:28→21:02)
[2022-06-28] MEDS: THIAMINE 100 MG TAB PO SCH (09:28)
[2022-06-28] MEDS: ASCORBIC ACID 500 MG TAB PO SCH (09:28)
[2022-06-28] MEDS: FOLIC ACID 1 MG TAB PO SCH (09:28)
[2022-06-28] MEDS: MULTIVITAMINS, THERA 1 EACH TAB PO SCH (09:29)
[2022-06-28] MEDS: MONTELUKAST 10 MG TAB PO SCH (09:29)
[2022-06-28] MEDS: ATORVASTATIN 80 MG TAB PO SCH (09:29)
[2022-06-28] MEDS: FAMOTIDINE 20 MG TAB PO SCH (09:29)
[2022-06-28 09:36] LABS: African American GFR (CKD) >90 (>60 ml/min/1.73 sqM); Anion Gap 8 mmol/L; Blood Urea Nitrogen 17 mg/dL (9-20); Calcium 8.4 mg/dL (8.4-10.2); Carbon Dioxide 27 mmol/L (22-30); Chloride 107 mmol/L (98-107); Glucose 82 mg/dL (74-99); Non-African American GFR(CKD) >90 (>60 ml/min/1.73 sqM); Potassium 3.4 mmol/L (3.5-5.1); Sodium 142 mmol/L (137-145)
[2022-06-28 11:59] LABS: Glucose,Whole Blood 91 mg/dL (70-110)
[2022-06-28] MEDS ORDERED: Potassium Replacement Protocol 1 EACH MISC MISCELLANE PRN (12:45)
[2022-06-28] MEDS ORDERED: Magnesium Replacement Protocol 1 EACH MISC MISCELLANE PRN (12:45)
[2022-06-28] MEDS: 0.9% NACL WITH KCL 20 MEQ/L 1,000 ML IV SCH (15:27)
--- NOTE | 2022-06-28 15:33 | P.PN ---
Subjective Progress Note Date: 06/28/22 Principal diagnosis: Positive blood cultures COVID and UTI Patient is 81-year-old male with a past medical history significant for bladder cancer, presented to hospital with increasing weakness patient did have a positive UA/hematuria did have a fever and a positive blood culture also positive COVID testing. On today's evaluation that is 06/28/2022, the patient remains to be afebrile the patient is breathing comfortably currently on room air the patient remains to be pleasantly confused and did not provide any history no vomiting no diarrhea or any other changes reported by the nursing staff Objective - Vital Signs Vital signs: Vital Signs Temp 96.1 F L 06/28/22 04:00 Pulse 66 06/28/22 12:00 Resp 16 06/28/22 12:00 BP 161/70 06/28/22 12:00 Pulse Ox 95 06/28/22 12:00 FiO2 Intake & Output 06/27/22 06/28/22 06/28/22 18:59 06:59 18:59 Intake Total 750 Output Total 550 0 Balance 200 0 Intake: IV 750 Sodium Chloride 0.9% 1, 750 000 ml @ 75 mls/hr IV . [id number] [facility] Rx#:[id number] Output: Urine 550 Stool 0 0 Other: Voiding Method Indwelling Catheter Indwelling Catheter Indwelling Catheter - Exam GENERAL DESCRIPTION: Elderly male lying in bed, no distress. No tachypnea or accessory muscle of respiration use. LUNGS: Unlabored breathing. Decreased breath sound at the base HEART: S1, S2, regular rate and rhythm. No loud murmur ABDOMEN: Soft, no tenderness , guarding or rigidity, no organomegaly EXTREMITIES: No edema of feet. - Labs CBC & Chem 7: 06/28/22 09:03 06/28/22 09:03 Labs: Abnormal Lab Results - Last 24 Hours (Table) 06/27/22 06/27/22 06/28/22 Range/Units 16:51 20:18 06:19 RBC (4.30-5.90) m/uL Hgb (13.0-17.5) gm/dL Hct (39.0-53.0) % MCV (80.0-100.0) fL Potassium (3.5-5.1) mmol/L Creatinine (0.66-1.25) mg/dL POC Glucose (mg/dL) 126 H 135 H 41 L (70-110) mg/dL 06/28/22 06/28/22 06/28/22 Range/Units 06:48 09:03 09:03 RBC 3.72 L (4.30-5.90) m/uL Hgb 11.9 L (13.0-17.5) gm/dL Hct 37.6 L (39.0-53.0) % MCV 101.1 H (80.0-100.0) fL Potassium 3.4 L (3.5-5.1) mmol/L Creatinine 0.61 L (0.66-1.25) mg/dL POC Glucose (mg/dL) 138 H (70-110) mg/dL Microbiology - Last 24 Hours (Table) 06/26/22 10:47 Blood Culture - Preliminary Blood No Growth after 48 hours 06/26/22 07:28 Urine Culture - Final Urine,Voided 06/25/22 08:40 Blood Culture Gram Stain - Preliminary Blood Blood Culture - Preliminary Staphylococcus epidermidis Assessment and Plan (1) Bacteremia Current Visit: Yes Status: Acute Code(s): R78.81 - BACTEREMIA SNOMED Code(s): 3578056 (2) UTI (urinary tract infection) Current Visit: Yes Status: Acute Code(s): N39.0 - URINARY TRACT INFECTION, SITE NOT SPECIFIED SNOMED Code(s): 18410046 (3) COVID Current Visit: Yes Status: Acute Code(s): U07.1 - COVID-19 SNOMED Code(s): 310160859 Plan: 1patient with a positive blood culture with staph epi likely skin contamination blood culture has been repeated discontinue vancomycin. 2UTI , the patient urine cultures pending, patient to continue with the Rocephin 2 g daily. 3positive COVID test chest x-ray x2 were negative for any acute infiltrate patient respiratory status remains to be stable and will continue with current supportive treatment of zinc and ascorbic acid prednisone
[2022-06-28 16:48] LABS: Glucose,Whole Blood 63 mg/dL (70-110)
[2022-06-28 17:13] LABS: Glucose,Whole Blood 71 mg/dL (70-110)
[2022-06-28 20:08] LABS: Glucose,Whole Blood 102 mg/dL (70-110)
[2022-06-28] MEDS: INSULIN DETEMIR (LEVEMIR) 100 UNIT/ML SYR SQ SCH (20:57)
[2022-06-28] MEDS: QUEtiapine 50 MG TAB PO SCH (21:02)
[2022-06-29] MEDS: 0.9% NACL WITH KCL 20 MEQ/L 1,000 ML IV SCH ×2 (04:15→22:11)
[2022-06-29 05:54] LABS: Glucose,Whole Blood 105 mg/dL (70-110)
[2022-06-29] MEDS: INSULIN ASPART (NovoLOG) 100 UNIT/ML VIAL SQ SCH ×4 (05:54→21:02)
[2022-06-29] MEDS: LEVOTHYROXINE 50 MCG TAB PO SCH (06:57)
[2022-06-29] MEDS: PANTOPRAZOLE 40 MG TABLET PO SCH (06:57)
[2022-06-29] MEDS: METOPROLOL TARTRATE 12.5 MG TAB PO SCH ×2 (09:36→21:02)
[2022-06-29] MEDS: TAMSULOSIN 0.4 MG CAP.ER.24H PO SCH (09:36)
[2022-06-29] MEDS: QUEtiapine 25 MG TAB PO SCH (09:37)
[2022-06-29] MEDS: CYANOCOBALAMIN 500 MCG TAB PO SCH (09:39)
[2022-06-29] MEDS: MULTIVITAMINS, THERA 1 EACH TAB PO SCH (09:39)
[2022-06-29] MEDS: ATORVASTATIN 80 MG TAB PO SCH (09:39)
[2022-06-29] MEDS: MONTELUKAST 10 MG TAB PO SCH (09:39)
[2022-06-29] MEDS: CHOLECALCIFEROL 25 MCG (1000 IU) TABLET PO SCH (09:39)
[2022-06-29] MEDS: THIAMINE 100 MG TAB PO SCH (09:39)
[2022-06-29] MEDS: ZINC SULFATE 220 MG CAP PO SCH (09:39)
[2022-06-29] MEDS: ASCORBIC ACID 500 MG TAB PO SCH (09:40)
[2022-06-29] MEDS: FOLIC ACID 1 MG TAB PO SCH (09:40)
[2022-06-29] MEDS: predniSONE 20 MG TAB PO SCH (09:40)
--- NOTE | 2022-06-29 09:41 | PN ---
PROGRESS NOTE SUBJECTIVE: This is an 81-year-old gentleman, who was admitted with change in mental status, delirium, and COVID-19. He continues to be confused. The patient is refusing all the medications. OBJECTIVE: GENERAL: Confused. VITAL SIGNS: Pulse is 73, blood pressure n_respirations 16. HEENT: Conjunctivae normal. NECK: No JVD CARDIOVASCULAR: S1, S2. RESPIRATIONS: n_ ABDOMEN: Soft. NERVOUS SYSTEM: Diffusely weak. LABORATORY DATA: Reviewed. ASSESSMENT: 1. Change in mental status and acute delirium secondary to COVID-19. 2. Bladder tumor and hematuria, status post cystoscopy and resection. 3. Acute renal injury. 4. Multiple medical issues. 5. FULL CODE. RECOMMENDATIONS: Recommend to continue current medications and symptomatic treatment, otherwise see orders. Potassium supplementation. See orders for further details. Guarded prognosis. Repeat labs. Further recommendations to follow. Possible ECF rehab. EFRAÍN / JUAN DAVIDN: [id number] / MASHAD
[2022-06-29 11:05] LABS: Basophils % (A) 0 %; Eosinophils # (A) 0.1 k/uL (0-0.7); Eosinophils % (A) 1 %; HCT 37.4 % (39.0-53.0); Lymphocytes # (A) 0.7 k/uL (1.0-4.8); Lymphocytes % (A) 9 %; MCHC 32.2 g/dL (31.0-37.0); MCV 99.6 fL (80.0-100.0); Mean Platelet Volume 8.5; Monocytes # (A) 0.7 k/uL (0-1.0); Monocytes % (A) 9 %; Neutrophils % (A) 79 %; Platelet Count 221 k/uL (150-450); RBC 3.75 m/uL (4.30-5.90); RDW 13.4 % (11.5-15.5); WBC 7.7 k/uL (3.8-10.6)
--- NOTE | 2022-06-29 11:05 | P.PN ---
Progress Note - Text Progress Note Date: 06/29/22 Mr. Weber's mentation continues to improve. He denies bladder pain. His Alva catheter is draining clear yellow urine. I would suggest the catheter remain in place for several more days to allow complete bladder healing.
[2022-06-29 11:24] LABS: African American GFR (CKD) >90 (>60 ml/min/1.73 sqM); Anion Gap 7 mmol/L; Blood Urea Nitrogen 13 mg/dL (9-20); Carbon Dioxide 29 mmol/L (22-30); Chloride 105 mmol/L (98-107); Glucose 109 mg/dL (74-99); Magnesium 1.9 mg/dL (1.6-2.3); Non-African American GFR(CKD) >90 (>60 ml/min/1.73 sqM); Potassium 3.8 mmol/L (3.5-5.1); Sodium 141 mmol/L (137-145)
[2022-06-29 11:47] LABS: Glucose,Whole Blood 134 mg/dL (70-110)
[2022-06-29 14:16] VITALS: BMI 25.0
--- NOTE | 2022-06-29 16:33 | P.PN ---
Subjective Progress Note Date: 06/28/22 06/28/2022: Patient was seen for a follow-up. Patient is still very confused. He was laying in the bed, completely naked. The nurse and the certified nursing attendant trying to cover him up. Patient mumbles that he wants to go to work. Nurse reports that he wants to get out of bed. His telemetry monitoring showing sinus rhythm. No seizure-like spells. 06/27/2022: Patient was seen for follow-up. Patient is laying comfortably in the bed. Patient is still very confused. Patient's nurse was also present by the bedside. She states that he cannot hold the fork to eat, as he is holding the tip of the fork with his fingers. Patient denies headache. Patient mumbles. Sometimes speaks completely out of context. 06/26/2022: Patient was seen for a follow-up. Patient is much improved. His mentation has improved. Patient able to speak sentences. Making some humorous comments. Patient denies headache. Telemetry monitoring showing sinus rhythm, sinus bradycardia with PVCs and PACs. 06/25/2022: Patient apparently had significant hematuria. Patient has history of bladder cancer. Patient is undergoing cystoscopy for evacuation of the clot. Patient is more lethargic, opens eyes. Patient could not tell the current month or the year. He was able to tell he is in [place] in [place]. Could not tell me his date of . Patient is very encephalopathic. Patient is having some myoclonic jerks. 06/24/2022: Patient was initially seen by Dr. Madan Barrow. Please refer to his note for details. Patient is a 81-year-old male, who came with Covid-19 infection, but also had dysarthria and confusion. MRI of the brain and EEG was ordered by Dr. Barrow. Patient at present laying in the bed, appears very confused. He seems to be hallucinating, trying to pick some objects from the air. He admits to having headache, although the history is very questionable. Objective - Vital Signs Vital signs: Vital Signs Temp 96.1 F L 06/28/22 04:00 Pulse 69 06/28/22 15:29 Resp 16 06/28/22 15:29 BP 163/97 06/28/22 15:29 Pulse Ox 94 L 06/28/22 15:29 FiO2 Intake & Output 06/28/22 06/28/22 06/29/22 06:59 18:59 06:59 Output Total 0 Balance 0 Output: Stool 0 Other: Voiding Method Indwelling Catheter Indwelling Catheter - Exam GENERAL: The patient is lying in bed , appears comfortable. He has Alva's catheter in place. . NEUROLOGICAL: Higher mental function: The patient is much more alert, awake and interactive. He speaking clearly at times, other times he mumbles. Cranial nerves: The pupils are round, equal and reactive to light. Visual hutchins could not be tested as he would not cooperate. He does not blink clearly to the visual threat. Extraocular movement is intact no nystagmus is noted. Facial sensation cannot be assessed. The facial strength appears normal bilaterally. . Mild dysarthria is noted. Patient's speaking nonsensical, with word salad at times. Motor: Patient's muscle strength is normal in the arms. Patient's strength is completely normal in the legs as well. He holds his legs stiffened being examined. Patient has significant high arched feet and hammertoes. Reflexes are diminished and plantars are flat bilaterally. Sensation: Sensation could not be assessed, as he would not comply. Some other workup during his hospital visit consisted of: TSH is 1.740 Folate is 13.0 Vitamin B12 is 239 which is considered the very low normal. Lipid panel is triglyceride 38, LDL of 74 HDL is 46 and the respiratory pending Hemoglobin A1c 6.5. SOLOMON-Covid-2 to PCR is detected. Our CV is not detected and influenza a is not detected. CT of the head is reported as cerebral atrophy. Microvascular ischemia. No acute intracranial abnormality. No change compared to old exam. I personally reviewed the CT of the head and I feel the patient has no acute or subacute ischemia and there is no intracranial hemorrhage. Patient has lacunar stroke and predominately is over the left thalamus larger than the right thalamus normal basal ganglia region. - Labs CBC & Chem 7: 06/29/22 10:05 06/29/22 10:05 Labs: Abnormal Lab Results - Last 24 Hours (Table) 06/27/22 06/28/22 06/28/22 Range/Units 20:18 06:19 06:48 RBC (4.30-5.90) m/uL Hgb (13.0-17.5) gm/dL Hct (39.0-53.0) % MCV (80.0-100.0) fL Potassium (3.5-5.1) mmol/L Creatinine (0.66-1.25) mg/dL POC Glucose (mg/dL) 135 H 41 L 138 H (70-110) mg/dL 06/28/22 06/28/22 06/28/22 Range/Units 09:03 09:03 16:47 RBC 3.72 L (4.30-5.90) m/uL Hgb 11.9 L (13.0-17.5) gm/dL Hct 37.6 L (39.0-53.0) % MCV 101.1 H (80.0-100.0) fL Potassium 3.4 L (3.5-5.1) mmol/L Creatinine 0.61 L (0.66-1.25) mg/dL POC Glucose (mg/dL) 63 L (70-110) mg/dL Microbiology - Last 24 Hours (Table) 06/26/22 10:47 Blood Culture - Preliminary Blood No Growth after 48 hours Assessment and Plan Assessment: Encephalopathy likely due to Acute UTI and COVID-19 infection. No evidence of an acute stroke on MRI. Acute COVID-19 infection Acute UTI Confusion, getting worse, perhaps delirium. Patient's white cells are normal, and temperature is normal, therefore intracranial infection less likely. Hematuria, history of urothelial cancer. Low normal Vitamin B12 (239) History of stroke with residual right sided weakness Diabetes Hypertension History of [place] Hypothyroidism History of coronary artery disease s/p stent Plan: * Patient's encephalopathy has slightly improved, but still very confused, disoriented. Patient is off Plavix since 06/25/2022. If his mentation does not improve, would recommend lumbar puncture. * Patient underwent cystoscopy 06/25/2022 with removal of blood clots from the urinary bladder. He now has Foleys catheter. Renal functions are normal. * Patient has UTI, currently on ceftriaxone. Infectious disease following. * MRI of the brain revealed no acute process. Some small vessel disease. Old posterior left basal ganglia lacunar infarct. I personally reviewed MRI, agree with the findings. The exam is limited due to movement artifact. Only limited images were able to be accomplished because of his noncooperation. However on the DWI, no obvious acute ischemic process. FLAIR sequences were not checked. * EEG 06/24/2022 revealed that it was technically limited because of significant myogenic and movement artifacts. Otherwise the background was slow, consisting of encephalopathy. Possible superimposed left temporal focal slowing was seen, suggestive of focal cortical neuronal dysfunction. No epileptiform activity was seen. Suggest repeat EEG, when patient is more cooperative. Hold off on any antiepileptic medication, as there was no epileptiform activity seen in the EEG. May need a repeat EEG, as the current EEG was technically very poor. * Plavix and Lovenox held because of hematuria. Continue Lipitor 80mg daily. * Because of the low normal vitamin B12 (236) Dr. Barrow started the patient on vitamin B12 IM 1000 g daily for 3 days then after that by mouth. * PT OT is consulted * We'll defer the rest of the medical management to the primary team. Patient on SCDs for DVT prophylaxis.
[2022-06-29 16:41] LABS: Glucose,Whole Blood 151 mg/dL (70-110)
[2022-06-29] MEDS: amLODIPine 10 MG TAB PO SCH (17:03)
[2022-06-29 20:25] LABS: Glucose,Whole Blood 202 mg/dL (70-110)
[2022-06-29] MEDS: INSULIN DETEMIR (LEVEMIR) 100 UNIT/ML SYR SQ SCH (20:53)
[2022-06-29] MEDS: QUEtiapine 50 MG TAB PO SCH (21:02)
[2022-06-29] MEDS ORDERED: IPRATROPIUM-ALBUTEROL 3 ML NEB INHALATION PRN (21:23)
[2022-06-29] MEDS ORDERED: ALBUTEROL NEBULIZED 2.5 MG/3 ML INHALATION PRN (21:28)
[2022-06-29] MEDS: ALBUTEROL HFA INHALER INHALATION PRN (22:05)
[2022-06-30] MEDS: 0.9% NACL WITH KCL 20 MEQ/L 1,000 ML IV SCH (02:51)
--- NOTE | 2022-06-30 04:29 | PN ---
PROGRESS NOTE SUBJECTIVE: This is an 81-year-old gentleman who was admitted with change in mental status, is also COVID positive. The patient had cystoscopy also. The patient is still confused, but is able to answer some other questions today. PHYSICAL EXAMINATION: VITAL SIGNS: Pulse is 71, blood pressure 171/83, respirations 16. HEENT: Conjunctivae normal. NECK: No JVD. CARDIOVASCULAR: S1, S2 muffled. RESPIRATIONS: Breath sounds diminished at the bases. A few scattered rhonchi. ABDOMEN: Soft. NERVOUS SYSTEM: No focal deficits. LABS: Noted. ASSESSMENT: 1. Change in mental status and acute delirium secondary to COVID-19. 2. Bladder tumor and hematuria, status post cystoscopy and resection. 3. Acute renal injury. 4. Multiple medical issues. RECOMMENDATIONS AND DISCUSSION: Recommend to continue current management and symptomatic treatment. Continue current medications. Add Norvasc to the current regimen. Continue with antibiotics. Further recommendations to follow. MMODL / IJN: [id number] /
[2022-06-30 06:20] LABS: Glucose,Whole Blood 147 mg/dL (70-110)
[2022-06-30] MEDS: INSULIN ASPART (NovoLOG) 100 UNIT/ML VIAL SQ SCH ×4 (06:21→20:32)
[2022-06-30] MEDS: PANTOPRAZOLE 40 MG TABLET PO SCH (06:36)
[2022-06-30] MEDS: LEVOTHYROXINE 50 MCG TAB PO SCH (06:36)
[2022-06-30] MEDS: ALBUTEROL HFA INHALER INHALATION PRN (07:52)
[2022-06-30 08:37] LABS: Basophils % (A) 0 %; Eosinophils # (A) 0.2 k/uL (0-0.7); Eosinophils % (A) 2 %; HCT 36.7 % (39.0-53.0); Lymphocytes % (A) 11 %; MCH 32.5 pg (25.0-35.0); MCHC 32.6 g/dL (31.0-37.0); MCV 99.8 fL (80.0-100.0); Mean Platelet Volume 8.3; Monocytes # (A) 0.9 k/uL (0-1.0); Monocytes % (A) 10 %; Neutrophils # (A) 6.3 k/uL (1.3-7.7); Neutrophils % (A) 73 %; Platelet Count 255 k/uL (150-450); RBC 3.68 m/uL (4.30-5.90); RDW 13.3 % (11.5-15.5); WBC 8.6 k/uL (3.8-10.6)
[2022-06-30 09:00] LABS: African American GFR (CKD) >90 (>60 ml/min/1.73 sqM); Anion Gap 7 mmol/L; Blood Urea Nitrogen 17 mg/dL (9-20); Calcium 8.3 mg/dL (8.4-10.2); Carbon Dioxide 26 mmol/L (22-30); Chloride 106 mmol/L (98-107); Glucose 140 mg/dL (74-99); Non-African American GFR(CKD) 89 (>60 ml/min/1.73 sqM); Potassium 3.9 mmol/L (3.5-5.1); Sodium 139 mmol/L (137-145)
[2022-06-30 11:50] LABS: Glucose,Whole Blood 177 mg/dL (70-110)
[2022-06-30] MEDS: THIAMINE 100 MG TAB PO SCH (12:04)
[2022-06-30] MEDS: MONTELUKAST 10 MG TAB PO SCH (12:04)
[2022-06-30] MEDS: MULTIVITAMINS, THERA 1 EACH TAB PO SCH (12:04)
[2022-06-30] MEDS: METOPROLOL TARTRATE 12.5 MG TAB PO SCH ×2 (12:04→20:32)
[2022-06-30] MEDS: ZINC SULFATE 220 MG CAP PO SCH (12:04)
[2022-06-30] MEDS: predniSONE 20 MG TAB PO SCH (12:05)
[2022-06-30] MEDS: CYANOCOBALAMIN 500 MCG TAB PO SCH (12:05)
[2022-06-30] MEDS: FOLIC ACID 1 MG TAB PO SCH (12:05)
[2022-06-30] MEDS: ATORVASTATIN 80 MG TAB PO SCH (12:05)
[2022-06-30] MEDS: amLODIPine 10 MG TAB PO SCH (12:06)
[2022-06-30] MEDS: CHOLECALCIFEROL 25 MCG (1000 IU) TABLET PO SCH (12:06)
[2022-06-30] MEDS: ASCORBIC ACID 500 MG TAB PO SCH (12:06)
[2022-06-30] MEDS: QUEtiapine 25 MG TAB PO SCH (12:06)
[2022-06-30] MEDS: TAMSULOSIN 0.4 MG CAP.ER.24H PO SCH (12:06)
[2022-06-30 16:46] LABS: Glucose,Whole Blood 261 mg/dL (70-110)
[2022-06-30 20:22] LABS: Glucose,Whole Blood 150 mg/dL (70-110)
[2022-06-30] MEDS: QUEtiapine 50 MG TAB PO SCH (20:32)
[2022-06-30] MEDS: INSULIN DETEMIR (LEVEMIR) 100 UNIT/ML SYR SQ SCH (20:32)
--- NOTE | 2022-06-30 20:55 | P.PN ---
Subjective Progress Note Date: 06/30/22 06/30/2022: This is a telemedicine neurology follow performed today on 06/30/2022. Patient is still "out of it" as per nurse. He does follow commands, but still confused. He states that he has headache "once in a while". He denies dizziness. Patient is otherwise laying comfortably in the bed. 06/28/2022: Patient was seen for a follow-up. Patient is still very confused. He was laying in the bed, completely naked. The nurse and the executive director of nursing trying to cover him up. Patient mumbles that he wants to go to work. Nurse reports that he wants to get out of bed. His telemetry monitoring showing sinus rhythm. No seizure-like spells. 06/27/2022: Patient was seen for follow-up. Patient is laying comfortably in the bed. Patient is still very confused. Patient's nurse was also present by the bedside. She states that he cannot hold the fork to eat, as he is holding the tip of the fork with his fingers. Patient denies headache. Patient mumbles. Sometimes speaks completely out of context. 06/26/2022: Patient was seen for a follow-up. Patient is much improved. His mentation has improved. Patient able to speak sentences. Making some humorous comments. Patient denies headache. Telemetry monitoring showing sinus rhythm, sinus bradycardia with PVCs and PACs. 06/25/2022: Patient apparently had significant hematuria. Patient has history of bladder cancer. Patient is undergoing cystoscopy for evacuation of the clot. Patient is more lethargic, opens eyes. Patient could not tell the current month or the year. He was able to tell he is in [place] in [place]. Could not tell me his date of . Patient is very encephalopathic. Patient is having some myoclonic jerks. 06/24/2022: Patient was initially seen by Dr. Madan Barrow. Please refer to his note for details. Patient is a 81-year-old male, who came with Covid-19 infection, but also had dysarthria and confusion. MRI of the brain and EEG was ordered by Dr. Barrow. Patient at present laying in the bed, appears very confused. He seems to be hallucinating, trying to pick some objects from the air. He admits to having headache, although the history is very questionable. Objective - Vital Signs Vital signs: Vital Signs Temp 98.2 F 06/30/22 00:00 Pulse 58 L 06/30/22 04:08 Resp 20 06/30/22 04:08 BP 157/74 06/30/22 04:08 Pulse Ox 97 06/30/22 04:08 FiO2 Intake & Output 06/29/22 06/30/22 06/30/22 18:59 06:59 18:59 Intake Total 240 600 118 Output Total 800 500 Balance -560 100 118 Weight 70.307 kg Intake: Intake, IV Titration 600 Amount 0.9% NaCl with KCl 20 Meq 600 /l 1,000 ml @ 75 mls/hr IV .[id number] [facility] Rx#: [id number] Oral 240 118 Output: Urine 800 500 Stool 0 Other: Voiding Method Indwelling Catheter Indwelling Catheter - Exam GENERAL: The patient is lying in bed , appears comfortable. He has Alva's catheter in place. . NEUROLOGICAL: Higher mental function: The patient is much more alert, awake and interactive. He speaking clearly at times, other times he mumbles. He ishis name, states is September, then said August, then said February. He thinks 2011. He states that he lives in [place] Cranial nerves: The pupils are round, equal and reactive to light. Visual hutchins could not be tested as he would not cooperate. He does not blink clearly to the visual threat. Extraocular movement is intact no nystagmus is noted. Facial sensation cannot be assessed. The facial strength appears normal bilaterally. . Mild dysarthria is noted. Patient's speaking nonsensical, with word salad at times. Motor: Patient's muscle strength is normal in the arms. Patient's strength is completely normal in the legs as well. . Patient has significant high arched feet and hammertoes. Reflexes are diminished and plantars are flat bilaterally. Sensation: Sensation could not be assessed, as he would not comply. Some other workup during his hospital visit consisted of: TSH is 1.740 Folate is 13.0 Vitamin B12 is 239 which is considered the very low normal. Lipid panel is triglyceride 38, LDL of 74 HDL is 46 and the respiratory pending Hemoglobin A1c 6.5. SOLOMON-Covid-2 to PCR is detected. Our CV is not detected and influenza a is not detected. CT of the head is reported as cerebral atrophy. Microvascular ischemia. No acute intracranial abnormality. No change compared to old exam. I personally reviewed the CT of the head and I feel the patient has no acute or subacute ischemia and there is no intracranial hemorrhage. Patient has lacunar stroke and predominately is over the left thalamus larger than the right thalamus normal basal ganglia region. - Labs CBC & Chem 7: 06/30/22 07:38 06/30/22 07:38 Labs: Abnormal Lab Results - Last 24 Hours (Table) 06/29/22 06/29/22 06/30/22 Range/Units 16:40 20:24 06:19 RBC (4.30-5.90) m/uL Hgb (13.0-17.5) gm/dL Hct (39.0-53.0) % Glucose (74-99) mg/dL POC Glucose (mg/dL) 151 H 202 H 147 H (70-110) mg/dL Calcium (8.4-10.2) mg/dL 06/30/22 06/30/22 06/30/22 Range/Units 07:38 07:38 11:48 RBC 3.68 L (4.30-5.90) m/uL Hgb 12.0 L (13.0-17.5) gm/dL Hct 36.7 L (39.0-53.0) % Glucose 140 H (74-99) mg/dL POC Glucose (mg/dL) 177 H (70-110) mg/dL Calcium 8.3 L (8.4-10.2) mg/dL Microbiology - Last 24 Hours (Table) 06/26/22 10:47 Blood Culture - Preliminary Blood No Growth after 72 hours 06/25/22 08:40 Blood Culture Gram Stain - Final Blood Blood Culture - Final Staphylococcus epidermidis Assessment and Plan Assessment: Encephalopathy likely due to Acute UTI and COVID-19 infection. No evidence of an acute stroke on MRI. Acute COVID-19 infection Acute UTI Confusion, perhaps delirium. Patient's white cells are normal, and temperature is normal, therefore intracranial infection less likely. Hematuria, history of urothelial cancer. Low normal Vitamin B12 (239) History of stroke with residual right sided weakness Diabetes Hypertension History of GA Hypothyroidism History of coronary artery disease s/p stent Plan: * Patient's encephalopathy has slightly improved, but still very confused, disoriented. Patient is off Plavix since 06/25/2022. If his mentation does not improve, would recommend lumbar puncture. * Patient underwent cystoscopy 06/25/2022 with removal of blood clots from the urinary bladder. He now has Foleys catheter. Renal functions are normal. * Patient has UTI, currently on ceftriaxone. Infectious disease following. * MRI of the brain revealed no acute process. Some small vessel disease. Old posterior left basal ganglia lacunar infarct. I personally reviewed MRI, agree with the findings. The exam is limited due to movement artifact. Only limited images were able to be accomplished because of his noncooperation. However on the DWI, no obvious acute ischemic process. FLAIR sequences were not checked. * EEG 06/24/2022 revealed that it was technically limited because of significant myogenic and movement artifacts. Otherwise the background was slow, consisting of encephalopathy. Possible superimposed left temporal focal slowing was seen, suggestive of focal cortical neuronal dysfunction. No epileptiform activity was seen. Suggest repeat EEG, when patient is more cooperative. Hold off on any antiepileptic medication, as there was no epileptiform activity seen in the EEG. May need a repeat EEG, as the current EEG was technically very poor. * Plavix and Lovenox held because of hematuria. Continue Lipitor 80mg daily. * Because of the low normal vitamin B12 (236) Dr. Barrow started the patient on vitamin B12 IM 1000 g daily for 3 days then after that by mouth. * PT OT is consulted * We'll defer the rest of the medical management to the primary team. Patient on SCDs for DVT prophylaxis. * Neurology will follow sporadically. Dr. Madan Barrow starting neurology service in the morning.
[2022-07-01 06:00] LABS: Glucose,Whole Blood 109 mg/dL (70-110)
[2022-07-01] MEDS: LEVOTHYROXINE 50 MCG TAB PO SCH (06:08)
[2022-07-01] MEDS: PANTOPRAZOLE 40 MG TABLET PO SCH (06:10)
[2022-07-01] MEDS: 0.9% NACL WITH KCL 20 MEQ/L 1,000 ML IV SCH ×2 (06:11→21:22)
[2022-07-01] MEDS: INSULIN ASPART (NovoLOG) 100 UNIT/ML VIAL SQ SCH ×3 (06:15→17:03)
[2022-07-01] MEDS: ALBUTEROL HFA INHALER INHALATION PRN ×3 (07:48→15:35)
--- NOTE | 2022-07-01 08:23 | P.PN ---
Subjective Progress Note Date: 07/01/22 The patient was see by our service for clot urinary retention. He has a known history of latter cancer. He has been on BCG intravesical chemotherapy. His last cystoscopy in January was clear but he had clot retention due to bladder tumor. Dr. Garber a resection of these tumors. The urine is clear. The patient is still confused although I can orient him with the discussion. The catheter should remain in place for now. We'll continue to follow. Objective - Vital Signs Vital signs: Vital Signs Temp 97.9 F 07/01/22 02:00 Pulse 55 L 07/01/22 02:00 Resp 18 07/01/22 02:00 BP 138/63 07/01/22 02:00 Pulse Ox 96 07/01/22 02:00 FiO2 Intake & Output 06/30/22 07/01/22 07/01/22 18:59 06:59 18:59 Intake Total 118 Output Total 700 700 Balance -582 -700 Intake: Oral 118 Output: Urine 700 700 Stool 0 Other: Voiding Method Indwelling Catheter Indwelling Catheter - Labs CBC & Chem 7: 06/30/22 07:38 06/30/22 07:38 Labs: Abnormal Lab Results - Last 24 Hours (Table) 06/30/22 06/30/22 06/30/22 Range/Units 07:38 07:38 11:48 RBC 3.68 L (4.30-5.90) m/uL Hgb 12.0 L (13.0-17.5) gm/dL Hct 36.7 L (39.0-53.0) % Glucose 140 H (74-99) mg/dL POC Glucose (mg/dL) 177 H (70-110) mg/dL Calcium 8.3 L (8.4-10.2) mg/dL 06/30/22 06/30/22 Range/Units 16:44 20:21 RBC (4.30-5.90) m/uL Hgb (13.0-17.5) gm/dL Hct (39.0-53.0) % Glucose (74-99) mg/dL POC Glucose (mg/dL) 261 H 150 H (70-110) mg/dL Calcium (8.4-10.2) mg/dL Microbiology - Last 24 Hours (Table) 06/26/22 10:47 Blood Culture - Preliminary Blood No Growth after 96 hours
--- NOTE | 2022-07-01 08:36 | PN ---
PROGRESS NOTE SUBJECTIVE: This 81-year-old gentleman, who was admitted with change in mental status and COVID and multiple medical history continues to be confused. No chest pain. No palpitations. No fever. PHYSICAL EXAMINATION: VITAL SIGNS: Pulse is 58, blood pressure 150/74, respirations 20. CHEST: A few scattered rhonchi. CARDIOVASCULAR: S1, S2. ABDOMEN: Soft. NERVOUS SYSTEM: Diffusely weak. LABS: Reviewed. Hemoglobin 12. ASSESSMENT: 1. Acute change in mental status with acute delirium secondary to COVID-19. 2. Bladder tumor and hematuria, status post cystoscopy and resection. 3. Acute renal injury. 4. Multiple medical issues. RECOMMENDATION: Continue current medications, symptomatic treatment. Otherwise PT, OT evaluation, possible eventually rehab. Continue the antibiotic at this time. Cultures are negative. Cultures are only showing Staph epidermidis from the blood culture, otherwise, negative. Further recommendations to follow. MMODL / IJN: [id number] /
[2022-07-01] MEDS: ATORVASTATIN 80 MG TAB PO SCH (08:57)
[2022-07-01] MEDS: ZINC SULFATE 220 MG CAP PO SCH (08:57)
[2022-07-01] MEDS: QUEtiapine 25 MG TAB PO SCH (08:57)
[2022-07-01] MEDS: TAMSULOSIN 0.4 MG CAP.ER.24H PO SCH (08:57)
[2022-07-01] MEDS: CYANOCOBALAMIN 500 MCG TAB PO SCH (08:57)
[2022-07-01] MEDS: CHOLECALCIFEROL 25 MCG (1000 IU) TABLET PO SCH (08:58)
[2022-07-01] MEDS: ASCORBIC ACID 500 MG TAB PO SCH (08:58)
[2022-07-01] MEDS: MONTELUKAST 10 MG TAB PO SCH (08:58)
[2022-07-01] MEDS: predniSONE 20 MG TAB PO SCH (08:58)
[2022-07-01] MEDS: amLODIPine 10 MG TAB PO SCH (08:59)
[2022-07-01] MEDS: METOPROLOL TARTRATE 12.5 MG TAB PO SCH (12:06)
[2022-07-01] MEDS: THIAMINE 100 MG TAB PO SCH (12:06)
[2022-07-01] MEDS: MULTIVITAMINS, THERA 1 EACH TAB PO SCH (12:06)
[2022-07-01] MEDS: FOLIC ACID 1 MG TAB PO SCH (12:06)
[2022-07-01 12:16] LABS: Glucose,Whole Blood 163 mg/dL (70-110)
[2022-07-01 16:50] LABS: Glucose,Whole Blood 356 mg/dL (70-110)
[2022-07-01 18:22] VITALS: BP 142/69
[2022-07-01 20:22] LABS: Glucose,Whole Blood 367 mg/dL (70-110)
[2022-07-01 21:46] VITALS: PULSE 82; RESP 19; TEMP 99.3
[2022-07-01] MEDS ORDERED: EPINEPHrine 10 ML SYRINGE (0.1 MG/ML) ONE (22:15)
[2022-07-01] MEDS ORDERED: SODIUM BICARB 8.4% 50 ML SYR (1 MEQ/ML) ONE (22:15)
[2022-07-01 22:20] LABS: Glucose,Whole Blood 244 mg/dL (70-110)
--- NOTE | 2022-07-01 23:07 | P.PN ---
Subjective Progress Note Date: 06/29/22 Principal diagnosis: Positive blood cultures COVID and UTI Patient is 81-year-old male with a past medical history significant for bladder cancer, presented to hospital with increasing weakness patient did have a positive UA/hematuria did have a fever and a positive blood culture also positive COVID testing. On today's evaluation that is 06/29/2022, the patient continues to be afebrile the patient is breathing comfortably currently on room air the patient remains to be pleasantly confused and did not provide any history , no vomiting no diarrhea was reported by the nursing staff Objective - Vital Signs Vital signs: Vital Signs Temp 97.9 F 06/29/22 00:00 Pulse 75 06/29/22 08:00 Resp 16 06/29/22 08:00 BP 173/74 06/29/22 08:00 Pulse Ox 94 L 06/29/22 08:00 FiO2 Intake & Output 06/28/22 06/29/22 06/29/22 18:59 06:59 18:59 Output Total 0 1400 Balance 0 -1400 Output: Urine 1400 Stool 0 Other: Voiding Method Indwelling Catheter Indwelling Catheter Indwelling Catheter - Exam GENERAL DESCRIPTION: Elderly male lying in bed, no distress. No tachypnea or accessory muscle of respiration use. LUNGS: Unlabored breathing. Decreased breath sound at the base HEART: S1, S2, regular rate and rhythm. No loud murmur ABDOMEN: Soft, no tenderness , guarding or rigidity, no organomegaly EXTREMITIES: No edema of feet. - Labs CBC & Chem 7: 06/30/22 07:38 06/30/22 07:38 Labs: Abnormal Lab Results - Last 24 Hours (Table) 06/28/22 06/29/22 06/29/22 Range/Units 16:47 10:05 10:05 RBC 3.75 L (4.30-5.90) m/uL Hgb 12.0 L (13.0-17.5) gm/dL Hct 37.4 L (39.0-53.0) % Lymphocytes # 0.7 L (1.0-4.8) k/uL Creatinine 0.65 L (0.66-1.25) mg/dL Glucose 109 H (74-99) mg/dL POC Glucose (mg/dL) 63 L (70-110) mg/dL Calcium 8.0 L (8.4-10.2) mg/dL 06/29/22 Range/Units 11:46 RBC (4.30-5.90) m/uL Hgb (13.0-17.5) gm/dL Hct (39.0-53.0) % Lymphocytes # (1.0-4.8) k/uL Creatinine (0.66-1.25) mg/dL Glucose (74-99) mg/dL POC Glucose (mg/dL) 134 H (70-110) mg/dL Calcium (8.4-10.2) mg/dL Microbiology - Last 24 Hours (Table) 06/25/22 08:40 Blood Culture Gram Stain - Final Blood Blood Culture - Final Staphylococcus epidermidis 06/26/22 10:47 Blood Culture - Preliminary Blood No Growth after 48 hours Assessment and Plan (1) Bacteremia Current Visit: Yes Status: Acute Code(s): R78.81 - BACTEREMIA SNOMED Code(s): 8870483 (2) UTI (urinary tract infection) Current Visit: Yes Status: Acute Code(s): N39.0 - URINARY TRACT INFECTION, SITE NOT SPECIFIED SNOMED Code(s): 20666386 (3) COVID Current Visit: Yes Status: Acute Code(s): U07.1 - COVID-19 SNOMED Code(s): 922261053 Plan: 1patient with a positive blood culture with staph epi likely skin contamination blood culture repeat has been negative and no need for vancomycin. 2UTI , the patient urine cultures are currently pending, patient to continue with the Rocephin 2 g daily. 3positive COVID test chest x-ray x2 were negative for any acute infiltrate patient respiratory status remains to be stable and will continue with current supportive treatment of zinc and ascorbic acid prednisone and monitor clinical course closely Time with Patient: Less than 30
--- NOTE | 2022-07-01 23:09 | P.PN ---
Subjective Progress Note Date: 06/30/22 Principal diagnosis: Positive blood cultures COVID and UTI Patient is 81-year-old male with a past medical history significant for bladder cancer, presented to hospital with increasing weakness patient did have a positive UA/hematuria did have a fever and a positive blood culture also positive COVID testing. On today's evaluation that is 06/30/2022, the patient remains to be afebrile the patient is breathing comfortably on room air the patient remains to be pleasantl y confused and did not provide any history , no vomiting no diarrhea or any other changes were reported by the nursing staff Objective - Vital Signs Vital signs: Vital Signs Temp 98.0 F 06/30/22 10:10 Pulse 65 06/30/22 12:00 Resp 18 06/30/22 12:00 BP 150/70 06/30/22 12:00 Pulse Ox 98 06/30/22 12:00 FiO2 Intake & Output 06/29/22 06/30/22 06/30/22 18:59 06:59 18:59 Intake Total 240 600 118 Output Total 800 500 400 Balance -560 100 -282 Weight 70.307 kg Intake: Intake, IV Titration 600 Amount 0.9% NaCl with KCl 20 Meq 600 /l 1,000 ml @ 75 mls/hr IV .[id number] [facility] Rx#: [id number] Oral 240 118 Output: Urine 800 500 400 Stool 0 0 Other: Voiding Method Indwelling Catheter Indwelling Catheter Indwelling Catheter - Exam GENERAL DESCRIPTION: Elderly male lying in bed, no distress. No tachypnea or accessory muscle of respiration use. LUNGS: Unlabored breathing. Decreased breath sound at the base HEART: S1, S2, regular rate and rhythm. No loud murmur ABDOMEN: Soft, no tenderness , guarding or rigidity, no organomegaly EXTREMITIES: No edema of feet. - Labs CBC & Chem 7: 06/30/22 07:38 06/30/22 07:38 Labs: Abnormal Lab Results - Last 24 Hours (Table) 06/29/22 06/30/22 06/30/22 Range/Units 20:24 06:19 07:38 RBC 3.68 L (4.30-5.90) m/uL Hgb 12.0 L (13.0-17.5) gm/dL Hct 36.7 L (39.0-53.0) % Glucose (74-99) mg/dL POC Glucose (mg/dL) 202 H 147 H (70-110) mg/dL Calcium (8.4-10.2) mg/dL 06/30/22 06/30/22 06/30/22 Range/Units 07:38 11:48 16:44 RBC (4.30-5.90) m/uL Hgb (13.0-17.5) gm/dL Hct (39.0-53.0) % Glucose 140 H (74-99) mg/dL POC Glucose (mg/dL) 177 H 261 H (70-110) mg/dL Calcium 8.3 L (8.4-10.2) mg/dL Microbiology - Last 24 Hours (Table) 06/26/22 10:47 Blood Culture - Preliminary Blood No Growth after 96 hours Assessment and Plan (1) Bacteremia Current Visit: Yes Status: Acute Code(s): R78.81 - BACTEREMIA SNOMED Code(s): 9540389 (2) UTI (urinary tract infection) Current Visit: Yes Status: Acute Code(s): N39.0 - URINARY TRACT INFECTION, SITE NOT SPECIFIED SNOMED Code(s): 30701329 (3) COVID Current Visit: Yes Status: Acute Code(s): U07.1 - COVID-19 SNOMED Code(s): 295445746 Plan: 1patient with a positive blood culture with staph epi likely skin contamination blood culture repeat has been negative and no need for vancomycin. 2patient did have a positive UA concerning for UTI however urine culture so far negative, patient to continue with the Rocephin 2 g daily. 3positive COVID test chest x-ray x2 were negative for any acute infiltrate patient respiratory status remains to be stable and will continue with current supportive treatment of zinc and ascorbic acid prednisone and continue with supportive care Time with Patient: Less than 30
--- NOTE | 2022-07-01 23:10 | P.PN ---
Subjective Progress Note Date: 07/01/22 Principal diagnosis: Positive blood cultures COVID and UTI Patient is 81-year-old male with a past medical history significant for bladder cancer, presented to hospital with increasing weakness patient did have a positive UA/hematuria did have a fever and a positive blood culture also positive COVID testing. On today's evaluation that is 07/01/2022, the patient continues to be afebrile the patient is breathing comfortably on room air the patient is more awake and alert today and did answer some simple questions but no specifically denies any chest pain shortness of breath or cough no abdominal pain no diarrhea Objective - Vital Signs Vital signs: Vital Signs Temp 97.6 F 07/01/22 11:47 Pulse 54 L 07/01/22 11:47 Resp 16 07/01/22 11:47 BP 137/60 07/01/22 11:47 Pulse Ox 96 07/01/22 11:47 FiO2 Intake & Output 06/30/22 07/01/22 07/01/22 18:59 06:59 18:59 Intake Total 118 Output Total 700 700 325 Balance -582 -700 -325 Intake: Oral 118 Output: Urine 700 700 325 Stool 0 Other: Voiding Method Indwelling Catheter Indwelling Catheter Indwelling Catheter - Exam GENERAL DESCRIPTION: Elderly male lying in bed, no distress. No tachypnea or accessory muscle of respiration use. LUNGS: Unlabored breathing. Decreased breath sound at the base HEART: S1, S2, regular rate and rhythm. No loud murmur ABDOMEN: Soft, no tenderness , guarding or rigidity, no organomegaly EXTREMITIES: No edema of feet. - Labs CBC & Chem 7: 06/30/22 07:38 06/30/22 07:38 Labs: Abnormal Lab Results - Last 24 Hours (Table) 06/30/22 06/30/22 07/01/22 Range/Units 16:44 20:21 11:43 POC Glucose (mg/dL) 261 H 150 H 163 H (70-110) mg/dL Microbiology - Last 24 Hours (Table) 06/26/22 10:47 Blood Culture - Preliminary Blood No Growth after 96 hours Assessment and Plan (1) Bacteremia Current Visit: Yes Status: Acute Code(s): R78.81 - BACTEREMIA SNOMED Code(s): 1138742 (2) UTI (urinary tract infection) Current Visit: Yes Status: Acute Code(s): N39.0 - URINARY TRACT INFECTION, SITE NOT SPECIFIED SNOMED Code(s): 32814603 (3) COVID Current Visit: Yes Status: Acute Code(s): U07.1 - COVID-19 SNOMED Code(s): 367807099 Plan: 1patient with a positive blood culture with staph epi likely skin contamination blood culture repeat has been negative and no need for vancomycin. 2patient did have a positive UA concerning for UTI however urine culture so far negative, has received adequate antibiotic therapy and we'll discontinue the Rocephin 3positive COVID test chest x-ray x2 were negative for any acute infiltrate patient respiratory status remains to be stable and will continue with current supportive treatment Time with Patient: Less than 30
--- NOTE | 2022-07-01 23:58 | P.EN ---
CODE BLUE note: Initial rhythm: Asystole Description of the code: I responded to overhead CODE BLUE Page at 10:15 PM, CPR was initiated and conducted as per ACLS protocol Total duration of CPR: 23 minutes Drugs: - Epinephrine 6 doses - Sodium bicarb for treatment of acidosis Intubation: Performed by anesthesia team Lines placed: Left peripheral IV line Results of code: at 10:38 PM Next of kin notified: Yes
--- NOTE | 2022-07-02 08:54 | PN ---
PROGRESS NOTE SUBJECTIVE: This is an 81-year-old gentleman who was admitted with change in mental status and acute delirium secondary to COVID-19 is being closely monitored. No chest pain, no palpitations. Sensorium is slightly improved. PHYSICAL EXAMINATION: VITAL SIGNS: Pulse is 54, blood pressure 130/60, and respirations 16. CHEST: Clear to auscultation. CARDIOVASCULAR: S1, S2 normal. ABDOMEN: Soft, nontender. NERVOUS SYSTEM: Diffusely weak. LABS: Reviewed. ASSESSMENT: 1. Change in mental status and acute delirium secondary to COVID-19. 2. Bladder tumor, hematuria, status post cystoscopy and resection. 3. Acute renal injury. 4. Multiple medical issues. RECOMMENDATIONS: Recommended to continue current medications, symptomatic treatment. Otherwise, may be transfer to med/surg, PT OT evaluation. Consider possible ECF rehab. Further recommendations to follow. EFRAÍN / VAUGHN: [id number] /
--- NOTE | 2022-07-03 08:40 | DS ---
DISCHARGE SUMMARY The primary cause of is probably acute coronary syndrome. Other diagnoses are: 1. Acute COVID-19 and change in mental status, and acute delirium related to COVID-19. 2. Bladder tumor with hematuria, status post hysteroscopic resection. 3. Acute renal injury. 4. Multiple medical issues. HOSPITAL COURSE: This is an 81-year-old gentleman with a past medical history of multiple problems, who was admitted with change in mental status and possibly secondary to COVID-19 infection. The patient also had a bladder tumor, which was also resected. The patient was seen by multiple consultants including Infectious Disease, Dr. Schwartz. The patient was monitored in telemetry for several days. The patient continues to be confused as mentioned earlier, but sensorium did improve, but however, after transfer to the MedSur unit, the patient suddenly collapsed and after CPR attempted, the patient succumbed to above mentioned illness. The COVID-19 preliminarily affected the brain as per the previous records. The lungs are rather relatively free from pneumonia or hypoxia during the hospitalization. autopsy not done. Prognosis remains extremely guarded throughout the hospital stay and please refer to the multiple consultations and progress notes for further details. MMODL / IJN: [id number] / [id number]
--- NOTE | 2022-07-03 09:21 | CDI ---
Documentation Clarification Form Date: 06/27/2022 02:17:00 PM From: Bessie Walker CCS, CCDS Admit Date: 06/24/2022 02:29:00 PM Patient Name: Kalen Weber Visit Number: [id number] Discharge Date: 07/01/2022 10:38:00 PM ATTENTION: The Clinical Documentation Specialists (CDI) and [facility] Coding Staff appreciate your assistance in clarifying documentation. Please respond to the clarification below the line at the bottom and electronically sign. The CDI & [facility] Coding staff will review the response and follow-up if needed. Please note: Queries are made part of the Legal Health Record. If you have any questions, please contact the author of this message via ITS. Dr. Jessica Romero: The patient presented with the following clinical indicators. Additional clarification regarding the etiology/cause of the clinical indicators is requested. 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 Admit with TIA, COVID Infection 06/24 Attending Progress Note: Acute delirium from COVID infection vs stroke with LUE weakness, Acute COVID infection with no Pneumonia. 06/26 Infectious Disease Consult: Positive Blood Culture with gram positive cocci in patient with history of bladder cancer with fever, elevated WBC possible related to his UTI. 06/21 VS: T 98.5, P 72, R 16, BP 130/69, PO 94 RA 06/21 LAB: WBC 8.5, Neut 7.1, Lymph 0.5; Hgb A1c 6.5. 06/21 Infl A/B: negative, RSV negative, COVID Positive. 06/21 CXR: No active cardiopulmonary disease. 06/21 CT Brain: Cerebral atrophy, Microvascular ischemia. 06/22 VS: T 100 (rectal), P 75, 59; R 18, 20; BP 131/66, 112/63; PO 100 RA, 95 2Lnc 06/22 UA: clear, 1+ protein, Moderate Blood, RBC 55, WBC 7 06/23 VS: T 98.4, P 60, R 16, BP 136/62, PO 94 2Lnc 06/24 VS: T 101.2, P 75, R 20, BP 160/84, PO 95 3Lnc 06/24 LAB: WBC 7.9, Neut 6.5, Lymph 0.7; D Dimer 0.75; Na 134, Glucose 141, 203; Hgb A1c 6.9, Calcium 8.1, CRP 10.9 06/25 Blood culture: Final: Negative 06/25 Blood culture: Preliminary: Staphylococcus epidermidis. 06/26 Urine culture: Final: Negative 06/26 Blood culture: Preliminary: No growth after 24 hrs Treatment 06/21: Neurology Consult (TIA), po Aspirin 325 mg x1, po Tylenol 650 mg q6H/prn, IV Na Chl 1,000 mls @ 20 mls/hr q24H. Admit to Observation Status. 06/22: Nitro sl 0.4 mg q5M/prn, po Pepcid, Requip, Lipitor, Plavix, Synthroid, Singulair, Flomax. 06/23: Lovenox 40 mg sq Daily, IM Vit B12 Daily, po Seroquel, po Lopressor 06/24 Inpatient Admission: po Vit C, po Vit D3, po Orazinc, IV Ativan 0.5 mg x2, IV Ativan 0.25 mg x1, po Prednisone, IM Haldol 2 mg x1. 06/25 IV Vancomycin 250 mls @ 125 mls/hr x1, IV Rocephin 50 mls @ 100 mls/hr q24H, IV Ativan 0.25 mg q8H/prn In your professional opinion, please clarify if these findings signify one of the following conditions: [ ] Sepsis POA [ ] Sepsis, Not POA [ ] Severe Sepsis with organ failure [ ] Other, please specify [ ] Unable to determine (Template Last Reviewed: November 2020) no sepsis MTDD
== END 2022-07-01 22:38 | disposition expired | DRG 987 ==
LOC: EC 19:16 → 6NMEDSUR 22:18 → 3SCARD 06-22 07:15 → OBSVTOIN 06-24 14:29 → 4SSUR 07-01 17:59
PROVIDERS: ADMIT Hospitalist; ATTEND Hospitalist
PROC: 0TCB8ZZ Extirpation of Matter from Bladder, Via Natural or Artificial Opening Endoscopic (ICD-10-PCS; principal; 2022-06-25 12:05)
PROC: 0TBC8ZX Excision of Bladder Neck, Via Natural or Artificial Opening Endoscopic, Diagnostic (ICD-10-PCS; principal; 2022-06-25 12:05)
PROC: 3E033XZ Introduction of Vasopressor into Peripheral Vein, Percutaneous Approach (ICD-10-PCS; 2022-07-01)
PROC: 5A12012 Performance of Cardiac Output, Single, Manual (ICD-10-PCS; 2022-07-01)
PROC: 0BH17EZ Insertion of Endotracheal Airway into Trachea, Via Natural or Artificial Opening (ICD-10-PCS; 2022-07-01)
DX: U07.1 COVID-19 (principal); G93.41 Metabolic encephalopathy; F05 Delirium due to known physiological condition; I69.351 Hemiplegia and hemiparesis following cerebral infarction affecting right dominant side; N17.9 Acute kidney failure, unspecified; I24.9 Acute ischemic heart disease, unspecified; N13.8 Other obstructive and reflux uropathy; I46.9 Cardiac arrest, cause unspecified; R31.0 Gross hematuria; N40.1 Benign prostatic hyperplasia with lower urinary tract symptoms; R33.8 Other retention of urine; G25.3 Myoclonus; E03.9 Hypothyroidism, unspecified; I10 Essential (primary) hypertension; I25.10 Atherosclerotic heart disease of native coronary artery without angina pectoris; E78.5 Hyperlipidemia, unspecified; E11.9 Type 2 diabetes mellitus without complications; J45.909 Unspecified asthma, uncomplicated; M20.41 Other hammer toe(s) (acquired), right foot; C67.5 Malignant neoplasm of bladder neck; I49.3 Ventricular premature depolarization; R47.1 Dysarthria and anarthria; N13.9 Obstructive and reflux uropathy, unspecified; I25.2 Old myocardial infarction; Z99.81 Dependence on supplemental oxygen; Z96.653 Presence of artificial knee joint, bilateral; Z96.611 Presence of right artificial shoulder joint; Z87.891 Personal history of nicotine dependence; Z85.850 Personal history of malignant neoplasm of thyroid; Z79.890 Hormone replacement therapy; Z95.1 Presence of aortocoronary bypass graft; Z95.5 Presence of coronary angioplasty implant and graft; Z79.899 Other long term (current) drug therapy; Z79.84 Long term (current) use of oral hypoglycemic drugs; Z79.02 Long term (current) use of antithrombotics/antiplatelets; Z79.01 Long term (current) use of anticoagulants; Z87.01 Personal history of pneumonia (recurrent); Z91.81 History of falling; Z82.49 Family history of ischemic heart disease and other diseases of the circulatory system
CPT/HCPCS: 36415; 70450; 70551; 71045; 74176; 80048; 80053; 80061; 81001; 82607; 82746; 83036; 83605; 83615; 83721; 83735; 84145; 84443; 84484; 85025; 85027; 85379; 85610; 85730; 86140; 87040; 87077; 87086; 87186; 87636; 88307; 93005; 94640; 94760; 95816; 96360; 96361; 99285